=== PATIENT | male | born 1965 | race Caucasian/White ===

== ENCOUNTER 2018-09-16 18:14 | Emergency (ER) | payer MEDICAID, OTHER ==
--- NOTE | 2018-09-16 19:09 | EDM.PDOC ---
ED HPI GENERAL MEDICAL PROBLEM - General Chief Complaint: Lower Extremity Injury/Pain Stated Complaint: UNKNOWN Time Seen by Provider: 09/16/18 18:20 - History of Present Illness INITIAL COMMENTS - FREE TEXT/NARRATIVE: HISTORY AND PHYSICAL: History of present illness: Patient's a 53-year-old white male who presents with concern having "tweaked his knee" he had similar episode in the past and was treated with a short course of steroids and was told was bursitis he is requesting the same he does agree to an x-ray. He is currently on Naprosyn he denies any other trauma or concern Review of systems: As per history of present illness and below otherwise all systems reviewed and negative. Past medical history: As per history of present illness and as reviewed below otherwise noncontributory. Surgical history: As per history of present illness and as reviewed below otherwise noncontributory. Social history: No reported history of drug or alcohol abuse. Family history: As per history of present illness and as reviewed below otherwise noncontributory. Physical exam: HEENT: Atraumatic, normocephalic, pupils reactive, negative for conjunctival pallor or scleral icterus, mucous membranes moist, throat clear, neck supple, nontender, trachea midline. Lungs: Clear to auscultation, breath sounds equal bilaterally, chest nontender. Heart: S1S2, regular, negative for clicks, rubs, or JVD. Abdomen: Soft, nondistended, nontender. Negative for masses or hepatosplenomegaly. Negative for costovertebral tenderness. Pelvis: Stable nontender. Genitourinary: Deferred. Rectal: Deferred. Extremities: Patient is a mild tenderness and small swelling of his right knee joint is grossly stable C muscle neurovascular exam is unremarkable Neuro: Awake, alert, oriented. Cranial nerves II through XII unremarkable. Cerebellum unremarkable. Motor and sensory unremarkable throughout. Exam nonfocal. Diagnostics: X-ray right knee Therapeutics: John wrap Impression: #1 right knee pain/injury Definitive disposition and diagnosis as appropriate pending reevaluation and review of above. Right Knee Pain Score (Numeric/FACES): 10 - Related Data Allergies Allergy/AdvReac Type Severity Reaction Status Date / Time Penicillins Allergy Anaphylactic Verified 09/16/18 18:32 Shock Home Meds: Home Meds Dulaglutide [Trulicity] 1.5 mg SQ ASDIRECTED 02/16/18 [History] Naproxen 500 mg PO DAILY 02/16/18 [History] atorvaSTATin Calcium [Atorvastatin Calcium] 40 mg PO DAILY 02/16/18 [History] metFORMIN HCl [Metformin HCl] 1,000 mg PO BID 02/16/18 [History] Aspirin [Low Dose Aspirin EC] 81 mg PO DAILY 09/16/18 [History] Glimepiride [Amaryl] 2 mg PO DAILY 09/16/18 [History] Losartan Potassium 50 mg PO DAILY 09/16/18 [History] Terbinafine HCl [Lamisil] 250 mg PO DAILY 09/16/18 [History] Past Medical History HEENT History: Reports: Impaired Vision, Other (See Below) Other HEENT History: wears Cardiovascular History: Reports: None Respiratory History: Reports: None Gastrointestinal History: Reports: None Genitourinary History: Reports: None Musculoskeletal History: Reports: None Neurological History: Reports: None Psychiatric History: Reports: None Endocrine/Metabolic History: Reports: None Hematologic History: Reports: None Immunologic History: Reports: None Oncologic (Cancer) History: Reports: None Dermatologic History: Reports: None - Past Surgical History Head Surgeries/Procedures: Reports: None HEENT Surgical History: Reports: None Cardiovascular Surgical History: Reports: None Respiratory Surgical History: Reports: None GI Surgical History: Reports: None Male Surgical History: Reports: None Endocrine Surgical History: Reports: None Neurological Surgical History: Reports: None Musculoskeletal Surgical History: Reports: Other (See Below) Other Musculoskeletal Surgeries/Procedures:: Rotator cuff surgery, knee surgery Oncologic Surgical History: Reports: None Dermatological Surgical History: Reports: None Social & Family History - Family History Family Medical History: Noncontributory - Tobacco Use Smoking Status *Q: Never Smoker - Caffeine Use Caffeine Use: Reports: None - Recreational Drug Use Recreational Drug Use: No Review of Systems - Review of Systems Review Of Systems: ROS reveals no pertinent complaints other than HPI. ED EXAM, GENERAL - Physical Exam Exam: See Below (See dictation) Course - Vital Signs Last Recorded V/S: Last Vital Signs Temp Pulse 78 09/16/18 18:29 Resp 18 09/16/18 18:29 BP 145/77 H 09/16/18 18:29 Pulse Ox 90 L 09/16/18 18:29 - Orders/Labs/Meds Orders: Active Orders 24 hr Category Date Time Status Knee 3V Rt [CR] Stat Exams 09/16/18 19:06 Ordered Departure - Departure Time of Disposition: 19:08 Disposition: Home, Self-Care 01 Condition: Good Clinical Impression: Knee injury - Discharge Information Additional Instructions: The following information is given to patients seen in the emergency department who are being discharged to home. This information is to outline your options for follow-up care. We provide all patients seen in our emergency department with a follow-up referral. The need for follow-up, as well as the timing and circumstances, are variable depending upon the specifics of your emergency department visit. If you don't have a primary care physician on staff, we will provide you with a referral. We always advise you to contact your personal physician following an emergency department visit to inform them of the circumstance of the visit and for follow-up with them and/or the need for any referrals to a consulting specialist. The emergency department will also refer you to a specialist when appropriate. This referral assures that you have the opportunity for followup care with a specialist. All of these measure are taken in an effort to provide you with optimal care, which includes your followup. Under all circumstances we always encourage you to contact your private physician who remains a resource for coordinating your care. When calling for followup care, please make the office aware that this follow-up is from your recent emergency room visit. If for any reason you are refused follow-up, please contact the [facility] emergency department at and asked to speak to the emergency department charge nurse. [facility] - Orthopedic [facility] Professional [address], [address] [place] [address] Continue current medications Medrol as prescribed follow-up orthopedic clinic above call to schedule appointment return as needed as discussed - My Orders Last 24 Hours: My Active Orders 09/16/18 19:06 Knee 3V Rt [CR] Stat - Assessment/Plan Last 24 Hours: My Active Orders 09/16/18 19:06 Knee 3V Rt [CR] Stat
--- NOTE | 2018-09-16 20:03 | CR ---
INDICATION: right knee pain TECHNIQUE: X-ray right knee, two views COMPARISON: None available FINDINGS: The alignment is normal. There are early tricompartmental degenerative changes including minimal joint space narrowing and marginal osteophytes. There is a moderate knee joint effusion. Negative for acute fracture or dislocation. No radiopaque foreign body is seen. IMPRESSION: 1. Moderate knee joint effusion. Negative for acute fracture or dislocation. 2. Early degenerative changes of the knee. Dictated by Mary Damon MD @ 09/16/2018 8:01:05 PM Dictated by: Mary Damon MD @ 09/16/2018 20:01:23 (Electronically Signed)
== END 2018-09-16 19:59 | disposition home or self-care (01) ==
LOC: MW.ED 18:14
DX: S89.91XA Unspecified injury of right lower leg, initial encounter (principal); Z88.0 Allergy status to penicillin; Z79.899 Other long term (current) drug therapy; Z79.82 Long term (current) use of aspirin; X50.9XXA Other and unspecified overexertion or strenuous movements or postures, initial encounter
CPT/HCPCS: 73562-26-RT; 73562-RT; 99283; 99283-25

== ENCOUNTER 2018-11-17 03:01 | Emergency (ER) | payer MEDICAID ==
--- NOTE | 2018-11-17 03:38 | EDM.PDOC ---
ED HPI GENERAL MEDICAL PROBLEM - General Chief Complaint: Upper Extremity Injury/Pain Stated Complaint: POSSIBLE TEAR OF RIGHT SHOULDER/TRICEP AREA Time Seen by Provider: 11/17/18 03:13 - History of Present Illness INITIAL COMMENTS - FREE TEXT/NARRATIVE: HISTORY AND PHYSICAL: History of present illness: The patient is a 53-year-old male with a history of hypertension and diabetes who presents with complaints of right biceps pain that started on Tuesday, approximately 36 hours ago. The patient recalls a time several months ago when he was getting into a vehicle and his footing slipped and he lost his balance and he grabbed onto a real and holding arm and there was some discomfort but not that severe and it seemed to go away. On Tuesday he bent over to pick remover a box and felt sudden pain in his right bicep muscle area. He says that he has been using Naprosyn and icy hot and is still having discomfort and it is more when he tries to flex at his elbow. He has no bony pain or tenderness no neurosensory changes and no other injuries. Patient denies any pain proximally near his shoulder and says all of the pain is in the soft tissue and muscle just above his elbow. Review of systems: As per history of present illness and below otherwise all systems reviewed and negative. Past medical history: As per history of present illness and as reviewed below otherwise noncontributory. Surgical history: As per history of present illness and as reviewed below otherwise noncontributory. Social history: No reported history of drug or alcohol abuse. Family history: As per history of present illness and as reviewed below otherwise noncontributory. Physical exam: General: Well-developed well-nourished man who is nontoxic and vital signs were noted by me HEENT: Atraumatic, normocephalic, negative for conjunctival pallor or scleral icterus, mucous membranes moist, throat clear, neck supple, nontender, trachea midline. Lungs: Clear to auscultation, breath sounds equal bilaterally, chest nontender. Heart: S1S2, regular rate and rhythm no overt murmurs Abdomen: Soft, nondistended, nontender. Pelvis: Deferred Genitourinary: Deferred. Rectal: Deferred. Extremities: Atraumatic, full range of motion of all extremities. More specifically of the right upper extremity there is no bony defects or deformities of the clavicle humerus elbow forearm wrist or hand and there is no tenderness at the proximal shoulder area deltoid area for biceps insertion proximally. The patient has no triceps deficit or tenderness nor any defects deficits in the wrist and hand motion. When the patient flexes at the biceps could see a bawling out of the muscle distally just above the antecubital area and this is where the patient says she is most tender and it is tender with palpation. I'm able to appreciate one of the distal heads of the biceps but not the lateral. There is no ecchymosis or soft tissue swelling in the compartment is soft. Neurovascular unremarkable. Neuro: Awake, alert, oriented. Cranial nerves II through XII unremarkable. Cerebellum unremarkable. Motor and sensory unremarkable throughout. Exam nonfocal. Diagnostics: [] Therapeutics: Sling 0337: Case was discussed with our orthopedic surgeon sewing techniques demonstrator Dr. Almonte. He would like the patient to call the clinic in the morning and follow-up with the nurse practitioner for further evaluation and possible MRI. He advised symptomatic care with pain management ice and elevation. Impression: Right biceps injury Definitive disposition and diagnosis as appropriate pending reevaluation and review of above. right arm Pain Score (Numeric/FACES): 10 - Related Data Allergies Allergy/AdvReac Type Severity Reaction Status Date / Time Penicillins Allergy Anaphylactic Verified 11/17/18 03:06 Shock Home Meds: Home Meds Dulaglutide [Trulicity] 1.5 mg SQ ASDIRECTED 02/16/18 [History] Naproxen 500 mg PO DAILY 02/16/18 [History] atorvaSTATin Calcium [Atorvastatin Calcium] 40 mg PO DAILY 02/16/18 [History] metFORMIN HCl [Metformin HCl] 1,000 mg PO BID 02/16/18 [History] Aspirin [Low Dose Aspirin EC] 81 mg PO DAILY 09/16/18 [History] Glimepiride [Amaryl] 2 mg PO DAILY 09/16/18 [History] Losartan Potassium 50 mg PO DAILY 09/16/18 [History] Terbinafine HCl [Lamisil] 250 mg PO DAILY 09/16/18 [History] Past Medical History HEENT History: Reports: Impaired Vision, Other (See Below) Other HEENT History: wears glasses Cardiovascular History: Reports: Hypertension, [place] Respiratory History: Reports: None Gastrointestinal History: Reports: None Genitourinary History: Reports: None Musculoskeletal History: Reports: None Neurological History: Reports: None Psychiatric History: Reports: None Endocrine/Metabolic History: Reports: Diabetes, Type II, Obesity/BMI 30+ Hematologic History: Reports: None Immunologic History: Reports: None Oncologic (Cancer) History: Reports: None Dermatologic History: Reports: None - Past Surgical History Head Surgeries/Procedures: Reports: None HEENT Surgical History: Reports: None Cardiovascular Surgical History: Reports: None Respiratory Surgical History: Reports: None GI Surgical History: Reports: None Male Surgical History: Reports: None Endocrine Surgical History: Reports: None Neurological Surgical History: Reports: None Musculoskeletal Surgical History: Reports: Other (See Below) Other Musculoskeletal Surgeries/Procedures:: Rotator cuff surgery, knee surgery Oncologic Surgical History: Reports: None Dermatological Surgical History: Reports: None Social & Family History - Family History Family Medical History: Noncontributory - Tobacco Use Smoking Status *Q: Never Smoker - Caffeine Use Caffeine Use: Reports: None - Recreational Drug Use Recreational Drug Use: No Review of Systems - Review of Systems Review Of Systems: ROS reveals no pertinent complaints other than HPI. ED EXAM, GENERAL - Physical Exam Exam: See Below (See dictation) Course - Vital Signs Last Recorded V/S: Last Vital Signs Temp 35.8 C 11/17/18 03:03 Pulse 78 11/17/18 03:03 Resp 18 11/17/18 03:03 BP 162/89 H 11/17/18 03:03 Pulse Ox 90 L 11/17/18 03:03 - Orders/Labs/Meds Orders: Active Orders 24 hr Category Date Time Status DME for Discharge [COMM] Stat Oth 11/17/18 03:34 Ordered Departure - Departure Time of Disposition: 03:47 Disposition: Home, Self-Care 01 Condition: Good Clinical Impression: Biceps muscle tear Qualifiers: Encounter type: initial encounter Laterality: right Qualified Code(s): S46.211A - Strain of muscle, fascia and tendon of other parts of biceps, right arm, initial encounter - Discharge Information Referrals: PCP,None [Primary Care Provider] - Forms: ED Department Discharge Additional Instructions: The following information is given to patients seen in the emergency department who are being discharged to home. This information is to outline your options for follow-up care. We provide all patients seen in our emergency department with a follow-up referral. The need for follow-up, as well as the timing and circumstances, are variable depending upon the specifics of your emergency department visit. If you don't have a primary care physician on staff, we will provide you with a referral. We always advise you to contact your personal physician following an emergency department visit to inform them of the circumstance of the visit and for follow-up with them and/or the need for any referrals to a consulting specialist. The emergency department will also refer you to a specialist when appropriate. This referral assures that you have the opportunity for followup care with a specialist. All of these measure are taken in an effort to provide you with optimal care, which includes your followup. Under all circumstances we always encourage you to contact your private physician who remains a resource for coordinating your care. When calling for followup care, please make the office aware that this follow-up is from your recent emergency room visit. If for any reason you are refused follow-up, please contact the [facility] emergency department at and ask to speak to the emergency department charge nurse. [facility] Specialty Care - Orthopedic Clinic Professional [address], [address] [place] [address] Please call the clinic in the morning and connect with the nurse practitioner for the orthopedics clinic to follow-up and get reevaluation and possible MRI of this area for further care and intervention. Ice the area and use sling removing and gently ranging motion of the arm both passively and actively. Use [id number] pain meds as you choose and at the tramadol/Ultram you have been given from [facility] but only take this at home. Return to ER as needed and as discussed - My Orders Last 24 Hours: My Active Orders 11/17/18 03:34 DME for Discharge [COMM] Stat - Assessment/Plan Last 24 Hours: My Active Orders 11/17/18 03:34 DME for Discharge [COMM] Stat
== END 2018-11-17 04:15 | disposition home or self-care (01) ==
LOC: MW.ED 03:01
DX: S46.211A Strain of muscle, fascia and tendon of other parts of biceps, right arm, initial encounter (principal); E11.9 Type 2 diabetes mellitus without complications; I10 Essential (primary) hypertension; I25.2 Old myocardial infarction; E66.9 Obesity, unspecified; Z88.0 Allergy status to penicillin; Z68.43 Body mass index [BMI] 50.0-59.9, adult; Z79.82 Long term (current) use of aspirin; Z79.899 Other long term (current) drug therapy; Z79.84 Long term (current) use of oral hypoglycemic drugs; W18.40XA Slipping, tripping and stumbling without falling, unspecified, initial encounter; Y93.89 Activity, other specified
CPT/HCPCS: 99283

== ENCOUNTER 2019-02-02 08:17 | Emergency (ER) | payer MEDICAID, OTHER ==
--- NOTE | 2019-02-02 08:40 | EDM.PDOC ---
ED HPI GENERAL MEDICAL PROBLEM - General Chief Complaint: Lower Extremity Injury/Pain Stated Complaint: KNEE PAIN Time Seen by Provider: 02/02/19 08:30 Source of Information: Reports: Patient History Limitations: Reports: No Limitations - History of Present Illness INITIAL COMMENTS - FREE TEXT/NARRATIVE: This 53 year old male presents to the ED with a chief complaint of right knee pain for several years. He states that he has had 3 right knee surgeries. His last knee surgery was done in [place], [place] in May,. Onset: Gradual (3-4 weeks but is getting somewhat worse.) Onset Date: 01/03/19 Onset Time: 04:20 Duration: Chronic, Intermittent Location: Reports: Lower Extremity, Right Quality: Reports: Same as Previous Episode (but somewhat more sharp with pain along the medial aspects.) Severity: Moderate Improves with: Reports: Immobilization, Rest Worsens with: Reports: Movement Context: Reports: Activity (makes it worse) Associated Symptoms: Reports: No Other Symptoms Treatments SKIRT MAKER: Reports: NSAIDS (helps sometimes but not now.) Lower Knee Pain Score (Numeric/FACES): 7 Right Knee Pain Score (Numeric/FACES): 10 - Related Data Allergies Allergy/AdvReac Type Severity Reaction Status Date / Time Penicillins Allergy Anaphylactic Verified 02/02/19 08:36 Shock Home Meds: Home Meds Dulaglutide [Trulicity] 1.5 mg SQ ASDIRECTED 02/16/18 [History] Naproxen 500 mg PO DAILY 02/16/18 [History] atorvaSTATin Calcium [Atorvastatin Calcium] 40 mg PO DAILY 02/16/18 [History] metFORMIN HCl [Metformin HCl] 1,000 mg PO BID 02/16/18 [History] Aspirin [Low Dose Aspirin EC] 81 mg PO DAILY 09/16/18 [History] Glimepiride [Amaryl] 2 mg PO DAILY 09/16/18 [History] Losartan Potassium 50 mg PO DAILY 09/16/18 [History] Terbinafine HCl [Lamisil] 250 mg PO DAILY 09/16/18 [History] Hydrocodone/Acetaminophen [Richgrove 5-325 Tablet] 1 each PO Q6HR #15 tablet [Rx] Past Medical History HEENT History: Reports: Impaired Vision, Other (See Below) Other HEENT History: wears glasses Cardiovascular History: Reports: Hypertension, [place] Respiratory History: Reports: None Gastrointestinal History: Reports: None Genitourinary History: Reports: None Musculoskeletal History: Reports: None Neurological History: Reports: None Psychiatric History: Reports: None Endocrine/Metabolic History: Reports: Diabetes, Type II, Obesity/BMI 30+ Hematologic History: Reports: None Immunologic History: Reports: None Oncologic (Cancer) History: Reports: None Dermatologic History: Reports: None - Past Surgical History Head Surgeries/Procedures: Reports: None HEENT Surgical History: Reports: None Cardiovascular Surgical History: Reports: None Respiratory Surgical History: Reports: None GI Surgical History: Reports: None Male Surgical History: Reports: None Endocrine Surgical History: Reports: None Neurological Surgical History: Reports: None Musculoskeletal Surgical History: Reports: Other (See Below) Other Musculoskeletal Surgeries/Procedures:: Rotator cuff surgery, knee surgery Oncologic Surgical History: Reports: None Dermatological Surgical History: Reports: None Social & Family History - Family History Family Medical History: Noncontributory - Caffeine Use Caffeine Use: Reports: None Review of Systems - Review of Systems Review Of Systems: Comprehensive ROS is negative, except as noted in HPI. Constitutional: Reports: No Symptoms Eyes: Reports: No Symptoms Ears: Reports: No Symptoms Nose: Reports: No Symptoms Mouth/Throat: Reports: No Symptoms Respiratory: Reports: No Symptoms Cardiovascular: Reports: No Symptoms GI/Abdominal: Reports: No Symptoms (except for morbid obesity) Genitourinary: Reports: No Symptoms Musculoskeletal: Reports: Joint Pain (right knee pain with swelling. History of chronic right knee issues.) Skin: Reports: No Symptoms Neurological: Reports: No Symptoms Psychiatric: Reports: No Symptoms ED EXAM, GENERAL - Physical Exam Exam: See Below Exam Limited By: No Limitations General Appearance: Alert, WD/WN, No Apparent Distress Eye Exam: Bilateral Eye: Normal Fundi, Normal Inspection Ears: Normal External Exam, Normal Canal, Hearing Grossly Normal, Normal TMs Ear Exam: Bilateral Ear: Auricle Normal, Canal Normal, TM normal Nose: Normal Inspection, Normal Mucosa, No Blood Throat/Mouth: Normal Inspection, Normal Lips, Normal Teeth, Normal Gums, Normal Oropharynx, Normal Voice, No Airway Compromise Head: Atraumatic, Normocephalic Neck: Normal Inspection, Supple, Non-Tender, Full Range of Motion Respiratory/Chest: No Respiratory Distress, Lungs Clear, Normal Breath Sounds, No Accessory Muscle Use, Chest Non-Tender Cardiovascular: Normal Peripheral Pulses, Regular Rate, Rhythm, No Edema, No Gallop, Systolic Murmur (grade 2/6 best heard at the apex) Peripheral Pulses: 1+: Popliteal (L), Popliteal (R), Posterior Tibial (L), 2+: Brachial (L), Brachial (R), Radial (R), Posterior Tibial (R), 3+: Carotid (L), Carotid (R), Radial (L), Femoral (L), Femoral (R) GI/Abdominal: Normal Bowel Sounds, Soft, Non-Tender, No Organomegaly, No Distention, Other (morbid obesity) Back Exam: Normal Inspection, Full Range of Motion, NT Extremities: Joint Swelling (Right knee is swollen with tenderness along the medial aspects of the right knee.), Limited Range of Motion (Right knee in all planes.). No: Increased Warmth, Pallor, Redness Neurological: Alert, Oriented, CN II-XII Intact, Normal Cognition, Normal Gait, Normal Reflexes, No Motor/Sensory Deficits Psychiatric: Normal Affect, Normal Mood Skin Exam: Warm, Dry, Intact, Normal Color, No Rash Lymphatic: No Adenopathy Course - Vital Signs Last Recorded V/S: Last Vital Signs Temp 96.2 F 02/02/19 08:33 Pulse 88 02/02/19 08:33 Resp 18 02/02/19 08:33 BP 192/106 H 02/02/19 08:33 Pulse Ox 96 02/02/19 08:33 - Orders/Labs/Meds Meds: Medications Discontinued Medications Generic Name Dose Route Start Last Admin Trade Name Curtq PRN Reason Stop Dose Admin Hydrocodone Bitart/Acetaminophen 1 tab 02/02/19 09:13 02/02/19 09:26 Richgrove 325-5 Mg PO 02/02/19 09:14 1 tab ONETIME ONE Administration Departure - Departure Time of Disposition: 09:53 Disposition: Home, Self-Care 01 Condition: Good Clinical Impression: Chronic knee pain Qualifiers: Laterality: right Qualified Code(s): M25.561 - Pain in right knee - Discharge Information *PRESCRIPTION DRUG MONITORING PROGRAM REVIEWED*: Yes *COPY OF PRESCRIPTION DRUG MONITORING REPORT IN PATIENT CECILIA: Yes Prescriptions: Hydrocodone/Acetaminophen [Richgrove 5-325 Tablet] 1 each PO Q6HR #15 tablet Instructions: Knee Pain, Adult, Pain Medicine Instructions, [id number] Referrals: Gabriela Taylor NP [Primary Care Provider] - Forms: ED Department Discharge Additional Instructions: Take all medications as directed. Only take Richgrove for severe pain. Take your OTC medications for mild to moderate pain. Heat and elevation for the next two to three days. Follow up with your local Ortho in the next week. Return to the ED if your condition gets worse. Sepsis Event Note - Focused Exam Vital Signs: Vital Signs Temp Pulse Resp BP Pulse Ox 02/02/19 08:33 96.2 F 88 18 192/106 H 96 Date Exam was Performed: 02/02/19 Time Exam was Performed: 10:07
[2019-02-02] MEDS ORDERED: Acetaminophen/HYDROcodone 325-5 MG Tab PO ONE (09:13)
--- NOTE | 2019-02-02 09:34 | CR ---
Indication: Knee pain. Technique: Right knee 3 views Comparison: Right knee radiograph 09/16/2018. Findings: No acute fracture or dislocation. Mild medial compartment narrowing. Mild tricompartmental spurring. Small knee joint effusion. Soft tissues are unremarkable. Impression: 1. No acute findings. 2. Mild degenerative changes of the knee. 3. Small knee joint effusion. Dictated by Renetta Barksdale MD @ Feb 02 2019 9:28AM Signed by Dr. Renetta Barksdale @ Feb 02 2019 9:33AM
== END 2019-02-02 10:28 | disposition home or self-care (01) ==
LOC: MW.ED 08:17
DX: M25.561 Pain in right knee (principal); I10 Essential (primary) hypertension; E11.9 Type 2 diabetes mellitus without complications; I25.2 Old myocardial infarction; Z88.0 Allergy status to penicillin; Z79.899 Other long term (current) drug therapy; Z79.82 Long term (current) use of aspirin
CPT/HCPCS: 73562; 99283; A9270

== ENCOUNTER 2019-04-27 19:23 | Emergency (ER) | payer MEDICAID, OTHER ==
--- NOTE | 2019-04-27 22:28 | EDM.PDOC ---
ED HPI GENERAL MEDICAL PROBLEM - General Chief Complaint: Lower Extremity Injury/Pain Stated Complaint: LEFT LEG PAIN Time Seen by Provider: 04/27/19 19:45 Source of Information: Reports: Patient History Limitations: Reports: No Limitations - History of Present Illness INITIAL COMMENTS - FREE TEXT/NARRATIVE: Presents with 5 or 6 days of increasing left lower extremity swelling and some occasional aching pain, mild the pain does not seem to be behind the leg in the calf. His chief concern is just the swelling. He is due for a right knee replacement soon so has been favoring his left leg. He suspects this is part of the problem. Is also some redness. He denies any shortness of breath fever , chills, nausea, vomiting, chest pain, shortness of breath, history of DVT or PE. Patient does not take Lasix. No history of kidney disease. L leg Pain Score (Numeric/FACES): 4 - Related Data Allergies Allergy/AdvReac Type Severity Reaction Status Date / Time Penicillins Allergy Anaphylactic Verified 02/02/19 08:36 Shock Home Meds: Home Meds Dulaglutide [Trulicity] 1.5 mg SQ ASDIRECTED 02/16/18 [History] Naproxen 500 mg PO DAILY 02/16/18 [History] atorvaSTATin Calcium [Atorvastatin Calcium] 40 mg PO DAILY 02/16/18 [History] metFORMIN HCl [Metformin HCl] 1,000 mg PO BID 02/16/18 [History] Aspirin [Low Dose Aspirin EC] 81 mg PO DAILY 09/16/18 [History] Glimepiride [Amaryl] 2 mg PO DAILY 09/16/18 [History] Losartan Potassium 50 mg PO DAILY 09/16/18 [History] Doxycycline Monohydrate 100 mg PO BID 7 Days #14 capsule 04/28/19 [Rx] Past Medical History HEENT History: Reports: Impaired Vision, Other (See Below) Other HEENT History: wears glasses Cardiovascular History: Reports: Hypertension, [place] Respiratory History: Reports: None Gastrointestinal History: Reports: None Genitourinary History: Reports: None Musculoskeletal History: Reports: None Neurological History: Reports: None Psychiatric History: Reports: None Endocrine/Metabolic History: Reports: Diabetes, Type II, Obesity/BMI 30+ Hematologic History: Reports: None Immunologic History: Reports: None Oncologic (Cancer) History: Reports: None Dermatologic History: Reports: None - Infectious Disease History Infectious Disease History: Reports: Chicken Pox, Measles, Shingles - Past Surgical History Head Surgeries/Procedures: Reports: None HEENT Surgical History: Reports: None Cardiovascular Surgical History: Reports: None Respiratory Surgical History: Reports: None GI Surgical History: Reports: None Male Surgical History: Reports: None Endocrine Surgical History: Reports: None Neurological Surgical History: Reports: None Musculoskeletal Surgical History: Reports: Other (See Below) Other Musculoskeletal Surgeries/Procedures:: Rotator cuff surgery, knee surgery Oncologic Surgical History: Reports: None Dermatological Surgical History: Reports: None Social & Family History - Family History Family Medical History: Noncontributory - Tobacco Use Smoking Status *Q: Never Smoker - Caffeine Use Caffeine Use: Reports: None - Recreational Drug Use Recreational Drug Use: No Review of Systems - Review of Systems Review Of Systems: Comprehensive ROS is negative, except as noted in HPI. ED EXAM, GENERAL - Physical Exam Exam: See Below Free Text/Narrative:: General: No acute distress. Comfortable. Heent: Examination revealed no pallor, no icterus, no lymphadenopathy. The patient has normal posterior pharynx, moist mucous membranes. Neck: Supple. No JVD. No rigidity. Heart: Normal rate. Reg rhythm. No murmurs appreciated. Lungs: Bilaterally clear to auscultation. No focal findings. Abdomen: Nontender, non-distended, soft, no CVA tenderness. Neuro: Pt is moving all four extremities. EOMI. PERRL. Normal speech. Skin: Exposed areas appeared normally perfused, warm, normal color with no meaningful rashes or lesions. Extremities: Left lower extremity is fullness below the knee. There is some tense skin. Mild erythema. Small abrasion medial component. Excellent distal pulses. Excellent range of motion. No tense compartments. Overall somewhat tense. Exam Limited By: No Limitations Course - Vital Signs Text/Narrative:: No evidence of DVT. Possible very early cellulitis. Home with several days of Keflex. Follow-up primary care return with any worsening. Last Recorded V/S: Last Vital Signs Temp 96.9 F 04/28/19 00:25 Pulse 102 H 04/28/19 00:25 Resp 19 04/28/19 00:25 BP 144/81 H 04/28/19 00:25 Pulse Ox 94 L 04/28/19 00:25 - Orders/Labs/Meds Meds: Medications Discontinued Medications Generic Name Dose Route Start Last Admin Trade Name Mariana PRN Reason Stop Dose Admin Furosemide 20 mg 04/27/19 22:29 04/27/19 22:50 Lasix PO 04/27/19 22:30 20 mg ONETIME ONE Administration Departure - Departure Time of Disposition: 00:09 Disposition: Home, Self-Care 01 Condition: Good Clinical Impression: Leg swelling - Discharge Information Prescriptions: Doxycycline Monohydrate 100 mg PO BID 7 Days #14 capsule Instructions: Edema, [id number] Referrals: PCP,None [Primary Care Provider] - Forms: ED Department Discharge Additional Instructions: Take antibiotics as directed. Follow-up with your primary care provider to discuss your left lower extremity swelling or you could also talk to your orthopod about this as well. Return to emergency with any new or troubling symptoms. The following information is given to patients seen in the emergency department who are being discharged to home. This information is to outline your options for follow-up care. We provide all patients seen in our emergency department with a follow-up referral. The need for follow-up, as well as the timing and circumstances, are variable depending upon the specifics of your emergency department visit. If you don't have a primary care physician on staff, we will provide you with a referral. We always advise you to contact your personal physician following an emergency department visit to inform them of the circumstance of the visit and for follow-up with them and/or the need for any referrals to a consulting specialist. The emergency department will also refer you to a specialist when appropriate. This referral assures that you have the opportunity for follow-up care with a specialist. All of these measure are taken in an effort to provide you with optimal care, which includes your follow-up. Under all circumstances we always encourage you to contact your private physician who remains a resource for coordinating your care. When calling for follow-up care, please make the office aware that this follow-up is from your recent emergency room visit. If for any reason you are refused follow-up, please contact the [facility] Emergency Department at and asked to speak to the emergency department charge nurse. Sepsis Event Note - Evaluation Sepsis Screening Result: No Definite Risk - Focused Exam Vital Signs: Vital Signs Temp Pulse Resp BP Pulse Ox 04/28/19 00:25 96.9 F 102 H 19 144/81 H 94 L 04/27/19 22:48 79 19 168/83 H 92 L 04/27/19 20:00 98.2 F 85 20 152/95 H 92 L Date Exam was Performed: 04/28/19 Time Exam was Performed: 05:49
[2019-04-27] MEDS ORDERED: Furosemide 20 MG Tab PO ONE (22:29)
--- NOTE | 2019-04-28 00:01 | US ---
INDICATION: Leg swelling TECHNIQUE: Ultrasound venous duplex lower left extremity. Compression venous exam was performed using hannah-scale, color Doppler, and spectral Doppler analysis. COMPARISON: None FINDINGS: Sonographic imaging demonstrates the left common femoral, proximal mid superficial femoral popliteal, posterior tibial and greater saphenous and the contralateral right common femoral veins to be fully compressible with normal color Doppler blood flow. The distal superficial femoral vein is not visualized. The peroneal veins are not visualized. IMPRESSION: Normal left lower extremity venous ultrasound, no sign of deep venous thrombosis. The distal superficial femoral and peroneal veins are not visualized. Dictated by Saleem Palafox MD @ 04/27/2019 11:59:24 PM Dictated by: Saleem Palafox MD @ 04/27/2019 23:59:35 (Electronically Signed)
== END 2019-04-28 00:26 | disposition home or self-care (01) ==
LOC: MW.ED 19:23
DX: M79.89 Other specified soft tissue disorders (principal); I10 Essential (primary) hypertension; I25.2 Old myocardial infarction; E11.9 Type 2 diabetes mellitus without complications; E66.9 Obesity, unspecified; Z88.0 Allergy status to penicillin; Z79.82 Long term (current) use of aspirin; Z79.84 Long term (current) use of oral hypoglycemic drugs; Z79.899 Other long term (current) drug therapy; Z68.42 Body mass index [BMI] 45.0-49.9, adult
CPT/HCPCS: 93971; 99283; A9270

== ENCOUNTER 2019-05-17 10:43 | Emergency (ER) | payer MEDICAID, OTHER ==
--- NOTE | 2019-05-17 10:58 | EDM.PDOC ---
ED HPI GENERAL MEDICAL PROBLEM - General Chief Complaint: Respiratory Problem Stated Complaint: CHILLS/COUGHING Time Seen by Provider: 05/17/19 10:45 Source of Information: Reports: Patient History Limitations: Reports: No Limitations - History of Present Illness INITIAL COMMENTS - FREE TEXT/NARRATIVE: HISTORY AND PHYSICAL: History of present illness: Patient is a 60-year-old male who presents to the emergency room with complaints of chills, subjective fever, shortness of breath and cough x2 days. He states 3 days ago he was in [place] for an orthopedic appointment for his right shoulder. He is concerned as this is a "hot spot" for state for the COVID -19. He did have some interaction with people there as he had to stop for gas and check in and out of the doctors office. When he returned home he noticed feeling generally fatigued and having subjective fever and chills. Yesterday started having some shortness of breath and cough x2 days. He states he does have some shortness of breath as he is "overweight". This morning woke up with an episode of diarrhea which seems to have subsided since taking Imodium. He did call the hotline who recommended he come in and be evaluated for COVID-19. Patient denies any headache, change in vision, syncope or near syncope. Denies any chest pain, back pain, or neck pain/stiffness. Denies any abdominal pain, nausea, vomiting, constipation or dysuria. Patient has been eating and drinking appropriately. Review of systems: As per history of present illness and below otherwise all systems reviewed and negative. Past medical history: As per history of present illness and as reviewed below otherwise noncontributory. Surgical history: As per history of present illness and as reviewed below otherwise noncontributory. Social history: See social history for further information Family history: As per history of present illness and as reviewed below otherwise noncontributory. Physical exam: General: Well developed and well-nourished 53-year-old male. Alert and oriented. Nontoxic-appearing and in no acute distress. HEENT: Atraumatic, normocephalic, pupils equal and reactive bilaterally, negative for conjunctival pallor or scleral icterus, mucous membranes moist, TMs normal bilaterally, throat clear, neck supple, nontender, trachea midline. No drooling or trismus noted. No meningeal signs. No hot potato voice noted. Lungs: Slightly diminished throughout otherwise clear, breath sounds equal bilaterally, chest nontender. Heart: S1S2, regular rate and rhythm without overt murmur Abdomen: Soft, base, nontender. Negative for masses or costovertebral tenderness. Skin: Intact, warm, dry. No lesions or rashes noted. Extremities: Atraumatic, moves all extremities per self without difficulty or deficits, negative for cords or calf pain. Neurovascular unremarkable. Neuro: Awake, alert, oriented. Cranial nerves II through XII unremarkable. Cerebellum unremarkable. Motor and sensory unremarkable throughout. Exam nonfocal. Notes: Since oxygen saturation ranges between 88 and 90% on room air. He states this is somewhat normal for him as he is "overweight". Chest x-ray is unremarkable along with the influenza screening. He states that his oxygen saturation typically runs low and he is not concerned about it at this time. He declines wanting this further evaluated and does not want to be admitted. COIVD precautions were reviewed. Medication and supportive care measures were reviewed and discussed. Voices understanding and is agreeable to plan of care. Denies any further questions or concerns at this time. Diagnostics: Influenza, chest x-ray, COVID-19 Therapeutics: None Prescription: Medrol Dosepak Albuterol Inhaler Impression: Viral URI Plan: 1. Take the medications that were prescribed as directed. We did test you for COVID-19. Self quarantine and STAY HOME UNTIL RESULTS have returned. These can take 2-4 days to come back. We will call you with these results as they come back. Continue to monitor your symptoms. For further questions related to the COVID-19, the public can call the [facility] hotline at from 7am - 7pm Tuesday - Tuesday. 2. Good handwashing (at least 20 seconds) and frequently. Contact precautions such as coughing into your elbow, etc... 3. You can alternate Tylenol and ibuprofen as needed for pain and fever management. 3. Please follow-up with your primary care provider as we discussed. Return to the ED as needed and as discussed. Definitive disposition and diagnosis as appropriate pending reevaluation and review of above. - Related Data Allergies Allergy/AdvReac Type Severity Reaction Status Date / Time Penicillins Allergy Anaphylactic Verified 02/02/19 08:36 Shock Home Meds: Home Meds Dulaglutide [Trulicity] 1.5 mg SQ ASDIRECTED 02/16/18 [History] Naproxen 500 mg PO DAILY 02/16/18 [History] atorvaSTATin Calcium [Atorvastatin Calcium] 40 mg PO DAILY 02/16/18 [History] metFORMIN HCl [Metformin HCl] 1,000 mg PO BID 02/16/18 [History] Aspirin [Low Dose Aspirin EC] 81 mg PO DAILY 09/16/18 [History] Glimepiride [Amaryl] 2 mg PO DAILY 09/16/18 [History] Losartan Potassium 50 mg PO DAILY 09/16/18 [History] Past Medical History HEENT History: Reports: Impaired Vision, Other (See Below) Other HEENT History: wears glasses Cardiovascular History: Reports: Hypertension, [place] Respiratory History: Reports: None Gastrointestinal History: Reports: None Genitourinary History: Reports: None Musculoskeletal History: Reports: None Neurological History: Reports: None Psychiatric History: Reports: None Endocrine/Metabolic History: Reports: Diabetes, Type II, Obesity/BMI 30+ Hematologic History: Reports: None Immunologic History: Reports: None Oncologic (Cancer) History: Reports: None Dermatologic History: Reports: None - Infectious Disease History Infectious Disease History: Reports: Chicken Pox, Measles, Shingles - Past Surgical History Head Surgeries/Procedures: Reports: None HEENT Surgical History: Reports: None Cardiovascular Surgical History: Reports: None Respiratory Surgical History: Reports: None GI Surgical History: Reports: None Male Surgical History: Reports: None Endocrine Surgical History: Reports: None Neurological Surgical History: Reports: None Musculoskeletal Surgical History: Reports: Other (See Below) Other Musculoskeletal Surgeries/Procedures:: Rotator cuff surgery, knee surgery Oncologic Surgical History: Reports: None Dermatological Surgical History: Reports: None Social & Family History - Family History Family Medical History: Noncontributory - Caffeine Use Caffeine Use: Reports: None ED ROS GENERAL - Review of Systems Review Of Systems: Comprehensive ROS is negative, except as noted in HPI. ED EXAM, GENERAL - Physical Exam Exam: See Below (See dictation) Course - Vital Signs Last Recorded V/S: Last Vital Signs Temp 97.7 F 05/17/19 11:01 Pulse 79 05/17/19 11:01 Resp 19 05/17/19 11:01 BP 148/88 H 05/17/19 11:01 Pulse Ox 89 L 05/17/19 11:01 - Orders/Labs/Meds Orders: Active Orders 24 hr Category Date Time Status CORONAVIRUS COVID-19 PCR PHL [MREF] Stat Lab 05/17/19 11:37 Received Isolation [COMM] Routine Oth 05/17/19 11:07 Active Departure - Departure Time of Disposition: 12:29 Disposition: Home, Self-Care 01 Clinical Impression: Viral URI - Discharge Information Instructions: Viral Respiratory Infection, [id number] Referrals: PCP,None [Primary Care Provider] - Forms: ED Department Discharge Additional Instructions: The following information is given to patients seen in the emergency department who are being discharged to home. This information is to outline your options for follow-up care. We provide all patients seen in our emergency department with a follow-up referral. The need for follow-up, as well as the timing and circumstances, are variable depending upon the specifics of your emergency department visit. If you don't have a primary care physician on staff, we will provide you with a referral. We always advise you to contact your personal physician following an emergency department visit to inform them of the circumstance of the visit and for follow-up with them and/or the need for any referrals to a consulting specialist. The emergency department will also refer you to a specialist when appropriate. This referral assures that you have the opportunity for follow-up care with a specialist. All of these measure are taken in an effort to provide you with optimal care, which includes your follow-up. Under all circumstances we always encourage you to contact your private physician who remains a resource for coordinating your care. When calling for follow-up care, please make the office aware that this follow-up is from your recent emergency room visit. If for any reason you are refused follow-up, please contact the [facility] Emergency Department at and asked to speak to the emergency department charge nurse. [facility] [address] [place] [id number] [id number] 1. Take the medications that were prescribed as directed. We did test you for COVID-19. Self quarantine and STAY HOME UNTIL RESULTS have returned. These can take 2-4 days to come back. We will call you with these results as they come back. Continue to monitor your symptoms. For further questions related to the COVID-19, the public can call the [facility] hotline at from 7am - 7pm Tuesday - Tuesday. 2. Good handwashing (at least 20 seconds) and frequently. Contact precautions such as coughing into your elbow, etc... 3. You can alternate Tylenol and ibuprofen as needed for pain and fever management. Sepsis Event Note - Focused Exam Vital Signs: Vital Signs Temp Pulse Resp BP Pulse Ox 05/17/19 11:01 97.7 F 79 19 148/88 H 89 L Date Exam was Performed: 05/17/19 Time Exam was Performed: 12:28 - My Orders Last 24 Hours: My Active Orders 05/17/19 11:07 Isolation [COMM] Routine 05/17/19 11:37 CORONAVIRUS COVID-19 PCR PHL [MREF] Stat - Assessment/Plan Last 24 Hours: My Active Orders 05/17/19 11:07 Isolation [COMM] Routine 05/17/19 11:37 CORONAVIRUS COVID-19 PCR PHL [MREF] Stat
--- NOTE | 2019-05-17 11:55 | CR ---
Chest: 2 views of the chest were obtained. Comparison: Previous chest x-ray of 02/16/18. Heart size at the upper limits of normal. Tortuous thoracic aorta is seen. Lungs show no acute parenchymal change. Bony structure shows mild degenerative change within the spine. Impression: 1. Findings as noted above. 2. Nothing acute is appreciated. Diagnostic code #2 Study was dictated in MDT
== END 2019-05-17 13:01 | disposition home or self-care (01) ==
LOC: MW.ED 10:43
DX: J06.9 Acute upper respiratory infection, unspecified (principal); I10 Essential (primary) hypertension; I25.2 Old myocardial infarction; Z88.0 Allergy status to penicillin; Z79.82 Long term (current) use of aspirin; Z20.828 Contact with and (suspected) exposure to other viral communicable diseases
CPT/HCPCS: 71046; 71046-26; 87804; 99283; 99285-25; U0002

== ENCOUNTER 2019-11-28 00:19 | Emergency (ER) | payer MEDICAID, OTHER ==
[2019-11-28] MEDS ORDERED: Bacitracin Oint 1 GM U/D Packet TOP ONE (01:48)
--- NOTE | 2019-11-28 01:56 | EDM.PDOC ---
ED HPI GENERAL MEDICAL PROBLEM - General Chief Complaint: Lower Extremity Injury/Pain Stated Complaint: RIGHT FOOT BIG TOE (NAIL) IS RIPPING OFF Time Seen by Provider: 11/28/19 01:27 - History of Present Illness INITIAL COMMENTS - FREE TEXT/NARRATIVE: HISTORY AND PHYSICAL: History of present illness: This is a 54-year-old diabetic who presents to the ER today secondary to near complete avulsion of his right big toe nail that occurred while he was trying to don his socks today. Patient reports that he is generalized pain and discomfort and is requesting that we remove the toenail. Patient reports that he has had a fungal infection in that toe and is been treated with antifungal without any improvement. Patient reports that the toe is significantly keratotic and infected he gets caught on his socks frequently. Patient denies any other symptomatology. Review of systems: As per history of present illness and below otherwise all systems reviewed and negative. Past medical history: As per history of present illness and as reviewed below otherwise noncontributory. Surgical history: As per history of present illness and as reviewed below otherwise noncontributory. Social history: No reported history of drug or alcohol abuse. Family history: As per history of present illness and as reviewed below otherwise noncontributory. Physical exam: Constitutional: Patient is oriented to person, place, and time. Appears well- developed and well-nourished. No distress. HEENT: Moist mucous membranes Head: Normocephalic and atraumatic Eyes: Right eye exhibits no discharge. Left eye exhibits no discharge. No scleral icterus Neck: Normal range of motion. No tracheal deviation present. Cardiovascular: Normal rate and regular rhythm. Pulmonary: Effort normal, no respiratory distress. Abdominal: No distention Musculoskeletal: Normal range of motion Neurologic: Alert and oriented to person, place and time. Skin: [place], warm and dry. Psychiatric: Normal mood and affect. Behavior is normal. Judgment and thought content normal. Nursing note and vital signs have been reviewed Patient is ER physical exam is significant for an extremely keratotic right big toe that has been almost completely avulsed off . Patient reports he has a lot of pain discomfort secondary to his toenail catching on socks and his shoe. Assessment and plan: 54-year-old diabetic with complaint of near complete avulsion of his right big toenail. Patient is requesting that I assist him with complete removal of his toenail. I have discussed with the patient my concern regarding removal of his toenail and the risk for infection especially with his history of diabetes. Patient understands these risks and is still requesting that I remove the big toe. Patient reports that he follows closely with his primary care physician for foot care but has never seen a ticket dispatcher. Procedure: Utilizing blunt dissection with scissors and forceps, the remainder of the right big toenail was removed without any difficulty. No significant blood loss was achieved. Patient will be started on Keflex 500 p.o. 4 times daily x7 days to assist with prevention of infection. Patient has been instructed to follow-up with his doctor in 1 to 2 days for reevaluation. Patient will be given a referral to see Dr. Chacko our ticket dispatcher. Reassessment at the time of disposition demonstrates that the patient is in no acute distress. The patient has remained stable throughout the entire ED visit and is without objective evidence for acute process requiring urgent intervention or hospitalization. The patient is stable for discharge, counseling is provided as documented above, discussed symptomatic treatment and specific conditions for return. I have spoken with the patient/caregiver and discussed todays findings, in addition to providing specific details for the plan of care. Questions are answered and there is agreement with the plan. Definitive disposition and diagnosis as appropriate pending reevaluation and review of above. - Related Data Allergies Allergy/AdvReac Type Severity Reaction Status Date / Time Penicillins Allergy Anaphylactic Verified 02/02/19 08:36 Shock Home Meds: Home Meds atorvaSTATin Calcium [Atorvastatin Calcium] 40 mg PO DAILY 02/16/18 [History] metFORMIN HCl [Metformin HCl] 1,000 mg PO BID 02/16/18 [History] Aspirin [Low Dose Aspirin EC] 81 mg PO DAILY 09/16/18 [History] Losartan Potassium 50 mg PO DAILY 09/16/18 [History] cephALEXin [Keflex] 500 mg PO QID #40 capsule 11/28/19 [Rx] Past Medical History HEENT History: Reports: Impaired Vision, Other (See Below) Other HEENT History: wears glasses Cardiovascular History: Reports: Hypertension Respiratory History: Reports: None Gastrointestinal History: Reports: None Genitourinary History: Reports: None Musculoskeletal History: Reports: None Neurological History: Reports: None Psychiatric History: Reports: None Endocrine/Metabolic History: Reports: Diabetes, Type II, Obesity/BMI 30+ Hematologic History: Reports: None Immunologic History: Reports: None Oncologic (Cancer) History: Reports: None Dermatologic History: Reports: None - Infectious Disease History Infectious Disease History: Reports: Chicken Pox, Measles, Shingles - Past Surgical History Head Surgeries/Procedures: Reports: None HEENT Surgical History: Reports: None Cardiovascular Surgical History: Reports: None Respiratory Surgical History: Reports: None GI Surgical History: Reports: None Male Surgical History: Reports: None Endocrine Surgical History: Reports: None Neurological Surgical History: Reports: None Musculoskeletal Surgical History: Reports: Other (See Below) Other Musculoskeletal Surgeries/Procedures:: Rotator cuff surgery, knee surgery Oncologic Surgical History: Reports: None Dermatological Surgical History: Reports: None Social & Family History - Family History Family Medical History: Noncontributory - Tobacco Use Tobacco Use Status *Q: Never Tobacco User Second Hand Smoke Exposure: No - Caffeine Use Caffeine Use: Reports: None, Soda - Recreational Drug Use Recreational Drug Use: No Review of Systems - Review of Systems Review Of Systems: See Below ED EXAM, GENERAL - Physical Exam Exam: See Below Course - Vital Signs Last Recorded V/S: Last Vital Signs Temp 96.8 F L 11/28/19 01:29 Pulse 77 11/28/19 01:29 Resp BP 161/83 H 11/28/19 01:29 Pulse Ox - Orders/Labs/Meds Meds: Medications Discontinued Medications Generic Name Dose Route Start Last Admin Trade Name Curtq PRN Reason Stop Dose Admin Bacitracin 1 dose 11/28/19 01:48 Bacitracin Oint 1 Gm TOP 11/28/19 01:49 ONETIME ONE Departure - Departure Time of Disposition: 01:56 Disposition: Home, Self-Care 01 Condition: Good Clinical Impression: Avulsion of toenail of right foot - Discharge Information Instructions: Fingernail or Toenail Removal, Adult, Care After Referrals: PCP,None [Primary Care Provider] - Additional Instructions: Per your request, we have removed your right big toenail. As we discussed there is a significant risk for infection. We have started you on Keflex 500 mg 4 times a day for 10 days. Please make an appointment to see Dr. Chacko, our ticket dispatcher, within the week. Please return to the ER if there is any concerns regarding infection prior to your ability to see your family doctor. The following information is given to patients seen in the emergency department who are being discharged to home. This information is to outline your options for follow-up care. We provide all patients seen in our emergency department with a follow-up referral. The need for follow-up, as well as the timing and circumstances, are variable depending upon the specifics of your emergency department visit. If you don't have a primary care physician on staff, we will provide you with a referral. We always advise you to contact your personal physician following an emergency department visit to inform them of the circumstance of the visit and for follow-up with them and/or the need for any referrals to a consulting specialist. The emergency department will also refer you to a specialist when appropriate. This referral assures that you have the opportunity for follow-up care with a specialist. All of these measure are taken in an effort to provide you with optimal care, which includes your follow-up. Under all circumstances we always encourage you to contact your private physician who remains a resource for coordinating your care. When calling for follow-up care, please make the office aware that this follow-up is from your recent emergency room visit. If for any reason you are refused follow-up, please contact the [facility] Emergency Department at and asked to speak to the emergency department charge nurse. Sepsis Event Note (ED) - Evaluation Sepsis Screening Result: No Definite Risk - Focused Exam Vital Signs: Vital Signs Temp Pulse BP 11/28/19 01:29 96.8 F L 77 161/83 H
[2019-11-28] MEDS ORDERED: Cephalexin 500 MG Cap PO ONE (01:58)
== END 2019-11-28 02:17 | disposition home or self-care (01) ==
LOC: MW.ED 00:19
DX: S91.201A Unspecified open wound of right great toe with damage to nail, initial encounter (principal); I10 Essential (primary) hypertension; E11.9 Type 2 diabetes mellitus without complications; E66.9 Obesity, unspecified; Z68.42 Body mass index [BMI] 45.0-49.9, adult; Z88.0 Allergy status to penicillin; Z79.82 Long term (current) use of aspirin; Z79.899 Other long term (current) drug therapy; X58.XXXA Exposure to other specified factors, initial encounter
CPT/HCPCS: 11730; 99282; 99283

== ENCOUNTER 2019-12-27 12:25 | Emergency (ER) | payer MEDICAID, OTHER ==
--- NOTE | 2019-12-27 12:52 | EDM.PDOC ---
ED HPI GENERAL MEDICAL PROBLEM - General Chief Complaint: Skin Complaint Stated Complaint: UNDER SCROTUM CYST Time Seen by Provider: 12/27/19 12:49 Source of Information: Reports: Patient History Limitations: Reports: No Limitations - History of Present Illness INITIAL COMMENTS - FREE TEXT/NARRATIVE: 54-year-old male past medical history [id number] diabetes presents for cyst on scrotum. Patient is uncertain how long it has been there, states that he noticed it last night when he was taking a shower. He said it is minimally tender to palpation but not particularly painful. He denies any other symptoms including urinary symptoms, nausea vomiting, fevers, shortness of breath, chest pain. Of note patient has an O2 sat in the high 80s, but states that this is his baseline and declines any work-up or treatment as he declines shortness of breath or chest pain. right groin Pain Score (Numeric/FACES): 9 - Related Data Allergies Allergy/AdvReac Type Severity Reaction Status Date / Time Penicillins Allergy Anaphylactic Verified 12/27/19 12:56 Shock Home Meds: Home Meds atorvaSTATin Calcium [Atorvastatin Calcium] 40 mg PO DAILY 02/16/18 [History] metFORMIN HCl [Metformin HCl] 1,000 mg PO BID 02/16/18 [History] Aspirin [Low Dose Aspirin EC] 81 mg PO DAILY 09/16/18 [History] Losartan Potassium 50 mg PO DAILY 09/16/18 [History] Past Medical History HEENT History: Reports: Impaired Vision, Other (See Below) Other HEENT History: wears glasses Cardiovascular History: Reports: Hypertension Respiratory History: Reports: None Gastrointestinal History: Reports: None Genitourinary History: Reports: None Musculoskeletal History: Reports: None Neurological History: Reports: None Psychiatric History: Reports: None Endocrine/Metabolic History: Reports: Diabetes, Type II, Obesity/BMI 30+ Hematologic History: Reports: None Immunologic History: Reports: None Oncologic (Cancer) History: Reports: None Dermatologic History: Reports: None - Infectious Disease History Infectious Disease History: Reports: Chicken Pox, Measles, Shingles - Past Surgical History Head Surgeries/Procedures: Reports: None HEENT Surgical History: Reports: None Cardiovascular Surgical History: Reports: None Respiratory Surgical History: Reports: None GI Surgical History: Reports: None Male Surgical History: Reports: None Endocrine Surgical History: Reports: None Neurological Surgical History: Reports: None Musculoskeletal Surgical History: Reports: Other (See Below) Other Musculoskeletal Surgeries/Procedures:: Rotator cuff surgery, knee surgery Oncologic Surgical History: Reports: None Dermatological Surgical History: Reports: None Social & Family History - Family History Family Medical History: No Pertinent Family History - Caffeine Use Caffeine Use: Reports: None, Soda ED ROS GENERAL - Review of Systems Review Of Systems: Comprehensive ROS is negative, except as noted in HPI. ED EXAM, SKIN/RASH Exam: See Below Exam Limited By: No Limitations General Appearance: Alert, WD/WN, No Apparent Distress Throat/Mouth: Normal Oropharynx, Normal Voice Head: Atraumatic, Normocephalic Respiratory/Chest: No Respiratory Distress, Lungs Clear, Normal Breath Sounds, No Accessory Muscle Use Cardiovascular: Normal Peripheral Pulses, Regular Rate, Rhythm GI/Abdominal: Soft, Non-Tender (Male) Exam: Other (testicles are not grossly swollen; there is a firm, mildly TTP mass on the lateral aspect of the R scrotum without warmth or erythema, the penis is inverted and normal in appearance) Extremities: Normal Inspection Neurological: Alert Psychiatric: Normal Affect, Normal Mood Skin: Warm, Dry, Intact, Normal Color Course - Vital Signs Last Recorded V/S: Last Vital Signs Temp 96.2 F L 12/27/19 12:48 Pulse 77 12/27/19 12:48 Resp 22 H 12/27/19 12:48 BP 138/80 12/27/19 12:48 Pulse Ox 87 L 12/27/19 12:48 - Re-Assessments/Exams Free Text/Narrative Re-Assessment/Exam: 12/27/19 13:18 Will get scrotal US to eval for possible abscess vs cyst vs tumor vs other 12/27/19 14:55 US shows non-specific mass. No evidence of abscess. Will d/c with urology referral for further workup. Departure - Departure Time of Disposition: 14:57 Disposition: Home, Self-Care 01 Condition: Good Clinical Impression: Scrotal mass - Discharge Information Instructions: Scrotal Masses Referrals: Jimmy Alba MD [Primary Care Provider] - Forms: ED Department Discharge Additional Instructions: Your ultrasound shows a small scrotal mass. It is uncertain what is causing this. It does not look like an abscess or infection. You should follow-up with a urologist for definitive work-up. I cannot fully exclude cancer, so it is very important that you follow-up timely. Below is information for one of our local urologists. [facility] [address] [place] [address] The following information is given to patients seen in the emergency department who are being discharged to home. This information is to outline your options for follow-up care. We provide all patients seen in our emergency department with a follow-up referral. The need for follow-up, as well as the timing and circumstances, are variable depending upon the specifics of your emergency department visit. If you don't have a primary care physician on staff, we will provide you with a referral. We always advise you to contact your personal physician following an emergency department visit to inform them of the circumstance of the visit and for follow-up with them and/or the need for any referrals to a consulting specialist. The emergency department will also refer you to a specialist when appropriate. This referral assures that you have the opportunity for follow-up care with a specialist. All of these measure are taken in an effort to provide you with optimal care, which includes your follow-up. Under all circumstances we always encourage you to contact your private physician who remains a resource for coordinating your care. When calling for follow-up care, please make the office aware that this follow-up is from your recent emergency room visit. If for any reason you are refused follow-up, please contact the [facility] Emergency Department at and asked to speak to the emergency department charge nurse. Please follow up with your primary care physician. If you do not have a primary care physician, see below: [facility] [address] [place] [id number] [facility] [address] [place] [id number] Sepsis Event Note (ED) - Focused Exam Vital Signs: Vital Signs Temp Pulse Resp BP Pulse Ox 12/27/19 12:48 96.2 F L 77 22 H 138/80 87 L
--- NOTE | 2019-12-27 14:53 | US ---
INDICATION: Hard, tender right scrotal mass. TECHNIQUE: Conventional two-dimensional grayscale ultrasound of the right scrotal mass. COMPARISON: None. FINDINGS: A nonspecific, indistinctly marginated 1.1 x 1.1 x 0.9 cm mass in the skin of the right scrotum at the site of the lump is demonstrate. Color-flow Doppler demonstrates no blood flow within this lesion. The testes were not examined. IMPRESSION: Nonspecific, indistinctly marginated 1.1 x 1.1 x 0.9 cm mass in the right scrotal skin at the site of the lump. Dictated by Jonathan Ghosh MD @ Dec 27 2019 2:42PM Signed by Dr. Jonathan Ghosh @ Dec 27 2019 2:51PM
== END 2019-12-27 15:25 | disposition home or self-care (01) ==
LOC: MW.ED 12:25
DX: N50.89 Other specified disorders of the male genital organs (principal); I10 Essential (primary) hypertension; E11.9 Type 2 diabetes mellitus without complications; E66.9 Obesity, unspecified; Z88.0 Allergy status to penicillin; Z79.82 Long term (current) use of aspirin; Z79.899 Other long term (current) drug therapy; Z79.84 Long term (current) use of oral hypoglycemic drugs
CPT/HCPCS: 76857; 76857-26; 99282; 99284-25

== ENCOUNTER 2019-12-30 22:26 | Emergency (ER) | payer MEDICAID ==
[2019-12-30] MEDS ORDERED: Lidocaine 2% 5 ML SDV INJECT ONE (23:25)
--- NOTE | 2019-12-30 23:56 | EDM.PDOC ---
ED HPI GENERAL MEDICAL PROBLEM - General Chief Complaint: Genitourinary Problem Stated Complaint: SICK Time Seen by Provider: 12/30/19 22:34 - History of Present Illness INITIAL COMMENTS - FREE TEXT/NARRATIVE: History of present illness: [] 4 days ago the patient noticed a small lump in his right scrotum. It is gotten worse. 2 days ago he came here and was told by ultrasound he has a mass there needs to follow-up with urology. His urology appointment is January 17 and its become larger and painful and it bleeds. No systemic signs of infection. Review of systems: As per history of present illness and below otherwise all systems reviewed and negative. Past medical history: As per history of present illness and as reviewed below otherwise noncontributory. Surgical history: As per history of present illness and as reviewed below otherwise noncontributory. Social history: No reported history of drug or alcohol abuse. Family history: As per history of present illness and as reviewed below otherwise noncontr ibutory. Physical exam: Constitutional -obese-well developed, well-nourished and in no acute distress HEENT - normocephalic, no evidence of trauma - external nose and mouth normal - no mass in neck and no JVD - mucosae moist EYES - full EOM, PERRL, no icterus - no evidence of inflammation, injection, or drainage Respiratory - no respiratory distress, equal bilateral expansion New-the external genitalia is normal except there is a firm 3 cm x 2 cm mass in the lateral wall of the right scrotum. A small area of perforation is draining yellow pus. The area is quite tender. Review of the ultrasound from 2 days ago reveals that this is in the skin of the scrotum and does not involve any deeper structures. Musculoskeletal no gross deformity of long bones or joints - no tenderness, swelling or edema Neurologic - Alert and oriented times four - CN II-XII grossly intact - motor sensory and coordination symmetrically normal Psychiatric - appropriate mood and affect with normal thought content Hematologic - No petechiae or purpura - mucosa appropriate color and sclera not pale - normal nail bed color and refill Integument - no rash or evidence of trauma - normal turgor Diagnostics: [] Therapeutics: [] Impression: [] Plan: [] Definitive disposition and diagnosis as appropriate pending reevaluation and review of above. right testicle Pain Score (Numeric/FACES): 10 - Related Data Allergies Allergy/AdvReac Type Severity Reaction Status Date / Time Penicillins Allergy Anaphylactic Verified 12/30/19 22:33 Shock Home Meds: Home Meds atorvaSTATin Calcium [Atorvastatin Calcium] 40 mg PO DAILY 02/16/18 [History] metFORMIN HCl [Metformin HCl] 1,000 mg PO BID 02/16/18 [History] Aspirin [Low Dose Aspirin EC] 81 mg PO DAILY 09/16/18 [History] Losartan Potassium 50 mg PO DAILY 09/16/18 [History] Doxycycline Monohydrate 100 mg PO BID 7 Days #14 tablet 12/27/19 [Rx] Hydrocodone/Acetaminophen [[place] 10-325 Tablet] 1 each PO Q4HR PRN #14 tablet 12/31/19 [Rx] Past Medical History HEENT History: Reports: Impaired Vision, Other (See Below) Other HEENT History: wears glasses Cardiovascular History: Reports: Hypertension Respiratory History: Reports: None Gastrointestinal History: Reports: None Genitourinary History: Reports: None Musculoskeletal History: Reports: None Neurological History: Reports: None Psychiatric History: Reports: None Endocrine/Metabolic History: Reports: Diabetes, Type II, Obesity/BMI 30+ Hematologic History: Reports: None Immunologic History: Reports: None Oncologic (Cancer) History: Reports: None Dermatologic History: Reports: None - Infectious Disease History Infectious Disease History: Reports: Chicken Pox, Measles, Shingles - Past Surgical History Head Surgeries/Procedures: Reports: None HEENT Surgical History: Reports: None Cardiovascular Surgical History: Reports: None Respiratory Surgical History: Reports: None GI Surgical History: Reports: None Male Surgical History: Reports: None Endocrine Surgical History: Reports: None Neurological Surgical History: Reports: None Musculoskeletal Surgical History: Reports: Other (See Below) Other Musculoskeletal Surgeries/Procedures:: Rotator cuff surgery, knee surgery Oncologic Surgical History: Reports: None Dermatological Surgical History: Reports: None Social & Family History - Family History Family Medical History: No Pertinent Family History - Caffeine Use Caffeine Use: Reports: None, Soda - Recreational Drug Use Recreational Drug Use: No ED ROS GENERAL - Review of Systems Review Of Systems: Comprehensive ROS is negative, except as noted in HPI. ED EXAM, GENERAL - Physical Exam Exam: See Below Free Text/Narrative:: My physical exam is in the HPI ED I&D PROCEDURES - I&D Site: Scrotum Skin prep: Providone-Iodine (Betadine) Local anesthesia - Lidocaine (Xylocaine): 2% Plain Local Anesthetic Volume: 5cc Area Incised With: 11 Blade Drainage: Purulent Probed to Break Up Loculations: No Packed With: 1/2 in. Iodoform Complication Description: Anesthetized, incised, irrigated and packed Progress/Comments: This purulence and less reduction in size than expected and I suspect he will need follow-up with urology because he probably had an infection of what was already a tumor. Course - Vital Signs Last Recorded V/S: Last Vital Signs Temp 35.9 C L 12/30/19 22:34 Pulse 89 12/30/19 22:34 Resp 18 12/30/19 22:34 BP 155/80 H 12/30/19 22:34 Pulse Ox 90 L 12/30/19 22:34 - Orders/Labs/Meds Meds: Medications Discontinued Medications Generic Name Dose Route Start Last Admin Trade Name Freq PRN Reason Stop Dose Admin Lidocaine 10 ml 12/30/19 23:25 Xylocaine-Mpf 2% INJECT 12/30/19 23:26 ONETIME ONE Departure - Departure Time of Disposition: 00:30 Disposition: Home, Self-Care 01 Condition: Good Clinical Impression: Scrotal abscess - Discharge Information Prescriptions: Hydrocodone/Acetaminophen [[place] 10-325 Tablet] 1 each PO Q4HR PRN #14 tablet PRN Reason: Pain (Moderate 4-6) Instructions: Skin Abscess, [id number] Referrals: Jimmy Alba MD [Primary Care Provider] - Glenis Kwan MD [Physician] - Forms: ED Department Discharge Additional Instructions: Washout the area of the abscess daily after drain is removed in 2 days. reTurn if worse. if you Need follow-up for Dr. Son can see you you should contact Dr. Hawkins Address: [address] [place] [address] The following information is given to patients seen in the emergency department who are being discharged to home. This information is to outline your options for follow-up care. We provide all patients seen in our emergency department with a follow-up referral. The need for follow-up, as well as the timing and circumstances, are variable depending upon the specifics of your emergency department visit. If you don't have a primary care physician on staff, we will provide you with a referral. We always advise you to contact your personal physician following an emergency department visit to inform them of the circumstance of the visit and for follow-up with them and/or the need for any referrals to a consulting specialist. The emergency department will also refer you to a specialist when appropriate. This referral assures that you have the opportunity for follow-up care with a specialist. All of these measure are taken in an effort to provide you with optimal care, which includes your follow-up. Under all circumstances we always encourage you to contact your private physician who remains a resource for coordinating your care. When calling for follow-up care, please make the office aware that this follow-up is from your recent emergency room visit. If for any reason you are refused follow-up, please contact the [facility] Emergency Department at and asked to speak to the emergency department charge nurse. Sepsis Event Note (ED) - Evaluation Sepsis Screening Result: No Definite Risk - Focused Exam Vital Signs: Vital Signs Temp Pulse Resp BP Pulse Ox 12/30/19 22:34 35.9 C L 89 18 155/80 H 90 L
[2019-12-31] MEDS ORDERED: Acetaminophen/HYDROcodone 325-10 MG Tab PO ONE (00:13)
== END 2019-12-31 00:50 | disposition home or self-care (01) ==
LOC: MW.ED 22:26
DX: N49.2 Inflammatory disorders of scrotum (principal); I10 Essential (primary) hypertension; E11.9 Type 2 diabetes mellitus without complications; E66.9 Obesity, unspecified; Z68.42 Body mass index [BMI] 45.0-49.9, adult; Z88.0 Allergy status to penicillin; Z79.899 Other long term (current) drug therapy
CPT/HCPCS: 10060; 99282; A9270; J2001

== ENCOUNTER 2020-01-02 16:38 | Emergency (ER) | payer MEDICAID ==
--- NOTE | 2020-01-02 17:26 | EDM.PDOC ---
ED HPI GENERAL MEDICAL PROBLEM - General Chief Complaint: Wound Recheck Stated Complaint: PACKING NEEDS TO BE TAKEN OUT Time Seen by Provider: 01/02/20 17:23 Source of Information: Reports: Patient History Limitations: Reports: No Limitations - History of Present Illness INITIAL COMMENTS - FREE TEXT/NARRATIVE: HISTORY AND PHYSICAL: History of present illness: Patient is a 54-year-old male who presents to the emergency room requesting to have the packing pulled out of a I&D site. He was seen in the emergency room on 12/27/2019 and had an I&D of the right scrotum. He did have a tube and a wick placed in the scrotum and was encouraged to remove this by himself. Has difficulty reaching the site and wanted to come to the emergency room to have it removed by staff. Patient denies any fever, chills, headache, change in vision, syncope or near syncope. Denies any chest pain, back pain, shortness of breath or cough. Denies any abdominal pain, nausea, vomiting, diarrhea, constipation or dysuria. Has not noted any blood in urine or stool. Denies any exaggerated testicular pain or concerns. Patient has been eating and drinking appropriately. Review of systems: As per history of present illness and below otherwise all systems reviewed and negative. Past medical history: As per history of present illness and as reviewed below otherwise noncontributory. Surgical history: As per history of present illness and as reviewed below otherwise noncontributory. Social history: See social history for further information Family history: As per history of present illness and as reviewed below otherwise noncontributory. Physical exam: General: Well developed and well nourished. Alert and orientated x 3. Nontoxic in appearance and in no acute distress. Vital signs are stable and have been reviewed by me. Nursing notes were reviewed. HEENT: Atraumatic, normocephalic, pupils equal and reactive bilaterally, negative for conjunctival pallor or scleral icterus, mucous membranes moist, trachea midline. No drooling or trismus noted. No meningeal signs. No hot potato voice noted. Lungs: Clear to auscultation, breath sounds equal bilaterally. Normal work of breathing, no accessory muscles used. Heart: S1S2, regular rate and rhythm without overt murmur Abdomen: Soft, obese, nontender. Negative for masses or hepatosplenomegaly. Negative for costovertebral tenderness. Pelvis: Stable nontender. Genitourinary: See SKIN for details. Skin: Small 1 cm linear incision site to the right scrotum with exposed wick. There is no surrounding erythema. Remaining skin is intact, warm, dry. No lesions or rashes noted. Hematologic: No petechiae or purpra. Mucosa appropriate color and normal nail bed color and refill. Extremities: Atraumatic, moves all extremities per self without difficulty or deficits. Neurovascular unremarkable. Neuro: Awake, alert, oriented. Cranial nerves II through XII unremarkable. Cerebellum unremarkable. Motor and sensory unremarkable throughout. Exam nonfocal. Psychiatric: Mood and affect are appropriate. Normal thought process. Answering questions appropriately. Notes: Ultrasound report from 12/27/2019: Nonspecific, indistinctly marginated 1.1 x 1.1 x 0.9 cm mass in the right scrotal skin at the site of the lump. Please see ER note from that encounter for details. The incision site appears to be healing well, the wick was removed. The drain the patient states that may or may not be there must have fallen out which the patient thought before arrival. There is no evidence of further intervention being needed. He is currently taking doxycycline. He also has a follow-up appointment with the urologist in [place] to have the mass removed. I have talked with the patient about today's findings, in addition to providing specific details for plan of care. Reassessment at the time of disposition demonstrates that the patient is in no acute distress. The patient is stable for discharge, counseling was provided and we discussed in great detail signs and symptoms that would prompt them to return to the Emergency Department. Medication, follow up and supportive care measures were reviewed and discussed. Voices understanding and is agreeable to plan of care. Denies any further questions or concerns at this time. Diagnostics: None Therapeutics: None Prescription: None Impression: Wound re-evaluation Plan: 1. Today your incision site looked well. Continue to monitor for signs of improvement. Wash gently with mild soap and water as directed. 2. Alternate Tylenol and ibuprofen as needed for pain otherwise take your home medications as directed. 3. We encourage you to follow up with your Urologist in the next few days for re-evaluation and further care/management. If your symptoms should worsen, new symptoms develop or any of the signs and symptoms we discussed should arise please return to the emergency room or call 911 (if needed). Definitive disposition and diagnosis as appropriate pending reevaluation and review of above. right groin Pain Score (Numeric/FACES): 8 - Related Data Allergies Allergy/AdvReac Type Severity Reaction Status Date / Time Penicillins Allergy Anaphylactic Verified 12/30/19 22:33 Shock Home Meds: Home Meds atorvaSTATin Calcium [Atorvastatin Calcium] 40 mg PO DAILY 02/16/18 [History] metFORMIN HCl [Metformin HCl] 1,000 mg PO BID 02/16/18 [History] Aspirin [Low Dose Aspirin EC] 81 mg PO DAILY 09/16/18 [History] Losartan Potassium 50 mg PO DAILY 09/16/18 [History] Doxycycline Monohydrate 100 mg PO BID 7 Days #14 tablet 12/27/19 [Rx] Hydrocodone/Acetaminophen [[place] 10-325 Tablet] 1 each PO Q4HR PRN #14 tablet 12/31/19 [Rx] Past Medical History HEENT History: Reports: Impaired Vision, Other (See Below) Other HEENT History: wears glasses Cardiovascular History: Reports: Hypertension Respiratory History: Reports: None Gastrointestinal History: Reports: None Genitourinary History: Reports: None Musculoskeletal History: Reports: None Neurological History: Reports: None Psychiatric History: Reports: None Endocrine/Metabolic History: Reports: Diabetes, Type II, Obesity/BMI 30+ Hematologic History: Reports: None Immunologic History: Reports: None Oncologic (Cancer) History: Reports: None Dermatologic History: Reports: None - Infectious Disease History Infectious Disease History: Reports: Chicken Pox, Measles, Shingles - Past Surgical History Head Surgeries/Procedures: Reports: None HEENT Surgical History: Reports: None Cardiovascular Surgical History: Reports: None Respiratory Surgical History: Reports: None GI Surgical History: Reports: None Male Surgical History: Reports: None Endocrine Surgical History: Reports: None Neurological Surgical History: Reports: None Musculoskeletal Surgical History: Reports: Other (See Below) Other Musculoskeletal Surgeries/Procedures:: Rotator cuff surgery, knee surgery Oncologic Surgical History: Reports: None Dermatological Surgical History: Reports: None Social & Family History - Family History Family Medical History: No Pertinent Family History - Caffeine Use Caffeine Use: Reports: None, Soda ED ROS GENERAL - Review of Systems Review Of Systems: Comprehensive ROS is negative, except as noted in HPI. ED EXAM, SKIN/RASH Exam: See Below (See dictation) Course - Vital Signs Last Recorded V/S: Last Vital Signs Temp 96.9 F 01/02/20 17:43 Pulse 87 01/02/20 17:43 Resp 16 01/02/20 17:43 BP 137/78 01/02/20 17:43 Pulse Ox 87 L 01/02/20 17:43 Departure - Departure Time of Disposition: 17:57 Disposition: Home, Self-Care 01 Clinical Impression: Encounter for wound re-check - Discharge Information Instructions: Incision and Drainage, Care After Referrals: Aby Dowd [Primary Care Provider] - Forms: ED Department Discharge Additional Instructions: The following information is given to patients seen in the emergency department who are being discharged to home. This information is to outline your options for follow-up care. We provide all patients seen in our emergency department with a follow-up referral. The need for follow-up, as well as the timing and circumstances, are variable depending upon the specifics of your emergency department visit. If you don't have a primary care physician on staff, we will provide you with a referral. We always advise you to contact your personal physician following an emergency department visit to inform them of the circumstance of the visit and for follow-up with them and/or the need for any referrals to a consulting specialist. The emergency department will also refer you to a specialist when appropriate. This referral assures that you have the opportunity for follow-up care with a specialist. All of these measure are taken in an effort to provide you with optimal care, which includes your follow-up. Under all circumstances we always encourage you to contact your private physician who remains a resource for coordinating your care. When calling for follow-up care, please make the office aware that this follow-up is from your recent emergency room visit. If for any reason you are refused follow-up, please contact the [facility] Emergency Department at and asked to speak to the emergency department charge nurse. [facility] [address] [place] [id number] [address] [id number] Thank you for choosing the [facility] emergency department in [place] for your medical needs today. It was a pleasure caring for you. Today you were seen in the emergency department for dressing/wound re-check. 1. Today your incision site looked well. Continue to monitor for signs of improvement. Wash gently with mild soap and water as directed. 2. Alternate Tylenol and ibuprofen as needed for pain otherwise take your home medications as directed. 3. We encourage you to follow up with your Urologist in the next few days for re-evaluation and further care/management. If your symptoms should worsen, new symptoms develop or any of the signs and symptoms we discussed should arise plea se return to the emergency room or call 911 (if needed). Sepsis Event Note (ED) - Focused Exam Vital Signs: Vital Signs Temp Pulse Resp BP Pulse Ox 01/02/20 17:43 96.9 F 87 16 137/78 87 L
== END 2020-01-02 18:26 | disposition home or self-care (01) ==
LOC: MW.ED 16:38
DX: Z48.816 Encounter for surgical aftercare following surgery on the genitourinary system (principal); E11.9 Type 2 diabetes mellitus without complications; E66.9 Obesity, unspecified; Z68.41 Body mass index [BMI] 40.0-44.9, adult; I10 Essential (primary) hypertension; Z79.82 Long term (current) use of aspirin; Z88.0 Allergy status to penicillin; Z79.84 Long term (current) use of oral hypoglycemic drugs; Z79.899 Other long term (current) drug therapy
CPT/HCPCS: 99282

== ENCOUNTER 2020-02-27 12:19 | Emergency (ER) | payer MEDICAID ==
--- NOTE | 2020-02-27 12:34 | EDM.PDOC ---
ED HPI GENERAL MEDICAL PROBLEM - General Chief Complaint: General Stated Complaint: NOSE BLEEDS/DIZZINESS Time Seen by Provider: 02/27/20 12:23 Source of Information: Reports: Patient History Limitations: Reports: No Limitations - History of Present Illness INITIAL COMMENTS - FREE TEXT/NARRATIVE: Patient is a 54-year-old male who presents today for nosebleed and feeling dizzy. Patient dates the symptoms started last night. Patient states that he was not blowing hisnose when the nosebleed started nowhere. Patient that he had a sensation of the room spinning after nosebleeding incident. Patient currently has no dizziness and his nosebleed stopped last night. Patient denies any headache vision changes chest pain nausea vomiting or other complaints. - Related Data Allergies Allergy/AdvReac Type Severity Reaction Status Date / Time Penicillins Allergy Anaphylactic Verified 02/27/20 12:28 Shock Home Meds: Home Meds atorvaSTATin Calcium [Atorvastatin Calcium] 40 mg PO DAILY 02/16/18 [History] metFORMIN HCl [Metformin HCl] 1,000 mg PO BID 02/16/18 [History] Aspirin [Low Dose Aspirin EC] 81 mg PO DAILY 09/16/18 [History] Losartan Potassium 50 mg PO DAILY 09/16/18 [History] Fish Oil/[place]-3 Fatty Acids [Fish Oil 1,000 MG] 1 tab PO DAILY 02/27/20 [History] glipiZIDE [Glucotrol XL] 1 tab PO DAILY 02/27/20 [History] Past Medical History HEENT History: Reports: Impaired Vision, Other (See Below) Other HEENT History: wears glasses Cardiovascular History: Reports: Hypertension Respiratory History: Reports: None Gastrointestinal History: Reports: None Genitourinary History: Reports: None Musculoskeletal History: Reports: None Neurological History: Reports: None Psychiatric History: Reports: None Endocrine/Metabolic History: Reports: Diabetes, Type II, Obesity/BMI 30+ Hematologic History: Reports: None Immunologic History: Reports: None Oncologic (Cancer) History: Reports: None Dermatologic History: Reports: None - Infectious Disease History Infectious Disease History: Reports: Chicken Pox, Measles, Shingles - Past Surgical History Head Surgeries/Procedures: Reports: None HEENT Surgical History: Reports: None Cardiovascular Surgical History: Reports: None Respiratory Surgical History: Reports: None GI Surgical History: Reports: None Male Surgical History: Reports: None Endocrine Surgical History: Reports: None Neurological Surgical History: Reports: None Musculoskeletal Surgical History: Reports: Other (See Below) Other Musculoskeletal Surgeries/Procedures:: Rotator cuff surgery, knee surgery Oncologic Surgical History: Reports: None Dermatological Surgical History: Reports: None Social & Family History - Family History Family Medical History: No Pertinent Family History - Caffeine Use Caffeine Use: Reports: None, Soda ED ROS GENERAL - Review of Systems Review Of Systems: See Below Constitutional: Reports: No Symptoms HEENT: Reports: No Symptoms Respiratory: Reports: No Symptoms Cardiovascular: Reports: No Symptoms Endocrine: Reports: No Symptoms GI/Abdominal: Reports: No Symptoms : Reports: No Symptoms Musculoskeletal: Reports: No Symptoms Skin: Reports: No Symptoms Neurological: Reports: No Symptoms Psychiatric: Reports: No Symptoms Hematologic/Lymphatic: Reports: No Symptoms Immunologic: Reports: No Symptoms ED EXAM, GENERAL - Physical Exam Exam: See Below Exam Limited By: No Limitations General Appearance: Alert, WD/WN, No Apparent Distress Eye Exam: Bilateral Eye: EOMI, PERRL Respiratory/Chest: No Respiratory Distress, Lungs Clear, Normal Breath Sounds Cardiovascular: Normal Peripheral Pulses, Regular Rate, Rhythm GI/Abdominal: Normal Bowel Sounds, Soft, Non-Tender Extremities: Normal Inspection, Normal Range of Motion Neurological: Alert, Oriented, CN II-XII Intact, Normal Cognition Course - Vital Signs Last Recorded V/S: Last Vital Signs Temp 97.0 F 02/27/20 12:32 Pulse 84 02/27/20 12:32 Resp 18 02/27/20 12:32 BP 165/81 H 02/27/20 12:32 Pulse Ox 98 02/27/20 12:32 - Orders/Labs/Meds Labs: Laboratory Tests 02/27/20 02/27/20 02/27/20 Range/Units 12:40 12:40 12:40 WBC 7.03 (4.0-11.0) K/uL RBC 6.19 H (4.50-5.90) M/uL Hgb 18.6 H (13.0-17.0) g/dL Hct 53.7 H (38.0-50.0) % MCV 86.8 (80.0-98.0) fL MCH 30.0 (27.0-32.0) pg MCHC 34.6 (31.0-37.0) g/dL RDW Std Deviation 44.4 (28.0-62.0) fl RDW Coeff of Aleida 14 (11.0-15.0) % Plt Count 215 (150-400) K/uL MPV 10.40 (7.40-12.00) fL Neut % (Auto) 56.0 (48.0-80.0) % Lymph % (Auto) 35.6 (16.0-40.0) % Summers % (Auto) 7.0 (0.0-15.0) % Eos % (Auto) 1.0 (0.0-7.0) % Baso % (Auto) 0.4 (0.0-1.5) % Neut # (Auto) 3.9 (1.4-5.7) K/uL Lymph # (Auto) 2.5 H (0.6-2.4) K/uL Summers # (Auto) 0.5 (0.0-0.8) K/uL Eos # (Auto) 0.1 (0.0-0.7) K/uL Baso # (Auto) 0.0 (0.0-0.1) K/uL Nucleated RBC % 0.0 /100WBC Nucleated RBCs # 0 K/uL INR 0.99 APTT 26.3 (18.6-31.3) SEC Sodium 137 (136-148) mmol/L Potassium 4.1 (3.5-5.1) mmol/L Chloride 98 (98-107) mmol/L Carbon Dioxide 28.8 (21.0-32.0) mmol/L BUN 24 H (7.0-18.0) mg/dL Creatinine 1.0 (0.8-1.3) mg/dL Est Cr Clr Drug Dosing 82.65 mL/min Estimated GFR (MDRD) > 60.0 ml/min Glucose 413 H (74-106) mg/dL Calcium 9.0 (8.5-10.1) mg/dL Total Bilirubin 0.5 (0.2-1.0) mg/dL AST 25 (15-37) IU/L ALT 47 (14-63) IU/L Alkaline Phosphatase 269 H (46-116) U/L Total Protein 7.2 (6.4-8.2) g/dL Albumin 2.8 L (3.4-5.0) g/dL Globulin 4.4 H (2.6-4.0) g/dL Albumin/Globulin Ratio 0.6 L (0.9-1.6) - Re-Assessments/Exams Free Text/Narrative Re-Assessment/Exam: 02/27/20 13:24 And last review has no elevated anion gap. No nosebleed and no dizziness will be discharged home. Departure - Departure Time of Disposition: 13:24 Disposition: Home, Self-Care 01 Condition: Good Clinical Impression: Dizziness - Discharge Information *PRESCRIPTION DRUG MONITORING PROGRAM REVIEWED*: Not Applicable *COPY OF PRESCRIPTION DRUG MONITORING REPORT IN PATIENT CECILIA: Not Applicable Instructions: Dizziness Referrals: PCP,None [Primary Care Provider] - Forms: ED Department Discharge Additional Instructions: The following information is given to patients seen in the emergency department who are being discharged to home. This information is to outline your options for follow-up care. We provide all patients seen in our emergency department with a follow-up referral. The need for follow-up, as well as the timing and circumstances, are variable depending upon the specifics of your emergency department visit. If you don't have a primary care physician on staff, we will provide you with a referral. We always advise you to contact your personal physician following an emergency department visit to inform them of the circumstance of the visit and for follow-up with them and/or the need for any referrals to a consulting specialist. The emergency department will also refer you to a specialist when appropriate. This referral assures that you have the opportunity for follow-up care with a specialist. All of these measure are taken in an effort to provide you with optimal care, which includes your follow-up. Under all circumstances we always encourage you to contact your private physician who remains a resource for coordinating your care. When calling for follow-up care, please make the office aware that this follow-up is from your recent emergency room visit. If for any reason you are refused follow-up, please contact the [facility] Emergency Department at and asked to speak to the emergency department charge nurse. Please follow up with your primary care physician. If you do not have a primary care physician, see below: [facility] [address] [place] [address] [id number] [place] [address] Please follow-up with your primary care physician. Please watch your glucose is a little elevated today you are not in diabetic ketoacidosis but if you have any developing symptoms please return to the ED. Sepsis Event Note (ED) - Focused Exam Vital Signs: Vital Signs Temp Pulse Resp BP Pulse Ox 02/27/20 12:32 97.0 F 84 18 165/81 H 98 - Assessment/Plan Assessment:: Patient is a 54-year-old male who presents today for having sensation of a nosebleed and dizziness last night. Patient currently has no symptoms states that he talked to a family member would assist equal to that ER just to get checked out. Will obtain basic labs and reassess.
[2020-02-27 13:17] LABS: BLOOD UREA NITROGEN,BUN 24 mg/dL (7.0-18.0); CARBON DIOXIDE,CO2 28.8 mmol/L (21.0-32.0); CHLORIDE,CL 98 mmol/L (98-107); GLUCOSE RANDOM 413 mg/dL (74-106); POTASSIUM,K 4.1 mmol/L (3.5-5.1); SODIUM,NA 137 mmol/L (136-148)
== END 2020-02-27 13:44 | disposition home or self-care (01) ==
LOC: MW.ED 12:22
DX: R42 Dizziness and giddiness (principal); R04.0 Epistaxis; I10 Essential (primary) hypertension; E11.9 Type 2 diabetes mellitus without complications; E66.9 Obesity, unspecified; Z88.0 Allergy status to penicillin; Z79.82 Long term (current) use of aspirin; Z79.84 Long term (current) use of oral hypoglycemic drugs; Z79.899 Other long term (current) drug therapy
CPT/HCPCS: 36415; 80053; 85025; 85610; 85730; 99282; 99284

== ENCOUNTER 2020-04-06 20:11 | Emergency (ER) | payer MEDICAID, OTHER ==
--- NOTE | 2020-04-06 21:08 | EDM.PDOC ---
ED HPI GENERAL MEDICAL PROBLEM - General Chief Complaint: General Stated Complaint: COLD SYMPTOMS Time Seen by Provider: 04/06/20 21:05 Source of Information: Reports: Patient History Limitations: Reports: No Limitations - History of Present Illness INITIAL COMMENTS - FREE TEXT/NARRATIVE: HISTORY AND PHYSICAL: History of present illness: Patient is a 54-year-old male who presents to the emergency room with request for medical screening exam so he can return to work. He states last week he had a "head cold" and had called out of work for a few days. He was informed by his employer that he needed to be evaluated in order to return to work. Currently feels well and offers no complaints or concerns. Patient denies any fever, chills, headache, change in vision, syncope or near syncope. Denies any chest pain, back pain, shortness of breath or cough. Denies any abdominal pain, nausea, vomiting, diarrhea, constipation or dysuria. Has not noted any blood in urine or stool. Patient has been eating and drinking appropriately. Review of systems: As per history of present illness and below otherwise all systems reviewed and negative. Past medical history: As per history of present illness and as reviewed below otherwise noncontributory. Surgical history: As per history of present illness and as reviewed below otherwise noncontributory. Social history: See social history for further information Family history: As per history of present illness and as reviewed below otherwise noncontributory. Physical exam: General: Well developed and well nourished 54 year old male. Alert and orientated x 3. Nontoxic in appearance and in no acute distress. Vital signs are stable and have been reviewed by me. Nursing notes were reviewed. HEENT: Atraumatic, normocephalic, pupils equal and reactive bilaterally, negative for conjunctival pallor or scleral icterus, mucous membranes moist, TMs normal bilaterally, throat clear, neck supple, nontender, trachea midline. No drooling or trismus noted. No meningeal signs. No hot potato voice noted. Lungs: Clear to auscultation bilaterally. No wheezes, rales, or rhonchi. Chest nontender. Normal work of breathing, no accessory muscles used. Heart: S1S2, regular rate and rhythm without overt murmur, gallops, or rubs. No JVD. No peripheral edema Abdomen: Soft, obese habitus, nontender. Skin: Intact, warm, dry. No lesions or rashes noted. Hematologic: No petechiae or purpra. Mucosa appropriate color and normal nail bed color and refill. Extremities: Atraumatic, moves all extremities per self without difficulty or deficits. Neurovascular unremarkable. Neuro: Awake, alert, oriented. Cranial nerves II through XII unremarkable. Cerebellum unremarkable. Motor and sensory unremarkable throughout. Exam nonfocal. Psychiatric: Mood and affect are appropriate. Normal thought process. Answering questions appropriately. Notes: *This patient was seen and evaluated during the 2019 SARS-CoV-2 novel coronavirus pandemic period. Community viral transmission is ongoing at time of this encounter and the emergency department is operating under pandemic response procedures. VSS. Oxygen went up to 94% on RA. He has no current complaints or concerns and phsyical exam is WNL. I have talked with the patient about today's findings, in addition to providing specific details for plan of care. Reassessment at the time of disposition demonstrates that the patient is in no acute distress. The patient is stable for discharge, counseling was provided and we discussed in great detail signs and symptoms that would prompt them to return to the Emergency Department. Medication, follow up and supportive care measures were reviewed and discussed. Voices understanding and is agreeable to plan of care. Denies any further questions or concerns at this time. Diagnostics: None Therapeutics: None Prescription: None Impression: Encounter for medical screening Plan: 1. Physical examination and VSS are within normal limits. 2. You can alternate Tylenol and ibuprofen as needed for pain and fever management. Increase your fluids. 3. We encourage you to follow up with your primary care provider and/or recommended specialist in the next few days for re-evaluation and further care/management. Definitive disposition and diagnosis as appropriate pending reevaluation and review of above. generalized Pain Score (Numeric/FACES): 10 - Related Data Allergies Allergy/AdvReac Type Severity Reaction Status Date / Time Penicillins Allergy Anaphylactic Verified 04/06/20 21:00 Shock Home Meds: Home Meds atorvaSTATin Calcium [Atorvastatin Calcium] 40 mg PO DAILY 02/16/18 [History] metFORMIN HCl [Metformin HCl] 1,000 mg PO BID 02/16/18 [History] Aspirin [Low Dose Aspirin EC] 81 mg PO DAILY 09/16/18 [History] Losartan Potassium 50 mg PO DAILY 08/03/19 [History] Fish Oil/[place]-3 Fatty Acids [Fish Oil 1,000 MG] 1 tab PO DAILY 02/27/20 [History] glipiZIDE [Glucotrol XL] 1 tab PO DAILY 02/27/20 [History] Past Medical History HEENT History: Reports: Impaired Vision, Other (See Below) Other HEENT History: wears glasses Cardiovascular History: Reports: Hypertension Respiratory History: Reports: None Gastrointestinal History: Reports: None Genitourinary History: Reports: None Musculoskeletal History: Reports: None Neurological History: Reports: None Psychiatric History: Reports: None Endocrine/Metabolic History: Reports: Diabetes, Type II, Obesity/BMI 30+ Hematologic History: Reports: None Immunologic History: Reports: None Oncologic (Cancer) History: Reports: None Dermatologic History: Reports: None - Infectious Disease History Infectious Disease History: Reports: Chicken Pox, Measles, Shingles - Past Surgical History Head Surgeries/Procedures: Reports: None HEENT Surgical History: Reports: None Cardiovascular Surgical History: Reports: None Respiratory Surgical History: Reports: None GI Surgical History: Reports: None Male Surgical History: Reports: None Endocrine Surgical History: Reports: None Neurological Surgical History: Reports: None Musculoskeletal Surgical History: Reports: Other (See Below) Other Musculoskeletal Surgeries/Procedures:: Rotator cuff surgery, knee surgery Oncologic Surgical History: Reports: None Dermatological Surgical History: Reports: None Social & Family History - Family History Family Medical History: No Pertinent Family History - Caffeine Use Caffeine Use: Reports: None, Soda ED ROS GENERAL - Review of Systems Review Of Systems: Comprehensive ROS is negative, except as noted in HPI. ED EXAM, GENERAL - Physical Exam Exam: See Below (See dictation) Course - Vital Signs Last Recorded V/S: Last Vital Signs Temp 96.7 F L 04/06/20 21:01 Pulse 82 04/06/20 21:01 Resp 18 04/06/20 21:01 BP 168/88 H 04/06/20 21:01 Pulse Ox 90 L 04/06/20 21:01 Departure - Departure Time of Disposition: 21:14 Disposition: Home, Self-Care 01 Clinical Impression: Encounter for medical screening examination - Discharge Information Instructions: Medical Screening Exam Referrals: PCP,None [Primary Care Provider] - Forms: ED Department Discharge Additional Instructions: The following information is given to patients seen in the emergency department who are being discharged to home. This information is to outline your options for follow-up care. We provide all patients seen in our emergency department with a follow-up referral. The need for follow-up, as well as the timing and circumstances, are variable depending upon the specifics of your emergency department visit. If you don't have a primary care physician on staff, we will provide you with a referral. We always advise you to contact your personal physician following an emergency department visit to inform them of the circumstance of the visit and for follow-up with them and/or the need for any referrals to a consulting specialist. The emergency department will also refer you to a specialist when appropriate. This referral assures that you have the opportunity for follow-up care with a specialist. All of these measure are taken in an effort to provide you with optimal care, which includes your follow-up. Under all circumstances we always encourage you to contact your private physician who remains a resource for coordinating your care. When calling for follow-up care, please make the office aware that this follow-up is from your recent emergency room visit. If for any reason you are refused follow-up, please contact the [facility] Emergency Department at and asked to speak to the emergency department charge nurse. [facility] [address] [place] [address] [place] [address] Thank you for choosing the [facility] emergency department in [place] for your medical needs today. It was a pleasure caring for you. Today you were seen in the emergency department for medical screening exam. 1. Physical examination and VSS are within normal limits. 2. You can alternate Tylenol and ibuprofen as needed for pain and fever management. Increase your fluids. 3. We encourage you to follow up with your primary care provider and/or recommended specialist in the next few days for re-evaluation and further care/management. Sepsis Event Note (ED) - Focused Exam Vital Signs: Vital Signs Temp Pulse Resp BP Pulse Ox 04/06/20 21:01 96.7 F L 82 18 168/88 H 90 L
== END 2020-04-06 21:25 | disposition home or self-care (01) ==
LOC: MW.ED 20:11
DX: Z02.79 Encounter for issue of other medical certificate (principal); I10 Essential (primary) hypertension; E11.9 Type 2 diabetes mellitus without complications; E66.9 Obesity, unspecified; Z68.41 Body mass index [BMI] 40.0-44.9, adult; Z79.82 Long term (current) use of aspirin; Z79.84 Long term (current) use of oral hypoglycemic drugs; Z88.0 Allergy status to penicillin
CPT/HCPCS: 99282

== ENCOUNTER 2020-05-20 10:32 | Emergency (ER) | payer MEDICAID ==
--- NOTE | 2020-05-20 10:40 | EDM.PDOC ---
ED HPI GENERAL MEDICAL PROBLEM - General Chief Complaint: Gastrointestinal Problem Stated Complaint: REFFERED Time Seen by Provider: 05/20/20 10:33 Source of Information: Reports: Patient History Limitations: Reports: No Limitations - History of Present Illness INITIAL COMMENTS - FREE TEXT/NARRATIVE: 54-year-old male past medical history insulin-dependent diabetes, obesity, CAD status post NSTEMI presents for weight gain, abdominal distention, abdominal pain. Patient was seen by nurse practitioner in outpatient clinic and she noted him to have distended tender to palpation abdomen complaining of 10 out of 10 pain and with 39 pound weight gain in the last 1 month prompting her to send him to the emergency department for further evaluation. Patient states that he has noted over the last 5 days worsening abdominal distention and generalized abdominal pain. He notes last bowel movement yesterday was very small and he feels constipated. He is still passing a small amount of gas. He has no history of abdominal surgeries. Patient denies shortness of breath or chest pain. - Related Data Allergies Allergy/AdvReac Type Severity Reaction Status Date / Time Penicillins Allergy Anaphylactic Verified 05/20/20 10:53 Shock Home Meds: Home Meds atorvaSTATin Calcium [Atorvastatin Calcium] 40 mg PO DAILY 02/16/18 [History] metFORMIN HCl [Metformin HCl] 1,000 mg PO BID 02/16/18 [History] Aspirin [Low Dose Aspirin EC] 81 mg PO DAILY 09/16/18 [History] Losartan Potassium 50 mg PO DAILY 09/16/18 [History] Fish Oil/Red Wing-3 Fatty Acids [Fish Oil 1,000 MG] 1 tab PO DAILY 02/27/20 [History] glipiZIDE [Glucotrol XL] 1 tab PO DAILY 02/27/20 [History] Past Medical History HEENT History: Reports: Impaired Vision, Other (See Below) Other HEENT History: wears glasses Cardiovascular History: Reports: Hypertension Respiratory History: Reports: None Gastrointestinal History: Reports: None Genitourinary History: Reports: None Musculoskeletal History: Reports: None Neurological History: Reports: None Psychiatric History: Reports: None Endocrine/Metabolic History: Reports: Diabetes, Type II, Obesity/BMI 30+ Hematologic History: Reports: None Immunologic History: Reports: None Oncologic (Cancer) History: Reports: None Dermatologic History: Reports: None - Infectious Disease History Infectious Disease History: Reports: Chicken Pox, Measles, Shingles - Past Surgical History Head Surgeries/Procedures: Reports: None HEENT Surgical History: Reports: None Cardiovascular Surgical History: Reports: None Respiratory Surgical History: Reports: None GI Surgical History: Reports: None Male Surgical History: Reports: None Endocrine Surgical History: Reports: None Neurological Surgical History: Reports: None Musculoskeletal Surgical History: Reports: Other (See Below) Other Musculoskeletal Surgeries/Procedures:: Rotator cuff surgery, knee surgery Oncologic Surgical History: Reports: None Dermatological Surgical History: Reports: None Social & Family History - Family History Family Medical History: No Pertinent Family History - Caffeine Use Caffeine Use: Reports: None, Soda ED ROS GENERAL - Review of Systems Review Of Systems: Comprehensive ROS is negative, except as noted in HPI. ED EXAM, GENERAL - Physical Exam Exam: See Below Exam Limited By: No Limitations General Appearance: Alert, WD/WN, No Apparent Distress Throat/Mouth: Normal Voice, No Airway Compromise Head: Atraumatic, Normocephalic Respiratory/Chest: No Respiratory Distress, Lungs Clear, Normal Breath Sounds, No Accessory Muscle Use Cardiovascular: Normal Peripheral Pulses, Regular Rate, Rhythm, No Edema GI/Abdominal: Other (Distended, generalized tenderness to palpation without guarding worse in the left lower quadrant) Extremities: Normal Inspection Neurological: Alert Psychiatric: Normal Affect, Normal Mood Skin Exam: Warm, Dry, Intact, Normal Color #1 Interpretation EKG Date: 05/20/20 Time: 10:56 Rhythm: NSR Rate (Beats/Min): 86 [place]: Normal P-Wave: Present QRS: Normal ST-T: Normal QT: Normal NC/PQ Interval: 208 EKG Interpretation Comments: no acute ischemic changes Course - Vital Signs Last Recorded V/S: Last Vital Signs Temp 97.5 F 05/20/20 10:54 Pulse 69 05/20/20 13:38 Resp 20 05/20/20 13:38 BP 185/95 H 05/20/20 13:38 Pulse Ox 92 L 05/20/20 13:38 - Orders/Labs/Meds Orders: Active Orders 24 hr Category Date Time Status Cardiac Monitoring [RC] . DIRECTED Care 05/20/20 11:06 Active EKG Documentation Completion [RC] STAT Care 05/20/20 11:05 Active Oxygen Therapy [RC] ASDIRECTED Care 05/20/20 11:08 Active Pulse Oximetry [RC] ASDIRECTED Care 05/20/20 11:06 Active TROPONIN I [CHEM] Stat Lab 05/20/20 13:32 Ordered Sodium Chloride 0.9% [Saline Flush] Med 05/20/20 11:05 Active 10 ml FLUSH ASDIRECTED PRN Sodium Chloride 0.9% [Saline Flush] Med 05/20/20 11:05 Active 2.5 ml FLUSH ASDIRECTED PRN Saline Lock Insert [OM.PC] Stat Oth 05/20/20 11:06 Ordered Medication Orders Sodium Chloride (Sodium Chloride 0.9% 10 Ml Syringe) 10 ml FLUSH ASDIRECTED PRN PRN Reason: Keep Vein Open Last Admin: 05/20/20 11:16 Dose: 10 ml Documented by: MIGUE Sodium Chloride (Sodium Chloride 0.9% 2.5 Ml Syringe) 2.5 ml FLUSH ASDIRECTED PRN PRN Reason: Keep Vein Open Last Admin: 05/20/20 11:16 Dose: 2.5 ml Documented by: MIGUE Labs: Laboratory Tests 05/20/20 05/20/20 05/20/20 Range/Units 11:00 11:00 11:00 WBC 9.82 (4.0-11.0) K/uL RBC 6.01 H (4.50-5.90) M/uL Hgb 18.4 H (13.0-17.0) g/dL Hct 55.0 H (38.0-50.0) % MCV 91.5 (80.0-98.0) fL MCH 30.6 (27.0-32.0) pg MCHC 33.5 (31.0-37.0) g/dL RDW Std Deviation 51.5 (28.0-62.0) fl RDW Coeff of Aleida 16 H (11.0-15.0) % Plt Count 224 (150-400) K/uL MPV 11.00 (7.40-12.00) fL Neut % (Auto) 65.4 (48.0-80.0) % Lymph % (Auto) 25.7 (16.0-40.0) % [place] % (Auto) 7.8 (0.0-15.0) % Eos % (Auto) 0.9 (0.0-7.0) % Baso % (Auto) 0.2 (0.0-1.5) % Neut # (Auto) 6.4 H (1.4-5.7) K/uL Lymph # (Auto) 2.5 H (0.6-2.4) K/uL [place] # (Auto) 0.8 (0.0-0.8) K/uL Eos # (Auto) 0.1 (0.0-0.7) K/uL Baso # (Auto) 0.0 (0.0-0.1) K/uL Nucleated RBC % 0.0 /100WBC Nucleated RBCs # 0 K/uL ABG pH (7.35-7.45) ABG pCO2 (35-45) mmHG ABG pO2 (75-100) mmHG ABG HCO3 (22-26) mEq/L ABG Total CO2 ABG Base Excess (-2.0-2.0) Lactate 1.8 (0.20-2.00) mmol/L Sodium (136-148) mmol/L Potassium (3.5-5.1) mmol/L Chloride (98-107) mmol/L Carbon Dioxide (21.0-32.0) mmol/L BUN (7.0-18.0) mg/dL Creatinine (0.8-1.3) mg/dL Est Cr Clr Drug Dosing mL/min Estimated GFR (MDRD) ml/min Glucose (74-106) mg/dL Calcium (8.5-10.1) mg/dL Phosphorus (2.6-4.7) mg/dL Magnesium (1.8-2.4) mg/dL Total Bilirubin (0.2-1.0) mg/dL AST (15-37) IU/L ALT (14-63) IU/L Alkaline Phosphatase (46-116) U/L Troponin I (0.000-0.056) ng/mL B-Natriuretic Peptide (<100) PG/ML Total Protein (6.4-8.2) g/dL Albumin (3.4-5.0) g/dL Globulin (2.6-4.0) g/dL Albumin/Globulin Ratio (0.9-1.6) Lipase (73-393) U/L Urine Color YELLOW Urine Appearance CLEAR Urine pH 5.5 (5.0-8.0) Ur Specific [place] 1.025 (1.001-1.035) Urine Protein >=300 H (NEGATIVE) mg/dL Urine Glucose (UA) >=1000 (NEGATIVE) mg/dL Urine Ketones NEGATIVE (NEGATIVE) mg/dL Urine Occult Blood SMALL H (NEGATIVE) Urine Nitrite NEGATIVE (NEGATIVE) Urine Bilirubin NEGATIVE (NEGATIVE) Urine Urobilinogen 0.2 (<2.0) EU/dL Ur Leukocyte Esterase NEGATIVE (NEGATIVE) Urine RBC 0-2 (0-2/HPF) Urine WBC 0-1 (0-5/HPF) Ur Epithelial Cells FEW (NONE-FEW) Urine Bacteria OCCASIONAL (NEGATIVE) SARS-CoV-2 RNA (MAX) (NEGATIVE) 05/20/20 05/20/20 05/20/20 Range/Units 11:00 11:00 11:20 WBC (4.0-11.0) K/uL RBC (4.50-5.90) M/uL Hgb (13.0-17.0) g/dL Hct (38.0-50.0) % MCV (80.0-98.0) fL MCH (27.0-32.0) pg MCHC (31.0-37.0) g/dL RDW Std Deviation (28.0-62.0) fl RDW Coeff of Aleida (11.0-15.0) % Plt Count (150-400) K/uL MPV (7.40-12.00) fL Neut % (Auto) (48.0-80.0) % Lymph % (Auto) (16.0-40.0) % [place] % (Auto) (0.0-15.0) % Eos % (Auto) (0.0-7.0) % Baso % (Auto) (0.0-1.5) % Neut # (Auto) (1.4-5.7) K/uL Lymph # (Auto) (0.6-2.4) K/uL [place] # (Auto) (0.0-0.8) K/uL Eos # (Auto) (0.0-0.7) K/uL Baso # (Auto) (0.0-0.1) K/uL Nucleated RBC % /100WBC Nucleated RBCs # K/uL ABG pH (7.35-7.45) ABG pCO2 (35-45) mmHG ABG pO2 (75-100) mmHG ABG HCO3 (22-26) mEq/L ABG Total CO2 ABG Base Excess (-2.0-2.0) Lactate (0.20-2.00) mmol/L Sodium 134 L (136-148) mmol/L Potassium 4.0 (3.5-5.1) mmol/L Chloride 98 (98-107) mmol/L Carbon Dioxide 31.2 (21.0-32.0) mmol/L BUN 22 H (7.0-18.0) mg/dL Creatinine 1.4 H (0.8-1.3) mg/dL Est Cr Clr Drug Dosing 59.04 mL/min Estimated GFR (MDRD) 53.0 ml/min Glucose 483 H (74-106) mg/dL Calcium 8.8 (8.5-10.1) mg/dL Phosphorus 3.4 (2.6-4.7) mg/dL Magnesium 1.6 L (1.8-2.4) mg/dL Total Bilirubin 0.9 (0.2-1.0) mg/dL AST 18 (15-37) IU/L ALT 44 (14-63) IU/L Alkaline Phosphatase 328 H (46-116) U/L Troponin I 0.628 H* (0.000-0.056) ng/mL B-Natriuretic Peptide 227 H (<100) PG/ML Total Protein 6.9 (6.4-8.2) g/dL Albumin 2.9 L (3.4-5.0) g/dL Globulin 4.0 (2.6-4.0) g/dL Albumin/Globulin Ratio 0.7 L (0.9-1.6) Lipase 98 (73-393) U/L Urine Color Urine Appearance Urine pH (5.0-8.0) Ur Specific [place] (1.001-1.035) Urine Protein (NEGATIVE) mg/dL Urine Glucose (UA) (NEGATIVE) mg/dL Urine Ketones (NEGATIVE) mg/dL Urine Occult Blood (NEGATIVE) Urine Nitrite (NEGATIVE) Urine Bilirubin (NEGATIVE) Urine Urobilinogen (<2.0) EU/dL Ur Leukocyte Esterase (NEGATIVE) Urine RBC (0-2/HPF) Urine WBC (0-5/HPF) Ur Epithelial Cells (NONE-FEW) Urine Bacteria (NEGATIVE) SARS-CoV-2 RNA (MAX) NEGATIVE (NEGATIVE) 05/20/20 Range/Units 12:44 WBC (4.0-11.0) K/uL RBC (4.50-5.90) M/uL Hgb (13.0-17.0) g/dL Hct (38.0-50.0) % MCV (80.0-98.0) fL MCH (27.0-32.0) pg MCHC (31.0-37.0) g/dL RDW Std Deviation (28.0-62.0) fl RDW Coeff of Aleida (11.0-15.0) % Plt Count (150-400) K/uL MPV (7.40-12.00) fL Neut % (Auto) (48.0-80.0) % Lymph % (Auto) (16.0-40.0) % [place] % (Auto) (0.0-15.0) % Eos % (Auto) (0.0-7.0) % Baso % (Auto) (0.0-1.5) % Neut # (Auto) (1.4-5.7) K/uL Lymph # (Auto) (0.6-2.4) K/uL [place] # (Auto) (0.0-0.8) K/uL Eos # (Auto) (0.0-0.7) K/uL Baso # (Auto) (0.0-0.1) K/uL Nucleated RBC % /100WBC Nucleated RBCs # K/uL ABG pH 7.469 H (7.35-7.45) ABG pCO2 41 (35-45) mmHG ABG pO2 71 L (75-100) mmHG ABG HCO3 29 H (22-26) mEq/L ABG Total CO2 24.6 ABG Base Excess 5.1 H (-2.0-2.0) Lactate (0.20-2.00) mmol/L Sodium (136-148) mmol/L Potassium (3.5-5.1) mmol/L Chloride (98-107) mmol/L Carbon Dioxide (21.0-32.0) mmol/L BUN (7.0-18.0) mg/dL Creatinine (0.8-1.3) mg/dL Est Cr Clr Drug Dosing mL/min Estimated GFR (MDRD) ml/min Glucose (74-106) mg/dL Calcium (8.5-10.1) mg/dL Phosphorus (2.6-4.7) mg/dL Magnesium (1.8-2.4) mg/dL Total Bilirubin (0.2-1.0) mg/dL AST (15-37) IU/L ALT (14-63) IU/L Alkaline Phosphatase (46-116) U/L Troponin I (0.000-0.056) ng/mL B-Natriuretic Peptide (<100) PG/ML Total Protein (6.4-8.2) g/dL Albumin (3.4-5.0) g/dL Globulin (2.6-4.0) g/dL Albumin/Globulin Ratio (0.9-1.6) Lipase (73-393) U/L Urine Color Urine Appearance Urine pH (5.0-8.0) Ur Specific [place] (1.001-1.035) Urine Protein (NEGATIVE) mg/dL Urine Glucose (UA) (NEGATIVE) mg/dL Urine Ketones (NEGATIVE) mg/dL Urine Occult Blood (NEGATIVE) Urine Nitrite (NEGATIVE) Urine Bilirubin (NEGATIVE) Urine Urobilinogen (<2.0) EU/dL Ur Leukocyte Esterase (NEGATIVE) Urine RBC (0-2/HPF) Urine WBC (0-5/HPF) Ur Epithelial Cells (NONE-FEW) Urine Bacteria (NEGATIVE) SARS-CoV-2 RNA (MAX) (NEGATIVE) Meds: Medications Generic Name Dose Route Start Last Admin Trade Name Freq PRN Reason Stop Dose Admin Sodium Chloride 10 ml 05/20/20 11:05 05/20/20 11:16 Sodium Chloride 0.9% 10 Ml Syringe FLUSH 10 ml ASDIRECTED PRN Administration Keep Vein Open Sodium Chloride 2.5 ml 05/20/20 11:05 05/20/20 11:16 Sodium Chloride 0.9% 2.5 Ml Syringe FLUSH 2.5 ml ASDIRECTED PRN Administration Keep Vein Open Discontinued Medications Generic Name Dose Route Start Last Admin Trade Name Freq PRN Reason Stop Dose Admin Aspirin 324 mg 05/20/20 11:49 05/20/20 12:37 Aspirin 81 Mg Tab.Chew PO 05/20/20 11:50 324 mg ONETIME ONE Administration Iopamidol 100 ml 05/20/20 12:05 05/20/20 12:38 Iopamidol 755 Mg/Ml 500 Ml Multipack Bottle IVPUSH 05/20/20 12:06 100 ml ONETIME STA Administration - Re-Assessments/Exams Free Text/Narrative Re-Assessment/Exam: 05/20/20 11:17 We will get labs and CT imaging of the abdomen and pelvis. Will follow up and disposition 05/20/20 11:52 Will give aspirin for elevated troponin 0.6; will get ABG as patient is with significant hyperglycemia (r/o DKA). Will add CTA chest. Will f/u CT A/P. 05/20/20 13:39 We will transfer patient to [facility] for further workup of likely heart failure. Departure - Departure Time of Disposition: 13:40 Disposition: DC/Tfer to Acute Hospital 02 Condition: Fair Clinical Impression: CHF (congestive heart failure) Qualifiers: Heart failure type: unspecified Heart failure chronicity: acute Qualified Code(s): I50.9 - Heart failure, unspecified - Discharge Information Referrals: Mary Carmen Richmond PA [Primary Care Provider] - Forms: ED Department Discharge Sepsis Event Note (ED) - Focused Exam Vital Signs: Vital Signs Temp Pulse Resp BP Pulse Ox 05/20/20 13:38 69 20 185/95 H 92 L 05/20/20 12:54 80 179/93 H 93 L 05/20/20 10:54 97.5 F 86 20 145/90 H - My Orders Last 24 Hours: My Active Orders 05/20/20 11:05 EKG Documentation Completion [RC] STAT Sodium Chloride 0.9% [Saline Flush] 10 ml FLUSH ASDIRECTED PRN Sodium Chloride 0.9% [Saline Flush] 2.5 ml FLUSH ASDIRECTED PRN 05/20/20 11:06 Cardiac Monitoring [RC] . DIRECTED Pulse Oximetry [RC] ASDIRECTED Saline Lock Insert [OM.PC] Stat 05/20/20 11:08 Oxygen Therapy [RC] ASDIRECTED 05/20/20 13:32 TROPONIN I [CHEM] Stat - Assessment/Plan Last 24 Hours: My Active Orders 05/20/20 11:05 EKG Documentation Completion [RC] STAT Sodium Chloride 0.9% [Saline Flush] 10 ml FLUSH ASDIRECTED PRN Sodium Chloride 0.9% [Saline Flush] 2.5 ml FLUSH ASDIRECTED PRN 05/20/20 11:06 Cardiac Monitoring [RC] . DIRECTED Pulse Oximetry [RC] ASDIRECTED Saline Lock Insert [OM.PC] Stat 05/20/20 11:08 Oxygen Therapy [RC] ASDIRECTED 05/20/20 13:32 TROPONIN I [CHEM] Stat
[2020-05-20] MEDS ORDERED: Sodium Chloride 0.9% 2.5 ML Syringe FLUSH PRN (11:05)
[2020-05-20] MEDS ORDERED: Sodium Chloride 0.9% 10 ML Syringe FLUSH PRN (11:05)
[2020-05-20 11:40] LABS: CARBON DIOXIDE,CO2 31.2 mmol/L (21.0-32.0)
[2020-05-20] MEDS ORDERED: Aspirin 81 MG Tab.Chew PO ONE (11:49)
[2020-05-20] MEDS ORDERED: Iopamidol 755 MG/ML 500 ML Multipack Bottle IVPUSH STA (12:05)
--- NOTE | 2020-05-20 12:32 | CR ---
INDICATION: Abdominal pain. Hypoxia. COMPARISON: 05/17/2019. FINDINGS: A portable AP semi upright view of the chest was obtained. This is a shallow inspiratory film. The cardiac silhouette is stable. The pulmonary vasculature is within normal limits. The lungs are clear of acute infiltrates. IMPRESSION: Stable chest x-ray. No evidence of acute pulmonary disease. Dictated by Jonathan Hurd MD @ May 20 2020 12:28PM Signed by Dr. Jonathan Hurd @ May 20 2020 12:30PM
--- NOTE | 2020-05-20 13:28 | CT ---
INDICATION: Hypoxic. Positive troponin. Abdominal pain and distention. TECHNIQUE: Volumetric helical scanning of the chest was performed during infusion of 100 cc of Isovue 370 contrast material IV, timing optimized for pulmonary arterial opacification. Subsequently, scanning of the abdomen and pelvis was performed. Coronal and sagittal reconstructions were obtained. COMPARISON: None. FINDINGS: CHEST: The images are of acceptable quality and demonstrate uniform vascular enhancement within the pulmonary arteries. No pulmonary arterial filling defect is identified. The heart size is normal. Calcified coronary arterial plaque is demonstrated. The lungs are low in volume and there prominent insertional lines suggesting interstitial edema. The pulmonary veins appear to be congested. A small right pleural effusion is noted. No left-sided effusion is evident. No axillary, mediastinal or hilar adenopathy is apparent. ABDOMEN/PELVIS: There is a small amount of ascites. The bowel is unremarkable. Mild anasarca is noted. The abdominal wall musculature is thinned and there appears be supraumbilical rectus diastasis with the distance between the rectus muscles measuring up to roughly 7 cm. The liver is mildly enlarged but otherwise unremarkable. The bile ducts are unremarkable. The spleen is mild to moderately enlarged. The adrenal glands, kidneys and pancreas are unremarkable. No lymphadenopathy is evident. The prostate is normal. IMPRESSION: 1. Negative for pulmonary embolism. 2. Presumed CHF with interstitial edema and small right-sided pleural effusion. 3. Small volume ascites. 4. Supraumbilical rectus diastasis. 5. Mild hepatomegaly and mild to moderate splenomegaly. 6. Mild anasarca. Please note that all CT scans at this facility use dose modulation, iterative reconstruction, and/or weight-based dosing when appropriate to reduce radiation dose to as low as reasonably achievable. Dictated by Jonathan Ghosh MD @ May 20 2020 1:00PM Signed by Dr. Jonathan Ghosh @ May 20 2020 1:28PM
--- NOTE | 2020-05-20 13:30 | CT ---
The abdomen/pelvis CT report is included with today`s chest CT report. Please note that all CT scans at this facility use dose modulation, iterative reconstruction, and/or weight-based dosing when appropriate to reduce radiation dose to as low as reasonably achievable. Dictated by Jonathan Ghosh MD @ May 20 2020 1:00PM Signed by Dr. Jonathan Ghsoh @ May 20 2020 1:29PM
== END 2020-05-20 14:45 ==
LOC: MW.ED 10:32
DX: I11.0 Hypertensive heart disease with heart failure (principal); I50.9 Heart failure, unspecified; E11.9 Type 2 diabetes mellitus without complications; E66.9 Obesity, unspecified; I25.10 Atherosclerotic heart disease of native coronary artery without angina pectoris; I25.2 Old myocardial infarction; Z79.82 Long term (current) use of aspirin; Z79.84 Long term (current) use of oral hypoglycemic drugs; Z79.899 Other long term (current) drug therapy; Z68.42 Body mass index [BMI] 45.0-49.9, adult; Z88.0 Allergy status to penicillin; Z20.822 Contact with and (suspected) exposure to COVID-19
CPT/HCPCS: 36415; 36600; 71045; 71275; 74177; 80053; 81001; 82803; 83605; 83690; 83735; 83880; 84100; 84484; 85025; 87635; 93005; 99285; A9270; Q9967; 93010; 99284; U0002

== ENCOUNTER 2020-07-11 14:53 | Emergency (ER) | payer SELFPAY ==
[2020-07-11] MEDS ORDERED: Sodium Chloride 0.9% 2.5 ML Syringe FLUSH PRN (15:38)
[2020-07-11] MEDS ORDERED: Sodium Chloride 0.9% 10 ML Syringe FLUSH PRN (15:38)
[2020-07-11] MEDS ORDERED: Furosemide 40 MG/4 ML VIAL IVPUSH ONE (15:41)
[2020-07-11 16:14] LABS: CARBON DIOXIDE,CO2 28.6 mmol/L (21.0-32.0); POTASSIUM,K 4.4 mmol/L (3.5-5.1)
--- NOTE | 2020-07-11 16:19 | EDM.PDOC ---
ED HPI GENERAL MEDICAL PROBLEM - General Chief Complaint: Abdominal Pain Stated Complaint: HEART ISSUES Time Seen by Provider: 07/11/20 15:02 Source of Information: Reports: Patient - History of Present Illness INITIAL COMMENTS - FREE TEXT/NARRATIVE: 54-year-old male presenting with progressive dyspnea over the last 2 weeks with a history of an admission for acute CHF. Apparently he was admitted to [facility] in May for CHF with lower extremity swelling dyspnea and severe abdominal distention. He was diuresed appropriately, went home and was doing well up until he ran out of his Lasix 2 weeks ago. He was supposed to follow-up with his textile finisher today for a follow-up appointment in [place] but apparently the textile finisher's office called and canceled the appointment. Therefore he came here. He did notice some bruising over his abdomen today without any trauma and he was worried that he may have a problem with his liver or spleen because he was told he had some kind of abnormal finding on his prior abdominal imaging in the liver and spleen. Duration: Week(s): (2) Severity: Moderate Improves with: Reports: None Worsens with: Reports: None Abdomen Pain Score (Numeric/FACES): 5 - Related Data Allergies Allergy/AdvReac Type Severity Reaction Status Date / Time Penicillins Allergy Anaphylactic Verified 07/11/20 15:04 Shock Home Meds: Home Meds atorvaSTATin Calcium [Atorvastatin Calcium] 40 mg PO DAILY 02/16/18 [History] metFORMIN HCl [Metformin HCl] 1,000 mg PO BID 02/16/18 [History] Aspirin [Low Dose Aspirin EC] 81 mg PO DAILY 09/16/18 [History] Losartan Potassium 50 mg PO DAILY 09/16/18 [History] Fish Oil/[place]-3 Fatty Acids [Fish Oil 1,000 MG] 1 tab PO DAILY 02/27/20 [History] glipiZIDE [Glucotrol XL] 1 tab PO DAILY 02/27/20 [History] Past Medical History HEENT History: Reports: Impaired Vision, Other (See Below) Other HEENT History: wears glasses Cardiovascular History: Reports: Heart Failure, Hypertension Respiratory History: Reports: None Gastrointestinal History: Reports: None Genitourinary History: Reports: None Musculoskeletal History: Reports: None Neurological History: Reports: None Psychiatric History: Reports: None Endocrine/Metabolic History: Reports: Diabetes, Type II, Obesity/BMI 30+ Hematologic History: Reports: None Immunologic History: Reports: None Oncologic (Cancer) History: Reports: None Dermatologic History: Reports: None - Infectious Disease History Infectious Disease History: Reports: Chicken Pox, Measles, Shingles - Past Surgical History Head Surgeries/Procedures: Reports: None HEENT Surgical History: Reports: None Cardiovascular Surgical History: Reports: None Respiratory Surgical History: Reports: None GI Surgical History: Reports: None Male Surgical History: Reports: None Endocrine Surgical History: Reports: None Neurological Surgical History: Reports: None Musculoskeletal Surgical History: Reports: Other (See Below) Other Musculoskeletal Surgeries/Procedures:: Rotator cuff surgery, knee surgery Oncologic Surgical History: Reports: None Dermatological Surgical History: Reports: None Social & Family History - Family History Family Medical History: No Pertinent Family History - Tobacco Use Tobacco Use Status *Q: Never Tobacco User - Caffeine Use Caffeine Use: Reports: Soda - Recreational Drug Use Recreational Drug Use: No ED ROS GENERAL - Review of Systems Review Of Systems: See Below Constitutional: Reports: No Symptoms Respiratory: Reports: Shortness of Breath Cardiovascular: Reports: Edema, Orthopnea. Denies: Chest Pain GI/Abdominal: Reports: Abdominal Pain (Distention) ED EXAM, GENERAL - Physical Exam Exam: See Below General Appearance: Alert, WD/WN, No Apparent Distress Head: Atraumatic, Normocephalic Neck: Supple Respiratory/Chest: No Respiratory Distress Cardiovascular: Irregularly Irregular GI/Abdominal: Soft, Non-Tender, Distended, Other (Obese, mild bruising over the left abdomen) (Male) Exam: Deferred Rectal (Males) Exam: Deferred Back Exam: Full Range of Motion Extremities: Pedal Edema, Other (Lower extremity venous stasis appearance, no calf tenderness) Neurological: Alert, Oriented Psychiatric: Normal Affect, Normal Mood #1 Interpretation EKG Date: 07/11/20 Time: 15:12 Rhythm: A-Fib Rate (Beats/Min): 65 QRS: RBBB ST-T: Normal QT: Normal Course - Vital Signs Text/Narrative:: Patient with CHF, troponin elevation. Atrial fibrillation on EKG. Will diurese. Patient will require transfer for cardiology evaluation. His textile finisher is based in [place]. Mildly elevated BNP. Chest x-ray without significant edema. CT abdomen/pelvis does show anasarca, mild spleno and hepatomegaly and small bilateral pleural effusions.. Discussion with the patient reveals that he does not aware of any prior history of atrial fibrillation. He is not on anticoagulation except for 81 mg aspirin daily. Therefore possible new onset atrial fibrillation with positive troponin. Will admit the patient after discussion at [facility]. Patient's glucose was elevated and insulin was ordered for the patient. However the patient refused insulin reporting that the insulin here makes him feel sick and he wants to wait until he gets transferred to [place] where they had a specialized ?insulin pen that did not bother him. His oxygen saturation was 84% on arrival here, however he was given 2 L of O2 and his oxygen improved to the low 90s. Patient does report chronically low oxygen levels and the nurses who have cared for this patient in the ER in the past report that they have attempted to arrange outpatient oxygen supplementation for him multiple times in the past and he has refused each time. Last Recorded V/S: Last Vital Signs Temp 97.1 F 07/11/20 18:45 Pulse 66 07/11/20 18:45 Resp 20 07/11/20 18:45 BP 152/62 H 07/11/20 18:45 Pulse Ox 94 L 07/11/20 18:45 - Orders/Labs/Meds Orders: Active Orders 24 hr Category Date Time Status EKG Documentation Completion [RC] STAT Care 07/11/20 15:39 Active CORONAVIRUS COVID-19 MAX [MOLEC] Stat Lab 07/11/20 18:40 Ordered Dextrose 50% in Water Med 07/11/20 16:20 Active 50 ml IV ASDIRECTED PRN Glucagon,Human Recombinant [GlucaGen] Med 07/11/20 16:20 Active 1 mg IM ASDIRECTED PRN Sodium Chloride 0.9% [Saline Flush] Med 07/11/20 15:38 Active 10 ml FLUSH ASDIRECTED PRN Sodium Chloride 0.9% [Saline Flush] Med 07/11/20 15:38 Active 2.5 ml FLUSH ASDIRECTED PRN Saline Lock Insert [OM.PC] Stat Oth 07/11/20 15:38 Ordered Medication Orders Dextrose/Water (50% Dextrose In Water 50 Ml Syringe) 50 ml IV ASDIRECTED PRN PRN Reason: Hypoglycemia Glucagon (Glucagon,Human Recombinant 1 Mg Vial) 1 mg IM ASDIRECTED PRN PRN Reason: Hypoglycemia Sodium Chloride (Sodium Chloride 0.9% 10 Ml Syringe) 10 ml FLUSH ASDIRECTED PRN PRN Reason: Keep Vein Open Last Admin: 07/11/20 15:52 Dose: 10 ml Documented by: TATA Sodium Chloride (Sodium Chloride 0.9% 2.5 Ml Syringe) 2.5 ml FLUSH ASDIRECTED PRN PRN Reason: Keep Vein Open Last Admin: 07/11/20 15:53 Dose: 2.5 ml Documented by: TATA Labs: Laboratory Tests 07/11/20 07/11/20 07/11/20 Range/Units 15:20 15:20 15:20 WBC 9.14 (4.0-11.0) K/uL RBC 5.37 (4.50-5.90) M/uL Hgb 16.3 (13.0-17.0) g/dL Hct 49.1 (38.0-50.0) % MCV 91.4 (80.0-98.0) fL MCH 30.4 (27.0-32.0) pg MCHC 33.2 (31.0-37.0) g/dL RDW Std Deviation 50.3 (28.0-62.0) fl RDW Coeff of Aleida 15 (11.0-15.0) % Plt Count 211 (150-400) K/uL MPV 11.40 (7.40-12.00) fL Neut % (Auto) 67.2 (48.0-80.0) % Lymph % (Auto) 25.2 (16.0-40.0) % Benzie % (Auto) 6.5 (0.0-15.0) % Eos % (Auto) 0.9 (0.0-7.0) % Baso % (Auto) 0.2 (0.0-1.5) % Neut # (Auto) 6.2 H (1.4-5.7) K/uL Lymph # (Auto) 2.3 (0.6-2.4) K/uL Benzie # (Auto) 0.6 (0.0-0.8) K/uL Eos # (Auto) 0.1 (0.0-0.7) K/uL Baso # (Auto) 0.0 (0.0-0.1) K/uL Nucleated RBC % 0.0 /100WBC Nucleated RBCs # 0 K/uL INR 1.09 Sodium 134 L (136-148) mmol/L Potassium 4.4 (3.5-5.1) mmol/L Chloride 98 (98-107) mmol/L Carbon Dioxide 28.6 (21.0-32.0) mmol/L BUN 25 H (7.0-18.0) mg/dL Creatinine 1.3 (0.8-1.3) mg/dL Est Cr Clr Drug Dosing 63.58 mL/min Estimated GFR (MDRD) 57.7 ml/min Glucose 473 H (74-106) mg/dL Calcium 8.4 L (8.5-10.1) mg/dL Total Bilirubin 0.7 (0.2-1.0) mg/dL AST 20 (15-37) IU/L ALT 47 (14-63) IU/L Alkaline Phosphatase 341 H (46-116) U/L Troponin I 0.540 H* (0.000-0.056) ng/mL B-Natriuretic Peptide (<100) PG/ML Total Protein 7.1 (6.4-8.2) g/dL Albumin 3.0 L (3.4-5.0) g/dL Globulin 4.1 H (2.6-4.0) g/dL Albumin/Globulin Ratio 0.7 L (0.9-1.6) 07/11/20 Range/Units 15:20 WBC (4.0-11.0) K/uL RBC (4.50-5.90) M/uL Hgb (13.0-17.0) g/dL Hct (38.0-50.0) % MCV (80.0-98.0) fL MCH (27.0-32.0) pg MCHC (31.0-37.0) g/dL RDW Std Deviation (28.0-62.0) fl RDW Coeff of Aleida (11.0-15.0) % Plt Count (150-400) K/uL MPV (7.40-12.00) fL Neut % (Auto) (48.0-80.0) % Lymph % (Auto) (16.0-40.0) % Benzie % (Auto) (0.0-15.0) % Eos % (Auto) (0.0-7.0) % Baso % (Auto) (0.0-1.5) % Neut # (Auto) (1.4-5.7) K/uL Lymph # (Auto) (0.6-2.4) K/uL Benzie # (Auto) (0.0-0.8) K/uL Eos # (Auto) (0.0-0.7) K/uL Baso # (Auto) (0.0-0.1) K/uL Nucleated RBC % /100WBC Nucleated RBCs # K/uL INR Sodium (136-148) mmol/L Potassium (3.5-5.1) mmol/L Chloride (98-107) mmol/L Carbon Dioxide (21.0-32.0) mmol/L BUN (7.0-18.0) mg/dL Creatinine (0.8-1.3) mg/dL Est Cr Clr Drug Dosing mL/min Estimated GFR (MDRD) ml/min Glucose (74-106) mg/dL Calcium (8.5-10.1) mg/dL Total Bilirubin (0.2-1.0) mg/dL AST (15-37) IU/L ALT (14-63) IU/L Alkaline Phosphatase (46-116) U/L Troponin I (0.000-0.056) ng/mL B-Natriuretic Peptide 113 H (<100) PG/ML Total Protein (6.4-8.2) g/dL Albumin (3.4-5.0) g/dL Globulin (2.6-4.0) g/dL Albumin/Globulin Ratio (0.9-1.6) Meds: Medications Generic Name Dose Route Start Last Admin Trade Name Freq PRN Reason Stop Dose Admin Dextrose/Water 50 ml 07/11/20 16:20 50% Dextrose In Water 50 Ml Syringe IV ASDIRECTED PRN Hypoglycemia Glucagon 1 mg 07/11/20 16:20 Glucagon,Human Recombinant 1 Mg Vial IM ASDIRECTED PRN Hypoglycemia Sodium Chloride 10 ml 07/11/20 15:38 07/11/20 15:52 Sodium Chloride 0.9% 10 Ml Syringe FLUSH 10 ml ASDIRECTED PRN Administration Keep Vein Open Sodium Chloride 2.5 ml 07/11/20 15:38 07/11/20 15:53 Sodium Chloride 0.9% 2.5 Ml Syringe FLUSH 2.5 ml ASDIRECTED PRN Administration Keep Vein Open Discontinued Medications Generic Name Dose Route Start Last Admin Trade Name Mariana PRN Reason Stop Dose Admin Enoxaparin Sodium 130 mg 07/11/20 17:46 07/11/20 18:11 Enoxaparin 150 Mg/1 Ml Syringe 1 mg/kg (130 mg) 07/11/20 17:47 130 mg SUBCUT Administration ONETIME ONE Furosemide 40 mg 07/11/20 15:41 07/11/20 15:52 Furosemide 40 Mg/4 Ml Vial IVPUSH 07/11/20 15:42 40 mg NOW ONE Administration Insulin Human Regular 10 unit 07/11/20 16:20 07/11/20 16:35 Insulin Regular, Human 100 Units/Ml 10 Ml Vial SUBCUT 07/11/20 16:21 Not Given ONETIME ONE Protocol Iopamidol 100 ml 07/11/20 16:59 07/11/20 16:59 Iopamidol 755 Mg/Ml 500 Ml Multipack Bottle IVPUSH 07/11/20 17:00 100 ml ONETIME ONE Administration - Re-Assessments/Exams Free Text/Narrative Re-Assessment/Exam: 07/11/20 17:55 I reassessed the patient. I discussed my recommendation for admission based on the elevated troponin new onset atrial fibrillation and need for cardiology, as we do not have neurology at this facility I did discuss with the patient that he would need to be transferred to [facility] for admission and cardiac evaluationthe patient did agree to transfer. 07/11/20 18:[address] Snowden, the ER physician at [facility], who accepts the patient there and agrees with plan for ground ACLS transfer. Departure - Departure Time of Disposition: 18:24 Disposition: DC/Tfer to [facility] 02 Reason for Transfer *Q: Other (cardiology, positive troponin) Clinical Impression: Atrial fibrillation with normal ventricular rate, Pleural effusion, Elevated troponin CHF (congestive heart failure) Qualifiers: Heart failure type: unspecified Heart failure chronicity: acute Qualified Code(s): I50.9 - Heart failure, unspecified Referrals: Mary Carmen Richmond PA [Primary Care Provider] - Forms: ED Department Discharge Sepsis Event Note (ED) - Evaluation Sepsis Screening Result: No Definite Risk - Focused Exam Vital Signs: Vital Signs Temp Pulse Resp BP Pulse Ox 07/11/20 18:45 97.1 F 66 20 152/62 H 94 L 07/11/20 17:00 86 21 H 137/60 96 07/11/20 16:30 68 21 H 141/67 H 92 L 07/11/20 15:50 68 22 H 169/83 H 93 L 07/11/20 15:23 90 L 07/11/20 15:05 97.8 F 63 20 171/78 H 84 L - My Orders Last 24 Hours: My Active Orders 07/11/20 15:38 Sodium Chloride 0.9% [Saline Flush] 10 ml FLUSH ASDIRECTED PRN Sodium Chloride 0.9% [Saline Flush] 2.5 ml FLUSH ASDIRECTED PRN Saline Lock Insert [OM.PC] Stat 07/11/20 15:39 EKG Documentation Completion [RC] STAT 07/11/20 16:20 Dextrose 50% in Water 50 ml IV ASDIRECTED PRN Glucagon,Human Recombinant [GlucaGen] 1 mg IM ASDIRECTED PRN 07/11/20 18:40 CORONAVIRUS COVID-19 MAX [MOLEC] Stat - Assessment/Plan Last 24 Hours: My Active Orders 07/11/20 15:38 Sodium Chloride 0.9% [Saline Flush] 10 ml FLUSH ASDIRECTED PRN Sodium Chloride 0.9% [Saline Flush] 2.5 ml FLUSH ASDIRECTED PRN Saline Lock Insert [OM.PC] Stat 07/11/20 15:39 EKG Documentation Completion [RC] STAT 07/11/20 16:20 Dextrose 50% in Water 50 ml IV ASDIRECTED PRN Glucagon,Human Recombinant [GlucaGen] 1 mg IM ASDIRECTED PRN 07/11/20 18:40 CORONAVIRUS COVID-19 MAX [MOLEC] Stat
[2020-07-11] MEDS ORDERED: Glucagon,Human Recombinant 1 MG Vial IM PRN (16:20)
[2020-07-11] MEDS ORDERED: 50% Dextrose in Water 50 ML Syringe IV PRN (16:20)
[2020-07-11] MEDS ORDERED: Insulin Regular, Human 100 Units/ML 10 ML Vial SUBCUT ONE (16:20)
[2020-07-11] MEDS ORDERED: Iopamidol 755 MG/ML 500 ML Multipack Bottle IVPUSH ONE (16:59)
--- NOTE | 2020-07-11 17:36 | CT ---
Indication: Abdominal swelling. Technique: A CT volumetric acquisition was performed of the abdomen and pelvis during intravenous infusion 100 cc Isovue 370. Comparison: CT abdomen pelvis dated 05/20/2020 Findings: The CT images demonstrate minimal bilateral pleural effusions. There is mild hepatic steatosis. The liver and spleen are mildly enlarged. There is no evidence of a focal mass lesion. Pancreas appears normal. The gallbladder and bile ducts are normal in size. The adrenal glands have normal morphology. There is symmetric uniform enhancement of the kidneys. There is no evidence of retroperitoneal lymphadenopathy. There is a minimal amount of ascites and mild soft tissue anasarca within the subcutaneous tissues. There is no evidence of obstruction within the small intestine or colon. The prostate gland and urinary bladder appear normal. Impression: No evidence of bowel obstruction. Persistent minimal amount of ascites and soft tissue anasarca. Please note that all CT scans at this facility use dose modulation, iterative reconstruction, and/or weight-based dosing when appropriate to reduce radiation dose to as low as reasonably achievable. Dictated by Madhu Arnold MD @ 07/11/2020 5:35:[address] Madhu Arnold @ Jul 11 2020 5:35PM
--- NOTE | 2020-07-11 17:41 | CR ---
Indication: Dyspnea Technique: Chest 2 views Comparison: Chest x-ray 05/20/2020 Findings/Impression: Cardiovascular and mediastinum: Borderline heart size with minimal aortic tortuosity. Lungs and pleural spaces: Mild hyperinflation with some bronchial wall thickening which can be seen in bronchitis or reactive airways disease. Scattered areas of discoid atelectasis. Bones and soft tissues: No significant findings. Dictated by Tip Muñoz MD @ 07/11/2020 5:38:[address] Tip Muñoz @ Jul 11 2020 5:38PM
[2020-07-11] MEDS ORDERED: Enoxaparin 150 MG/1 ML Syringe SUBCUT ONE (17:46)
== END 2020-07-12 01:14 ==
LOC: MW.ED 14:53
DX: I11.0 Hypertensive heart disease with heart failure (principal); I50.9 Heart failure, unspecified; I48.91 Unspecified atrial fibrillation; J90 Pleural effusion, not elsewhere classified; R79.89 Other specified abnormal findings of blood chemistry; E11.9 Type 2 diabetes mellitus without complications; E66.9 Obesity, unspecified; Z68.41 Body mass index [BMI] 40.0-44.9, adult; Z79.82 Long term (current) use of aspirin; Z79.84 Long term (current) use of oral hypoglycemic drugs; Z88.0 Allergy status to penicillin; Z79.899 Other long term (current) drug therapy; Z20.822 Contact with and (suspected) exposure to COVID-19
CPT/HCPCS: 71046; 74177; 80053; 83880; 84484; 85025; 85610; 87635; 93005; 96372; 96374; 99285; J1650; J1940; Q9967; 93010; J1815-GY; U0002

== ENCOUNTER 2020-11-11 12:39 | Emergency (ER) | payer SELFPAY ==
[2020-11-11] MEDS ORDERED: Sodium Chloride 0.9% 2.5 ML Syringe FLUSH PRN (12:44)
[2020-11-11] MEDS ORDERED: Sodium Chloride 0.9% 10 ML Syringe FLUSH PRN (12:44)
[2020-11-11] MEDS ORDERED: Lactated Ringers 1,000 ML IV SCH (12:45)
[2020-11-11] MEDS ORDERED: Acetaminophen 500 MG Tab PO ONE (12:55)
[2020-11-11 13:22] LABS: CARBON DIOXIDE,CO2 27.1 mmol/L (21.0-32.0); POTASSIUM,K 5.7 mmol/L (3.5-5.1)
--- NOTE | 2020-11-11 13:25 | CR ---
INDICATION: Decreased loss of consciousness TECHNIQUE: Chest radiograph 2 views COMPARISON: 07/11/2020 FINDINGS: The sensitivity and specificity of the exam are severely limited by the patient`s body habitus. Mediastinum: The mediastinum is normal in appearance. Moderate to severe cardiomegaly is present without change. Lung: Moderate perihilar infiltrates are present and more prominent in the left lung. No sign of pleural effusion seen. No pneumothorax is identified. Bone and Soft tissue: Unremarkable for age. IMPRESSIONS: 1. Moderate perihilar infiltrates are present and more prominent in the left lung. Findings may be due to pulmonary edema. 2. Moderate to severe cardiomegaly is present without change. Dictated by Benjie Reeves MD @ 11/11/2020 1:24:39 PM Dictated by: Benjie Reeves MD @ 11/11/2020 13:24:43 (Electronically Signed)
[2020-11-11] MEDS ORDERED: Aspirin 81 MG Tab.Chew PO ONE (13:47)
[2020-11-11] MEDS ORDERED: Heparin Sodium 5,000 Units/ML Vial IVPUSH ONE (13:53)
[2020-11-11] MEDS ORDERED: Heparin Sodium/0.45% NaCl 500 ML IV SCH (14:00)
[2020-11-11] MEDS ORDERED: 50% Dextrose in Water 50 ML Syringe IVPUSH PRN (14:06)
[2020-11-11] MEDS ORDERED: 50% Dextrose in Water 50 ML Syringe IV PRN (14:06)
[2020-11-11] MEDS ORDERED: Insulin Regular, Human 100 Units/ML 10 ML Vial IVPUSH ONE (14:06)
[2020-11-11] MEDS ORDERED: Calcium Gluconate 10% 1 GM/10 ML SDV IVPUSH ONE (14:06)
[2020-11-11] MEDS ORDERED: Glucagon,Human Recombinant 1 MG Vial IM PRN (14:06)
[2020-11-11] MEDS ORDERED: Albuterol 0.5% 5 MG/ML Neb Soln 20 ML Bottle NEB ONE (14:06)
--- NOTE | 2020-11-11 16:28 | EDM.PDOC ---
ED HPI GENERAL MEDICAL PROBLEM - General Chief Complaint: Respiratory Problem Stated Complaint: EMS Time Seen by Provider: 11/11/20 12:42 - History of Present Illness INITIAL COMMENTS - FREE TEXT/NARRATIVE: CHIEF COMPLAINT(S): Altered mental status HISTORY OF PRESENT ILLNESS: This is a 55-year-old man with a past medical history of hyperlipidemia, diabetes mellitus, hypertension who presents to the emergency department as a medical resuscitation via EMS with a chief complaint of altered mental status. Per EMS: They received a welfare check called to the patient's address. They stated that when they arrived the patient was altered, on the floor in his own stool. They stated that when they got his initial vital signs his oxygen saturation was in the 40s therefore they placed him on 15 L nonrebreather. They state that since he has been on 15 L nonrebreather his oxygen saturation improved to the 85% range. They state that he has improved. 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 Per the patient he states that he has just not been feeling well. He denies any chest pain, shortness of breath, abdominal pain, nausea or vomiting. He states that he does not know why he was sitting in his own stool. He denies any head injury or loss of consciousness. He denies any prior history of CAD, CVA and denies any history of deficits. He states that he has not had his Covid shot. He denies any other symptoms. REVIEW OF SYSTEMS: Constitutional: Denies fever, chills. Eyes: Denies eye pain Ears, Nose, Mouth, & Throat: Denies earache Cardiovascular: Denies chest pain Respiratory: Denies shortness of breath Gastrointestinal: Denies Nausea, vomiting, diarrhea, hematochezia. Genitourinary: Denies hematuria Skin:Denies a rash Neurological: Denies blurred vision, numbness, tingling, weakness Psychiatric: Denies depression PAST MEDICAL HISTORY: As per history of present illness and as reviewed below otherwise noncontributory. SURGICAL HISTORY: As per history of present illness and as reviewed below otherwise noncontributory. SOCIAL HISTORY: As per history of present illness and as reviewed below otherwise noncontributory. FAMILY HISTORY: As per history of present illness and as reviewed below otherwise noncontributory. EXAMINATION OF ORGAN SYSTEMS/BODY AREAS: VITALS: Blood pressure was 140/73, heart rate 94, respiratory rate 20 with an oxygen saturation of 94% on high flow nasal cannula with a 50 L flow rate and FiO2 of 90%. Temperature 38.7. GENERAL: This is a morbidly obese gentleman who is appears to be in no acute distress. HEAD: Normocephalic, atraumatic. EYES: EOMs intact. PERRL. No vertical or horizontal nystagmus. ENT. External ears WNL. Nares patent. Oropharynx is clear with no erythema or exudate. No uvular or tongue swelling. No stridor no trismus no drooling. NECK: Supple, no masses. Trachea is midline. LUNGS: No tachypnea or intercostal retractions. Clear to auscultation bilaterally, no wheezing, no rales, no stridor, no rhonchi. CARDIOVASCULAR: Regular rate and rhythm with S1-S2. No murmur, rubs or gallops. No edema. No JVD. ABDOMEN: Soft, obese abdomen without any obvious fluid wave, non-tender. Bowel sounds present in all 4 quadrants. No rebound tenderness, guarding, or peritoneal signs. MUSCULOSKELETAL: No deformity. Patient is moving all 4 limbs spontaneously. NEUROLOGICAL: Alert and oriented x 3. No focal neurological deficits noted. SKIN: No rashes, or pallor. No signs of injury. MEDICAL DECISION MAKING AND COURSE IN THE ED WITH INTERPRETATION/REVIEW OF DIAGNOSTIC STUDIES: This is a 55-year-old man with a past medical history of diabetes mellitus, hypertension, hyperlipidemia who presents to the emergency department as a medical resuscitation via EMS with a chief complaint of encephalopathy who was found to be profoundly hypoxic. Immediately upon entering the resuscitation room the patient was disrobed, placed on continuous cardiac monitoring, and IV access was established by nursing. Patient is able to speak thus displaying a patent airway, breath sounds are equal bilaterally, and patient has palpable pulses in all 4 extremities. Given the patient was saturating 85% on 15 L nonrebreather we did place the patient on high flow nasal cannula and his pulse oximetry did improve to 9394%. Given the fever we will provide the patient with Tylenol by mouth. The patient has no focal neurological deficits and is alert and oriented x4. I do believe that his encephalopathy was secondary to the profound hypoxia. Therefore at this time I did vocational rehabilitation counselor the stroke code. We did obtain an EKG which was unremarkable. Will obtain CBC, CMP, lactic acid, troponin, BNP, CPK, Covid swab. Will obtain a chest x-ray. We did obtain blood cultures for possible sepsis however at this time given the profound hypoxia I do believe COVID-19 viral pneumonia is higher on the differential. We will hold off on antibiotic administration at this time. Laboratory: CBC is unremarkable. Carboxyhemoglobin is 3.0. VBG is normal. CMP reveals acute renal failure with a BUN of 99 and a creatinine of 2.4, hyponatremia at 134, hyperkalemia at 5.7, hypochloremia at 96, hyperglycemia at 358, hypocalcemia at 8.1, transaminitis with an AST of 1427, ALT of 744 and hyperbilirubinemia with a total bilirubin of 2.4 this is likely secondary to rhabdomyolysis. Alkaline phosphatase is elevated at 219 and CPK is 868. The patient is hypoalbuminemic at 2.6. BNP is elevated at 248. COVID-19 is positive. Lactic acid is 3.1 likely secondary to the profound hypoxia. Trop onin is 1.088. The radiological images were viewed by myself along with reading the report from the radiologist. Chest x-ray reveals moderate perihilar infiltrates more prominent in the left lung findings may due to pulmonary edema with moderate to severe cardiomegaly. No change in the cardiomegaly. My interpretation: Bilateral infiltrates likely secondary to COVID-19 given his laboratory results. After labs I did review the patient's EKG. At this time he did not have any widened QRS or peaked T waves. However given the hyperkalemia and new onset renal failure we will provide the patient with calcium gluconate, albuterol 10 mg, insulin 10 units and an amp of D50. At this time given the patient's renal failure differential for the hypoxia also includes pulmonary embolism however he is unable to get a CT angiogram. Therefore given the elevated troponin and the possibility of pulmonary embolism we will start the patient on a heparin drip. At this time given that our facility does not have nephrology or cardiology the patient will need to be transferred for ICU care at a higher level institution. I did discuss the results with the patient. He was amenable to this plan. 30 cc/kg bolus was not administered given the lactic acidosis of 3.1 given the patient has COVID-19 and that his lactic acidosis is likely secondary to the profound hypoxia at home. No antibiotics will be administered at this time. We did perform a bladder scan and his bladder did show approximately 500 cc of urine. At this time we will place a Javier catheter. I contacted [facility] in [place] and spoke with Dr. Aleman who accepted the patient for transfer however recommended we contact other hospitals to see if other facilities had available beds at this time. We contacted the [facility] contact number and there are no available beds in the [facility] currently. At the time of transport the patient refused to have a Javier catheter placed. We did transition the patient to high flow nasal cannula and his oxygen saturation was 88 to 91% in preparation for fixed wing flight to [facility] in [place]. DISPOSITION: Transfer to [facility] in [place] CONDITION: Serious PROCEDURES: Cardiac monitoring interpretation, pulse oximetry interpretation FINAL IMPRESSION(S)/DIAGNOSES: 1. Acute hypoxic respiratory failure requiring high flow nasal cannula seconda ry to COVID-19 pneumonia versus pulmonary embolism 2. Acute elevated troponin possibly secondary to NSTEMI versus troponin leak secondary to acute renal failure vs Type II GA 3. Acute renal failure likely secondary to rhabdomyolysis 4. Acute rhabdomyolysis 5. Acute lactic acidosis likely secondary #1 6. Acute hyperkalemia likely secondary to #3 7. Acute transaminitis likely secondary to rhabdomyolysis Critical Care Procedure Note Authorized and performed by: Chandrakant Dodson M.D. Critical Care Time: 88 minutes Due to a high probability of clinically significant, life threatening det erioration, the patient required my highest level of preparedness to intervene emergently and I personally spent this critical care time directly and personally managing the patient. This critical care time included obtaining a history, examining the patient, pulse oximetry; ordering and review of studies; arranging urgent treatment with development of a management plan; evaluation of a patients reponse to treatment; frequent assessment; and discussions with other providers. This critical care time was performed to assess and manage the high probability of imminent, life threatening deterioration that could result in multiorgan failure. It was exclusive of separate billable procedures and treating other patients. Please see MDM section and rest of the note for further information on patient assessment and treatment. Please see MDM section and rest of the note for further information on patient assessment and treatment. Treatments WINDOWS SYSTEMS ADMIN: Reports: IV/IO Other Treatments WINDOWS SYSTEMS ADMIN: LR - Related Data Allergies Allergy/AdvReac Type Severity Reaction Status Date / Time Penicillins Allergy Anaphylactic Verified 11/11/20 12:57 Shock Home Meds: Home Meds atorvaSTATin Calcium [Atorvastatin Calcium] 40 mg PO DAILY 02/16/18 [History] metFORMIN HCl [Metformin HCl] 1,000 mg PO BID 02/16/18 [History] Aspirin [Low Dose Aspirin EC] 81 mg PO DAILY 09/16/18 [History] Losartan Potassium 50 mg PO DAILY 09/16/18 [History] Fish Oil/[place]-3 Fatty Acids [Fish Oil 1,000 MG] 1 tab PO DAILY 02/27/20 [History] glipiZIDE [Glucotrol XL] 1 tab PO DAILY 02/27/20 [History] Past Medical History HEENT History: Reports: Impaired Vision, Other (See Below) Other HEENT History: wears glasses Cardiovascular History: Reports: Heart Failure, Hypertension Respiratory History: Reports: None Gastrointestinal History: Reports: None Genitourinary History: Reports: None Musculoskeletal History: Reports: None Neurological History: Reports: None Psychiatric History: Reports: None Endocrine/Metabolic History: Reports: Diabetes, Type II, Obesity/BMI 30+ Hematologic History: Reports: None Immunologic History: Reports: None Oncologic (Cancer) History: Reports: None Dermatologic History: Reports: None - Infectious Disease History Infectious Disease History: Reports: Chicken Pox, Measles, Shingles - Past Surgical History Head Surgeries/Procedures: Reports: None HEENT Surgical History: Reports: None Cardiovascular Surgical History: Reports: None Respiratory Surgical History: Reports: None GI Surgical History: Reports: None Male Surgical History: Reports: None Endocrine Surgical History: Reports: None Neurological Surgical History: Reports: None Musculoskeletal Surgical History: Reports: Other (See Below) Other Musculoskeletal Surgeries/Procedures:: Rotator cuff surgery, knee surgery Oncologic Surgical History: Reports: None Dermatological Surgical History: Reports: None Social & Family History - Family History Family Medical History: No Pertinent Family History - Tobacco Use Tobacco Use Status *Q: Never Tobacco User Second Hand Smoke Exposure: No - Caffeine Use Caffeine Use: Reports: None ED ROS GENERAL - Review of Systems Review Of Systems: See Below ED EXAM, GENERAL - Physical Exam Exam: See Below Course - Vital Signs Last Recorded V/S: Last Vital Signs Temp 38.5 C H 11/11/20 13:30 Pulse 87 11/11/20 14:59 Resp 24 H 11/11/20 12:53 BP 132/67 11/11/20 14:59 Pulse Ox 96 11/11/20 14:59 - Orders/Labs/Meds Orders: Active Orders 24 hr Category Date Time Status CULTURE BLOOD [BC] Stat Lab 11/11/20 13:23 Received CULTURE BLOOD [BC] Stat Lab 11/11/20 13:58 Received REFLEX LACTIC ACID YES OR NO [CHEM] Routine Lab 11/11/20 14:21 Received Blood Culture x2 Reflex Set [OM.PC] Stat Oth 11/11/20 12:44 Ordered Saline Lock Insert [OM.PC] Stat Oth 11/11/20 12:44 Ordered Labs: Laboratory Tests 11/11/20 11/11/20 11/11/20 Range/Units 12:40 12:40 12:40 WBC 9.05 (4.0-11.0) K/uL RBC 5.19 (4.50-5.90) M/uL Hgb 15.5 (13.0-17.0) g/dL Hct 45.5 (38.0-50.0) % MCV 87.7 (80.0-98.0) fL MCH 29.9 (27.0-32.0) pg MCHC 34.1 (31.0-37.0) g/dL RDW Std Deviation 49.4 (28.0-62.0) fl RDW Coeff of Aleida 15 (11.0-15.0) % Plt Count 178 (150-400) K/uL MPV 11.10 (7.40-12.00) fL Add Manual Diff YES Neutrophils % (Manual) 79 (48.0-80.0) % Band Neutrophils % 4 % Lymphocytes % (Manual) 12 L (16.0-40.0) % Monocytes % (Manual) 4 (0.0-15.0) % Myelocytes % 1 % Nucleated RBC % 3.1 /100WBC Absolute Seg Neuts 7.1 H (1.4-5.7) Band Neutrophils # 0.4 Lymphocytes # (Manual) 1.1 (0.6-2.4) Monocytes # (Manual) 0.4 (0.0-0.8) Absolute Myelocytes 0.1 Nucleated RBCs # 0 K/uL ABG Carboxyhemoglobin (0-15) % VBG pH 7.36 (7.31-7.41) VBG pCO2 49 (41-51) mmHG VBG pO2 34 mmHG VBG HCO3 27 (23-28) mEq/L VBG Total CO2 24 (24-29) mmol/L VBG Base Excess 1.0 (-2.0-3.0) Sodium 134 L (136-148) mmol/L Potassium 5.7 H (3.5-5.1) mmol/L Chloride 96 L (98-107) mmol/L Carbon Dioxide 27.1 (21.0-32.0) mmol/L BUN 99 H (7.0-18.0) mg/dL Creatinine 2.4 H (0.8-1.3) mg/dL Est Cr Clr Drug Dosing 37.48 mL/min Estimated GFR (MDRD) 28.4 ml/min Glucose 358 H (74-106) mg/dL Lactic Acid (0.4-2.0) mmol/L Calcium 8.1 L (8.5-10.1) mg/dL Magnesium 2.3 (1.8-2.4) mg/dL Total Bilirubin 2.4 H (0.2-1.0) mg/dL AST 1427 H (15-37) IU/L ALT 744 H (14-63) IU/L Alkaline Phosphatase 219 H (46-116) U/L Creatine Kinase (26-308) U/L Troponin I 1.088 H* (0.000-0.056) ng/mL B-Natriuretic Peptide (<100) PG/ML Total Protein 6.2 L (6.4-8.2) g/dL Albumin 2.6 L (3.4-5.0) g/dL Globulin 3.6 (2.6-4.0) g/dL Albumin/Globulin Ratio 0.7 L (0.9-1.6) Lipase 120 (73-393) U/L SARS-CoV-2 RNA (MAX) (NEGATIVE) Blood Type Antibody Screen 11/11/20 11/11/20 11/11/20 Range/Units 12:40 12:40 12:40 WBC (4.0-11.0) K/uL RBC (4.50-5.90) M/uL Hgb (13.0-17.0) g/dL Hct (38.0-50.0) % MCV (80.0-98.0) fL MCH (27.0-32.0) pg MCHC (31.0-37.0) g/dL RDW Std Deviation (28.0-62.0) fl RDW Coeff of Aleida (11.0-15.0) % Plt Count (150-400) K/uL MPV (7.40-12.00) fL Add Manual Diff Neutrophils % (Manual) (48.0-80.0) % Band Neutrophils % % Lymphocytes % (Manual) (16.0-40.0) % Monocytes % (Manual) (0.0-15.0) % Myelocytes % % Nucleated RBC % /100WBC Absolute Seg Neuts (1.4-5.7) Band Neutrophils # Lymphocytes # (Manual) (0.6-2.4) Monocytes # (Manual) (0.0-0.8) Absolute Myelocytes Nucleated RBCs # K/uL ABG Carboxyhemoglobin 3.0 (0-15) % VBG pH (7.31-7.41) VBG pCO2 (41-51) mmHG VBG pO2 mmHG VBG HCO3 (23-28) mEq/L VBG Total CO2 (24-29) mmol/L VBG Base Excess (-2.0-3.0) Sodium (136-148) mmol/L Potassium (3.5-5.1) mmol/L Chloride (98-107) mmol/L Carbon Dioxide (21.0-32.0) mmol/L BUN (7.0-18.0) mg/dL Creatinine (0.8-1.3) mg/dL Est Cr Clr Drug Dosing mL/min Estimated GFR (MDRD) ml/min Glucose (74-106) mg/dL Lactic Acid (0.4-2.0) mmol/L Calcium (8.5-10.1) mg/dL Magnesium (1.8-2.4) mg/dL Total Bilirubin (0.2-1.0) mg/dL AST (15-37) IU/L ALT (14-63) IU/L Alkaline Phosphatase (46-116) U/L Creatine Kinase 868 H (26-308) U/L Troponin I (0.000-0.056) ng/mL B-Natriuretic Peptide 248 H (<100) PG/ML Total Protein (6.4-8.2) g/dL Albumin (3.4-5.0) g/dL Globulin (2.6-4.0) g/dL Albumin/Globulin Ratio (0.9-1.6) Lipase (73-393) U/L SARS-CoV-2 RNA (MAX) (NEGATIVE) Blood Type Antibody Screen 11/11/20 11/11/20 11/11/20 Range/Units 12:45 13:23 13:23 WBC (4.0-11.0) K/uL RBC (4.50-5.90) M/uL Hgb (13.0-17.0) g/dL Hct (38.0-50.0) % MCV (80.0-98.0) fL MCH (27.0-32.0) pg MCHC (31.0-37.0) g/dL RDW Std Deviation (28.0-62.0) fl RDW Coeff of Aleida (11.0-15.0) % Plt Count (150-400) K/uL MPV (7.40-12.00) fL Add Manual Diff Neutrophils % (Manual) (48.0-80.0) % Band Neutrophils % % Lymphocytes % (Manual) (16.0-40.0) % Monocytes % (Manual) (0.0-15.0) % Myelocytes % % Nucleated RBC % /100WBC Absolute Seg Neuts (1.4-5.7) Band Neutrophils # Lymphocytes # (Manual) (0.6-2.4) Monocytes # (Manual) (0.0-0.8) Absolute Myelocytes Nucleated RBCs # K/uL ABG Carboxyhemoglobin (0-15) % VBG pH (7.31-7.41) VBG pCO2 (41-51) mmHG VBG pO2 mmHG VBG HCO3 (23-28) mEq/L VBG Total CO2 (24-29) mmol/L VBG Base Excess (-2.0-3.0) Sodium (136-148) mmol/L Potassium (3.5-5.1) mmol/L Chloride (98-107) mmol/L Carbon Dioxide (21.0-32.0) mmol/L BUN (7.0-18.0) mg/dL Creatinine (0.8-1.3) mg/dL Est Cr Clr Drug Dosing mL/min Estimated GFR (MDRD) ml/min Glucose (74-106) mg/dL Lactic Acid 3.1 H* (0.4-2.0) mmol/L Calcium (8.5-10.1) mg/dL Magnesium (1.8-2.4) mg/dL Total Bilirubin (0.2-1.0) mg/dL AST (15-37) IU/L ALT (14-63) IU/L Alkaline Phosphatase (46-116) U/L Creatine Kinase (26-308) U/L Troponin I (0.000-0.056) ng/mL B-Natriuretic Peptide (<100) PG/ML Total Protein (6.4-8.2) g/dL Albumin (3.4-5.0) g/dL Globulin (2.6-4.0) g/dL Albumin/Globulin Ratio (0.9-1.6) Lipase (73-393) U/L SARS-CoV-2 RNA (MAX) POSITIVE H (NEGATIVE) Blood Type A NEGATIVE Antibody Screen NEGATIVE Meds: Medications Discontinued Medications Generic Name Dose Route Start Last Admin Trade Name Freq PRN Reason Stop Dose Admin Acetaminophen 1,000 mg 11/11/20 12:55 11/11/20 13:00 Acetaminophen 500 Mg Tab PO 11/11/20 12:56 1,000 mg ONETIME ONE Administration Albuterol 10 mg 11/11/20 14:06 11/11/20 14:35 Albuterol 0.5% 5 Mg/Ml Neb Soln 20 Ml Bottle NEB 11/11/20 14:07 10 mg ONETIME ONE Administration Aspirin 324 mg 11/11/20 13:47 11/11/20 13:58 Aspirin 81 Mg Tab.Chew PO 11/11/20 13:48 324 mg ONETIME ONE Administration Calcium Gluconate 1 gm 11/11/20 14:06 11/11/20 14:33 Calcium Gluconate 10% 1 Gm/10 Ml Sdv IVPUSH 11/11/20 14:07 1 gm ONETIME ONE Administration Dextrose/Water 50 ml 11/11/20 14:06 50% Dextrose In Water 50 Ml Syringe IV ASDIRECTED PRN Hypoglycemia Dextrose/Water 50 ml 11/11/20 14:06 50% Dextrose In Water 50 Ml Syringe IVPUSH ASDIRECTED PRN Hypoglycemia Glucagon 1 mg 11/11/20 14:06 Glucagon,Human Recombinant 1 Mg Vial IM ASDIRECTED PRN Hypoglycemia Heparin Sodium (Porcine) 5,000 units 11/11/20 13:53 11/11/20 14:01 Heparin Sodium 5,000 Units/Ml Vial IVPUSH 11/11/20 13:54 5,000 units .BOLUS ONE Administration Protocol Lactated Ringer's 1,000 mls @ 999 mls/hr 11/11/20 12:45 11/11/20 12:49 Ringers, Lactated IV 999 mls/hr ASDIRECTED SVITLANA Administration Heparin Sodium/Sodium Chloride 500 mls @ 48.348 mls/hr 11/11/20 14:00 11/11/20 14:32 Heparin 25,000 Units In 1/2 Ns 500 Ml IV 9.6 units/kg/hr TITRATE SVITLANA 25.786 mls/hr Administration Protocol 18 UNITS/KG/HR Insulin Human Regular 10 unit 11/11/20 14:06 11/11/20 14:33 Insulin Regular, Human 100 Units/Ml 10 Ml Vial IVPUSH 11/11/20 14:07 10 unit ONETIME ONE Administration Protocol Sodium Chloride 10 ml 11/11/20 12:44 11/11/20 12:49 Sodium Chloride 0.9% 10 Ml Syringe FLUSH 10 ml ASDIRECTED PRN Administration Keep Vein Open Sodium Chloride 2.5 ml 11/11/20 12:44 11/11/20 12:49 Sodium Chloride 0.9% 2.5 Ml Syringe FLUSH 2.5 ml ASDIRECTED PRN Administration Keep Vein Open Departure - Departure Time of Disposition: 14:10 Disposition: DC/Tfer to Acute Hospital 02 Condition: Serious Clinical Impression: Hypoxia, COVID-19 - Discharge Information Referrals: PCP,None [Primary Care Provider] - Forms: ED Department Discharge Sepsis Event Note (ED) - Evaluation Sepsis Screening Result: No Definite Risk - Focused Exam Vital Signs: Vital Signs Temp Temp Temp Pulse Pulse Resp BP 11/11/20 14:59 87 132/67 11/11/20 14:25 89 115/91 H 11/11/20 13:40 97 11/11/20 13:30 38.5 C H 11/11/20 13:10 91 11/11/20 13:00 101.8 C H 11/11/20 12:53 38.8 C H 94 24 H 136/76 11/11/20 12:51 38.7 C H 94 20 BP Pulse Ox 11/11/20 14:59 96 11/11/20 14:25 95 11/11/20 13:40 11/11/20 13:30 11/11/20 13:10 94 L 11/11/20 13:00 11/11/20 12:53 93 L 11/11/20 12:51 140/73 94 L
--- NOTE | 2020-11-11 16:32 | PCM.EKG ---
#1 Interpretation EKG Date: 11/11/20 Time: 12:43 Rhythm: A-Flutter Rate (Beats/Min): 97 Wallace: Normal P-Wave: Absent QRS: Normal ST-T: Normal QT: Normal Comparison: No Change (07/11/20) EKG Interpretation Comments: Atrial FLutter with occasional PVC
== END 2020-11-11 15:20 ==
LOC: MW.ED 12:39
DX: U07.1 COVID-19 (principal); J96.01 Acute respiratory failure with hypoxia; N17.9 Acute kidney failure, unspecified; M62.82 Rhabdomyolysis; R79.89 Other specified abnormal findings of blood chemistry; E87.2 Acidosis; E87.5 Hyperkalemia; R74.01 Elevation of levels of liver transaminase levels; I11.0 Hypertensive heart disease with heart failure; I50.9 Heart failure, unspecified; E11.9 Type 2 diabetes mellitus without complications; E66.9 Obesity, unspecified; Z88.0 Allergy status to penicillin; Z79.82 Long term (current) use of aspirin; Z79.84 Long term (current) use of oral hypoglycemic drugs; Z79.899 Other long term (current) drug therapy
CPT/HCPCS: 36415; 51798; 71045; 80053; 82375; 82550; 82803; 83605; 83690; 83735; 83880; 84484; 85025; 86850; 86900; 86901; 87040; 87635; 96365; 99285; A9270; J0610; J1644; J1815; J7120; 87150; U0002

== ENCOUNTER 2020-12-04 17:47 | Inpatient (IN) | payer OTHER ==
[2020-12-04] MEDS ORDERED: Sodium Chloride 0.9% 10 ML Syringe FLUSH PRN (18:28)
[2020-12-04] MEDS ORDERED: Sodium Chloride 0.9% 2.5 ML Syringe FLUSH PRN (18:28)
--- NOTE | 2020-12-04 18:35 | EDM.PDOC ---
<Giancarlo Ortega - Last Filed: 12/04/20 18:30> ED HPI GENERAL MEDICAL PROBLEM - General Chief Complaint: Lower Extremity Injury/Pain Stated Complaint: RT KNEE PAIN Time Seen by Provider: 12/04/20 18:17 - History of Present Illness INITIAL COMMENTS - FREE TEXT/NARRATIVE: History of present illness: [] Patient has pain in the right lower extremity with swelling right lower extremity essentially for about 5 days. He was in the hospital 24 November and says he had COVID-19. At that time he improved enough to go home. Instead of going home he went to a hotel and took a week's worth of medicine. Asked that a weeks worth of medicine was used up he could not walk on his right lower extremity because of swelling increased and when he stopped his Lasix because he did not have access to his medicine it was in his home his swelling continued to increase in the right lower extremity. He has leg pain thigh pain and swelling in the right lower extremity that keep him from walking. He does manage to hobble with great deal of pain and difficulty and get to the bathroom and back. Otherwise he is essentially bedridden. Review of systems: As per history of present illness and below otherwise all systems reviewed and negative. Past medical history: As per history of present illness and as reviewed below otherwise noncontributory. Surgical history: As per history of present illness and as reviewed below otherwise noncontributory. Social history: No reported history of drug or alcohol abuse. Family history: As per history of present illness and as reviewed below otherwise noncontributory. Physical exam: Constitutional -morbidly obese-well developed, well-nourished and in no acute distress HEENT - normocephalic, no evidence of trauma - external nose and mouth normal - no mass in neck and no JVD - mucosae moist EYES - full EOM, PERRL, no icterus - no evidence of inflammation, injection, or drainage Respiratory - no respiratory distress, equal bilateral expansion, lungs clear to auscultation and no abnormal lung sounds Cardiovascular - Regular Rhythm with S1 and S2 appreciated and no murmur, gallop or rub. GI - abdomen soft without distension or organomegaly - normal bowel sounds - no guard or rebound Musculoskeletal no gross deformity of long bones or joints -tender edema lower extremity between groin to the feet and the right lower extremity. Pitting edema below the knee in the left lower extremity. Neurologic - Alert and oriented times four - CN II-XII grossly intact - motor sensory and coordination symmetrically normal Psychiatric - appropriate mood and affect with normal thought content Hematologic - No petechiae or purpura - mucosa appropriate color and sclera not pale - normal nail bed color and refill Integument - Venous stasis type skin changes in both lower extremities. Otherwise no rash or evidence of trauma - normal turgor Diagnostics: [] Therapeutics: [] Impression: [] Plan: [] Definitive disposition and diagnosis as appropriate pending reevaluation and review of above. Right Knee Pain Score (Numeric/FACES): 10 - Related Data Allergies Allergy/AdvReac Type Severity Reaction Status Date / Time Penicillins Allergy Anaphylactic Verified 12/04/20 18:08 Shock Home Meds: Home Meds atorvaSTATin Calcium [Atorvastatin Calcium] 40 mg PO DAILY 02/16/18 [History] metFORMIN HCl [Metformin HCl] 1,000 mg PO BID 02/16/18 [History] Aspirin [Low Dose Aspirin EC] 81 mg PO DAILY 09/16/18 [History] Losartan Potassium 50 mg PO DAILY 09/16/18 [History] Fish Oil/[place]-3 Fatty Acids [Fish Oil 1,000 MG] 1 tab PO DAILY 02/27/20 [History] glipiZIDE [Glucotrol XL] 1 tab PO DAILY 02/27/20 [History] Past Medical History HEENT History: Reports: Impaired Vision, Other (See Below) Other HEENT History: wears glasses Cardiovascular History: Reports: Heart Failure, Hypertension Respiratory History: Reports: None Gastrointestinal History: Reports: None Genitourinary History: Reports: None Musculoskeletal History: Reports: None Neurological History: Reports: None Psychiatric History: Reports: None Endocrine/Metabolic History: Reports: Diabetes, Type II, Obesity/BMI 30+ Hematologic History: Reports: None Immunologic History: Reports: None Oncologic (Cancer) History: Reports: None Dermatologic History: Reports: None - Infectious Disease History Infectious Disease History: Reports: Chicken Pox, Measles, Shingles - Past Surgical History Head Surgeries/Procedures: Reports: None HEENT Surgical History: Reports: None Cardiovascular Surgical History: Reports: None Respiratory Surgical History: Reports: None GI Surgical History: Reports: None Male Surgical History: Reports: None Endocrine Surgical History: Reports: None Neurological Surgical History: Reports: None Musculoskeletal Surgical History: Reports: Other (See Below) Other Musculoskeletal Surgeries/Procedures:: Rotator cuff surgery, knee surgery Oncologic Surgical History: Reports: None Dermatological Surgical History: Reports: None Social & Family History - Family History Family Medical History: No Pertinent Family History - Tobacco Use Tobacco Use Status *Q: Never Tobacco User - Caffeine Use Caffeine Use: Reports: None - Recreational Drug Use Recreational Drug Use: No Review of Systems - Review of Systems Review Of Systems: Comprehensive ROS is negative, except as noted in HPI. ED EXAM, GENERAL - Physical Exam Exam: See Below Free Text/Narrative:: My physical exam is in the HPI Departure - Departure Disposition: Admitted As Inpatient 67 Clinical Impression: Fluid overload, Hypoxia Chronic knee pain Qualifiers: Laterality: right Qualified Code(s): M25.561 - Pain in right knee - Discharge Information Referrals: Lester Faye MD [Primary Care Provider] - Forms: ED Department Discharge Sepsis Event Note (ED) - Evaluation Sepsis Screening Result: No Definite Risk <Lukas Helm - Last Filed: 12/04/20 23:44> #1 Interpretation EKG Date: 12/04/20 Time: 19:45 EKG Interpretation Comments: a-fib with ventricular rate of 80 solitary PVC right bundle branch block Course - Vital Signs Last Recorded V/S: Last Vital Signs Temp 97.8 F 12/04/20 18:09 Pulse 91 12/04/20 22:44 Resp 20 12/04/20 22:44 BP 151/62 H 12/04/20 22:44 Pulse Ox 94 L 12/04/20 22:44 - Orders/Labs/Meds Orders: Active Orders 24 hr Category Date Time Status Sodium Chloride 0.9% [Saline Flush] Med 12/04/20 18:28 Active 10 ml FLUSH ASDIRECTED PRN Sodium Chloride 0.9% [Saline Flush] Med 12/04/20 18:28 Active 2.5 ml FLUSH ASDIRECTED PRN Saline Lock Insert [OM.PC] Stat Oth 12/04/20 18:28 Ordered Medication Orders Sodium Chloride (Sodium Chloride 0.9% 10 Ml Syringe) 10 ml FLUSH ASDIRECTED PRN PRN Reason: Keep Vein Open Sodium Chloride (Sodium Chloride 0.9% 2.5 Ml Syringe) 2.5 ml FLUSH ASDIRECTED PRN PRN Reason: Keep Vein Open Labs: Laboratory Tests 10/21/21 10/21/21 10/21/21 Range/Units 18:49 18:49 18:49 WBC 7.34 (4.0-11.0) K/uL RBC 3.16 L (4.50-5.90) M/uL Hgb 9.3 L (13.0-17.0) g/dL Hct 28.5 L (38.0-50.0) % MCV 90.2 (80.0-98.0) fL MCH 29.4 (27.0-32.0) pg MCHC 32.6 (31.0-37.0) g/dL RDW Std Deviation 51.0 (28.0-62.0) fl RDW Coeff of Aleida 16 H (11.0-15.0) % Plt Count 210 (150-400) K/uL MPV 9.80 (7.40-12.00) fL Neut % (Auto) 65.4 (48.0-80.0) % Lymph % (Auto) 23.0 (16.0-40.0) % [place] % (Auto) 10.5 (0.0-15.0) % Eos % (Auto) 1.1 (0.0-7.0) % Baso % (Auto) 0.0 (0.0-1.5) % Neut # (Auto) 4.8 (1.4-5.7) K/uL Lymph # (Auto) 1.7 (0.6-2.4) K/uL [place] # (Auto) 0.8 (0.0-0.8) K/uL Eos # (Auto) 0.1 (0.0-0.7) K/uL Baso # (Auto) 0.0 (0.0-0.1) K/uL Nucleated RBC % 0.5 /100WBC Nucleated RBCs # 0 K/uL INR APTT (18.6-31.3) SEC VBG pH (7.31-7.41) VBG pCO2 (41-51) mmHG VBG pO2 mmHG VBG HCO3 (23-28) mEq/L VBG Total CO2 (24-29) mmol/L VBG Base Excess (-2.0-3.0) Sodium 142 (136-148) mmol/L Potassium 3.9 (3.5-5.1) mmol/L Chloride 101 (98-107) mmol/L Carbon Dioxide 28.6 (21.0-32.0) mmol/L BUN 16 (7.0-18.0) mg/dL Creatinine 1.3 (0.8-1.3) mg/dL Est Cr Clr Drug Dosing TNP Estimated GFR (MDRD) 57.5 ml/min Glucose 267 H (74-106) mg/dL Calcium 7.4 L (8.5-10.1) mg/dL Total Bilirubin 1.2 H (0.2-1.0) mg/dL AST 12 L (15-37) IU/L ALT 27 (14-63) IU/L Alkaline Phosphatase 315 H (46-116) U/L Ammonia (19-54) ug/dL Troponin I 0.275 H* (0.000-0.056) ng/mL B-Natriuretic Peptide (<100) PG/ML Total Protein 6.0 L (6.4-8.2) g/dL Albumin 2.2 L (3.4-5.0) g/dL Globulin 3.8 (2.6-4.0) g/dL Albumin/Globulin Ratio 0.6 L (0.9-1.6) SARS-CoV-2 RNA (MAX) (NEGATIVE) 12/04/20 12/04/20 12/04/20 Range/Units 18:49 18:49 19:25 WBC (4.0-11.0) K/uL RBC (4.50-5.90) M/uL Hgb (13.0-17.0) g/dL Hct (38.0-50.0) % MCV (80.0-98.0) fL MCH (27.0-32.0) pg MCHC (31.0-37.0) g/dL RDW Std Deviation (28.0-62.0) fl RDW Coeff of Aleida (11.0-15.0) % Plt Count (150-400) K/uL MPV (7.40-12.00) fL Neut % (Auto) (48.0-80.0) % Lymph % (Auto) (16.0-40.0) % [place] % (Auto) (0.0-15.0) % Eos % (Auto) (0.0-7.0) % Baso % (Auto) (0.0-1.5) % Neut # (Auto) (1.4-5.7) K/uL Lymph # (Auto) (0.6-2.4) K/uL [place] # (Auto) (0.0-0.8) K/uL Eos # (Auto) (0.0-0.7) K/uL Baso # (Auto) (0.0-0.1) K/uL Nucleated RBC % /100WBC Nucleated RBCs # K/uL INR 1.25 APTT 28.1 (18.6-31.3) SEC VBG pH (7.31-7.41) VBG pCO2 (41-51) mmHG VBG pO2 mmHG VBG HCO3 (23-28) mEq/L VBG Total CO2 (24-29) mmol/L VBG Base Excess (-2.0-3.0) Sodium (136-148) mmol/L Potassium (3.5-5.1) mmol/L Chloride (98-107) mmol/L Carbon Dioxide (21.0-32.0) mmol/L BUN (7.0-18.0) mg/dL Creatinine (0.8-1.3) mg/dL Est Cr Clr Drug Dosing Estimated GFR (MDRD) ml/min Glucose (74-106) mg/dL Calcium (8.5-10.1) mg/dL Total Bilirubin (0.2-1.0) mg/dL AST (15-37) IU/L ALT (14-63) IU/L Alkaline Phosphatase (46-116) U/L Ammonia 29 (19-54) ug/dL Troponin I (0.000-0.056) ng/mL B-Natriuretic Peptide 219 H (<100) PG/ML Total Protein (6.4-8.2) g/dL Albumin (3.4-5.0) g/dL Globulin (2.6-4.0) g/dL Albumin/Globulin Ratio (0.9-1.6) SARS-CoV-2 RNA (MAX) (NEGATIVE) 12/04/20 12/04/20 12/04/20 Range/Units 19:25 21:57 22:15 WBC (4.0-11.0) K/uL RBC (4.50-5.90) M/uL Hgb (13.0-17.0) g/dL Hct (38.0-50.0) % MCV (80.0-98.0) fL MCH (27.0-32.0) pg MCHC (31.0-37.0) g/dL RDW Std Deviation (28.0-62.0) fl RDW Coeff of Aleida (11.0-15.0) % Plt Count (150-400) K/uL MPV (7.40-12.00) fL Neut % (Auto) (48.0-80.0) % Lymph % (Auto) (16.0-40.0) % [place] % (Auto) (0.0-15.0) % Eos % (Auto) (0.0-7.0) % Baso % (Auto) (0.0-1.5) % Neut # (Auto) (1.4-5.7) K/uL Lymph # (Auto) (0.6-2.4) K/uL [place] # (Auto) (0.0-0.8) K/uL Eos # (Auto) (0.0-0.7) K/uL Baso # (Auto) (0.0-0.1) K/uL Nucleated RBC % /100WBC Nucleated RBCs # K/uL INR APTT (18.6-31.3) SEC VBG pH 7.47 H (7.31-7.41) VBG pCO2 45 (41-51) mmHG VBG pO2 < 30 mmHG VBG HCO3 32 H (23-28) mEq/L VBG Total CO2 30 H (24-29) mmol/L VBG Base Excess 7.5 H (-2.0-3.0) Sodium (136-148) mmol/L Potassium (3.5-5.1) mmol/L Chloride (98-107) mmol/L Carbon Dioxide (21.0-32.0) mmol/L BUN (7.0-18.0) mg/dL Creatinine (0.8-1.3) mg/dL Est Cr Clr Drug Dosing Estimated GFR (MDRD) ml/min Glucose (74-106) mg/dL Calcium (8.5-10.1) mg/dL Total Bilirubin (0.2-1.0) mg/dL AST (15-37) IU/L ALT (14-63) IU/L Alkaline Phosphatase (46-116) U/L Ammonia (19-54) ug/dL Troponin I 0.269 H* (0.000-0.056) ng/mL B-Natriuretic Peptide (<100) PG/ML Total Protein (6.4-8.2) g/dL Albumin (3.4-5.0) g/dL Globulin (2.6-4.0) g/dL Albumin/Globulin Ratio (0.9-1.6) SARS-CoV-2 RNA (MAX) NEGATIVE (NEGATIVE) Meds: Medications Generic Name Dose Route Start Last Admin Trade Name Freq PRN Reason Stop Dose Admin Sodium Chloride 10 ml 12/04/20 18:28 Sodium Chloride 0.9% 10 Ml Syringe FLUSH ASDIRECTED PRN Keep Vein Open Sodium Chloride 2.5 ml 12/04/20 18:28 Sodium Chloride 0.9% 2.5 Ml Syringe FLUSH ASDIRECTED PRN Keep Vein Open Discontinued Medications Generic Name Dose Route Start Last Admin Trade Name Freq PRN Reason Stop Dose Admin Furosemide 40 mg 12/04/20 23:35 Furosemide 40 Mg/4 Ml Vial IVPUSH 12/04/20 23:36 NOW ONE Iopamidol 100 ml 12/04/20 20:37 12/04/20 20:38 Iopamidol 755 Mg/Ml 500 Ml Multipack Bottle IVPUSH 12/04/20 20:38 100 ml ONETIME STA Administration Departure - Departure Time of Disposition: 23:44 Condition: Good - Discharge Information *PRESCRIPTION DRUG MONITORING PROGRAM REVIEWED*: Not Applicable *COPY OF PRESCRIPTION DRUG MONITORING REPORT IN PATIENT CECILIA: Not Applicable Sepsis Event Note (ED) - Focused Exam Vital Signs: Vital Signs Temp Pulse Resp BP Pulse Ox 12/04/20 22:44 91 20 151/62 H 94 L 12/04/20 22:05 73 142/66 H 96 12/04/20 21:00 102 H 20 133/75 95 12/04/20 19:45 82 20 121/73 92 L 12/04/20 18:09 97.8 F 82 18 126/47 L 79 L - Assessment/Plan Assessment:: 1900: Patient received in signout from Dr. Ortega at 7 PM. Labs show a signifi cant hemoglobin drop could indicate a GI bleed rectal exam is pending. Patient with some transaminitis as well his troponin is positive but lower than on previous evaluation. Chest x-ray shows clear lung calix and no significant pulmonary edema. Ultrasound negative for DVT. CXR with clear lung calix and given this and his significant hypoxia will perform CTPA. Patient declines rectal exam. He states that he did have melena while he was hospitalized in [place]. The doctor there said it was because of the steroid he was on for the COVID which would certainly follow. He states that after dc his stool returned to brown. CTPA result pending. Given positive trop readmission to [place] would be most appropriate. However, they may not have capacity. Regarding the pain in his right knee and the right knee effusion he states that this is been a problem for him for some time and will intermittently flareup. He states that he is working with [place] orthopedist to try and get a knee replacement scheduled. repeat trop slightly down trending. Pt con't to deny chest pain or sob and con't to endorse generalized weakness, particularly in his legs. Patient very concerned about his right knee effusion. There is no warmth there is no erythema I think it is likely a reactive inflammatory effusion I do not have a concern for septic arthritis. Given this I do not think needle aspiratio n is the best course. We will apply compression dressing patient needs to be diuresed with Lasix and hopefully these 2 interventions will gradually decrease his right knee effusion. There is no bed capacity at [facility] in [place]. I called and spoke to the [facility] transfer center. There is a bed available in [place] there were no other beds available in the [facility] at this time. Patient is not willing to transfer that far. He does require admission because he is hypoxic. His troponin is downtrending as mentioned above. I think his fluid overload is related to the fact that he has not taken his Lasix for the last 7 days. We will provide him with a dose of 40 of IV Lasix here we will also apply an John wrap to the right knee to help with the reactive effusion. Patient was discussed again with Dr. Cazares. We will admit here for further care. We will also leave the patient on the potential transfer list with the [facility] transfer center its possible that inappropriate but in [place] or [place] may open at a later time.
[2020-12-04] MEDS ORDERED: Iopamidol 755 MG/ML 500 ML Multipack Bottle IVPUSH STA ×2 (19:01→20:37)
--- NOTE | 2020-12-04 19:05 | CR ---
INDICATION: Hypoxia. TECHNIQUE: Two-view chest. COMPARISON: November 11, 2020. FINDINGS: The previously suggested pulmonary edema is not evident today. Slight cardiac enlargement. Clear lungs. The included skeleton demonstrates some degenerative change of the left shoulder. IMPRESSION: No acute cardiopulmonary process confidently identified. Resolution of the presumed pulmonary edema described previously. Dictated by Kwasi Smith MD @ 12/04/2020 7:03:38 PM (Electronically Signed)
[2020-12-04 19:20] LABS: BLOOD UREA NITROGEN,BUN 16 mg/dL (7.0-18.0); CARBON DIOXIDE,CO2 28.6 mmol/L (21.0-32.0); CHLORIDE,CL 101 mmol/L (98-107); GLUCOSE RANDOM 267 mg/dL (74-106); POTASSIUM,K 3.9 mmol/L (3.5-5.1); SODIUM,NA 142 mmol/L (136-148)
--- NOTE | 2020-12-04 19:44 | CR ---
INDICATION: Right knee pain. Decreased range of motion. The patient is unable to flex his knee. TECHNIQUE: Two views of the right knee. FINDINGS: Slight spurring of the lateral compartment. Minor spurring of the patella. No acute fracture or dislocation. No erosion. Large right knee joint effusion within the superior patellar recess. If there has been trauma, hematoma could not be excluded. Soft tissue edema is present as well. IMPRESSION: Large right knee joint effusion. No fracture or dislocation. Dictated by Kwasi Smith MD @ 12/04/2020 7:42:57 PM (Electronically Signed)
--- NOTE | 2020-12-04 19:54 | US ---
INDICATION: Right lower extremity pain and swelling TECHNIQUE: Ultrasound venous duplex lower right extremity. Compression venous exam was performed using hannah-scale, color Doppler, and spectral Doppler imaging. COMPARISON: None FINDINGS: The right common femoral vein is fully compressible. The right saphenous vein is fully compressible. The femoral vein and popliteal vein are fully compressible. Normal augmentation is seen within the common femoral vein, greater saphenous vein, femoral, popliteal veins. There is mild subcutaneous edema within the calf. Normal color Doppler flow within the calf vessels. IMPRESSION: 1. No sonographic evidence of a right lower extremity deep venous thrombosis within the limits of the exam. 2. Diffuse subcutaneous edema and swelling of the calf. Dictated by Mary Damon MD @ 12/04/2020 7:53:15 PM (Electronically Signed)
--- NOTE | 2020-12-04 21:29 | CT ---
INDICATION: Hypoxia. COMPARISON: CXR earlier the same day. TECHNIQUE: Routine axial CT images of the chest following the uneventful administration of IV contrast. Study was performed according to pulmonary embolism protocol. Sagittal and coronal reformatted series were also generated and reviewed. - Total exam DLP 1,021 mGy-cm. FINDINGS: There is borderline adequate contrast opacification of the pulmonary arterial tree; however, CT technique and marked respiratory motion significantly degrade image quality. This severely limits evaluation of the more distal pulmonary arteries. There is no large or central filling defect identified. There are patchy reticular and ground-glass opacities in both lungs. There is no pneumothorax. The central airways are patent. Borderline cardiomegaly. Normal caliber aorta. No pleural or pericardial effusion. No suspicious mediastinal, hilar or axillary lymphadenopathy. Moderate bilateral gynecomastia. No acute findings in the upper abdomen. There are no acute or aggressive osseous findings. IMPRESSION: 1. Suboptimal evaluation of the pulmonary arterial tree due to marked respiratory motion and CT technique. There is no large or central filling defect identified. 2. Patchy reticular and ground-glass opacities in both lungs. Differential considerations include infection and atelectasis. 3. Other findings, as above. Dictated by Ben Posada MD @ 12/04/2020 9:26:23 PM Please note that all CT scans at this facility use dose modulation, iterative reconstruction, and/or weight-based dosing when appropriate to reduce radiation dose to as low as reasonably achievable. Dictated by: Ben Posada MD @ 12/04/2020 21:26:31 (Electronically Signed)
[2020-12-04] MEDS ORDERED: Furosemide 40 MG/4 ML VIAL IVPUSH ONE (23:35)
[2020-12-05] MEDS ORDERED: Aspirin 325 MG Tab.EC PO ONE (00:55)
[2020-12-05] MEDS ORDERED: Loperamide 2 MG Cap PO ONE (00:55)
[2020-12-05] MEDS ORDERED: Calcium Carbonate 500 MG Tab.Chew PO PRN (00:56)
--- NOTE | 2020-12-05 01:12 | PCM.HP.2 ---
H&P History of Present Illness - General Date of Service: 12/05/20 Admit Problem/Dx: Admission Diagnosis/Problem Admission Diagnosis/Problem Hypoxia - History of Present Illness Initial Comments - Free Text/Narative: 55 yo male with pmh of CHF, DM, osteoarthritis, and recent hospitalization for COVID. PAtient was discharged from [facility] on 11/24/20. During his hosptial stay he had an elevated troponin. He reports having melana during his hospital stay which resolved when he stopped taking dexamethasone. He also reports he was on a lasix drip due to fluid overload. He reports loosing 20 LBs during that admission. He was not discharged on any supplemental oxygen. He lives in company housing, but after discharge he stayed in a hotel so he could get more rest. He did not take his pills with him to the hotel so he has not had any medications including his lasix for about a week. He reports over the past few days his legs have swollen to the point were he has pain in his joints. Especially the left ankle and right knee. He reports severe arthritis in the right knee and has plans on replacing it. Due to the pain he has difficulty walking. He denies any shortness of breath, chest pain, cough or fevers. In the ED he was noted to be hypoxic requiring 4 L NC to keep sats above 90%. His troponin was 0.26. Venous dopplar of leg was negative for DVT. Knee X-ray reports knee effusion. CT of chest reports bilateral ground glass opacities, no PE. Right Knee Pain Score (Numeric/FACES): 10 - Related Data Allergies/Adverse Reactions: Allergies Allergy/AdvReac Type Severity Reaction Status Date / Time Penicillins Allergy Anaphylactic Verified 12/05/20 01:41 Shock Home Medications: Home Meds atorvaSTATin Calcium [Atorvastatin Calcium] 40 mg PO DAILY 02/16/18 [History] metFORMIN HCl [Metformin HCl] 1,000 mg PO BID 02/16/18 [History] Aspirin [Low Dose Aspirin EC] 81 mg PO DAILY 09/16/18 [History] Losartan Potassium 50 mg PO BID 09/16/18 [History] Fish Oil/[place]-3 Fatty Acids [Fish Oil 1,000 MG] 1 tab PO DAILY 02/27/20 [History] glipiZIDE [Glucotrol XL] 1 tab PO DAILY 02/27/20 [History] Dulaglutide [Trulicity] 3 mg SQ WEEKLY 12/05/20 [History] Gabapentin [Neurontin] 300 mg PO BID 12/05/20 [History] Past Medical History HEENT History: Reports: Impaired Vision, Other (See Below) Other HEENT History: wears glasses Cardiovascular History: Reports: Heart Failure, Hypertension Respiratory History: Reports: None Gastrointestinal History: Reports: None Genitourinary History: Reports: None Musculoskeletal History: Reports: None Neurological History: Reports: None Psychiatric History: Reports: None Endocrine/Metabolic History: Reports: Diabetes, Type II, Obesity/BMI 30+ Hematologic History: Reports: None Immunologic History: Reports: None Oncologic (Cancer) History: Reports: None Dermatologic History: Reports: None - Infectious Disease History Infectious Disease History: Reports: Chicken Pox, Measles, Shingles - Past Surgical History Head Surgeries/Procedures: Reports: None HEENT Surgical History: Reports: None Cardiovascular Surgical History: Reports: None Respiratory Surgical History: Reports: None GI Surgical History: Reports: None Male Surgical History: Reports: None Endocrine Surgical History: Reports: None Neurological Surgical History: Reports: None Musculoskeletal Surgical History: Reports: Other (See Below) Other Musculoskeletal Surgeries/Procedures:: Rotator cuff surgery, knee surgery Oncologic Surgical History: Reports: None Dermatological Surgical History: Reports: None Social & Family History - Family History Family Medical History: No Pertinent Family History - Tobacco Use Tobacco Use Status *Q: Never Tobacco User - Caffeine Use Caffeine Use: Reports: None - Recreational Drug Use Recreational Drug Use: No H&P Review of Systems - Review of Systems: Review Of Systems: Comprehensive ROS is negative, except as noted in HPI. Exam - Exam Exam: See Below - Vital Signs Vital Signs: Last Vital Signs Temp 36.6 C 12/04/20 18:09 Pulse 92 12/05/20 00:12 Resp 22 H 12/05/20 00:12 BP 128/52 L 12/04/20 23:39 Pulse Ox 93 L 12/05/20 00:12 Weight: 127.4 kg - Exam General: Alert, Oriented HEENT: Mucosa Moist & Powderly Neck: Supple Lungs: Clear to Auscultation, Normal Respiratory Effort Cardiovascular: Regular Rate, Regular Rhythm GI/Abdominal Exam: Normal Bowel Sounds, Soft, Non-Tender, No Distention Extremities: Normal Range of Motion, Pedal Edema (+2 up to knee bilaterally, moderate right knee effusion, no erythema, ) Skin: Warm, Dry, Intact Neurological: No: Focal Deficit - Patient Data Lab Results Last 24 hrs: Laboratory Results - last 24 hr 12/04/20 12/04/20 12/04/20 Range/Units 18:49 18:49 18:49 WBC 7.34 (4.0-11.0) K/uL RBC 3.16 L (4.50-5.90) M/uL Hgb 9.3 L (13.0-17.0) g/dL Hct 28.5 L (38.0-50.0) % MCV 90.2 (80.0-98.0) fL MCH 29.4 (27.0-32.0) pg MCHC 32.6 (31.0-37.0) g/dL RDW Std Deviation 51.0 (28.0-62.0) fl RDW Coeff of Aleida 16 H (11.0-15.0) % Plt Count 210 (150-400) K/uL MPV 9.80 (7.40-12.00) fL Neut % (Auto) 65.4 (48.0-80.0) % Lymph % (Auto) 23.0 (16.0-40.0) % [place] % (Auto) 10.5 (0.0-15.0) % Eos % (Auto) 1.1 (0.0-7.0) % Baso % (Auto) 0.0 (0.0-1.5) % Neut # (Auto) 4.8 (1.4-5.7) K/uL Lymph # (Auto) 1.7 (0.6-2.4) K/uL [place] # (Auto) 0.8 (0.0-0.8) K/uL Eos # (Auto) 0.1 (0.0-0.7) K/uL Baso # (Auto) 0.0 (0.0-0.1) K/uL Nucleated RBC % 0.5 /100WBC Nucleated RBCs # 0 K/uL INR APTT (18.6-31.3) SEC VBG pH (7.31-7.41) VBG pCO2 (41-51) mmHG VBG pO2 mmHG VBG HCO3 (23-28) mEq/L VBG Total CO2 (24-29) mmol/L VBG Base Excess (-2.0-3.0) Sodium 142 (136-148) mmol/L Potassium 3.9 (3.5-5.1) mmol/L Chloride 101 (98-107) mmol/L Carbon Dioxide 28.6 (21.0-32.0) mmol/L BUN 16 (7.0-18.0) mg/dL Creatinine 1.3 (0.8-1.3) mg/dL Est Cr Clr Drug Dosing TNP Estimated GFR (MDRD) 57.5 ml/min Glucose 267 H (74-106) mg/dL Calcium 7.4 L (8.5-10.1) mg/dL Total Bilirubin 1.2 H (0.2-1.0) mg/dL AST 12 L (15-37) IU/L ALT 27 (14-63) IU/L Alkaline Phosphatase 315 H (46-116) U/L Ammonia (19-54) ug/dL Troponin I 0.275 H* (0.000-0.056) ng/mL B-Natriuretic Peptide (<100) PG/ML Total Protein 6.0 L (6.4-8.2) g/dL Albumin 2.2 L (3.4-5.0) g/dL Globulin 3.8 (2.6-4.0) g/dL Albumin/Globulin Ratio 0.6 L (0.9-1.6) SARS-CoV-2 RNA (MAX) (NEGATIVE) 12/04/20 12/04/20 12/04/20 Range/Units 18:49 18:49 19:25 WBC (4.0-11.0) K/uL RBC (4.50-5.90) M/uL Hgb (13.0-17.0) g/dL Hct (38.0-50.0) % MCV (80.0-98.0) fL MCH (27.0-32.0) pg MCHC (31.0-37.0) g/dL RDW Std Deviation (28.0-62.0) fl RDW Coeff of Aleida (11.0-15.0) % Plt Count (150-400) K/uL MPV (7.40-12.00) fL Neut % (Auto) (48.0-80.0) % Lymph % (Auto) (16.0-40.0) % [place] % (Auto) (0.0-15.0) % Eos % (Auto) (0.0-7.0) % Baso % (Auto) (0.0-1.5) % Neut # (Auto) (1.4-5.7) K/uL Lymph # (Auto) (0.6-2.4) K/uL [place] # (Auto) (0.0-0.8) K/uL Eos # (Auto) (0.0-0.7) K/uL Baso # (Auto) (0.0-0.1) K/uL Nucleated RBC % /100WBC Nucleated RBCs # K/uL INR 1.25 APTT 28.1 (18.6-31.3) SEC VBG pH (7.31-7.41) VBG pCO2 (41-51) mmHG VBG pO2 mmHG VBG HCO3 (23-28) mEq/L VBG Total CO2 (24-29) mmol/L VBG Base Excess (-2.0-3.0) Sodium (136-148) mmol/L Potassium (3.5-5.1) mmol/L Chloride (98-107) mmol/L Carbon Dioxide (21.0-32.0) mmol/L BUN (7.0-18.0) mg/dL Creatinine (0.8-1.3) mg/dL Est Cr Clr Drug Dosing Estimated GFR (MDRD) ml/min Glucose (74-106) mg/dL Calcium (8.5-10.1) mg/dL Total Bilirubin (0.2-1.0) mg/dL AST (15-37) IU/L ALT (14-63) IU/L Alkaline Phosphatase (46-116) U/L Ammonia 29 (19-54) ug/dL Troponin I (0.000-0.056) ng/mL B-Natriuretic Peptide 219 H (<100) PG/ML Total Protein (6.4-8.2) g/dL Albumin (3.4-5.0) g/dL Globulin (2.6-4.0) g/dL Albumin/Globulin Ratio (0.9-1.6) SARS-CoV-2 RNA (MAX) (NEGATIVE) 12/04/20 12/04/2021 Range/Units 19:25 21:57 22:15 WBC (4.0-11.0) K/uL RBC (4.50-5.90) M/uL Hgb (13.0-17.0) g/dL Hct (38.0-50.0) % MCV (80.0-98.0) fL MCH (27.0-32.0) pg MCHC (31.0-37.0) g/dL RDW Std Deviation (28.0-62.0) fl RDW Coeff of Aleida (11.0-15.0) % Plt Count (150-400) K/uL MPV (7.40-12.00) fL Neut % (Auto) (48.0-80.0) % Lymph % (Auto) (16.0-40.0) % [place] % (Auto) (0.0-15.0) % Eos % (Auto) (0.0-7.0) % Baso % (Auto) (0.0-1.5) % Neut # (Auto) (1.4-5.7) K/uL Lymph # (Auto) (0.6-2.4) K/uL [place] # (Auto) (0.0-0.8) K/uL Eos # (Auto) (0.0-0.7) K/uL Baso # (Auto) (0.0-0.1) K/uL Nucleated RBC % /100WBC Nucleated RBCs # K/uL INR APTT (18.6-31.3) SEC VBG pH 7.47 H (7.31-7.41) VBG pCO2 45 (41-51) mmHG VBG pO2 < 30 mmHG VBG HCO3 32 H (23-28) mEq/L VBG Total CO2 30 H (24-29) mmol/L VBG Base Excess 7.5 H (-2.0-3.0) Sodium (136-148) mmol/L Potassium (3.5-5.1) mmol/L Chloride (98-107) mmol/L Carbon Dioxide (21.0-32.0) mmol/L BUN (7.0-18.0) mg/dL Creatinine (0.8-1.3) mg/dL Est Cr Clr Drug Dosing Estimated GFR (MDRD) ml/min Glucose (74-106) mg/dL Calcium (8.5-10.1) mg/dL Total Bilirubin (0.2-1.0) mg/dL AST (15-37) IU/L ALT (14-63) IU/L Alkaline Phosphatase (46-116) U/L Ammonia (19-54) ug/dL Troponin I 0.269 H* (0.000-0.056) ng/mL B-Natriuretic Peptide (<100) PG/ML Total Protein (6.4-8.2) g/dL Albumin (3.4-5.0) g/dL Globulin (2.6-4.0) g/dL Albumin/Globulin Ratio (0.9-1.6) SARS-CoV-2 RNA (MAX) NEGATIVE (NEGATIVE) Result Diagrams: 12/05/20 04:05 12/05/20 04:05 Sepsis Event Note - Evaluation Sepsis Screening Result: No Definite Risk - Focused Exam Vital Signs: Vital Signs Temp Pulse Resp BP Pulse Ox 12/05/20 00:12 92 22 H 93 L 12/04/20 23:39 88 20 128/52 L 94 L 12/04/20 22:44 91 20 151/62 H 94 L 12/04/20 22:05 73 142/66 H 96 12/04/20 21:00 102 H 20 133/75 95 12/04/20 19:45 82 20 121/73 92 L 12/04/20 18:09 36.6 C 82 18 126/47 L 79 L - Problem List (1) Fluid overload SNOMED Code(s): 75593468 ICD Code: E87.70 - FLUID OVERLOAD, UNSPECIFIED Status: Acute Current Visit: Yes (2) Hypoxia SNOMED Code(s): 510735405 ICD Code: R09.02 - HYPOXEMIA Status: Acute Current Visit: Yes (3) CHF (congestive heart failure) SNOMED Code(s): 17736329 ICD Code: I50.9 - HEART FAILURE, UNSPECIFIED Status: Acute Current Visit: Yes Qualifiers: Heart failure type: unspecified Heart failure chronicity: acute Qualified Code(s): I50.9 - Heart failure, unspecified Problem List Initiated/Reviewed/Updated: Yes Orders Last 24hrs: Active Orders 24 hr Category Date Time Status Patient Status [ADT] Routine ADT 12/04/20 23:44 Active John Bandage [RC] .PRN Care 12/05/20 01:00 Ordered Antiembolic Devices [RC] PER UNIT ROUTINE Care 12/05/20 01:06 Ordered Cooling Warming Measures [RC] ASDIRECTED Care 12/05/20 01:00 Ordered Intake and Output Strict [RC] ASDIRECTED Care 12/05/20 01:03 Ordered Oxygen Therapy [RC] PRN Care 12/05/20 01:05 Ordered Up ad Farheen [RC] ASDIRECTED Care 12/05/20 01:05 Ordered VTE/DVT Education [RC] PER UNIT ROUTINE Care 12/05/20 01:05 Ordered Vital Signs [RC] Q4H Care 12/05/20 01:05 Ordered PT Evaluation and Treatment [CONS] Routine Cons 12/05/20 01:03 Ordered [employer] [employer] Diet [DIET] Diet 12/05/20 Lunch Ordered Echo Comp wo Cont [US] Routine Exams 12/05/20 01:02 Ordered BASIC METABOLIC PANEL,BMP [CHEM] AM Lab 12/05/20 05:11 Ordered BASIC METABOLIC PANEL,BMP [CHEM] AM Lab 12/06/20 05:11 Ordered BASIC METABOLIC PANEL,BMP [CHEM] AM Lab 12/07/20 05:11 Ordered BASIC METABOLIC PANEL,BMP [CHEM] AM Lab 12/08/20 05:11 Ordered CBC WITH AUTO DIFF [HEME] AM Lab 12/05/20 05:11 Ordered CBC WITH AUTO DIFF [HEME] AM Lab 12/06/20 05:11 Ordered CBC WITH AUTO DIFF [HEME] AM Lab 12/07/20 05:11 Ordered CBC WITH AUTO DIFF [HEME] AM Lab 12/08/20 05:11 Ordered STOOL CULTURE/SHIGA TOXIN [MREF] Routine Lab 12/05/20 01:04 Ordered TROPONIN I [CHEM] Q6H Lab 12/05/20 04:00 Ordered TROPONIN I [CHEM] Q6H Lab 12/05/20 10:00 Ordered Acetaminophen [Tylenol Extra Strength] Med 12/05/20 01:02 Ordered 500 mg PO Q6H PRN Aspirin [Halfprin] Med 12/06/20 09:00 Ordered 81 mg PO DAILY Calcium Carbonate [Tums] Med 12/05/20 00:56 Ordered 500 mg PO Q6H PRN Fish Oil/[place]-3 Fatty Acids [Fish Oil] Med 12/05/20 09:00 Ordered 1 gm PO DAILY Furosemide [Lasix] Med 12/05/20 09:00 Ordered 40 mg IVPUSH BID Losartan [Cozaar] Med 12/05/20 09:00 Ordered 50 mg PO DAILY Melatonin Med 12/05/20 00:58 Ordered 6 mg PO BEDTIME PRN Pantoprazole [ProTONIX] Med 12/05/20 01:00 Ordered 40 mg PO DAILY Sodium Chloride 0.9% [Saline Flush] Med 12/04/20 18:28 Active 10 ml FLUSH ASDIRECTED PRN Sodium Chloride 0.9% [Saline Flush] Med 12/04/20 18:28 Active 2.5 ml FLUSH ASDIRECTED PRN atorvaSTATin [Lipitor] Med 12/05/20 09:00 Ordered 40 mg PO DAILY Ice Bag [Ice Therapy] [OM.PC] Routine Oth 12/05/20 01:00 Ordered Obtain Past Medical Record [OM.PC] Routine Oth 12/05/20 01:06 Ordered Saline Lock Insert [OM.PC] Stat Oth 12/04/20 18:28 Ordered Sequential Compression Device [OM.PC] Per Unit Routine Oth 12/05/20 01:05 Ordered Resuscitation Status Routine Resus Stat 12/05/20 01:05 Ordered Medication Orders Acetaminophen (Acetaminophen 500 Mg Tab) 500 mg PO Q6H PRN PRN Reason: Pain Aspirin (Aspirin 81 Mg Tab.Ec) 81 mg PO DAILY SVITLANA Atorvastatin Calcium (Atorvastatin 40 Mg Tab) 40 mg PO DAILY VSITLANA Calcium Carbonate/Glycine (Calcium Carbonate 500 Mg Tab.Chew) 500 mg PO Q6H PRN PRN Reason: Indigestion Fish Oil (Fish Oil/[place]-3 Fatty Acids 1 Gm Cap) 1 gm PO DAILY SVITLANA Furosemide (Furosemide 40 Mg/4 Ml Vial) 40 mg IVPUSH BID SIVTLANA Losartan Potassium (Losartan 50 Mg Tab) 50 mg PO DAILY SVITLANA Melatonin (Melatonin 3 Mg Tab) 6 mg PO BEDTIME PRN PRN Reason: Insomnia Pantoprazole Sodium (Pantoprazole 40 Mg Tab.Cr) 40 mg PO DAILY SVITLANA Sodium Chloride (Sodium Chloride 0.9% 10 Ml Syringe) 10 ml FLUSH ASDIRECTED PRN PRN Reason: Keep Vein Open Sodium Chloride (Sodium Chloride 0.9% 2.5 Ml Syringe) 2.5 ml FLUSH ASDIRECTED PRN PRN Reason: Keep Vein Open Assessment/Plan Comment:: 55 yo male admitted with CHF exacerbation CHF exacerbation: IV lasix, echocardiogram when available, will get medical records from [place] hospitalization Arthritis: leg wraps and ice, PT consulted
[2020-12-05] MEDS: Pantoprazole 40 MG Tab.CR PO SCH (01:23)
[2020-12-05] MEDS: Melatonin 3 MG Tab PO PRN ×2 (02:21→22:45)
[2020-12-05 04:58] LABS: CARBON DIOXIDE,CO2 30.1 mmol/L (21.0-32.0)
[2020-12-05] MEDS ORDERED: 50% Dextrose in Water 50 ML Syringe IVPUSH PRN (05:20)
[2020-12-05] MEDS ORDERED: Glucagon,Human Recombinant 1 MG Vial IM PRN (05:20)
[2020-12-05] MEDS ORDERED: Magnesium Sulfate/Water 4 GM in Premix Bag 1 BAG IV ONE (08:00)
[2020-12-05] MEDS: Insulin Aspart 100 Units/ML 3 ML Pen SUBCUT SCH ×3 (08:07→17:22)
[2020-12-05] MEDS: Furosemide 40 MG/4 ML VIAL IVPUSH SCH ×2 (08:10→22:31)
[2020-12-05] MEDS: Fish Oil/Omega-3 Fatty Acids 1 Gm Cap PO SCH (08:11)
[2020-12-05] MEDS: atorvaSTATin 40 MG Tab PO SCH (08:11)
[2020-12-05] MEDS: Losartan 50 MG Tab PO SCH ×2 (08:32→21:45)
[2020-12-05] MEDS ORDERED: oxyCODONE 5 MG Tab PO PRN (11:08)
[2020-12-05 11:22] LABS: HEMOGLOBIN A1C 9.6 %
--- NOTE | 2020-12-05 13:22 | PCM.PN ---
- General Info Date of Service: 12/05/20 - Patient Data Vitals - Most Recent: Last Vital Signs Temp 35.6 C L 12/05/20 12:00 Pulse 65 12/05/20 12:00 Resp 20 12/05/20 12:00 BP 116/65 12/05/20 12:00 Pulse Ox 91 L 12/05/20 12:00 Weight - Most Recent: 126.008 kg I&O - Last 24 Hours: Intake & Output 12/04/20 12/05/20 12/05/20 22:59 06:59 14:59 Intake Total 490 Output Total 750 Balance -260 Lab Results Last 24 Hours: Laboratory Results - last 24 hr 12/04/20 12/04/20 12/04/20 Range/Units 18:49 18:49 18:49 WBC 7.34 (4.0-11.0) K/uL RBC 3.16 L (4.50-5.90) M/uL Hgb 9.3 L (13.0-17.0) g/dL Hct 28.5 L (38.0-50.0) % MCV 90.2 (80.0-98.0) fL MCH 29.4 (27.0-32.0) pg MCHC 32.6 (31.0-37.0) g/dL RDW Std Deviation 51.0 (28.0-62.0) fl RDW Coeff of Aleida 16 H (11.0-15.0) % Plt Count 210 (150-400) K/uL MPV 9.80 (7.40-12.00) fL Neut % (Auto) 65.4 (48.0-80.0) % Lymph % (Auto) 23.0 (16.0-40.0) % [place] % (Auto) 10.5 (0.0-15.0) % Eos % (Auto) 1.1 (0.0-7.0) % Baso % (Auto) 0.0 (0.0-1.5) % Neut # (Auto) 4.8 (1.4-5.7) K/uL Lymph # (Auto) 1.7 (0.6-2.4) K/uL [place] # (Auto) 0.8 (0.0-0.8) K/uL Eos # (Auto) 0.1 (0.0-0.7) K/uL Baso # (Auto) 0.0 (0.0-0.1) K/uL Nucleated RBC % 0.5 /100WBC Nucleated RBCs # 0 K/uL INR APTT (18.6-31.3) SEC VBG pH (7.31-7.41) VBG pCO2 (41-51) mmHG VBG pO2 mmHG VBG HCO3 (23-28) mEq/L VBG Total CO2 (24-29) mmol/L VBG Base Excess (-2.0-3.0) Sodium 142 (136-148) mmol/L Potassium 3.9 (3.5-5.1) mmol/L Chloride 101 (98-107) mmol/L Carbon Dioxide 28.6 (21.0-32.0) mmol/L BUN 16 (7.0-18.0) mg/dL Creatinine 1.3 (0.8-1.3) mg/dL Est Cr Clr Drug Dosing TNP Estimated GFR (MDRD) 57.5 ml/min Glucose 267 H (74-106) mg/dL POC Glucose (70-99) mg/dL Hemoglobin A1c (4.5 - 6.2) % Calcium 7.4 L (8.5-10.1) mg/dL Phosphorus (2.6-4.7) mg/dL Magnesium (1.8-2.4) mg/dL Total Bilirubin 1.2 H (0.2-1.0) mg/dL AST 12 L (15-37) IU/L ALT 27 (14-63) IU/L Alkaline Phosphatase 315 H (46-116) U/L Ammonia (19-54) ug/dL Troponin I 0.275 H* (0.000-0.056) ng/mL B-Natriuretic Peptide (<100) PG/ML Total Protein 6.0 L (6.4-8.2) g/dL Albumin 2.2 L (3.4-5.0) g/dL Globulin 3.8 (2.6-4.0) g/dL Albumin/Globulin Ratio 0.6 L (0.9-1.6) SARS-CoV-2 RNA (MAX) (NEGATIVE) 12/04/20 12/04/20 12/04/20 Range/Units 18:49 18:49 19:25 WBC (4.0-11.0) K/uL RBC (4.50-5.90) M/uL Hgb (13.0-17.0) g/dL Hct (38.0-50.0) % MCV (80.0-98.0) fL MCH (27.0-32.0) pg MCHC (31.0-37.0) g/dL RDW Std Deviation (28.0-62.0) fl RDW Coeff of Aleida (11.0-15.0) % Plt Count (150-400) K/uL MPV (7.40-12.00) fL Neut % (Auto) (48.0-80.0) % Lymph % (Auto) (16.0-40.0) % [place] % (Auto) (0.0-15.0) % Eos % (Auto) (0.0-7.0) % Baso % (Auto) (0.0-1.5) % Neut # (Auto) (1.4-5.7) K/uL Lymph # (Auto) (0.6-2.4) K/uL [place] # (Auto) (0.0-0.8) K/uL Eos # (Auto) (0.0-0.7) K/uL Baso # (Auto) (0.0-0.1) K/uL Nucleated RBC % /100WBC Nucleated RBCs # K/uL INR 1.25 APTT 28.1 (18.6-31.3) SEC VBG pH (7.31-7.41) VBG pCO2 (41-51) mmHG VBG pO2 mmHG VBG HCO3 (23-28) mEq/L VBG Total CO2 (24-29) mmol/L VBG Base Excess (-2.0-3.0) Sodium (136-148) mmol/L Potassium (3.5-5.1) mmol/L Chloride (98-107) mmol/L Carbon Dioxide (21.0-32.0) mmol/L BUN (7.0-18.0) mg/dL Creatinine (0.8-1.3) mg/dL Est Cr Clr Drug Dosing Estimated GFR (MDRD) ml/min Glucose (74-106) mg/dL POC Glucose (70-99) mg/dL Hemoglobin A1c (4.5 - 6.2) % Calcium (8.5-10.1) mg/dL Phosphorus (2.6-4.7) mg/dL Magnesium (1.8-2.4) mg/dL Total Bilirubin (0.2-1.0) mg/dL AST (15-37) IU/L ALT (14-63) IU/L Alkaline Phosphatase (46-116) U/L Ammonia 29 (19-54) ug/dL Troponin I (0.000-0.056) ng/mL B-Natriuretic Peptide 219 H (<100) PG/ML Total Protein (6.4-8.2) g/dL Albumin (3.4-5.0) g/dL Globulin (2.6-4.0) g/dL Albumin/Globulin Ratio (0.9-1.6) SARS-CoV-2 RNA (MAX) (NEGATIVE) 12/04/20 12/04/20 12/04/20 Range/Units 19:25 21:57 22:15 WBC (4.0-11.0) K/uL RBC (4.50-5.90) M/uL Hgb (13.0-17.0) g/dL Hct (38.0-50.0) % MCV (80.0-98.0) fL MCH (27.0-32.0) pg MCHC (31.0-37.0) g/dL RDW Std Deviation (28.0-62.0) fl RDW Coeff of Aleida (11.0-15.0) % Plt Count (150-400) K/uL MPV (7.40-12.00) fL Neut % (Auto) (48.0-80.0) % Lymph % (Auto) (16.0-40.0) % [place] % (Auto) (0.0-15.0) % Eos % (Auto) (0.0-7.0) % Baso % (Auto) (0.0-1.5) % Neut # (Auto) (1.4-5.7) K/uL Lymph # (Auto) (0.6-2.4) K/uL [place] # (Auto) (0.0-0.8) K/uL Eos # (Auto) (0.0-0.7) K/uL Baso # (Auto) (0.0-0.1) K/uL Nucleated RBC % /100WBC Nucleated RBCs # K/uL INR APTT (18.6-31.3) SEC VBG pH 7.47 H (7.31-7.41) VBG pCO2 45 (41-51) mmHG VBG pO2 < 30 mmHG VBG HCO3 32 H (23-28) mEq/L VBG Total CO2 30 H (24-29) mmol/L VBG Base Excess 7.5 H (-2.0-3.0) Sodium (136-148) mmol/L Potassium (3.5-5.1) mmol/L Chloride (98-107) mmol/L Carbon Dioxide (21.0-32.0) mmol/L BUN (7.0-18.0) mg/dL Creatinine (0.8-1.3) mg/dL Est Cr Clr Drug Dosing Estimated GFR (MDRD) ml/min Glucose (74-106) mg/dL POC Glucose (70-99) mg/dL Hemoglobin A1c (4.5 - 6.2) % Calcium (8.5-10.1) mg/dL Phosphorus (2.6-4.7) mg/dL Magnesium (1.8-2.4) mg/dL Total Bilirubin (0.2-1.0) mg/dL AST (15-37) IU/L ALT (14-63) IU/L Alkaline Phosphatase (46-116) U/L Ammonia (19-54) ug/dL Troponin I 0.269 H* (0.000-0.056) ng/mL B-Natriuretic Peptide (<100) PG/ML Total Protein (6.4-8.2) g/dL Albumin (3.4-5.0) g/dL Globulin (2.6-4.0) g/dL Albumin/Globulin Ratio (0.9-1.6) SARS-CoV-2 RNA (MAX) NEGATIVE (NEGATIVE) 12/05/20 12/05/20 12/05/20 Range/Units 01:22 04:05 04:05 WBC 7.40 (4.0-11.0) K/uL RBC 3.03 L (4.50-5.90) M/uL Hgb 8.9 L (13.0-17.0) g/dL Hct 27.5 L (38.0-50.0) % MCV 90.8 (80.0-98.0) fL MCH 29.4 (27.0-32.0) pg MCHC 32.4 (31.0-37.0) g/dL RDW Std Deviation 52.1 (28.0-62.0) fl RDW Coeff of Aleida 16 H (11.0-15.0) % Plt Count 214 (150-400) K/uL MPV 10.50 (7.40-12.00) fL Neut % (Auto) 67.1 (48.0-80.0) % Lymph % (Auto) 21.6 (16.0-40.0) % [place] % (Auto) 10.1 (0.0-15.0) % Eos % (Auto) 1.1 (0.0-7.0) % Baso % (Auto) 0.1 (0.0-1.5) % Neut # (Auto) 5.0 (1.4-5.7) K/uL Lymph # (Auto) 1.6 (0.6-2.4) K/uL [place] # (Auto) 0.8 (0.0-0.8) K/uL Eos # (Auto) 0.1 (0.0-0.7) K/uL Baso # (Auto) 0.0 (0.0-0.1) K/uL Nucleated RBC % 0.5 /100WBC Nucleated RBCs # 0 K/uL INR APTT (18.6-31.3) SEC VBG pH (7.31-7.41) VBG pCO2 (41-51) mmHG VBG pO2 mmHG VBG HCO3 (23-28) mEq/L VBG Total CO2 (24-29) mmol/L VBG Base Excess (-2.0-3.0) Sodium (136-148) mmol/L Potassium (3.5-5.1) mmol/L Chloride (98-107) mmol/L Carbon Dioxide (21.0-32.0) mmol/L BUN (7.0-18.0) mg/dL Creatinine (0.8-1.3) mg/dL Est Cr Clr Drug Dosing Estimated GFR (MDRD) ml/min Glucose (74-106) mg/dL POC Glucose 244 H (70-99) mg/dL Hemoglobin A1c (4.5 - 6.2) % Calcium (8.5-10.1) mg/dL Phosphorus (2.6-4.7) mg/dL Magnesium (1.8-2.4) mg/dL Total Bilirubin (0.2-1.0) mg/dL AST (15-37) IU/L ALT (14-63) IU/L Alkaline Phosphatase (46-116) U/L Ammonia (19-54) ug/dL Troponin I 0.242 H* (0.000-0.056) ng/mL B-Natriuretic Peptide (<100) PG/ML Total Protein (6.4-8.2) g/dL Albumin (3.4-5.0) g/dL Globulin (2.6-4.0) g/dL Albumin/Globulin Ratio (0.9-1.6) SARS-CoV-2 RNA (MAX) (NEGATIVE) 12/05/20 12/05/20 12/05/20 Range/Units 04:05 04:05 04:05 WBC (4.0-11.0) K/uL RBC (4.50-5.90) M/uL Hgb (13.0-17.0) g/dL Hct (38.0-50.0) % MCV (80.0-98.0) fL MCH (27.0-32.0) pg MCHC (31.0-37.0) g/dL RDW Std Deviation (28.0-62.0) fl RDW Coeff of Aleida (11.0-15.0) % Plt Count (150-400) K/uL MPV (7.40-12.00) fL Neut % (Auto) (48.0-80.0) % Lymph % (Auto) (16.0-40.0) % [place] % (Auto) (0.0-15.0) % Eos % (Auto) (0.0-7.0) % Baso % (Auto) (0.0-1.5) % Neut # (Auto) (1.4-5.7) K/uL Lymph # (Auto) (0.6-2.4) K/uL [place] # (Auto) (0.0-0.8) K/uL Eos # (Auto) (0.0-0.7) K/uL Baso # (Auto) (0.0-0.1) K/uL Nucleated RBC % /100WBC Nucleated RBCs # K/uL INR APTT (18.6-31.3) SEC VBG pH (7.31-7.41) VBG pCO2 (41-51) mmHG VBG pO2 mmHG VBG HCO3 (23-28) mEq/L VBG Total CO2 (24-29) mmol/L VBG Base Excess (-2.0-3.0) Sodium 139 (136-148) mmol/L Potassium 4.0 (3.5-5.1) mmol/L Chloride 101 (98-107) mmol/L Carbon Dioxide 30.1 (21.0-32.0) mmol/L BUN 17 (7.0-18.0) mg/dL Creatinine 1.3 (0.8-1.3) mg/dL Est Cr Clr Drug Dosing 62.85 Estimated GFR (MDRD) 57.5 ml/min Glucose 303 H (74-106) mg/dL POC Glucose (70-99) mg/dL Hemoglobin A1c 9.6 H (4.5 - 6.2) % Calcium 7.2 L (8.5-10.1) mg/dL Phosphorus 2.6 (2.6-4.7) mg/dL Magnesium 1.0 L (1.8-2.4) mg/dL Total Bilirubin (0.2-1.0) mg/dL AST (15-37) IU/L ALT (14-63) IU/L Alkaline Phosphatase (46-116) U/L Ammonia (19-54) ug/dL Troponin I (0.000-0.056) ng/mL B-Natriuretic Peptide (<100) PG/ML Total Protein (6.4-8.2) g/dL Albumin (3.4-5.0) g/dL Globulin (2.6-4.0) g/dL Albumin/Globulin Ratio (0.9-1.6) SARS-CoV-2 RNA (MAX) (NEGATIVE) 12/05/20 12/05/20 12/05/20 Range/Units 06:23 10:17 11:59 WBC (4.0-11.0) K/uL RBC (4.50-5.90) M/uL Hgb (13.0-17.0) g/dL Hct (38.0-50.0) % MCV (80.0-98.0) fL MCH (27.0-32.0) pg MCHC (31.0-37.0) g/dL RDW Std Deviation (28.0-62.0) fl RDW Coeff of Aleida (11.0-15.0) % Plt Count (150-400) K/uL MPV (7.40-12.00) fL Neut % (Auto) (48.0-80.0) % Lymph % (Auto) (16.0-40.0) % [place] % (Auto) (0.0-15.0) % Eos % (Auto) (0.0-7.0) % Baso % (Auto) (0.0-1.5) % Neut # (Auto) (1.4-5.7) K/uL Lymph # (Auto) (0.6-2.4) K/uL [place] # (Auto) (0.0-0.8) K/uL Eos # (Auto) (0.0-0.7) K/uL Baso # (Auto) (0.0-0.1) K/uL Nucleated RBC % /100WBC Nucleated RBCs # K/uL INR APTT (18.6-31.3) SEC VBG pH (7.31-7.41) VBG pCO2 (41-51) mmHG VBG pO2 mmHG VBG HCO3 (23-28) mEq/L VBG Total CO2 (24-29) mmol/L VBG Base Excess (-2.0-3.0) Sodium (136-148) mmol/L Potassium (3.5-5.1) mmol/L Chloride (98-107) mmol/L Carbon Dioxide (21.0-32.0) mmol/L BUN (7.0-18.0) mg/dL Creatinine (0.8-1.3) mg/dL Est Cr Clr Drug Dosing Estimated GFR (MDRD) ml/min Glucose (74-106) mg/dL POC Glucose 286 H 288 H (70-99) mg/dL Hemoglobin A1c (4.5 - 6.2) % Calcium (8.5-10.1) mg/dL Phosphorus (2.6-4.7) mg/dL Magnesium (1.8-2.4) mg/dL Total Bilirubin (0.2-1.0) mg/dL AST (15-37) IU/L ALT (14-63) IU/L Alkaline Phosphatase (46-116) U/L Ammonia (19-54) ug/dL Troponin I 0.247 H* (0.000-0.056) ng/mL B-Natriuretic Peptide (<100) PG/ML Total Protein (6.4-8.2) g/dL Albumin (3.4-5.0) g/dL Globulin (2.6-4.0) g/dL Albumin/Globulin Ratio (0.9-1.6) SARS-CoV-2 RNA (MAX) (NEGATIVE) Med Orders - Current: Current Medications Acetaminophen (Acetaminophen 500 Mg Tab) 500 mg PO Q6H PRN PRN Reason: Pain Aspirin (Aspirin 81 Mg Tab.Ec) 81 mg PO DAILY [facility] Atorvastatin Calcium (Atorvastatin 40 Mg Tab) 40 mg PO DAILY [facility] Last Admin: 12/05/20 08:11 Dose: 40 mg Documented by: Calcium Carbonate/Glycine (Calcium Carbonate 500 Mg Tab.Chew) 500 mg PO Q6H PRN PRN Reason: Indigestion Dextrose/Water (50% Dextrose In Water 50 Ml Syringe) 50 ml IVPUSH ASDIRECTED PRN PRN Reason: Hypoglycemia Fish Oil (Fish Oil/[place]-3 Fatty Acids 1 Gm Cap) 1 gm PO DAILY [facility] Last Admin: 12/05/20 08:11 Dose: 1 gm Documented by: Furosemide (Furosemide 40 Mg/4 Ml Vial) 40 mg IVPUSH BID [facility] Last Admin: 12/05/20 08:10 Dose: 40 mg Documented by: Gabapentin (Gabapentin 300 Mg Cap) 300 mg PO BID [facility] Glucagon (Glucagon,Human Recombinant 1 Mg Vial) 1 mg IM ASDIRECTED PRN PRN Reason: Hypoglycemia Heparin Sodium (Porcine) (Heparin Sodium 5,000 Units/Ml Vial) 5,000 units SUBCUT Q12H [facility] Insulin Aspart (Insulin Aspart 100 Units/Ml 3 Ml Pen) 0 unit SUBCUT TIDAC [facility]; Protocol Last Admin: 12/05/20 08:07 Dose: 3 units Documented by: Insulin Glargine (Insulin Glargine,Human Rec. Analog 100 Units/Ml 3 Ml Pen) 5 units SUBCUT BEDTIME [facility] Losartan Potassium (Losartan 50 Mg Tab) 50 mg PO BID [facility] Last Admin: 12/05/20 08:32 Dose: 50 mg Documented by: Melatonin (Melatonin 3 Mg Tab) 6 mg PO BEDTIME PRN PRN Reason: Insomnia Last Admin: 12/05/20 02:21 Dose: 6 mg Documented by: Oxycodone HCl (Oxycodone 5 Mg Tab) 5 mg PO Q8H PRN PRN Reason: Pain Pantoprazole Sodium (Pantoprazole 40 Mg Tab.Cr) 40 mg PO DAILY [facility] Last Admin: 12/05/20 01:23 Dose: 40 mg Documented by: Sodium Chloride (Sodium Chloride 0.9% 10 Ml Syringe) 10 ml FLUSH ASDIRECTED PRN PRN Reason: Keep Vein Open Sodium Chloride (Sodium Chloride 0.9% 2.5 Ml Syringe) 2.5 ml FLUSH ASDIRECTED PRN PRN Reason: Keep Vein Open Discontinued Medications Aspirin (Aspirin 325 Mg Tab.Ec) 325 mg PO ONETIME ONE Stop: 12/05/20 00:56 Last Admin: 12/05/20 01:22 Dose: 325 mg Documented by: Furosemide (Furosemide 40 Mg/4 Ml Vial) 40 mg IVPUSH NOW ONE Stop: 12/04/20 23:36 Last Admin: 12/05/20 00:08 Dose: 40 mg Documented by: Magnesium Sulfate 4 gm/ Premix 100 mls @ 50 mls/hr IV ONETIME ONE Stop: 12/05/20 09:59 Last Admin: 12/05/20 08:14 Dose: 50 mls/hr Documented by: Iopamidol (Iopamidol 755 Mg/Ml 500 Ml Multipack Bottle) 100 ml IVPUSH ONETIME STA Stop: 12/04/20 20:38 Last Admin: 12/04/20 20:38 Dose: 100 ml Documented by: Loperamide HCl (Loperamide 2 Mg Cap) 2 mg PO ONETIME ONE Stop: 12/05/20 00:56 Last Admin: 12/05/20 01:23 Dose: 2 mg Documented by: - Exam General: Alert, Oriented HEENT: Pupils Equal Neck: Supple Lungs: Clear to Auscultation, Normal Respiratory Effort Cardiovascular: Regular Rate, Regular Rhythm GI/Abdominal Exam: Soft, Non-Tender, No Distention Extremities: Pedal Edema (+2) Skin: Warm, Dry, Intact Neurological: No New Focal Deficit - Patient Data Lab Results Last 24 hrs: Laboratory Results - last 24 hr 12/04/20 12/04/20 12/04/20 Range/Units 18:49 18:49 18:49 WBC 7.34 (4.0-11.0) K/uL RBC 3.16 L (4.50-5.90) M/uL Hgb 9.3 L (13.0-17.0) g/dL Hct 28.5 L (38.0-50.0) % MCV 90.2 (80.0-98.0) fL MCH 29.4 (27.0-32.0) pg MCHC 32.6 (31.0-37.0) g/dL RDW Std Deviation 51.0 (28.0-62.0) fl RDW Coeff of Aleida 16 H (11.0-15.0) % Plt Count 210 (150-400) K/uL MPV 9.80 (7.40-12.00) fL Neut % (Auto) 65.4 (48.0-80.0) % Lymph % (Auto) 23.0 (16.0-40.0) % [place] % (Auto) 10.5 (0.0-15.0) % Eos % (Auto) 1.1 (0.0-7.0) % Baso % (Auto) 0.0 (0.0-1.5) % Neut # (Auto) 4.8 (1.4-5.7) K/uL Lymph # (Auto) 1.7 (0.6-2.4) K/uL [place] # (Auto) 0.8 (0.0-0.8) K/uL Eos # (Auto) 0.1 (0.0-0.7) K/uL Baso # (Auto) 0.0 (0.0-0.1) K/uL Nucleated RBC % 0.5 /100WBC Nucleated RBCs # 0 K/uL INR APTT (18.6-31.3) SEC VBG pH (7.31-7.41) VBG pCO2 (41-51) mmHG VBG pO2 mmHG VBG HCO3 (23-28) mEq/L VBG Total CO2 (24-29) mmol/L VBG Base Excess (-2.0-3.0) Sodium 142 (136-148) mmol/L Potassium 3.9 (3.5-5.1) mmol/L Chloride 101 (98-107) mmol/L Carbon Dioxide 28.6 (21.0-32.0) mmol/L BUN 16 (7.0-18.0) mg/dL Creatinine 1.3 (0.8-1.3) mg/dL Est Cr Clr Drug Dosing TNP Estimated GFR (MDRD) 57.5 ml/min Glucose 267 H (74-106) mg/dL POC Glucose (70-99) mg/dL Hemoglobin A1c (4.5 - 6.2) % Calcium 7.4 L (8.5-10.1) mg/dL Phosphorus (2.6-4.7) mg/dL Magnesium (1.8-2.4) mg/dL Total Bilirubin 1.2 H (0.2-1.0) mg/dL AST 12 L (15-37) IU/L ALT 27 (14-63) IU/L Alkaline Phosphatase 315 H (46-116) U/L Ammonia (19-54) ug/dL Troponin I 0.275 H* (0.000-0.056) ng/mL B-Natriuretic Peptide (<100) PG/ML Total Protein 6.0 L (6.4-8.2) g/dL Albumin 2.2 L (3.4-5.0) g/dL Globulin 3.8 (2.6-4.0) g/dL Albumin/Globulin Ratio 0.6 L (0.9-1.6) SARS-CoV-2 RNA (MAX) (NEGATIVE) 12/04/20 12/04/20 12/04/20 Range/Units 18:49 18:49 19:25 WBC (4.0-11.0) K/uL RBC (4.50-5.90) M/uL Hgb (13.0-17.0) g/dL Hct (38.0-50.0) % MCV (80.0-98.0) fL MCH (27.0-32.0) pg MCHC (31.0-37.0) g/dL RDW Std Deviation (28.0-62.0) fl RDW Coeff of Aleida (11.0-15.0) % Plt Count (150-400) K/uL MPV (7.40-12.00) fL Neut % (Auto) (48.0-80.0) % Lymph % (Auto) (16.0-40.0) % [place] % (Auto) (0.0-15.0) % Eos % (Auto) (0.0-7.0) % Baso % (Auto) (0.0-1.5) % Neut # (Auto) (1.4-5.7) K/uL Lymph # (Auto) (0.6-2.4) K/uL [place] # (Auto) (0.0-0.8) K/uL Eos # (Auto) (0.0-0.7) K/uL Baso # (Auto) (0.0-0.1) K/uL Nucleated RBC % /100WBC Nucleated RBCs # K/uL INR 1.25 APTT 28.1 (18.6-31.3) SEC VBG pH (7.31-7.41) VBG pCO2 (41-51) mmHG VBG pO2 mmHG VBG HCO3 (23-28) mEq/L VBG Total CO2 (24-29) mmol/L VBG Base Excess (-2.0-3.0) Sodium (136-148) mmol/L Potassium (3.5-5.1) mmol/L Chloride (98-107) mmol/L Carbon Dioxide (21.0-32.0) mmol/L BUN (7.0-18.0) mg/dL Creatinine (0.8-1.3) mg/dL Est Cr Clr Drug Dosing Estimated GFR (MDRD) ml/min Glucose (74-106) mg/dL POC Glucose (70-99) mg/dL Hemoglobin A1c (4.5 - 6.2) % Calcium (8.5-10.1) mg/dL Phosphorus (2.6-4.7) mg/dL Magnesium (1.8-2.4) mg/dL Total Bilirubin (0.2-1.0) mg/dL AST (15-37) IU/L ALT (14-63) IU/L Alkaline Phosphatase (46-116) U/L Ammonia 29 (19-54) ug/dL Troponin I (0.000-0.056) ng/mL B-Natriuretic Peptide 219 H (<100) PG/ML Total Protein (6.4-8.2) g/dL Albumin (3.4-5.0) g/dL Globulin (2.6-4.0) g/dL Albumin/Globulin Ratio (0.9-1.6) SARS-CoV-2 RNA (MAX) (NEGATIVE) 12/04/20 12/04/20 12/04/20 Range/Units 19:25 21:57 22:15 WBC (4.0-11.0) K/uL RBC (4.50-5.90) M/uL Hgb (13.0-17.0) g/dL Hct (38.0-50.0) % MCV (80.0-98.0) fL MCH (27.0-32.0) pg MCHC (31.0-37.0) g/dL RDW Std Deviation (28.0-62.0) fl RDW Coeff of Aleida (11.0-15.0) % Plt Count (150-400) K/uL MPV (7.40-12.00) fL Neut % (Auto) (48.0-80.0) % Lymph % (Auto) (16.0-40.0) % [place] % (Auto) (0.0-15.0) % Eos % (Auto) (0.0-7.0) % Baso % (Auto) (0.0-1.5) % Neut # (Auto) (1.4-5.7) K/uL Lymph # (Auto) (0.6-2.4) K/uL [place] # (Auto) (0.0-0.8) K/uL Eos # (Auto) (0.0-0.7) K/uL Baso # (Auto) (0.0-0.1) K/uL Nucleated RBC % /100WBC Nucleated RBCs # K/uL INR APTT (18.6-31.3) SEC VBG pH 7.47 H (7.31-7.41) VBG pCO2 45 (41-51) mmHG VBG pO2 < 30 mmHG VBG HCO3 32 H (23-28) mEq/L VBG Total CO2 30 H (24-29) mmol/L VBG Base Excess 7.5 H (-2.0-3.0) Sodium (136-148) mmol/L Potassium (3.5-5.1) mmol/L Chloride (98-107) mmol/L Carbon Dioxide (21.0-32.0) mmol/L BUN (7.0-18.0) mg/dL Creatinine (0.8-1.3) mg/dL Est Cr Clr Drug Dosing Estimated GFR (MDRD) ml/min Glucose (74-106) mg/dL POC Glucose (70-99) mg/dL Hemoglobin A1c (4.5 - 6.2) % Calcium (8.5-10.1) mg/dL Phosphorus (2.6-4.7) mg/dL Magnesium (1.8-2.4) mg/dL Total Bilirubin (0.2-1.0) mg/dL AST (15-37) IU/L ALT (14-63) IU/L Alkaline Phosphatase (46-116) U/L Ammonia (19-54) ug/dL Troponin I 0.269 H* (0.000-0.056) ng/mL B-Natriuretic Peptide (<100) PG/ML Total Protein (6.4-8.2) g/dL Albumin (3.4-5.0) g/dL Globulin (2.6-4.0) g/dL Albumin/Globulin Ratio (0.9-1.6) SARS-CoV-2 RNA (MAX) NEGATIVE (NEGATIVE) 12/05/20 12/05/20 12/05/20 Range/Units 01:22 04:05 04:05 WBC 7.40 (4.0-11.0) K/uL RBC 3.03 L (4.50-5.90) M/uL Hgb 8.9 L (13.0-17.0) g/dL Hct 27.5 L (38.0-50.0) % MCV 90.8 (80.0-98.0) fL MCH 29.4 (27.0-32.0) pg MCHC 32.4 (31.0-37.0) g/dL RDW Std Deviation 52.1 (28.0-62.0) fl RDW Coeff of Aleida 16 H (11.0-15.0) % Plt Count 214 (150-400) K/uL MPV 10.50 (7.40-12.00) fL Neut % (Auto) 67.1 (48.0-80.0) % Lymph % (Auto) 21.6 (16.0-40.0) % [place] % (Auto) 10.1 (0.0-15.0) % Eos % (Auto) 1.1 (0.0-7.0) % Baso % (Auto) 0.1 (0.0-1.5) % Neut # (Auto) 5.0 (1.4-5.7) K/uL Lymph # (Auto) 1.6 (0.6-2.4) K/uL [place] # (Auto) 0.8 (0.0-0.8) K/uL Eos # (Auto) 0.1 (0.0-0.7) K/uL Baso # (Auto) 0.0 (0.0-0.1) K/uL Nucleated RBC % 0.5 /100WBC Nucleated RBCs # 0 K/uL INR APTT (18.6-31.3) SEC VBG pH (7.31-7.41) VBG pCO2 (41-51) mmHG VBG pO2 mmHG VBG HCO3 (23-28) mEq/L VBG Total CO2 (24-29) mmol/L VBG Base Excess (-2.0-3.0) Sodium (136-148) mmol/L Potassium (3.5-5.1) mmol/L Chloride (98-107) mmol/L Carbon Dioxide (21.0-32.0) mmol/L BUN (7.0-18.0) mg/dL Creatinine (0.8-1.3) mg/dL Est Cr Clr Drug Dosing Estimated GFR (MDRD) ml/min Glucose (74-106) mg/dL POC Glucose 244 H (70-99) mg/dL Hemoglobin A1c (4.5 - 6.2) % Calcium (8.5-10.1) mg/dL Phosphorus (2.6-4.7) mg/dL Magnesium (1.8-2.4) mg/dL Total Bilirubin (0.2-1.0) mg/dL AST (15-37) IU/L ALT (14-63) IU/L Alkaline Phosphatase (46-116) U/L Ammonia (19-54) ug/dL Troponin I 0.242 H* (0.000-0.056) ng/mL B-Natriuretic Peptide (<100) PG/ML Total Protein (6.4-8.2) g/dL Albumin (3.4-5.0) g/dL Globulin (2.6-4.0) g/dL Albumin/Globulin Ratio (0.9-1.6) SARS-CoV-2 RNA (MAX) (NEGATIVE) 12/05/20 12/05/20 12/05/20 Range/Units 04:05 04:05 04:05 WBC (4.0-11.0) K/uL RBC (4.50-5.90) M/uL Hgb (13.0-17.0) g/dL Hct (38.0-50.0) % MCV (80.0-98.0) fL MCH (27.0-32.0) pg MCHC (31.0-37.0) g/dL RDW Std Deviation (28.0-62.0) fl RDW Coeff of Aleida (11.0-15.0) % Plt Count (150-400) K/uL MPV (7.40-12.00) fL Neut % (Auto) (48.0-80.0) % Lymph % (Auto) (16.0-40.0) % [place] % (Auto) (0.0-15.0) % Eos % (Auto) (0.0-7.0) % Baso % (Auto) (0.0-1.5) % Neut # (Auto) (1.4-5.7) K/uL Lymph # (Auto) (0.6-2.4) K/uL [place] # (Auto) (0.0-0.8) K/uL Eos # (Auto) (0.0-0.7) K/uL Baso # (Auto) (0.0-0.1) K/uL Nucleated RBC % /100WBC Nucleated RBCs # K/uL INR APTT (18.6-31.3) SEC VBG pH (7.31-7.41) VBG pCO2 (41-51) mmHG VBG pO2 mmHG VBG HCO3 (23-28) mEq/L VBG Total CO2 (24-29) mmol/L VBG Base Excess (-2.0-3.0) Sodium 139 (136-148) mmol/L Potassium 4.0 (3.5-5.1) mmol/L Chloride 101 (98-107) mmol/L Carbon Dioxide 30.1 (21.0-32.0) mmol/L BUN 17 (7.0-18.0) mg/dL Creatinine 1.3 (0.8-1.3) mg/dL Est Cr Clr Drug Dosing 62.85 Estimated GFR (MDRD) 57.5 ml/min Glucose 303 H (74-106) mg/dL POC Glucose (70-99) mg/dL Hemoglobin A1c 9.6 H (4.5 - 6.2) % Calcium 7.2 L (8.5-10.1) mg/dL Phosphorus 2.6 (2.6-4.7) mg/dL Magnesium 1.0 L (1.8-2.4) mg/dL Total Bilirubin (0.2-1.0) mg/dL AST (15-37) IU/L ALT (14-63) IU/L Alkaline Phosphatase (46-116) U/L Ammonia (19-54) ug/dL Troponin I (0.000-0.056) ng/mL B-Natriuretic Peptide (<100) PG/ML Total Protein (6.4-8.2) g/dL Albumin (3.4-5.0) g/dL Globulin (2.6-4.0) g/dL Albumin/Globulin Ratio (0.9-1.6) SARS-CoV-2 RNA (MAX) (NEGATIVE) 12/05/20 12/05/20 12/05/20 Range/Units 06:23 10:17 11:59 WBC (4.0-11.0) K/uL RBC (4.50-5.90) M/uL Hgb (13.0-17.0) g/dL Hct (38.0-50.0) % MCV (80.0-98.0) fL MCH (27.0-32.0) pg MCHC (31.0-37.0) g/dL RDW Std Deviation (28.0-62.0) fl RDW Coeff of Aleida (11.0-15.0) % Plt Count (150-400) K/uL MPV (7.40-12.00) fL Neut % (Auto) (48.0-80.0) % Lymph % (Auto) (16.0-40.0) % [place] % (Auto) (0.0-15.0) % Eos % (Auto) (0.0-7.0) % Baso % (Auto) (0.0-1.5) % Neut # (Auto) (1.4-5.7) K/uL Lymph # (Auto) (0.6-2.4) K/uL [place] # (Auto) (0.0-0.8) K/uL Eos # (Auto) (0.0-0.7) K/uL Baso # (Auto) (0.0-0.1) K/uL Nucleated RBC % /100WBC Nucleated RBCs # K/uL INR APTT (18.6-31.3) SEC VBG pH (7.31-7.41) VBG pCO2 (41-51) mmHG VBG pO2 mmHG VBG HCO3 (23-28) mEq/L VBG Total CO2 (24-29) mmol/L VBG Base Excess (-2.0-3.0) Sodium (136-148) mmol/L Potassium (3.5-5.1) mmol/L Chloride (98-107) mmol/L Carbon Dioxide (21.0-32.0) mmol/L BUN (7.0-18.0) mg/dL Creatinine (0.8-1.3) mg/dL Est Cr Clr Drug Dosing Estimated GFR (MDRD) ml/min Glucose (74-106) mg/dL POC Glucose 286 H 288 H (70-99) mg/dL Hemoglobin A1c (4.5 - 6.2) % Calcium (8.5-10.1) mg/dL Phosphorus (2.6-4.7) mg/dL Magnesium (1.8-2.4) mg/dL Total Bilirubin (0.2-1.0) mg/dL AST (15-37) IU/L ALT (14-63) IU/L Alkaline Phosphatase (46-116) U/L Ammonia (19-54) ug/dL Troponin I 0.247 H* (0.000-0.056) ng/mL B-Natriuretic Peptide (<100) PG/ML Total Protein (6.4-8.2) g/dL Albumin (3.4-5.0) g/dL Globulin (2.6-4.0) g/dL Albumin/Globulin Ratio (0.9-1.6) SARS-CoV-2 RNA (MAX) (NEGATIVE) Result Diagrams: 12/05/20 04:05 12/05/20 04:05 Sepsis Event Note - Evaluation Sepsis Screening Result: No Definite Risk - Focused Exam Vital Signs: Vital Signs Temp Pulse Resp BP BP Pulse Ox 12/05/20 12:00 35.6 C L 65 20 116/65 91 L 12/05/20 08:32 113/56 L 12/05/20 08:00 36.1 C 80 18 113/56 L 95 12/05/20 04:00 35.8 C L 68 18 110/62 93 L - Problem List & Annotations (1) Fluid overload SNOMED Code(s): 91867357 Code(s): E87.70 - FLUID OVERLOAD, UNSPECIFIED Status: Acute Current Visit: Yes (2) Hypoxia SNOMED Code(s): 258126620 Code(s): R09.02 - HYPOXEMIA Status: Acute Current Visit: Yes (3) CHF (congestive heart failure) SNOMED Code(s): 26064176 Code(s): I50.9 - HEART FAILURE, UNSPECIFIED Status: Acute Current Visit: Yes Qualifiers: Heart failure type: unspecified Heart failure chronicity: acute Qualified Code(s): I50.9 - Heart failure, unspecified - Problem List Review Problem List Initiated/Reviewed/Updated: Yes - My Orders Last 24 Hours: My Active Orders 12/05/20 00:35 Telemetry Monitoring [Cardiac Monitoring] [RC] Q8H 12/05/20 00:56 Calcium Carbonate [Tums] 500 mg PO Q6H PRN 12/05/20 00:58 Melatonin 6 mg PO BEDTIME PRN 12/05/20 01:00 John Bandage [RC] .PRN Cooling Warming Measures [RC] ASDIRECTED Pantoprazole [ProTONIX] 40 mg PO DAILY Ice Bag [Ice Therapy] [OM.PC] Routine 12/05/20 01:02 Echo Comp wo Cont [US] Routine Acetaminophen [Tylenol Extra Strength] 500 mg PO Q6H PRN 12/05/20 01:03 Intake and Output Strict [RC] ASDIRECTED PT Evaluation and Treatment [CONS] Routine 12/05/20 01:04 STOOL CULTURE/SHIGA TOXIN [MREF] Routine 12/05/20 01:05 Oxygen Therapy [RC] PRN Up ad Farheen [RC] ASDIRECTED VTE/DVT Education [RC] PER UNIT ROUTINE Vital Signs [RC] Q4H Sequential Compression Device [OM.PC] Per Unit Routine Resuscitation Status Routine 12/05/20 01:06 Antiembolic Devices [RC] PER UNIT ROUTINE Obtain Past Medical Record [OM.PC] Routine 12/05/20 05:20 Dextrose 50% in Water 50 ml IVPUSH ASDIRECTED PRN Glucagon,Human Recombinant [GlucaGen] 1 mg IM ASDIRECTED PRN 12/05/20 07:30 Accu Check [Blood Glucose Check, Bedside] [RC] TIDAC Insulin Aspart [NovoLOG] See Protocol SUBCUT TIDAC 12/05/20 09:00 Fish Oil/[place]-3 Fatty Acids [Fish Oil] 1 gm PO DAILY Furosemide [Lasix] 40 mg IVPUSH BID Losartan [Cozaar] 50 mg PO BID atorvaSTATin [Lipitor] 40 mg PO DAILY 12/05/20 Lunch [employer] Diet [DIET] Gabapentin [Neurontin] 300 mg PO BID 12/05/20 11:08 oxyCODONE 5 mg PO Q8H PRN 12/05/20 13:19 Consult to Diabetic Nurse Specialist [CONS] Routine 12/05/20 13:30 Heparin Sodium 5,000 units SUBCUT Q12H 12/05/20 21:00 Insulin Glarg,Human.Rec.Analog [LantUS Solostar] 5 units SUBCUT BEDTIME 12/06/20 05:11 BASIC METABOLIC PANEL,BMP [CHEM] AM CBC WITH AUTO DIFF [HEME] AM 12/06/20 09:00 Aspirin [Halfprin] 81 mg PO DAILY 12/07/20 05:11 BASIC METABOLIC PANEL,BMP [CHEM] AM CBC WITH AUTO DIFF [HEME] AM 12/08/20 05:11 BASIC METABOLIC PANEL,BMP [CHEM] AM CBC WITH AUTO DIFF [HEME] AM - Plan Plan:: 55 yo male admitted with CHF exacerbation CHF exacerbation: IV lasix, echocardiogram when available, currently on 4 L NC will wean as tolerated Arthritis: leg wraps and ice, PT consulted
[2020-12-05] MEDS ORDERED: Heparin Sodium 5,000 Units/ML Vial SUBCUT SCH (13:30)
[2020-12-05] MEDS: Acetaminophen 500 MG Tab PO PRN ×2 (14:13→21:50)
[2020-12-05] MEDS: Gabapentin 300 MG Cap PO SCH ×2 (14:15→21:51)
[2020-12-05] MEDS ORDERED: Insulin Glargine,Human Rec. Analog 100 Units/ML 3 ML Pen SUBCUT SCH (21:00)
[2020-12-06] MEDS: Heparin Sodium 5,000 Units/ML Vial SUBCUT SCH ×2 (04:07→14:46)
[2020-12-06 07:02] LABS: CARBON DIOXIDE,CO2 29.4 mmol/L (21.0-32.0)
[2020-12-06] MEDS: Fish Oil/Omega-3 Fatty Acids 1 Gm Cap PO SCH (08:09)
[2020-12-06] MEDS: Aspirin 81 MG Tab.EC PO SCH (08:09)
[2020-12-06] MEDS: Gabapentin 300 MG Cap PO SCH ×2 (08:09→21:31)
[2020-12-06] MEDS: atorvaSTATin 40 MG Tab PO SCH (08:09)
[2020-12-06] MEDS: Losartan 50 MG Tab PO SCH ×2 (08:10→21:35)
[2020-12-06] MEDS: Pantoprazole 40 MG Tab.CR PO SCH (08:10)
[2020-12-06] MEDS: Insulin Aspart 100 Units/ML 3 ML Pen SUBCUT SCH ×3 (08:11→19:16)
[2020-12-06] MEDS: Furosemide 40 MG/4 ML VIAL IVPUSH SCH ×3 (08:11→13:48)
[2020-12-06] MEDS: Acetaminophen 500 MG Tab PO PRN ×2 (08:23→20:29)
--- NOTE | 2020-12-06 16:47 | PCM.PN ---
- General Info Date of Service: 12/06/20 - Review of Systems Systems Review Comment:: knee pain is improving, no shortness of breath, has not notice any changes in leg edema, is not satisfied with diabetic diet restrictions on menu. - Patient Data Vitals - Most Recent: Last Vital Signs Temp 36.2 C 12/06/20 04:12 Pulse 74 12/06/20 08:00 Resp 17 12/06/20 08:00 BP 138/73 12/06/20 08:10 Pulse Ox 96 12/06/20 08:00 Weight - Most Recent: 128.956 kg I&O - Last 24 Hours: Intake & Output 12/06/20 12/06/20 12/06/20 06:59 14:59 22:59 Intake Total 560 Output Total 670 Balance -110 Lab Results Last 24 Hours: Laboratory Results - last 24 hr 12/05/20 12/05/20 12/06/20 Range/Units 16:40 21:53 05:25 WBC 5.32 (4.0-11.0) K/uL RBC 3.05 L (4.50-5.90) M/uL Hgb 8.9 L (13.0-17.0) g/dL Hct 27.3 L (38.0-50.0) % MCV 89.5 (80.0-98.0) fL MCH 29.2 (27.0-32.0) pg MCHC 32.6 (31.0-37.0) g/dL RDW Std Deviation 51.6 (28.0-62.0) fl RDW Coeff of Aleida 17 H (11.0-15.0) % Plt Count 197 (150-400) K/uL MPV 10.60 (7.40-12.00) fL Neut % (Auto) 57.0 (48.0-80.0) % Lymph % (Auto) 30.1 (16.0-40.0) % [place] % (Auto) 10.3 (0.0-15.0) % Eos % (Auto) 2.4 (0.0-7.0) % Baso % (Auto) 0.2 (0.0-1.5) % Neut # (Auto) 3.0 (1.4-5.7) K/uL Lymph # (Auto) 1.6 (0.6-2.4) K/uL [place] # (Auto) 0.6 (0.0-0.8) K/uL Eos # (Auto) 0.1 (0.0-0.7) K/uL Baso # (Auto) 0.0 (0.0-0.1) K/uL Nucleated RBC % 0.0 /100WBC Nucleated RBCs # 0 K/uL Sodium (136-148) mmol/L Potassium (3.5-5.1) mmol/L Chloride (98-107) mmol/L Carbon Dioxide (21.0-32.0) mmol/L BUN (7.0-18.0) mg/dL Creatinine (0.8-1.3) mg/dL Est Cr Clr Drug Dosing mL/min Estimated GFR (MDRD) ml/min Glucose (74-106) mg/dL POC Glucose 333 H 286 H (70-99) mg/dL Calcium (8.5-10.1) mg/dL 12/06/20 12/06/20 12/06/20 Range/Units 05:25 06:21 12:42 WBC (4.0-11.0) K/uL RBC (4.50-5.90) M/uL Hgb (13.0-17.0) g/dL Hct (38.0-50.0) % MCV (80.0-98.0) fL MCH (27.0-32.0) pg MCHC (31.0-37.0) g/dL RDW Std Deviation (28.0-62.0) fl RDW Coeff of Aleida (11.0-15.0) % Plt Count (150-400) K/uL MPV (7.40-12.00) fL Neut % (Auto) (48.0-80.0) % Lymph % (Auto) (16.0-40.0) % [place] % (Auto) (0.0-15.0) % Eos % (Auto) (0.0-7.0) % Baso % (Auto) (0.0-1.5) % Neut # (Auto) (1.4-5.7) K/uL Lymph # (Auto) (0.6-2.4) K/uL [place] # (Auto) (0.0-0.8) K/uL Eos # (Auto) (0.0-0.7) K/uL Baso # (Auto) (0.0-0.1) K/uL Nucleated RBC % /100WBC Nucleated RBCs # K/uL Sodium 135 L (136-148) mmol/L Potassium 4.0 (3.5-5.1) mmol/L Chloride 97 L (98-107) mmol/L Carbon Dioxide 29.4 (21.0-32.0) mmol/L BUN 24 H (7.0-18.0) mg/dL Creatinine 1.5 H (0.8-1.3) mg/dL Est Cr Clr Drug Dosing 54.67 mL/min Estimated GFR (MDRD) 48.8 ml/min Glucose 286 H (74-106) mg/dL POC Glucose 260 H 292 H (70-99) mg/dL Calcium 7.9 L (8.5-10.1) mg/dL Med Orders - Current: Current Medications Acetaminophen (Acetaminophen 500 Mg Tab) 500 mg PO Q6H PRN PRN Reason: Pain Last Admin: 12/06/20 08:23 Dose: 500 mg Documented by: Aspirin (Aspirin 81 Mg Tab.Ec) 81 mg PO DAILY [facility] Last Admin: 12/06/20 08:09 Dose: 81 mg Documented by: Atorvastatin Calcium (Atorvastatin 40 Mg Tab) 40 mg PO DAILY [facility] Last Admin: 12/06/20 08:09 Dose: 40 mg Documented by: Calcium Carbonate/Glycine (Calcium Carbonate 500 Mg Tab.Chew) 500 mg PO Q6H PRN PRN Reason: Indigestion Dextrose/Water (50% Dextrose In Water 50 Ml Syringe) 50 ml IVPUSH ASDIRECTED PRN PRN Reason: Hypoglycemia Docusate Sodium (Docusate Sodium 100 Mg Cap) 100 mg PO DAILY [facility] Fish Oil (Fish Oil/[place]-3 Fatty Acids 1 Gm Cap) 1 gm PO DAILY [facility] Last Admin: 12/06/20 08:09 Dose: 1 gm Documented by: Furosemide (Furosemide 40 Mg/4 Ml Vial) 40 mg IVPUSH BIDDIURETIC [facility] Last Admin: 12/06/20 13:48 Dose: 40 mg Documented by: Gabapentin (Gabapentin 300 Mg Cap) 300 mg PO BID [facility] Last Admin: 12/06/20 08:09 Dose: 300 mg Documented by: Glucagon (Glucagon,Human Recombinant 1 Mg Vial) 1 mg IM ASDIRECTED PRN PRN Reason: Hypoglycemia Heparin Sodium (Porcine) (Heparin Sodium 5,000 Units/Ml Vial) 5,000 units SUBCUT Q12H [facility] Last Admin: 12/06/20 14:46 Dose: 5,000 units Documented by: Insulin Aspart (Insulin Aspart 100 Units/Ml 3 Ml Pen) 0 unit SUBCUT TIDAC [facility]; Protocol Last Admin: 12/06/20 13:48 Dose: 3 units Documented by: Insulin Glargine (Insulin Glargine,Human Rec. Analog 100 Units/Ml 3 Ml Pen) 10 units SUBCUT BEDTIME [facility] Losartan Potassium (Losartan 50 Mg Tab) 50 mg PO BID [facility] Last Admin: 12/06/20 08:10 Dose: 50 mg Documented by: Melatonin (Melatonin 3 Mg Tab) 6 mg PO BEDTIME PRN PRN Reason: Insomnia Last Admin: 12/05/20 22:45 Dose: 6 mg Documented by: Oxycodone HCl (Oxycodone 5 Mg Tab) 5 mg PO Q8H PRN PRN Reason: Pain Pantoprazole Sodium (Pantoprazole 40 Mg Tab.Cr) 40 mg PO DAILY [facility] Last Admin: 12/06/20 08:10 Dose: 40 mg Documented by: Sodium Chloride (Sodium Chloride 0.9% 10 Ml Syringe) 10 ml FLUSH ASDIRECTED PRN PRN Reason: Keep Vein Open Sodium Chloride (Sodium Chloride 0.9% 2.5 Ml Syringe) 2.5 ml FLUSH ASDIRECTED PRN PRN Reason: Keep Vein Open Discontinued Medications Aspirin (Aspirin 325 Mg Tab.Ec) 325 mg PO ONETIME ONE Stop: 12/05/20 00:56 Last Admin: 12/05/20 01:22 Dose: 325 mg Documented by: Furosemide (Furosemide 40 Mg/4 Ml Vial) 40 mg IVPUSH NOW ONE Stop: 12/04/20 23:36 Last Admin: 12/05/20 00:08 Dose: 40 mg Documented by: Furosemide (Furosemide 40 Mg/4 Ml Vial) 40 mg IVPUSH BID [facility] Last Admin: 12/06/20 08:11 Dose: 40 mg Documented by: Heparin Sodium (Porcine) (Heparin Sodium 5,000 Units/Ml Vial) 5,000 units SUBCUT Q12H [facility] Last Admin: 12/05/20 14:23 Dose: 5,000 units Documented by: Magnesium Sulfate 4 gm/ Premix 100 mls @ 50 mls/hr IV ONETIME ONE Stop: 12/05/20 09:59 Last Admin: 12/05/20 08:14 Dose: 50 mls/hr Documented by: Insulin Glargine (Insulin Glargine,Human Rec. Analog 100 Units/Ml 3 Ml Pen) 5 units SUBCUT BEDTIME SVITLANA Last Admin: 12/05/20 21:55 Dose: 5 units Documented by: Iopamidol (Iopamidol 755 Mg/Ml 500 Ml Multipack Bottle) 100 ml IVPUSH ONETIME STA Stop: 12/04/20 20:38 Last Admin: 12/04/20 20:38 Dose: 100 ml Documented by: Loperamide HCl (Loperamide 2 Mg Cap) 2 mg PO ONETIME ONE Stop: 12/05/20 00:56 Last Admin: 12/05/20 01:23 Dose: 2 mg Documented by: - Exam General: Alert, Oriented Neck: Supple Lungs: Clear to Auscultation, Normal Respiratory Effort Cardiovascular: Regular Rate, Regular Rhythm GI/Abdominal Exam: Normal Bowel Sounds, Soft, Non-Tender Extremities: Pedal Edema (+2) Skin: Warm, Dry, Intact Neurological: No New Focal Deficit - Patient Data Lab Results Last 24 hrs: Laboratory Results - last 24 hr 12/05/20 12/05/20 12/06/20 Range/Units 16:40 21:53 05:25 WBC 5.32 (4.0-11.0) K/uL RBC 3.05 L (4.50-5.90) M/uL Hgb 8.9 L (13.0-17.0) g/dL Hct 27.3 L (38.0-50.0) % MCV 89.5 (80.0-98.0) fL MCH 29.2 (27.0-32.0) pg MCHC 32.6 (31.0-37.0) g/dL RDW Std Deviation 51.6 (28.0-62.0) fl RDW Coeff of Aleida 17 H (11.0-15.0) % Plt Count 197 (150-400) K/uL MPV 10.60 (7.40-12.00) fL Neut % (Auto) 57.0 (48.0-80.0) % Lymph % (Auto) 30.1 (16.0-40.0) % [place] % (Auto) 10.3 (0.0-15.0) % Eos % (Auto) 2.4 (0.0-7.0) % Baso % (Auto) 0.2 (0.0-1.5) % Neut # (Auto) 3.0 (1.4-5.7) K/uL Lymph # (Auto) 1.6 (0.6-2.4) K/uL [place] # (Auto) 0.6 (0.0-0.8) K/uL Eos # (Auto) 0.1 (0.0-0.7) K/uL Baso # (Auto) 0.0 (0.0-0.1) K/uL Nucleated RBC % 0.0 /100WBC Nucleated RBCs # 0 K/uL Sodium (136-148) mmol/L Potassium (3.5-5.1) mmol/L Chloride (98-107) mmol/L Carbon Dioxide (21.0-32.0) mmol/L BUN (7.0-18.0) mg/dL Creatinine (0.8-1.3) mg/dL Est Cr Clr Drug Dosing mL/min Estimated GFR (MDRD) ml/min Glucose (74-106) mg/dL POC Glucose 333 H 286 H (70-99) mg/dL Calcium (8.5-10.1) mg/dL 12/06/20 12/06/20 12/06/20 Range/Units 05:25 06:21 12:42 WBC (4.0-11.0) K/uL RBC (4.50-5.90) M/uL Hgb (13.0-17.0) g/dL Hct (38.0-50.0) % MCV (80.0-98.0) fL MCH (27.0-32.0) pg MCHC (31.0-37.0) g/dL RDW Std Deviation (28.0-62.0) fl RDW Coeff of Aleida (11.0-15.0) % Plt Count (150-400) K/uL MPV (7.40-12.00) fL Neut % (Auto) (48.0-80.0) % Lymph % (Auto) (16.0-40.0) % [place] % (Auto) (0.0-15.0) % Eos % (Auto) (0.0-7.0) % Baso % (Auto) (0.0-1.5) % Neut # (Auto) (1.4-5.7) K/uL Lymph # (Auto) (0.6-2.4) K/uL [place] # (Auto) (0.0-0.8) K/uL Eos # (Auto) (0.0-0.7) K/uL Baso # (Auto) (0.0-0.1) K/uL Nucleated RBC % /100WBC Nucleated RBCs # K/uL Sodium 135 L (136-148) mmol/L Potassium 4.0 (3.5-5.1) mmol/L Chloride 97 L (98-107) mmol/L Carbon Dioxide 29.4 (21.0-32.0) mmol/L BUN 24 H (7.0-18.0) mg/dL Creatinine 1.5 H (0.8-1.3) mg/dL Est Cr Clr Drug Dosing 54.67 mL/min Estimated GFR (MDRD) 48.8 ml/min Glucose 286 H (74-106) mg/dL POC Glucose 260 H 292 H (70-99) mg/dL Calcium 7.9 L (8.5-10.1) mg/dL Result Diagrams: 12/06/20 05:25 12/06/20 05:25 Sepsis Event Note - Evaluation Sepsis Screening Result: No Definite Risk - Focused Exam Vital Signs: Vital Signs Pulse Resp BP BP Pulse Ox 12/06/20 08:10 138/73 12/06/20 08:00 74 17 138/73 96 - Problem List & Annotations (1) Fluid overload SNOMED Code(s): 01433141 Code(s): E87.70 - FLUID OVERLOAD, UNSPECIFIED Status: Acute Current Visit: Yes (2) Hypoxia SNOMED Code(s): 187388489 Code(s): R09.02 - HYPOXEMIA Status: Acute Current Visit: Yes (3) CHF (congestive heart failure) SNOMED Code(s): 07982365 Code(s): I50.9 - HEART FAILURE, UNSPECIFIED Status: Acute Current Visit: Yes Qualifiers: Heart failure type: unspecified Heart failure chronicity: acute Qualified Code(s): I50.9 - Heart failure, unspecified - Problem List Review Problem List Initiated/Reviewed/Updated: Yes - My Orders Last 24 Hours: My Active Orders 12/05/20 22:24 Communication Order [RC] DAILY 12/05/20 22:26 Communication Order [RC] DAILY 12/06/20 03:00 Heparin Sodium 5,000 units SUBCUT Q12H 12/06/20 Breakfast Regular Diet [DIET] 12/06/20 08:30 Furosemide [Lasix] 40 mg IVPUSH BIDDIURETIC 12/06/20 09:00 Aspirin [Halfprin] 81 mg PO DAILY 12/06/20 16:41 MAGNESIUM [CHEM] Routine 12/06/20 16:45 Docusate Sodium [Colace] 100 mg PO DAILY 12/06/20 21:00 Insulin Glarg,Human.Rec.Analog [LantUS Solostar] 10 units SUBCUT BEDTIME 12/07/20 05:11 BASIC METABOLIC PANEL,BMP [CHEM] AM CBC WITH AUTO DIFF [HEME] AM 12/08/20 05:11 BASIC METABOLIC PANEL,BMP [CHEM] AM CBC WITH AUTO DIFF [HEME] AM - Plan Plan:: 55 yo male admitted with CHF exacerbation CHF exacerbation: IV lasix, echocardiogram when available, currently on 2 L NC will wean as tolerated Arthritis: leg wraps and ice, PT consulted DM: have placed on ssi and lantus, is reluctant to continue insulin at home.
[2020-12-06] MEDS: Docusate Sodium 100 MG Cap PO SCH (17:46)
[2020-12-06] MEDS: Insulin Glargine,Human Rec. Analog 100 Units/ML 3 ML Pen SUBCUT SCH (21:23)
[2020-12-07] MEDS: Heparin Sodium 5,000 Units/ML Vial SUBCUT SCH ×2 (03:39→14:39)
[2020-12-07 07:12] LABS: CARBON DIOXIDE,CO2 28.9 mmol/L (21.0-32.0); POTASSIUM,K 4.1 mmol/L (3.5-5.1)
[2020-12-07] MEDS ORDERED: Glucagon,Human Recombinant 1 MG Vial IM PRN (08:01)
[2020-12-07] MEDS ORDERED: 50% Dextrose in Water 50 ML Syringe IVPUSH PRN (08:01)
[2020-12-07] MEDS: Insulin Aspart 100 Units/ML 3 ML Pen SUBCUT SCH ×5 (08:21→17:48)
[2020-12-07] MEDS: Docusate Sodium 100 MG Cap PO SCH (08:22)
[2020-12-07] MEDS: Fish Oil/Omega-3 Fatty Acids 1 Gm Cap PO SCH (08:22)
[2020-12-07] MEDS: Furosemide 40 MG/4 ML VIAL IVPUSH SCH ×4 (08:22→21:49)
[2020-12-07] MEDS: atorvaSTATin 40 MG Tab PO SCH (08:22)
[2020-12-07] MEDS: Gabapentin 300 MG Cap PO SCH ×2 (08:23→21:48)
[2020-12-07] MEDS: Aspirin 81 MG Tab.EC PO SCH (08:23)
[2020-12-07] MEDS: Losartan 50 MG Tab PO SCH ×2 (08:23→21:48)
[2020-12-07] MEDS: Pantoprazole 40 MG Tab.CR PO SCH (08:23)
--- NOTE | 2020-12-07 08:49 | PCM.PN ---
- General Info Date of Service: 12/07/20 - Review of Systems Systems Review Comment:: patient reports knee pain improving, gets to bathroom with walker - Patient Data Vitals - Most Recent: Last Vital Signs Temp 36.3 C 12/07/20 03:43 Pulse 70 12/07/20 08:35 Resp 17 12/07/20 08:35 BP 123/74 12/07/20 08:35 Pulse Ox 88 L 12/07/20 08:35 Weight - Most Recent: 130.816 kg I&O - Last 24 Hours: Intake & Output 12/06/20 12/07/20 12/07/20 22:59 06:59 14:59 Intake Total 480 730 Output Total 475 1195 Balance 5 -465 Lab Results Last 24 Hours: Laboratory Results - last 24 hr 12/06/20 12/06/20 12/06/20 Range/Units 05:25 12:42 17:46 WBC (4.0-11.0) K/uL RBC (4.50-5.90) M/uL Hgb (13.0-17.0) g/dL Hct (38.0-50.0) % MCV (80.0-98.0) fL MCH (27.0-32.0) pg MCHC (31.0-37.0) g/dL RDW Std Deviation (28.0-62.0) fl RDW Coeff of Aleida (11.0-15.0) % Plt Count (150-400) K/uL MPV (7.40-12.00) fL Neut % (Auto) (48.0-80.0) % Lymph % (Auto) (16.0-40.0) % Payne % (Auto) (0.0-15.0) % Eos % (Auto) (0.0-7.0) % Baso % (Auto) (0.0-1.5) % Neut # (Auto) (1.4-5.7) K/uL Lymph # (Auto) (0.6-2.4) K/uL Payne # (Auto) (0.0-0.8) K/uL Eos # (Auto) (0.0-0.7) K/uL Baso # (Auto) (0.0-0.1) K/uL Nucleated RBC % /100WBC Nucleated RBCs # K/uL Sodium (136-148) mmol/L Potassium (3.5-5.1) mmol/L Chloride (98-107) mmol/L Carbon Dioxide (21.0-32.0) mmol/L BUN (7.0-18.0) mg/dL Creatinine (0.8-1.3) mg/dL Est Cr Clr Drug Dosing mL/min Estimated GFR (MDRD) ml/min Glucose (74-106) mg/dL POC Glucose 292 H 292 H (70-99) mg/dL Calcium (8.5-10.1) mg/dL Magnesium 1.9 (1.8-2.4) mg/dL 12/06/20 12/07/20 12/07/20 Range/Units 21:22 06:05 06:05 WBC 5.08 (4.0-11.0) K/uL RBC 3.05 L (4.50-5.90) M/uL Hgb 8.7 L (13.0-17.0) g/dL Hct 27.1 L (38.0-50.0) % MCV 88.9 (80.0-98.0) fL MCH 28.5 (27.0-32.0) pg MCHC 32.1 (31.0-37.0) g/dL RDW Std Deviation 52.1 (28.0-62.0) fl RDW Coeff of Aleida 17 H (11.0-15.0) % Plt Count 215 (150-400) K/uL MPV 10.80 (7.40-12.00) fL Neut % (Auto) 51.7 (48.0-80.0) % Lymph % (Auto) 36.6 (16.0-40.0) % Payne % (Auto) 9.1 (0.0-15.0) % Eos % (Auto) 2.4 (0.0-7.0) % Baso % (Auto) 0.2 (0.0-1.5) % Neut # (Auto) 2.6 (1.4-5.7) K/uL Lymph # (Auto) 1.9 (0.6-2.4) K/uL Payne # (Auto) 0.5 (0.0-0.8) K/uL Eos # (Auto) 0.1 (0.0-0.7) K/uL Baso # (Auto) 0.0 (0.0-0.1) K/uL Nucleated RBC % 0.0 /100WBC Nucleated RBCs # 0 K/uL Sodium 133 L (136-148) mmol/L Potassium 4.1 (3.5-5.1) mmol/L Chloride 96 L (98-107) mmol/L Carbon Dioxide 28.9 (21.0-32.0) mmol/L BUN 30 H (7.0-18.0) mg/dL Creatinine 1.4 H (0.8-1.3) mg/dL Est Cr Clr Drug Dosing 58.57 mL/min Estimated GFR (MDRD) 52.8 ml/min Glucose 276 H (74-106) mg/dL POC Glucose 269 H (70-99) mg/dL Calcium 8.0 L (8.5-10.1) mg/dL Magnesium 1.7 L (1.8-2.4) mg/dL 12/07/20 Range/Units 06:29 WBC (4.0-11.0) K/uL RBC (4.50-5.90) M/uL Hgb (13.0-17.0) g/dL Hct (38.0-50.0) % MCV (80.0-98.0) fL MCH (27.0-32.0) pg MCHC (31.0-37.0) g/dL RDW Std Deviation (28.0-62.0) fl RDW Coeff of Aleida (11.0-15.0) % Plt Count (150-400) K/uL MPV (7.40-12.00) fL Neut % (Auto) (48.0-80.0) % Lymph % (Auto) (16.0-40.0) % Payne % (Auto) (0.0-15.0) % Eos % (Auto) (0.0-7.0) % Baso % (Auto) (0.0-1.5) % Neut # (Auto) (1.4-5.7) K/uL Lymph # (Auto) (0.6-2.4) K/uL Payne # (Auto) (0.0-0.8) K/uL Eos # (Auto) (0.0-0.7) K/uL Baso # (Auto) (0.0-0.1) K/uL Nucleated RBC % /100WBC Nucleated RBCs # K/uL Sodium (136-148) mmol/L Potassium (3.5-5.1) mmol/L Chloride (98-107) mmol/L Carbon Dioxide (21.0-32.0) mmol/L BUN (7.0-18.0) mg/dL Creatinine (0.8-1.3) mg/dL Est Cr Clr Drug Dosing mL/min Estimated GFR (MDRD) ml/min Glucose (74-106) mg/dL POC Glucose 263 H (70-99) mg/dL Calcium (8.5-10.1) mg/dL Magnesium (1.8-2.4) mg/dL Med Orders - Current: Current Medications Acetaminophen (Acetaminophen 500 Mg Tab) 500 mg PO Q6H PRN PRN Reason: Pain Last Admin: 12/06/20 20:29 Dose: 500 mg Documented by: Aspirin (Aspirin 81 Mg Tab.Ec) 81 mg PO DAILY [facility] Last Admin: 12/07/20 08:23 Dose: 81 mg Documented by: Atorvastatin Calcium (Atorvastatin 40 Mg Tab) 40 mg PO DAILY [facility] Last Admin: 12/07/20 08:22 Dose: 40 mg Documented by: Calcium Carbonate/Glycine (Calcium Carbonate 500 Mg Tab.Chew) 500 mg PO Q6H PRN PRN Reason: Indigestion Dextrose/Water (50% Dextrose In Water 50 Ml Syringe) 50 ml IVPUSH ASDIRECTED PRN PRN Reason: Hypoglycemia Docusate Sodium (Docusate Sodium 100 Mg Cap) 100 mg PO DAILY [facility] Last Admin: 12/07/20 08:22 Dose: 100 mg Documented by: Fish Oil (Fish Oil/[place]-3 Fatty Acids 1 Gm Cap) 1 gm PO DAILY [facility] Last Admin: 12/07/20 08:22 Dose: 1 gm Documented by: Furosemide (Furosemide 40 Mg/4 Ml Vial) 40 mg IVPUSH TID [facility] Last Admin: 12/07/20 08:22 Dose: 40 mg Documented by: Gabapentin (Gabapentin 300 Mg Cap) 300 mg PO BID [facility] Last Admin: 12/07/20 08:23 Dose: 300 mg Documented by: Glucagon (Glucagon,Human Recombinant 1 Mg Vial) 1 mg IM ASDIRECTED PRN PRN Reason: Hypoglycemia Heparin Sodium (Porcine) (Heparin Sodium 5,000 Units/Ml Vial) 5,000 units SUBCUT Q12H [facility] Last Admin: 12/07/20 03:39 Dose: 5,000 units Documented by: Insulin Aspart (Insulin Aspart 100 Units/Ml 3 Ml Pen) 0 unit SUBCUT TIDAC [facility]; Protocol Last Admin: 12/07/20 08:21 Dose: 3 units Documented by: Insulin Aspart (Insulin Aspart 100 Units/Ml 3 Ml Pen) 3 unit SUBCUT TIDAC [facility] Insulin Glargine (Insulin Glargine,Human Rec. Analog 100 Units/Ml 3 Ml Pen) 10 units SUBCUT BEDTIME [facility] Last Admin: 12/06/20 21:23 Dose: 10 unit Documented by: Losartan Potassium (Losartan 50 Mg Tab) 50 mg PO BID [facility] Last Admin: 12/07/20 08:23 Dose: 50 mg Documented by: Melatonin (Melatonin 3 Mg Tab) 6 mg PO BEDTIME PRN PRN Reason: Insomnia Last Admin: 12/05/20 22:45 Dose: 6 mg Documented by: Oxycodone HCl (Oxycodone 5 Mg Tab) 5 mg PO Q8H PRN PRN Reason: Pain Pantoprazole Sodium (Pantoprazole 40 Mg Tab.Cr) 40 mg PO DAILY [facility] Last Admin: 12/07/20 08:23 Dose: 40 mg Documented by: Sodium Chloride (Sodium Chloride 0.9% 10 Ml Syringe) 10 ml FLUSH ASDIRECTED PRN PRN Reason: Keep Vein Open Sodium Chloride (Sodium Chloride 0.9% 2.5 Ml Syringe) 2.5 ml FLUSH ASDIRECTED PRN PRN Reason: Keep Vein Open Discontinued Medications Aspirin (Aspirin 325 Mg Tab.Ec) 325 mg PO ONETIME ONE Stop: 12/05/20 00:56 Last Admin: 12/05/20 01:22 Dose: 325 mg Documented by: Furosemide (Furosemide 40 Mg/4 Ml Vial) 40 mg IVPUSH NOW ONE Stop: 12/04/20 23:36 Last Admin: 12/05/20 00:08 Dose: 40 mg Documented by: Furosemide (Furosemide 40 Mg/4 Ml Vial) 40 mg IVPUSH BID [facility] Last Admin: 12/06/20 08:11 Dose: 40 mg Documented by: Furosemide (Furosemide 40 Mg/4 Ml Vial) 40 mg IVPUSH BIDDIURETIC SVITLANA Last Admin: 12/06/20 13:48 Dose: 40 mg Documented by: Heparin Sodium (Porcine) (Heparin Sodium 5,000 Units/Ml Vial) 5,000 units SUBCUT Q12H [facility] Last Admin: 12/05/20 14:23 Dose: 5,000 units Documented by: Magnesium Sulfate 4 gm/ Premix 100 mls @ 50 mls/hr IV ONETIME ONE Stop: 12/05/20 09:59 Last Admin: 12/05/20 08:14 Dose: 50 mls/hr Documented by: Insulin Glargine (Insulin Glargine,Human Rec. Analog 100 Units/Ml 3 Ml Pen) 5 units SUBCUT BEDTIME [facility] Last Admin: 12/05/20 21:55 Dose: 5 units Documented by: Iopamidol (Iopamidol 755 Mg/Ml 500 Ml Multipack Bottle) 100 ml IVPUSH ONETIME STA Stop: 12/04/20 20:38 Last Admin: 12/04/20 20:38 Dose: 100 ml Documented by: Loperamide HCl (Loperamide 2 Mg Cap) 2 mg PO ONETIME ONE Stop: 12/05/20 00:56 Last Admin: 12/05/20 01:23 Dose: 2 mg Documented by: - Exam General: Alert, Oriented Neck: Supple Lungs: Clear to Auscultation, Normal Respiratory Effort Cardiovascular: Regular Rate, Regular Rhythm GI/Abdominal Exam: Normal Bowel Sounds, Soft, Non-Tender Extremities: Non-Tender, No Pedal Edema Skin: Warm, Dry, Intact Neurological: No New Focal Deficit - Patient Data Lab Results Last 24 hrs: Laboratory Results - last 24 hr 12/06/20 12/06/20 12/06/20 Range/Units 05:25 12:42 17:46 WBC (4.0-11.0) K/uL RBC (4.50-5.90) M/uL Hgb (13.0-17.0) g/dL Hct (38.0-50.0) % MCV (80.0-98.0) fL MCH (27.0-32.0) pg MCHC (31.0-37.0) g/dL RDW Std Deviation (28.0-62.0) fl RDW Coeff of Aleida (11.0-15.0) % Plt Count (150-400) K/uL MPV (7.40-12.00) fL Neut % (Auto) (48.0-80.0) % Lymph % (Auto) (16.0-40.0) % Payne % (Auto) (0.0-15.0) % Eos % (Auto) (0.0-7.0) % Baso % (Auto) (0.0-1.5) % Neut # (Auto) (1.4-5.7) K/uL Lymph # (Auto) (0.6-2.4) K/uL Payne # (Auto) (0.0-0.8) K/uL Eos # (Auto) (0.0-0.7) K/uL Baso # (Auto) (0.0-0.1) K/uL Nucleated RBC % /100WBC Nucleated RBCs # K/uL Sodium (136-148) mmol/L Potassium (3.5-5.1) mmol/L Chloride (98-107) mmol/L Carbon Dioxide (21.0-32.0) mmol/L BUN (7.0-18.0) mg/dL Creatinine (0.8-1.3) mg/dL Est Cr Clr Drug Dosing mL/min Estimated GFR (MDRD) ml/min Glucose (74-106) mg/dL POC Glucose 292 H 292 H (70-99) mg/dL Calcium (8.5-10.1) mg/dL Magnesium 1.9 (1.8-2.4) mg/dL 12/06/20 12/07/20 12/07/20 Range/Units 21:22 06:05 06:05 WBC 5.08 (4.0-11.0) K/uL RBC 3.05 L (4.50-5.90) M/uL Hgb 8.7 L (13.0-17.0) g/dL Hct 27.1 L (38.0-50.0) % MCV 88.9 (80.0-98.0) fL MCH 28.5 (27.0-32.0) pg MCHC 32.1 (31.0-37.0) g/dL RDW Std Deviation 52.1 (28.0-62.0) fl RDW Coeff of Aleida 17 H (11.0-15.0) % Plt Count 215 (150-400) K/uL MPV 10.80 (7.40-12.00) fL Neut % (Auto) 51.7 (48.0-80.0) % Lymph % (Auto) 36.6 (16.0-40.0) % Payne % (Auto) 9.1 (0.0-15.0) % Eos % (Auto) 2.4 (0.0-7.0) % Baso % (Auto) 0.2 (0.0-1.5) % Neut # (Auto) 2.6 (1.4-5.7) K/uL Lymph # (Auto) 1.9 (0.6-2.4) K/uL Payne # (Auto) 0.5 (0.0-0.8) K/uL Eos # (Auto) 0.1 (0.0-0.7) K/uL Baso # (Auto) 0.0 (0.0-0.1) K/uL Nucleated RBC % 0.0 /100WBC Nucleated RBCs # 0 K/uL Sodium 133 L (136-148) mmol/L Potassium 4.1 (3.5-5.1) mmol/L Chloride 96 L (98-107) mmol/L Carbon Dioxide 28.9 (21.0-32.0) mmol/L BUN 30 H (7.0-18.0) mg/dL Creatinine 1.4 H (0.8-1.3) mg/dL Est Cr Clr Drug Dosing 58.57 mL/min Estimated GFR (MDRD) 52.8 ml/min Glucose 276 H (74-106) mg/dL POC Glucose 269 H (70-99) mg/dL Calcium 8.0 L (8.5-10.1) mg/dL Magnesium 1.7 L (1.8-2.4) mg/dL 12/07/20 Range/Units 06:29 WBC (4.0-11.0) K/uL RBC (4.50-5.90) M/uL Hgb (13.0-17.0) g/dL Hct (38.0-50.0) % MCV (80.0-98.0) fL MCH (27.0-32.0) pg MCHC (31.0-37.0) g/dL RDW Std Deviation (28.0-62.0) fl RDW Coeff of Aleida (11.0-15.0) % Plt Count (150-400) K/uL MPV (7.40-12.00) fL Neut % (Auto) (48.0-80.0) % Lymph % (Auto) (16.0-40.0) % Payne % (Auto) (0.0-15.0) % Eos % (Auto) (0.0-7.0) % Baso % (Auto) (0.0-1.5) % Neut # (Auto) (1.4-5.7) K/uL Lymph # (Auto) (0.6-2.4) K/uL Payne # (Auto) (0.0-0.8) K/uL Eos # (Auto) (0.0-0.7) K/uL Baso # (Auto) (0.0-0.1) K/uL Nucleated RBC % /100WBC Nucleated RBCs # K/uL Sodium (136-148) mmol/L Potassium (3.5-5.1) mmol/L Chloride (98-107) mmol/L Carbon Dioxide (21.0-32.0) mmol/L BUN (7.0-18.0) mg/dL Creatinine (0.8-1.3) mg/dL Est Cr Clr Drug Dosing mL/min Estimated GFR (MDRD) ml/min Glucose (74-106) mg/dL POC Glucose 263 H (70-99) mg/dL Calcium (8.5-10.1) mg/dL Magnesium (1.8-2.4) mg/dL Result Diagrams: 12/07/20 06:05 12/07/20 06:05 Sepsis Event Note - Evaluation Sepsis Screening Result: No Definite Risk - Focused Exam Vital Signs: Vital Signs Temp Pulse Resp BP BP BP Pulse Ox 12/07/20 08:35 70 17 123/74 123/74 88 L 12/07/20 08:23 123/74 12/07/20 03:43 36.3 C 65 20 103/55 L 94 L 12/07/20 01:09 36.1 C 66 18 110/54 L 91 L 12/06/20 21:36 90/58 L 91 L 12/06/20 21:35 95/45 L 95/45 L 86 L 12/06/20 21:09 36.1 C 68 19 103/53 L 91 L - Problem List & Annotations (1) Fluid overload SNOMED Code(s): 49707428 Code(s): E87.70 - FLUID OVERLOAD, UNSPECIFIED Status: Acute Current Visit: Yes (2) Hypoxia SNOMED Code(s): 635206426 Code(s): R09.02 - HYPOXEMIA Status: Acute Current Visit: Yes (3) CHF (congestive heart failure) SNOMED Code(s): 52192124 Code(s): I50.9 - HEART FAILURE, UNSPECIFIED Status: Acute Current Visit: Yes Qualifiers: Heart failure type: unspecified Heart failure chronicity: acute Qualified Code(s): I50.9 - Heart failure, unspecified - Problem List Review Problem List Initiated/Reviewed/Updated: Yes - My Orders Last 24 Hours: My Active Orders 12/06/20 09:00 Aspirin [Halfprin] 81 mg PO DAILY 12/06/20 16:45 Docusate Sodium [Colace] 100 mg PO DAILY 12/06/20 16:47 Communication Order [RC] ROUTINE 12/06/20 21:00 Insulin Glarg,Human.Rec.Analog [LantUS Solostar] 10 units SUBCUT BEDTIME 12/07/20 08:00 Furosemide [Lasix] 40 mg IVPUSH TID 12/07/20 11:30 Insulin Aspart [NovoLOG] 3 unit SUBCUT TIDAC 12/08/20 05:11 BASIC METABOLIC PANEL,BMP [CHEM] AM CBC WITH AUTO DIFF [HEME] AM - Plan Plan:: 55 yo male admitted with CHF exacerbation CHF exacerbation: will increase to TID lasix, to ensure net negative Is&Os. Echocardiogram when available, currently on 1.5 L NC will wean as tolerated Arthritis: leg wraps and ice, PT consulted DM: have placed on ssi and lantus, patient refuses to adhere to diabetic diet m enu while in hospital
[2020-12-07] MEDS ORDERED: Magnesium Sulfate/Water 2 GM in Premix Bag 1 BAG IV ONE (09:00)
[2020-12-07] MEDS: Acetaminophen 500 MG Tab PO PRN (18:54)
[2020-12-07] MEDS: Insulin Glargine,Human Rec. Analog 100 Units/ML 3 ML Pen SUBCUT SCH (21:55)
[2020-12-08] MEDS: Acetaminophen 500 MG Tab PO PRN ×3 (00:18→21:08)
[2020-12-08] MEDS: Heparin Sodium 5,000 Units/ML Vial SUBCUT SCH ×2 (02:52→14:18)
[2020-12-08] MEDS: Furosemide 40 MG/4 ML VIAL IVPUSH SCH ×3 (05:51→21:13)
[2020-12-08 06:30] LABS: CARBON DIOXIDE,CO2 30.8 mmol/L (21.0-32.0); POTASSIUM,K 4.9 mmol/L (3.5-5.1)
[2020-12-08] MEDS: Insulin Aspart 100 Units/ML 3 ML Pen SUBCUT SCH ×7 (09:06→18:08)
[2020-12-08] MEDS: Docusate Sodium 100 MG Cap PO SCH (09:44)
[2020-12-08] MEDS: Gabapentin 300 MG Cap PO SCH ×2 (09:44→21:07)
[2020-12-08] MEDS: Fish Oil/Omega-3 Fatty Acids 1 Gm Cap PO SCH (09:44)
[2020-12-08] MEDS: atorvaSTATin 40 MG Tab PO SCH (09:44)
[2020-12-08] MEDS: Pantoprazole 40 MG Tab.CR PO SCH (09:45)
[2020-12-08] MEDS: Losartan 50 MG Tab PO SCH ×2 (09:47→21:07)
[2020-12-08] MEDS: Aspirin 81 MG Tab.EC PO SCH (09:53)
--- NOTE | 2020-12-08 16:08 | CR ---
Indication: Knee pain Technique: Two views right knee Comparison: December 04, 2020 Findings: Bones: Alignment is normal. No fractures. Semi circular lucency on the articular surface of the medial femoral condyle Joint spaces: Minimal degenerative changes. Soft tissues: Moderate suprapatellar effusion, slightly decreased compared to the prior exam. Soft tissue edema anterior to the knee joint. Impression: Slight interval decrease in size of suprapatellar effusion. Lucency on the articular surface of the medial femoral condyle could represent an osteochondral defect. Consider MR for further evaluation if clinically indicated. Mild degenerative changes. Dictated by Melania Francois MD @ 12/08/2020 4:06:37 PM (Electronically Signed)
--- NOTE | 2020-12-08 17:28 | PCM.PN ---
- General Info Date of Service: 12/08/20 Admission Dx/Problem (Free Text): Admission Diagnosis/Problem Admission Diagnosis/Problem Hypoxia Subjective Update: Patient seen at bedside, states he has lot of pain in his knee, sugars are little better, Functional Status: Reports: Tolerating Diet, Ambulating, Urinating - Review of Systems General: Denies: Fever, Weakness, Fatigue Pulmonary: Reports: Shortness of Breath. Denies: Pleuritic Chest Pain, Cough Cardiovascular: Denies: Chest Pain, Palpitations, Dyspnea on Exertion Gastrointestinal: Denies: Abdominal Pain, Constipation, Decreased Appetite Genitourinary: Denies: Dysuria, Frequency, Burning Musculoskeletal: Denies: Neck Pain, Shoulder Pain, Arm Pain Skin: Denies: Cyanosis, Jaundice Neurological: Denies: Confusion, Dizziness, Headache - Patient Data Vitals - Most Recent: Last Vital Signs Temp 36.6 C 12/08/20 16:00 Pulse 65 12/08/20 16:00 Resp 20 12/08/20 16:00 BP 113/56 L 12/08/20 16:00 Pulse Ox 91 L 12/08/20 16:00 Weight - Most Recent: 132.721 kg I&O - Last 24 Hours: Intake & Output 12/08/20 12/08/20 12/08/20 06:59 14:59 22:59 Intake Total 720 Output Total 1280 Balance -560 Lab Results Last 24 Hours: Laboratory Results - last 24 hr 12/07/20 12/07/20 12/08/20 Range/Units 17:38 20:46 05:50 WBC 5.43 (4.0-11.0) K/uL RBC 2.98 L (4.50-5.90) M/uL Hgb 8.6 L (13.0-17.0) g/dL Hct 26.6 L (38.0-50.0) % MCV 89.3 (80.0-98.0) fL MCH 28.9 (27.0-32.0) pg MCHC 32.3 (31.0-37.0) g/dL RDW Std Deviation 52.9 (28.0-62.0) fl RDW Coeff of Aleida 17 H (11.0-15.0) % Plt Count 202 (150-400) K/uL MPV 10.40 (7.40-12.00) fL Neut % (Auto) 57.7 (48.0-80.0) % Lymph % (Auto) 32.4 (16.0-40.0) % [place] % (Auto) 7.9 (0.0-15.0) % Eos % (Auto) 1.8 (0.0-7.0) % Baso % (Auto) 0.2 (0.0-1.5) % Neut # (Auto) 3.1 (1.4-5.7) K/uL Lymph # (Auto) 1.8 (0.6-2.4) K/uL [place] # (Auto) 0.4 (0.0-0.8) K/uL Eos # (Auto) 0.1 (0.0-0.7) K/uL Baso # (Auto) 0.0 (0.0-0.1) K/uL Nucleated RBC % 0.0 /100WBC Nucleated RBCs # 0 K/uL Sodium (136-148) mmol/L Potassium (3.5-5.1) mmol/L Chloride (98-107) mmol/L Carbon Dioxide (21.0-32.0) mmol/L BUN (7.0-18.0) mg/dL Creatinine (0.8-1.3) mg/dL Est Cr Clr Drug Dosing mL/min Estimated GFR (MDRD) ml/min Glucose (74-106) mg/dL POC Glucose 374 H 397 H (70-99) mg/dL Calcium (8.5-10.1) mg/dL 12/08/20 12/08/20 12/08/20 Range/Units 05:50 05:51 12:32 WBC (4.0-11.0) K/uL RBC (4.50-5.90) M/uL Hgb (13.0-17.0) g/dL Hct (38.0-50.0) % MCV (80.0-98.0) fL MCH (27.0-32.0) pg MCHC (31.0-37.0) g/dL RDW Std Deviation (28.0-62.0) fl RDW Coeff of Aleida (11.0-15.0) % Plt Count (150-400) K/uL MPV (7.40-12.00) fL Neut % (Auto) (48.0-80.0) % Lymph % (Auto) (16.0-40.0) % [place] % (Auto) (0.0-15.0) % Eos % (Auto) (0.0-7.0) % Baso % (Auto) (0.0-1.5) % Neut # (Auto) (1.4-5.7) K/uL Lymph # (Auto) (0.6-2.4) K/uL [place] # (Auto) (0.0-0.8) K/uL Eos # (Auto) (0.0-0.7) K/uL Baso # (Auto) (0.0-0.1) K/uL Nucleated RBC % /100WBC Nucleated RBCs # K/uL Sodium 134 L (136-148) mmol/L Potassium 4.9 (3.5-5.1) mmol/L Chloride 97 L (98-107) mmol/L Carbon Dioxide 30.8 (21.0-32.0) mmol/L BUN 32 H (7.0-18.0) mg/dL Creatinine 1.6 H (0.8-1.3) mg/dL Est Cr Clr Drug Dosing 51.25 mL/min Estimated GFR (MDRD) 45.3 ml/min Glucose 331 H (74-106) mg/dL POC Glucose 309 H 432 H* (70-99) mg/dL Calcium 8.1 L (8.5-10.1) mg/dL 12/08/20 Range/Units 15:56 WBC (4.0-11.0) K/uL RBC (4.50-5.90) M/uL Hgb (13.0-17.0) g/dL Hct (38.0-50.0) % MCV (80.0-98.0) fL MCH (27.0-32.0) pg MCHC (31.0-37.0) g/dL RDW Std Deviation (28.0-62.0) fl RDW Coeff of Aleida (11.0-15.0) % Plt Count (150-400) K/uL MPV (7.40-12.00) fL Neut % (Auto) (48.0-80.0) % Lymph % (Auto) (16.0-40.0) % [place] % (Auto) (0.0-15.0) % Eos % (Auto) (0.0-7.0) % Baso % (Auto) (0.0-1.5) % Neut # (Auto) (1.4-5.7) K/uL Lymph # (Auto) (0.6-2.4) K/uL [place] # (Auto) (0.0-0.8) K/uL Eos # (Auto) (0.0-0.7) K/uL Baso # (Auto) (0.0-0.1) K/uL Nucleated RBC % /100WBC Nucleated RBCs # K/uL Sodium (136-148) mmol/L Potassium (3.5-5.1) mmol/L Chloride (98-107) mmol/L Carbon Dioxide (21.0-32.0) mmol/L BUN (7.0-18.0) mg/dL Creatinine (0.8-1.3) mg/dL Est Cr Clr Drug Dosing mL/min Estimated GFR (MDRD) ml/min Glucose (74-106) mg/dL POC Glucose 340 H (70-99) mg/dL Calcium (8.5-10.1) mg/dL Med Orders - Current: Current Medications Acetaminophen (Acetaminophen 500 Mg Tab) 500 mg PO Q6H PRN PRN Reason: Pain Last Admin: 12/08/20 10:08 Dose: 500 mg Documented by: Aspirin (Aspirin 81 Mg Tab.Ec) 81 mg PO DAILY [facility] Last Admin: 12/08/20 09:53 Dose: 81 mg Documented by: Atorvastatin Calcium (Atorvastatin 40 Mg Tab) 40 mg PO DAILY [facility] Last Admin: 12/08/20 09:44 Dose: 40 mg Documented by: Calcium Carbonate/Glycine (Calcium Carbonate 500 Mg Tab.Chew) 500 mg PO Q6H PRN PRN Reason: Indigestion Dextrose/Water (50% Dextrose In Water 50 Ml Syringe) 50 ml IVPUSH ASDIRECTED PRN PRN Reason: Hypoglycemia Docusate Sodium (Docusate Sodium 100 Mg Cap) 100 mg PO DAILY [facility] Last Admin: 12/08/20 09:44 Dose: 100 mg Documented by: Fish Oil (Fish Oil/[place]-3 Fatty Acids 1 Gm Cap) 1 gm PO DAILY [facility] Last Admin: 12/08/20 09:44 Dose: 1 gm Documented by: Furosemide (Furosemide 40 Mg/4 Ml Vial) 40 mg IVPUSH TID [facility] Last Admin: 12/08/20 14:20 Dose: 40 mg Documented by: Gabapentin (Gabapentin 300 Mg Cap) 300 mg PO BID [facility] Last Admin: 12/08/20 09:44 Dose: 300 mg Documented by: Glucagon (Glucagon,Human Recombinant 1 Mg Vial) 1 mg IM ASDIRECTED PRN PRN Reason: Hypoglycemia Heparin Sodium (Porcine) (Heparin Sodium 5,000 Units/Ml Vial) 5,000 units SUBCUT Q12H [facility] Last Admin: 12/08/20 14:18 Dose: 5,000 units Documented by: Insulin Aspart (Insulin Aspart 100 Units/Ml 3 Ml Pen) 0 unit SUBCUT TIDAC [facility]; Protocol Last Admin: 12/08/20 16:12 Dose: 12 units Documented by: Insulin Aspart (Insulin Aspart 100 Units/Ml 3 Ml Pen) 5 unit SUBCUT TIDAC [facility] Insulin Glargine (Insulin Glargine,Human Rec. Analog 100 Units/Ml 3 Ml Pen) 13 units SUBCUT BEDTIME [facility] Losartan Potassium (Losartan 50 Mg Tab) 50 mg PO BID [facility] Last Admin: 12/08/20 09:47 Dose: 50 mg Documented by: Melatonin (Melatonin 3 Mg Tab) 6 mg PO BEDTIME PRN PRN Reason: Insomnia Last Admin: 12/05/20 22:45 Dose: 6 mg Documented by: Oxycodone HCl (Oxycodone 5 Mg Tab) 5 mg PO Q8H PRN PRN Reason: Pain Pantoprazole Sodium (Pantoprazole 40 Mg Tab.Cr) 40 mg PO DAILY [facility] Last Admin: 12/08/20 09:45 Dose: 40 mg Documented by: Sodium Chloride (Sodium Chloride 0.9% 10 Ml Syringe) 10 ml FLUSH ASDIRECTED PRN PRN Reason: Keep Vein Open Sodium Chloride (Sodium Chloride 0.9% 2.5 Ml Syringe) 2.5 ml FLUSH ASDIRECTED PRN PRN Reason: Keep Vein Open Discontinued Medications Aspirin (Aspirin 325 Mg Tab.Ec) 325 mg PO ONETIME ONE Stop: 12/05/20 00:56 Last Admin: 12/05/20 01:22 Dose: 325 mg Documented by: Furosemide (Furosemide 40 Mg/4 Ml Vial) 40 mg IVPUSH NOW ONE Stop: 12/04/20 23:36 Last Admin: 12/05/20 00:08 Dose: 40 mg Documented by: Furosemide (Furosemide 40 Mg/4 Ml Vial) 40 mg IVPUSH BID [facility] Last Admin: 12/06/20 08:11 Dose: 40 mg Documented by: Furosemide (Furosemide 40 Mg/4 Ml Vial) 40 mg IVPUSH BIDDIURETIC [facility] Last Admin: 12/07/20 10:53 Dose: Not Given Documented by: Heparin Sodium (Porcine) (Heparin Sodium 5,000 Units/Ml Vial) 5,000 units SUBCUT Q12H [facility] Last Admin: 12/05/20 14:23 Dose: 5,000 units Documented by: Magnesium Sulfate 4 gm/ Premix 100 mls @ 50 mls/hr IV ONETIME ONE Stop: 12/05/20 09:59 Last Admin: 12/05/20 08:14 Dose: 50 mls/hr Documented by: Magnesium Sulfate 2 gm/ Premix 50 mls @ 25 mls/hr IV ONETIME ONE Stop: 12/07/20 10:59 Last Admin: 12/07/20 11:48 Dose: 25 mls/hr Documented by: Insulin Aspart (Insulin Aspart 100 Units/Ml 3 Ml Pen) 3 unit SUBCUT TIDAC [facility] Last Admin: 12/08/20 13:12 Dose: Not Given Documented by: Insulin Glargine (Insulin Glargine,Human Rec. Analog 100 Units/Ml 3 Ml Pen) 5 units SUBCUT BEDTIME [facility] Last Admin: 12/05/20 21:55 Dose: 5 units Documented by: Insulin Glargine (Insulin Glargine,Human Rec. Analog 100 Units/Ml 3 Ml Pen) 10 units SUBCUT BEDTIME [facility] Last Admin: 12/07/20 21:55 Dose: 10 unit Documented by: Iopamidol (Iopamidol 755 Mg/Ml 500 Ml Multipack Bottle) 100 ml IVPUSH ONETIME STA Stop: 12/04/20 20:38 Last Admin: 12/04/20 20:38 Dose: 100 ml Documented by: Loperamide HCl (Loperamide 2 Mg Cap) 2 mg PO ONETIME ONE Stop: 12/05/20 00:56 Last Admin: 12/05/20 01:23 Dose: 2 mg Documented by: - Exam Quality Assessment: Supplemental Oxygen General: Alert, Oriented Lungs: Clear to Auscultation, Normal Respiratory Effort. No: Decreased Breath Sounds, Crackles Cardiovascular: Regular Rate, Regular Rhythm GI/Abdominal Exam: Normal Bowel Sounds, Soft, Non-Tender Extremities: Pedal Edema, Leg Pain, Limited Range of Motion. No: No Pedal Edema, Increased Warmth Skin: Dry, Intact - Patient Data Lab Results Last 24 hrs: Laboratory Results - last 24 hr 12/07/20 12/07/20 12/08/20 Range/Units 17:38 20:46 05:50 WBC 5.43 (4.0-11.0) K/uL RBC 2.98 L (4.50-5.90) M/uL Hgb 8.6 L (13.0-17.0) g/dL Hct 26.6 L (38.0-50.0) % MCV 89.3 (80.0-98.0) fL MCH 28.9 (27.0-32.0) pg MCHC 32.3 (31.0-37.0) g/dL RDW Std Deviation 52.9 (28.0-62.0) fl RDW Coeff of Aleida 17 H (11.0-15.0) % Plt Count 202 (150-400) K/uL MPV 10.40 (7.40-12.00) fL Neut % (Auto) 57.7 (48.0-80.0) % Lymph % (Auto) 32.4 (16.0-40.0) % [place] % (Auto) 7.9 (0.0-15.0) % Eos % (Auto) 1.8 (0.0-7.0) % Baso % (Auto) 0.2 (0.0-1.5) % Neut # (Auto) 3.1 (1.4-5.7) K/uL Lymph # (Auto) 1.8 (0.6-2.4) K/uL [place] # (Auto) 0.4 (0.0-0.8) K/uL Eos # (Auto) 0.1 (0.0-0.7) K/uL Baso # (Auto) 0.0 (0.0-0.1) K/uL Nucleated RBC % 0.0 /100WBC Nucleated RBCs # 0 K/uL Sodium (136-148) mmol/L Potassium (3.5-5.1) mmol/L Chloride (98-107) mmol/L Carbon Dioxide (21.0-32.0) mmol/L BUN (7.0-18.0) mg/dL Creatinine (0.8-1.3) mg/dL Est Cr Clr Drug Dosing mL/min Estimated GFR (MDRD) ml/min Glucose (74-106) mg/dL POC Glucose 374 H 397 H (70-99) mg/dL Calcium (8.5-10.1) mg/dL 12/08/20 12/08/20 12/08/20 Range/Units 05:50 05:51 12:32 WBC (4.0-11.0) K/uL RBC (4.50-5.90) M/uL Hgb (13.0-17.0) g/dL Hct (38.0-50.0) % MCV (80.0-98.0) fL MCH (27.0-32.0) pg MCHC (31.0-37.0) g/dL RDW Std Deviation (28.0-62.0) fl RDW Coeff of Aleida (11.0-15.0) % Plt Count (150-400) K/uL MPV (7.40-12.00) fL Neut % (Auto) (48.0-80.0) % Lymph % (Auto) (16.0-40.0) % [place] % (Auto) (0.0-15.0) % Eos % (Auto) (0.0-7.0) % Baso % (Auto) (0.0-1.5) % Neut # (Auto) (1.4-5.7) K/uL Lymph # (Auto) (0.6-2.4) K/uL [place] # (Auto) (0.0-0.8) K/uL Eos # (Auto) (0.0-0.7) K/uL Baso # (Auto) (0.0-0.1) K/uL Nucleated RBC % /100WBC Nucleated RBCs # K/uL Sodium 134 L (136-148) mmol/L Potassium 4.9 (3.5-5.1) mmol/L Chloride 97 L (98-107) mmol/L Carbon Dioxide 30.8 (21.0-32.0) mmol/L BUN 32 H (7.0-18.0) mg/dL Creatinine 1.6 H (0.8-1.3) mg/dL Est Cr Clr Drug Dosing 51.25 mL/min Estimated GFR (MDRD) 45.3 ml/min Glucose 331 H (74-106) mg/dL POC Glucose 309 H 432 H* (70-99) mg/dL Calcium 8.1 L (8.5-10.1) mg/dL 12/08/20 Range/Units 15:56 WBC (4.0-11.0) K/uL RBC (4.50-5.90) M/uL Hgb (13.0-17.0) g/dL Hct (38.0-50.0) % MCV (80.0-98.0) fL MCH (27.0-32.0) pg MCHC (31.0-37.0) g/dL RDW Std Deviation (28.0-62.0) fl RDW Coeff of Aleida (11.0-15.0) % Plt Count (150-400) K/uL MPV (7.40-12.00) fL Neut % (Auto) (48.0-80.0) % Lymph % (Auto) (16.0-40.0) % [place] % (Auto) (0.0-15.0) % Eos % (Auto) (0.0-7.0) % Baso % (Auto) (0.0-1.5) % Neut # (Auto) (1.4-5.7) K/uL Lymph # (Auto) (0.6-2.4) K/uL [place] # (Auto) (0.0-0.8) K/uL Eos # (Auto) (0.0-0.7) K/uL Baso # (Auto) (0.0-0.1) K/uL Nucleated RBC % /100WBC Nucleated RBCs # K/uL Sodium (136-148) mmol/L Potassium (3.5-5.1) mmol/L Chloride (98-107) mmol/L Carbon Dioxide (21.0-32.0) mmol/L BUN (7.0-18.0) mg/dL Creatinine (0.8-1.3) mg/dL Est Cr Clr Drug Dosing mL/min Estimated GFR (MDRD) ml/min Glucose (74-106) mg/dL POC Glucose 340 H (70-99) mg/dL Calcium (8.5-10.1) mg/dL Result Diagrams: 12/09/20 05:49 12/09/20 05:49 Sepsis Event Note - Evaluation Sepsis Screening Result: No Definite Risk - Focused Exam Vital Signs: Vital Signs Temp Pulse Resp BP BP BP Pulse Ox 12/08/20 16:00 36.6 C 65 20 113/56 L 91 L 12/08/20 13:15 36.1 C 64 18 129/70 94 L 12/08/20 10:00 12/08/20 09:47 148/66 H 12/08/20 09:00 35.7 C L 71 20 148/66 H 93 L 12/08/20 05:50 36.1 C 65 18 117/69 93 L Pulse Ox 12/08/20 16:00 12/08/20 13:15 12/08/20 10:00 93 L 12/08/20 09:47 12/08/20 09:00 12/08/20 05:50 - Problem List & Annotations (1) CHF (congestive heart failure) SNOMED Code(s): 99381203 Code(s): I50.9 - HEART FAILURE, UNSPECIFIED Status: Acute Current Visit: Yes Qualifiers: Heart failure type: unspecified Heart failure chronicity: acute Qualified Code(s): I50.9 - Heart failure, unspecified (2) Chronic knee pain SNOMED Code(s): 5393103516 Code(s): M25.569 - PAIN IN UNSPECIFIED KNEE; G89.29 - OTHER CHRONIC PAIN Status: Acute Current Visit: Yes Qualifiers: Laterality: right Qualified Code(s): M25.561 - Pain in right knee; G89.29 - Other chronic pain (3) Fluid overload SNOMED Code(s): 06890396 Code(s): E87.70 - FLUID OVERLOAD, UNSPECIFIED Status: Acute Current Visit: Yes (4) Hypoxia SNOMED Code(s): 984149538 Code(s): R09.02 - HYPOXEMIA Status: Acute Current Visit: Yes (5) Atrial fibrillation with normal ventricular rate SNOMED Code(s): 36143545 Code(s): I48.91 - UNSPECIFIED ATRIAL FIBRILLATION Status: Acute Current Visit: No (6) Non-compliance SNOMED Code(s): 7307999 Code(s): Z91.19 - PATIENT'S NONCOMPLIANCE W OTH MEDICAL TREATMENT AND REGIMEN Status: Acute Current Visit: Yes (7) Suprapatellar effusion of knee SNOMED Code(s): 612749757 Code(s): M25.469 - EFFUSION, UNSPECIFIED KNEE Status: Acute Current Visit: Yes - Problem List Review Problem List Initiated/Reviewed/Updated: Yes - My Orders Last 24 Hours: My Active Orders 12/08/20 17:00 Insulin Aspart [NovoLOG] 5 unit SUBCUT TIDAC 12/08/20 21:00 Insulin Glarg,Human.Rec.Analog [LantUS Solostar] 13 units SUBCUT BEDTIME - Plan Plan:: 55 yo male admitted with CHF exacerbation CHF exacerbation: cont TID lasix increase the dose to 60 3 times daily, to ensure net negative Is&Os. fu Echocardiogram, currently on 1.5 L NC will wean as tolerated Arthritis: leg wraps and ice, PT consulted, repeat x-ray of the right knee shows improvement in suprapatellar effusion although patient continues to have pain DM: have placed on ssi and lantus, increased the dose due to patient's hyperglycemia, patient was thoroughly counseled about importance of tight blood sugar control, he refuses to be on diabetic or cardiac diet. Patient will likely need a tap of his right knee due to continued pain, we have no IR service, will reach to anesthesia or ER physician to see if he can attend the tap. Patient will need to be on a blood thinner due to high Dave vas score and history of A. fib, will hold off till we were able to get a knee tap and will possibly start patient on Eliquis thereafter
[2020-12-08] MEDS: Insulin Glargine,Human Rec. Analog 100 Units/ML 3 ML Pen SUBCUT SCH (21:04)
[2020-12-09] MEDS: Acetaminophen 500 MG Tab PO PRN ×2 (01:49→08:57)
[2020-12-09] MEDS: Heparin Sodium 5,000 Units/ML Vial SUBCUT SCH ×2 (02:43→14:09)
[2020-12-09] MEDS: Acetaminophen/HYDROcodone 325-5 MG Tab PO PRN (02:59)
[2020-12-09] MEDS: Furosemide 40 MG/4 ML VIAL IVPUSH SCH ×3 (06:05→22:59)
[2020-12-09 06:43] LABS: CARBON DIOXIDE,CO2 29.5 mmol/L (21.0-32.0); POTASSIUM,K 4.7 mmol/L (3.5-5.1)
[2020-12-09] MEDS: Insulin Aspart 100 Units/ML 3 ML Pen SUBCUT SCH ×6 (09:02→17:46)
[2020-12-09] MEDS ORDERED: Magnesium Sulfate/Water 4 GM in Premix Bag 1 BAG IV ONE (09:15)
[2020-12-09] MEDS: Docusate Sodium 100 MG Cap PO SCH (10:08)
[2020-12-09] MEDS: atorvaSTATin 40 MG Tab PO SCH (10:09)
[2020-12-09] MEDS: Fish Oil/Omega-3 Fatty Acids 1 Gm Cap PO SCH ×2 (10:09→10:22)
[2020-12-09] MEDS: Gabapentin 300 MG Cap PO SCH ×2 (10:09→20:28)
[2020-12-09] MEDS: Losartan 50 MG Tab PO SCH ×2 (10:10→20:27)
[2020-12-09] MEDS: Aspirin 81 MG Tab.EC PO SCH (10:14)
[2020-12-09] MEDS: Pantoprazole 40 MG Tab.CR PO SCH (10:23)
[2020-12-09] MEDS ORDERED: Metolazone 5 MG Tab PO ONE (13:30)
[2020-12-09] MEDS ORDERED: Ketorolac 15 MG/ML SDV IVPUSH ONE (13:48)
[2020-12-09] MEDS ORDERED: Ondansetron 4 MG/2 ML SDV IVPUSH PRN (13:49)
--- NOTE | 2020-12-09 17:12 | ECHO ---
EXAM DATE: 12/04/20 PATIENT'S AGE: 55 The ECHO report has been scanned into [employer] and can be seen in this patient's EMR (Electronic Medical Record) under the REPORTS section. The report has also been scanned into PACS. [facility]
[2020-12-09] MEDS: Insulin Glargine,Human Rec. Analog 100 Units/ML 3 ML Pen SUBCUT SCH (20:26)
--- NOTE | 2020-12-09 23:35 | PCM.PN ---
- General Info Date of Service: 12/09/20 Admission Dx/Problem (Free Text): Admission Diagnosis/Problem Admission Diagnosis/Problem Hypoxia Subjective Update: Patient seen at bedside, states he has lot of pain in his knee, sugars are little better, - Review of Systems General: Denies: Weakness, Fatigue Pulmonary: Denies: Shortness of Breath Cardiovascular: Denies: Palpitations Gastrointestinal: Denies: Constipation, Decreased Appetite Genitourinary: Denies: Frequency, Burning, Pain Musculoskeletal: Reports: Leg Pain, Joint Pain, Joint Swelling. Denies: Shoulder Pain, Arm Pain, Hand Pain - Patient Data Vitals - Most Recent: Last Vital Signs Temp 36.0 C L 12/09/20 22:57 Pulse 64 12/09/20 22:57 Resp 18 12/09/20 22:57 BP 118/65 12/09/20 22:57 Pulse Ox 92 L 12/09/20 22:57 Weight - Most Recent: 131.542 kg I&O - Last 24 Hours: Intake & Output 12/09/20 12/09/20 12/10/20 14:59 22:59 06:59 Intake Total 1000 Balance 1000 Lab Results Last 24 Hours: Laboratory Results - last 24 hr 12/09/20 12/09/20 12/09/20 Range/Units 05:49 05:49 05:50 WBC 6.42 (4.0-11.0) K/uL RBC 3.06 L (4.50-5.90) M/uL Hgb 8.8 L (13.0-17.0) g/dL Hct 27.4 L (38.0-50.0) % MCV 89.5 (80.0-98.0) fL MCH 28.8 (27.0-32.0) pg MCHC 32.1 (31.0-37.0) g/dL RDW Std Deviation 54.1 (28.0-62.0) fl RDW Coeff of Aleida 17 H (11.0-15.0) % Plt Count 236 (150-400) K/uL MPV 10.70 (7.40-12.00) fL Neut % (Auto) 57.5 (48.0-80.0) % Lymph % (Auto) 31.2 (16.0-40.0) % [place] % (Auto) 9.5 (0.0-15.0) % Eos % (Auto) 1.6 (0.0-7.0) % Baso % (Auto) 0.2 (0.0-1.5) % Neut # (Auto) 3.7 (1.4-5.7) K/uL Lymph # (Auto) 2.0 (0.6-2.4) K/uL [place] # (Auto) 0.6 (0.0-0.8) K/uL Eos # (Auto) 0.1 (0.0-0.7) K/uL Baso # (Auto) 0.0 (0.0-0.1) K/uL Nucleated RBC % 0.0 /100WBC Nucleated RBCs # 0 K/uL Sodium 134 L (136-148) mmol/L Potassium 4.7 (3.5-5.1) mmol/L Chloride 98 (98-107) mmol/L Carbon Dioxide 29.5 (21.0-32.0) mmol/L BUN 35 H (7.0-18.0) mg/dL Creatinine 1.3 (0.8-1.3) mg/dL Est Cr Clr Drug Dosing 63.08 mL/min Estimated GFR (MDRD) 57.5 ml/min Glucose 245 H (74-106) mg/dL POC Glucose 229 H (70-99) mg/dL Calcium 8.1 L (8.5-10.1) mg/dL Phosphorus 2.6 (2.6-4.7) mg/dL Magnesium 1.4 L (1.8-2.4) mg/dL 12/09/20 12/09/20 12/09/20 Range/Units 14:00 17:26 20:21 WBC (4.0-11.0) K/uL RBC (4.50-5.90) M/uL Hgb (13.0-17.0) g/dL Hct (38.0-50.0) % MCV (80.0-98.0) fL MCH (27.0-32.0) pg MCHC (31.0-37.0) g/dL RDW Std Deviation (28.0-62.0) fl RDW Coeff of Aleida (11.0-15.0) % Plt Count (150-400) K/uL MPV (7.40-12.00) fL Neut % (Auto) (48.0-80.0) % Lymph % (Auto) (16.0-40.0) % [place] % (Auto) (0.0-15.0) % Eos % (Auto) (0.0-7.0) % Baso % (Auto) (0.0-1.5) % Neut # (Auto) (1.4-5.7) K/uL Lymph # (Auto) (0.6-2.4) K/uL [place] # (Auto) (0.0-0.8) K/uL Eos # (Auto) (0.0-0.7) K/uL Baso # (Auto) (0.0-0.1) K/uL Nucleated RBC % /100WBC Nucleated RBCs # K/uL Sodium (136-148) mmol/L Potassium (3.5-5.1) mmol/L Chloride (98-107) mmol/L Carbon Dioxide (21.0-32.0) mmol/L BUN (7.0-18.0) mg/dL Creatinine (0.8-1.3) mg/dL Est Cr Clr Drug Dosing mL/min Estimated GFR (MDRD) ml/min Glucose (74-106) mg/dL POC Glucose 331 H 371 H 317 H (70-99) mg/dL Calcium (8.5-10.1) mg/dL Phosphorus (2.6-4.7) mg/dL Magnesium (1.8-2.4) mg/dL Med Orders - Current: Current Medications Acetaminophen (Acetaminophen 500 Mg Tab) 500 mg PO Q6H PRN PRN Reason: Pain Last Admin: 12/09/20 08:57 Dose: 500 mg Documented by: Hydrocodone Bitart/Acetaminophen (Acetaminophen/Hydrocodone 325-5 Mg Tab) 1 tab PO Q6H PRN PRN Reason: Pain Last Admin: 12/09/20 02:59 Dose: 1 tab Documented by: Aspirin (Aspirin 81 Mg Tab.Ec) 81 mg PO DAILY [facility] Last Admin: 12/09/20 10:14 Dose: 81 mg Documented by: Atorvastatin Calcium (Atorvastatin 40 Mg Tab) 40 mg PO DAILY [facility] Last Admin: 12/09/20 10:09 Dose: 40 mg Documented by: Calcium Carbonate/Glycine (Calcium Carbonate 500 Mg Tab.Chew) 500 mg PO Q6H PRN PRN Reason: Indigestion Dextrose/Water (50% Dextrose In Water 50 Ml Syringe) 50 ml IVPUSH ASDIRECTED PRN PRN Reason: Hypoglycemia Docusate Sodium (Docusate Sodium 100 Mg Cap) 100 mg PO DAILY [facility] Last Admin: 12/09/20 10:08 Dose: 100 mg Documented by: Fish Oil (Fish Oil/Winifrede-3 Fatty Acids 1 Gm Cap) 1 gm PO DAILY [facility] Last Admin: 12/09/20 10:22 Dose: Not Given Documented by: Furosemide (Furosemide 40 Mg/4 Ml Vial) 60 mg IVPUSH TID [facility] Last Admin: 12/09/20 22:59 Dose: 60 mg Documented by: Gabapentin (Gabapentin 300 Mg Cap) 300 mg PO BID [facility] Last Admin: 12/09/20 20:28 Dose: 300 mg Documented by: Glucagon (Glucagon,Human Recombinant 1 Mg Vial) 1 mg IM ASDIRECTED PRN PRN Reason: Hypoglycemia Heparin Sodium (Porcine) (Heparin Sodium 5,000 Units/Ml Vial) 5,000 units SUBCUT Q12H [facility] Last Admin: 12/09/20 14:09 Dose: 5,000 units Documented by: Insulin Aspart (Insulin Aspart 100 Units/Ml 3 Ml Pen) 0 unit SUBCUT TIDAC [facility]; Protocol Last Admin: 12/09/20 17:45 Dose: 15 units Documented by: Insulin Aspart (Insulin Aspart 100 Units/Ml 3 Ml Pen) 5 unit SUBCUT TIDAC [facility] Last Admin: 12/09/20 17:46 Dose: 5 units Documented by: Insulin Glargine (Insulin Glargine,Human Rec. Analog 100 Units/Ml 3 Ml Pen) 13 units SUBCUT BEDTIME [facility] Last Admin: 12/09/20 20:26 Dose: 13 units Documented by: Losartan Potassium (Losartan 50 Mg Tab) 50 mg PO BID [facility] Last Admin: 12/09/20 20:27 Dose: 50 mg Documented by: Melatonin (Melatonin 3 Mg Tab) 6 mg PO BEDTIME PRN PRN Reason: Insomnia Last Admin: 12/05/20 22:45 Dose: 6 mg Documented by: Ondansetron HCl (Ondansetron 4 Mg/2 Ml Sdv) 4 mg IVPUSH Q4H PRN PRN Reason: Nausea/Vomiting Oxycodone HCl (Oxycodone 5 Mg Tab) 5 mg PO Q8H PRN PRN Reason: Pain Pantoprazole Sodium (Pantoprazole 40 Mg Tab.Cr) 40 mg PO DAILY [facility] Last Admin: 12/09/20 10:23 Dose: Not Given Documented by: Sodium Chloride (Sodium Chloride 0.9% 10 Ml Syringe) 10 ml FLUSH ASDIRECTED PRN PRN Reason: Keep Vein Open Sodium Chloride (Sodium Chloride 0.9% 2.5 Ml Syringe) 2.5 ml FLUSH ASDIRECTED PRN PRN Reason: Keep Vein Open Discontinued Medications Aspirin (Aspirin 325 Mg Tab.Ec) 325 mg PO ONETIME ONE Stop: 12/05/20 00:56 Last Admin: 12/05/20 01:22 Dose: 325 mg Documented by: Furosemide (Furosemide 40 Mg/4 Ml Vial) 40 mg IVPUSH NOW ONE Stop: 12/04/20 23:36 Last Admin: 12/05/20 00:08 Dose: 40 mg Documented by: Furosemide (Furosemide 40 Mg/4 Ml Vial) 40 mg IVPUSH BID [facility] Last Admin: 12/06/20 08:11 Dose: 40 mg Documented by: Furosemide (Furosemide 40 Mg/4 Ml Vial) 40 mg IVPUSH BIDDIURETIC [facility] Last Admin: 12/07/20 10:53 Dose: Not Given Documented by: Furosemide (Furosemide 40 Mg/4 Ml Vial) 40 mg IVPUSH TID [facility] Last Admin: 12/09/20 06:05 Dose: 40 mg Documented by: Heparin Sodium (Porcine) (Heparin Sodium 5,000 Units/Ml Vial) 5,000 units SUBCUT Q12H [facility] Last Admin: 12/05/20 14:23 Dose: 5,000 units Documented by: Magnesium Sulfate 4 gm/ Premix 100 mls @ 50 mls/hr IV ONETIME ONE Stop: 12/05/20 09:59 Last Admin: 12/05/20 08:14 Dose: 50 mls/hr Documented by: Magnesium Sulfate 2 gm/ Premix 50 mls @ 25 mls/hr IV ONETIME ONE Stop: 12/07/20 10:59 Last Admin: 12/07/20 11:48 Dose: 25 mls/hr Documented by: Magnesium Sulfate 4 gm/ Premix 100 mls @ 50 mls/hr IV ONETIME ONE Stop: 12/09/20 11:14 Last Admin: 12/09/20 10:19 Dose: 50 mls/hr Documented by: Insulin Aspart (Insulin Aspart 100 Units/Ml 3 Ml Pen) 3 unit SUBCUT TIDAC [facility] Last Admin: 12/08/20 13:12 Dose: Not Given Documented by: Insulin Glargine (Insulin Glargine,Human Rec. Analog 100 Units/Ml 3 Ml Pen) 5 units SUBCUT BEDTIME [facility] Last Admin: 12/05/20 21:55 Dose: 5 units Documented by: Insulin Glargine (Insulin Glargine,Human Rec. Analog 100 Units/Ml 3 Ml Pen) 10 units SUBCUT BEDTIME [facility] Last Admin: 12/07/20 21:55 Dose: 10 unit Documented by: Iopamidol (Iopamidol 755 Mg/Ml 500 Ml Multipack Bottle) 100 ml IVPUSH ONETIME STA Stop: 12/04/20 20:38 Last Admin: 12/04/20 20:38 Dose: 100 ml Documented by: Ketorolac Tromethamine (Ketorolac 15 Mg/Ml Sdv) 15 mg IVPUSH ONETIME ONE Stop: 12/09/20 13:49 Last Admin: 12/09/20 14:11 Dose: 15 mg Documented by: Loperamide HCl (Loperamide 2 Mg Cap) 2 mg PO ONETIME ONE Stop: 12/05/20 00:56 Last Admin: 12/05/20 01:23 Dose: 2 mg Documented by: Metolazone (Metolazone 5 Mg Tab) 5 mg PO ONETIME ONE Stop: 12/09/20 13:31 Last Admin: 12/09/20 13:12 Dose: 5 mg Documented by: - Exam Quality Assessment: Supplemental Oxygen General: Alert, Oriented Lungs: Normal Respiratory Effort, Decreased Breath Sounds, Crackles Cardiovascular: Regular Rate, Irregular Rhythm GI/Abdominal Exam: Normal Bowel Sounds, Soft Extremities: Normal Inspection, Joint Swelling, Leg Pain, Limited Range of M otion. No: No Pedal Edema - Patient Data Lab Results Last 24 hrs: Laboratory Results - last 24 hr 12/09/20 12/09/20 12/09/20 Range/Units 05:49 05:49 05:50 WBC 6.42 (4.0-11.0) K/uL RBC 3.06 L (4.50-5.90) M/uL Hgb 8.8 L (13.0-17.0) g/dL Hct 27.4 L (38.0-50.0) % MCV 89.5 (80.0-98.0) fL MCH 28.8 (27.0-32.0) pg MCHC 32.1 (31.0-37.0) g/dL RDW Std Deviation 54.1 (28.0-62.0) fl RDW Coeff of Aleida 17 H (11.0-15.0) % Plt Count 236 (150-400) K/uL MPV 10.70 (7.40-12.00) fL Neut % (Auto) 57.5 (48.0-80.0) % Lymph % (Auto) 31.2 (16.0-40.0) % [place] % (Auto) 9.5 (0.0-15.0) % Eos % (Auto) 1.6 (0.0-7.0) % Baso % (Auto) 0.2 (0.0-1.5) % Neut # (Auto) 3.7 (1.4-5.7) K/uL Lymph # (Auto) 2.0 (0.6-2.4) K/uL [place] # (Auto) 0.6 (0.0-0.8) K/uL Eos # (Auto) 0.1 (0.0-0.7) K/uL Baso # (Auto) 0.0 (0.0-0.1) K/uL Nucleated RBC % 0.0 /100WBC Nucleated RBCs # 0 K/uL Sodium 134 L (136-148) mmol/L Potassium 4.7 (3.5-5.1) mmol/L Chloride 98 (98-107) mmol/L Carbon Dioxide 29.5 (21.0-32.0) mmol/L BUN 35 H (7.0-18.0) mg/dL Creatinine 1.3 (0.8-1.3) mg/dL Est Cr Clr Drug Dosing 63.08 mL/min Estimated GFR (MDRD) 57.5 ml/min Glucose 245 H (74-106) mg/dL POC Glucose 229 H (70-99) mg/dL Calcium 8.1 L (8.5-10.1) mg/dL Phosphorus 2.6 (2.6-4.7) mg/dL Magnesium 1.4 L (1.8-2.4) mg/dL 12/09/20 12/09/20 12/09/20 Range/Units 14:00 17:26 20:21 WBC (4.0-11.0) K/uL RBC (4.50-5.90) M/uL Hgb (13.0-17.0) g/dL Hct (38.0-50.0) % MCV (80.0-98.0) fL MCH (27.0-32.0) pg MCHC (31.0-37.0) g/dL RDW Std Deviation (28.0-62.0) fl RDW Coeff of Aleida (11.0-15.0) % Plt Count (150-400) K/uL MPV (7.40-12.00) fL Neut % (Auto) (48.0-80.0) % Lymph % (Auto) (16.0-40.0) % [place] % (Auto) (0.0-15.0) % Eos % (Auto) (0.0-7.0) % Baso % (Auto) (0.0-1.5) % Neut # (Auto) (1.4-5.7) K/uL Lymph # (Auto) (0.6-2.4) K/uL [place] # (Auto) (0.0-0.8) K/uL Eos # (Auto) (0.0-0.7) K/uL Baso # (Auto) (0.0-0.1) K/uL Nucleated RBC % /100WBC Nucleated RBCs # K/uL Sodium (136-148) mmol/L Potassium (3.5-5.1) mmol/L Chloride (98-107) mmol/L Carbon Dioxide (21.0-32.0) mmol/L BUN (7.0-18.0) mg/dL Creatinine (0.8-1.3) mg/dL Est Cr Clr Drug Dosing mL/min Estimated GFR (MDRD) ml/min Glucose (74-106) mg/dL POC Glucose 331 H 371 H 317 H (70-99) mg/dL Calcium (8.5-10.1) mg/dL Phosphorus (2.6-4.7) mg/dL Magnesium (1.8-2.4) mg/dL Result Diagrams: 12/09/20 05:49 12/09/20 05:49 Sepsis Event Note - Evaluation Sepsis Screening Result: No Definite Risk - Focused Exam Vital Signs: Vital Signs Temp Pulse Resp BP BP BP BP 12/09/20 22:57 36.0 C L 64 18 118/65 12/09/20 20:27 118/67 12/09/20 20:00 36.1 C 62 18 118/67 12/09/20 16:00 35.6 C L 68 22 H 126/60 12/09/20 11:37 35.4 C L 63 19 105/64 Pulse Ox 12/09/20 22:57 92 L 12/09/20 20:27 12/09/20 20:00 97 12/09/20 16:00 95 12/09/20 11:37 93 L - Problem List & Annotations (1) CHF (congestive heart failure) SNOMED Code(s): 02163929 Code(s): I50.9 - HEART FAILURE, UNSPECIFIED Status: Acute Current Visit: Yes Qualifiers: Heart failure type: unspecified Heart failure chronicity: acute Qualified Code(s): I50.9 - Heart failure, unspecified (2) Chronic knee pain SNOMED Code(s): 6745026410 Code(s): M25.569 - PAIN IN UNSPECIFIED KNEE; G89.29 - OTHER CHRONIC PAIN Status: Acute Current Visit: Yes Qualifiers: Laterality: right Qualified Code(s): M25.561 - Pain in right knee; G89.29 - Other chronic pain (3) Fluid overload SNOMED Code(s): 29264255 Code(s): E87.70 - FLUID OVERLOAD, UNSPECIFIED Status: Acute Current Visit: Yes (4) Hypoxia SNOMED Code(s): 533292361 Code(s): R09.02 - HYPOXEMIA Status: Acute Current Visit: Yes (5) Atrial fibrillation with normal ventricular rate SNOMED Code(s): 47115485 Code(s): I48.91 - UNSPECIFIED ATRIAL FIBRILLATION Status: Acute Current Visit: No (6) Non-compliance SNOMED Code(s): 2711407 Code(s): Z91.19 - PATIENT'S NONCOMPLIANCE W OTH MEDICAL TREATMENT AND REGIMEN Status: Acute Current Visit: Yes (7) Suprapatellar effusion of knee SNOMED Code(s): 994645482 Code(s): M25.469 - EFFUSION, UNSPECIFIED KNEE Status: Acute Current Visit: Yes - Problem List Review Problem List Initiated/Reviewed/Updated: Yes - My Orders Last 24 Hours: My Active Orders 12/09/20 02:13 Acetaminophen/HYDROcodone [[place]aly 325-5 MG] 1 tab PO Q6H PRN 12/09/20 13:49 Ondansetron [Zofran] 4 mg IVPUSH Q4H PRN 12/09/20 14:00 Furosemide [Lasix] 60 mg IVPUSH TID 12/09/20 14:13 Consult to Physical Therapy [PT Evaluation and Treatment] [CONS] Routine 12/09/20 17:33 Daily Weight [Height and Weight] [RC] DAILY 12/10/20 05:11 BMP [BASIC METABOLIC PANEL,BMP] [CHEM] AM CBC WITH AUTO DIFF [HEME] AM MAGNESIUM [CHEM] AM PHOSPHORUS [CHEM] AM - Plan Plan:: 55 yo male admitted with CHF exacerbation CHF exacerbation: cont TID lasix increase the dose to 60 3 times daily, to ensure net negative Is&Os. fu Echocardiogram, currently on 1.5 L NC will wean as tolerated Arthritis: leg wraps and ice, PT consulted, repeat x-ray of the right knee shows improvement in suprapatellar effusion although patient continues to have pain DM: have placed on ssi and lantus, increased the dose due to patient's hyperglycemia, patient was thoroughly counseled about importance of tight blood sugar control, he refuses to be on diabetic or cardiac diet. Patient will likely need a tap of his right knee due to continued pain, we have no IR service, will reach to anesthesia or ER physician to see if he can attend the tap. Patient will need to be on a blood thinner due to high Dave vas score and history of A. fib, will hold off till we were able to get a knee tap and will possibly start patient on Eliquis thereafter
[2020-12-10] MEDS: Heparin Sodium 5,000 Units/ML Vial SUBCUT SCH ×2 (03:59→15:04)
[2020-12-10] MEDS ORDERED: Lidocaine 2% 5 ML SDV ONE (04:32)
[2020-12-10] MEDS: Furosemide 40 MG/4 ML VIAL IVPUSH SCH ×4 (06:10→22:54)
[2020-12-10 07:56] LABS: BLOOD UREA NITROGEN,BUN 35 mg/dL (7.0-18.0); CARBON DIOXIDE,CO2 31.3 mmol/L (21.0-32.0); CHLORIDE,CL 95 mmol/L (98-107); GLUCOSE RANDOM 358 mg/dL (74-106); POTASSIUM,K 4.6 mmol/L (3.5-5.1); SODIUM,NA 131 mmol/L (136-148)
[2020-12-10] MEDS: Insulin Aspart 100 Units/ML 3 ML Pen SUBCUT SCH ×8 (08:35→20:12)
[2020-12-10] MEDS: Docusate Sodium 100 MG Cap PO SCH (08:35)
[2020-12-10] MEDS: Aspirin 81 MG Tab.EC PO SCH (08:37)
[2020-12-10] MEDS: atorvaSTATin 40 MG Tab PO SCH (08:37)
[2020-12-10] MEDS: Pantoprazole 40 MG Tab.CR PO SCH (08:38)
[2020-12-10] MEDS: Gabapentin 300 MG Cap PO SCH ×2 (08:38→21:59)
[2020-12-10] MEDS: Fish Oil/Omega-3 Fatty Acids 1 Gm Cap PO SCH (08:39)
[2020-12-10] MEDS: Losartan 50 MG Tab PO SCH ×2 (08:42→21:59)
[2020-12-10] MEDS ORDERED: Magnesium Sulfate/Water 4 GM in Premix Bag 1 BAG IV ONE (12:00)
[2020-12-10] MEDS: Acetaminophen 500 MG Tab PO PRN ×2 (13:32→22:54)
--- NOTE | 2020-12-10 17:05 | PCM.PN ---
- General Info Date of Service: 12/10/20 Admission Dx/Problem (Free Text): Admission Diagnosis/Problem Admission Diagnosis/Problem Hypoxia Subjective Update: Patient seen at bedside, resting comfortably in his recliner, leg swelling is slightly better. ER physician Dr. Dodson had attempted tapping patient's suprapatellar effusion but ultrasound done at bedside did not show any significant fluid, effusion has most likely resolved at this point. Patient was informed that he needs to participate in physical therapy as we are anticipating a discharge in next 24 to 48 hours. Patient continues to state that he did work with physical therapy although notes from the physical therapy showed that he declined it yesterday as well. I again retaliated to patient that he needs to cooperate with the treatment otherwise there will be no favorable outcome and will extend his hospital stay unnecessarily. Patient states that he will work with physical therapy during the next session. Patient continues to be hesitant towards implementing diabetic and heart healthy diet restriction. I did speak with her lab manager about patient's heart failure regimen, he agreed with increasing his Lasix for now along with metolazone to increase his urinary output. - Patient Data Vitals - Most Recent: Last Vital Signs Temp 36.4 C 12/10/20 08:44 Pulse 58 L 12/10/20 08:44 Resp 16 12/10/20 08:44 BP 118/67 12/10/20 08:44 Pulse Ox 92 L 12/10/20 08:44 Weight - Most Recent: 131.859 kg I&O - Last 24 Hours: Intake & Output 12/10/20 12/10/20 12/10/20 06:59 14:59 22:59 Intake Total 300 Output Total 1350 Balance -1050 Lab Results Last 24 Hours: Laboratory Results - last 24 hr 12/09/20 12/09/20 12/10/20 Range/Units 17:26 20:21 06:10 WBC (4.0-11.0) K/uL RBC (4.50-5.90) M/uL Hgb (13.0-17.0) g/dL Hct (38.0-50.0) % MCV (80.0-98.0) fL MCH (27.0-32.0) pg MCHC (31.0-37.0) g/dL RDW Std Deviation (28.0-62.0) fl RDW Coeff of Aleida (11.0-15.0) % Plt Count (150-400) K/uL MPV (7.40-12.00) fL Neut % (Auto) (48.0-80.0) % Lymph % (Auto) (16.0-40.0) % Garza % (Auto) (0.0-15.0) % Eos % (Auto) (0.0-7.0) % Baso % (Auto) (0.0-1.5) % Neut # (Auto) (1.4-5.7) K/uL Lymph # (Auto) (0.6-2.4) K/uL Garza # (Auto) (0.0-0.8) K/uL Eos # (Auto) (0.0-0.7) K/uL Baso # (Auto) (0.0-0.1) K/uL Nucleated RBC % /100WBC Nucleated RBCs # K/uL Sodium (136-148) mmol/L Potassium (3.5-5.1) mmol/L Chloride (98-107) mmol/L Carbon Dioxide (21.0-32.0) mmol/L BUN (7.0-18.0) mg/dL Creatinine (0.8-1.3) mg/dL Est Cr Clr Drug Dosing mL/min Estimated GFR (MDRD) ml/min Glucose (74-106) mg/dL POC Glucose 371 H 317 H 328 H (70-99) mg/dL Calcium (8.5-10.1) mg/dL Phosphorus (2.6-4.7) mg/dL Magnesium (1.8-2.4) mg/dL 12/10/20 12/10/20 12/10/20 Range/Units 06:22 06:22 08:26 WBC 5.38 (4.0-11.0) K/uL RBC 3.06 L (4.50-5.90) M/uL Hgb 8.9 L (13.0-17.0) g/dL Hct 27.3 L (38.0-50.0) % MCV 89.2 (80.0-98.0) fL MCH 29.1 (27.0-32.0) pg MCHC 32.6 (31.0-37.0) g/dL RDW Std Deviation 54.6 (28.0-62.0) fl RDW Coeff of Aleida 17 H (11.0-15.0) % Plt Count 260 (150-400) K/uL MPV 10.60 (7.40-12.00) fL Neut % (Auto) 54.5 (48.0-80.0) % Lymph % (Auto) 31.4 (16.0-40.0) % Garza % (Auto) 11.9 (0.0-15.0) % Eos % (Auto) 2.0 (0.0-7.0) % Baso % (Auto) 0.2 (0.0-1.5) % Neut # (Auto) 2.9 (1.4-5.7) K/uL Lymph # (Auto) 1.7 (0.6-2.4) K/uL Garza # (Auto) 0.6 (0.0-0.8) K/uL Eos # (Auto) 0.1 (0.0-0.7) K/uL Baso # (Auto) 0.0 (0.0-0.1) K/uL Nucleated RBC % 0.0 /100WBC Nucleated RBCs # 0 K/uL Sodium 131 L (136-148) mmol/L Potassium 4.6 (3.5-5.1) mmol/L Chloride 95 L (98-107) mmol/L Carbon Dioxide 31.3 (21.0-32.0) mmol/L BUN 35 H (7.0-18.0) mg/dL Creatinine 1.2 (0.8-1.3) mg/dL Est Cr Clr Drug Dosing 68.34 mL/min Estimated GFR (MDRD) > 60.0 ml/min Glucose 358 H (74-106) mg/dL POC Glucose 324 H (70-99) mg/dL Calcium 8.6 (8.5-10.1) mg/dL Phosphorus 3.7 (2.6-4.7) mg/dL Magnesium 1.7 L (1.8-2.4) mg/dL 12/10/20 Range/Units 11:38 WBC (4.0-11.0) K/uL RBC (4.50-5.90) M/uL Hgb (13.0-17.0) g/dL Hct (38.0-50.0) % MCV (80.0-98.0) fL MCH (27.0-32.0) pg MCHC (31.0-37.0) g/dL RDW Std Deviation (28.0-62.0) fl RDW Coeff of Aleida (11.0-15.0) % Plt Count (150-400) K/uL MPV (7.40-12.00) fL Neut % (Auto) (48.0-80.0) % Lymph % (Auto) (16.0-40.0) % Garza % (Auto) (0.0-15.0) % Eos % (Auto) (0.0-7.0) % Baso % (Auto) (0.0-1.5) % Neut # (Auto) (1.4-5.7) K/uL Lymph # (Auto) (0.6-2.4) K/uL Garza # (Auto) (0.0-0.8) K/uL Eos # (Auto) (0.0-0.7) K/uL Baso # (Auto) (0.0-0.1) K/uL Nucleated RBC % /100WBC Nucleated RBCs # K/uL Sodium (136-148) mmol/L Potassium (3.5-5.1) mmol/L Chloride (98-107) mmol/L Carbon Dioxide (21.0-32.0) mmol/L BUN (7.0-18.0) mg/dL Creatinine (0.8-1.3) mg/dL Est Cr Clr Drug Dosing mL/min Estimated GFR (MDRD) ml/min Glucose (74-106) mg/dL POC Glucose 355 H (70-99) mg/dL Calcium (8.5-10.1) mg/dL Phosphorus (2.6-4.7) mg/dL Magnesium (1.8-2.4) mg/dL Med Orders - Current: Current Medications Acetaminophen (Acetaminophen 500 Mg Tab) 500 mg PO Q6H PRN PRN Reason: Pain Last Admin: 12/10/20 13:32 Dose: 500 mg Documented by: Hydrocodone Bitart/Acetaminophen (Acetaminophen/Hydrocodone 325-5 Mg Tab) 1 tab PO Q6H PRN PRN Reason: Pain Last Admin: 12/09/20 02:59 Dose: 1 tab Documented by: Aspirin (Aspirin 81 Mg Tab.Ec) 81 mg PO DAILY [facility] Last Admin: 12/10/20 08:37 Dose: 81 mg Documented by: Atorvastatin Calcium (Atorvastatin 40 Mg Tab) 40 mg PO DAILY [facility] Last Admin: 12/10/20 08:37 Dose: 40 mg Documented by: Calcium Carbonate/Glycine (Calcium Carbonate 500 Mg Tab.Chew) 500 mg PO Q6H PRN PRN Reason: Indigestion Dextrose/Water (50% Dextrose In Water 50 Ml Syringe) 50 ml IVPUSH ASDIRECTED PRN PRN Reason: Hypoglycemia Docusate Sodium (Docusate Sodium 100 Mg Cap) 100 mg PO DAILY [facility] Last Admin: 12/10/20 08:35 Dose: 100 mg Documented by: Fish Oil (Fish Oil/[place]-3 Fatty Acids 1 Gm Cap) 1 gm PO DAILY [facility] Last Admin: 12/10/20 08:39 Dose: Not Given Documented by: Furosemide (Furosemide 40 Mg/4 Ml Vial) 60 mg IVPUSH TID [facility] Last Admin: 12/10/20 14:57 Dose: 60 mg Documented by: Gabapentin (Gabapentin 300 Mg Cap) 300 mg PO BID [facility] Last Admin: 12/10/20 08:38 Dose: 300 mg Documented by: Glucagon (Glucagon,Human Recombinant 1 Mg Vial) 1 mg IM ASDIRECTED PRN PRN Reason: Hypoglycemia Heparin Sodium (Porcine) (Heparin Sodium 5,000 Units/Ml Vial) 5,000 units SUBCUT Q12H [facility] Last Admin: 12/10/20 15:04 Dose: 5,000 units Documented by: Insulin Aspart (Insulin Aspart 100 Units/Ml 3 Ml Pen) 0 unit SUBCUT TIDAC [facility]; Protocol Last Admin: 12/10/20 13:33 Dose: 15 units Documented by: Insulin Aspart (Insulin Aspart 100 Units/Ml 3 Ml Pen) 5 unit SUBCUT TIDAC [facility] Last Admin: 12/10/20 13:35 Dose: 5 units Documented by: Insulin Glargine (Insulin Glargine,Human Rec. Analog 100 Units/Ml 3 Ml Pen) 13 units SUBCUT BEDTIME [facility] Last Admin: 12/09/20 20:26 Dose: 13 units Documented by: Losartan Potassium (Losartan 50 Mg Tab) 50 mg PO BID [facility] Last Admin: 12/10/20 08:42 Dose: 50 mg Documented by: Melatonin (Melatonin 3 Mg Tab) 6 mg PO BEDTIME PRN PRN Reason: Insomnia Last Admin: 12/05/20 22:45 Dose: 6 mg Documented by: Ondansetron HCl (Ondansetron 4 Mg/2 Ml Sdv) 4 mg IVPUSH Q4H PRN PRN Reason: Nausea/Vomiting Oxycodone HCl (Oxycodone 5 Mg Tab) 5 mg PO Q8H PRN PRN Reason: Pain Pantoprazole Sodium (Pantoprazole 40 Mg Tab.Cr) 40 mg PO DAILY [facility] Last Admin: 12/10/20 08:38 Dose: 40 mg Documented by: Sodium Chloride (Sodium Chloride 0.9% 10 Ml Syringe) 10 ml FLUSH ASDIRECTED PRN PRN Reason: Keep Vein Open Sodium Chloride (Sodium Chloride 0.9% 2.5 Ml Syringe) 2.5 ml FLUSH ASDIRECTED PRN PRN Reason: Keep Vein Open Discontinued Medications Aspirin (Aspirin 325 Mg Tab.Ec) 325 mg PO ONETIME ONE Stop: 12/05/20 00:56 Last Admin: 12/05/20 01:22 Dose: 325 mg Documented by: Furosemide (Furosemide 40 Mg/4 Ml Vial) 40 mg IVPUSH NOW ONE Stop: 12/04/20 23:36 Last Admin: 12/05/20 00:08 Dose: 40 mg Documented by: Furosemide (Furosemide 40 Mg/4 Ml Vial) 40 mg IVPUSH BID [facility] Last Admin: 12/06/20 08:11 Dose: 40 mg Documented by: Furosemide (Furosemide 40 Mg/4 Ml Vial) 40 mg IVPUSH BIDDIURETIC [facility] Last Admin: 12/07/20 10:53 Dose: Not Given Documented by: Furosemide (Furosemide 40 Mg/4 Ml Vial) 40 mg IVPUSH TID [facility] Last Admin: 12/09/20 06:05 Dose: 40 mg Documented by: Heparin Sodium (Porcine) (Heparin Sodium 5,000 Units/Ml Vial) 5,000 units SUBCUT Q12H [facility] Last Admin: 12/05/20 14:23 Dose: 5,000 units Documented by: Magnesium Sulfate 4 gm/ Premix 100 mls @ 50 mls/hr IV ONETIME ONE Stop: 12/05/20 09:59 Last Admin: 12/05/20 08:14 Dose: 50 mls/hr Documented by: Magnesium Sulfate 2 gm/ Premix 50 mls @ 25 mls/hr IV ONETIME ONE Stop: 12/07/20 10:59 Last Admin: 12/07/20 11:48 Dose: 25 mls/hr Documented by: Magnesium Sulfate 4 gm/ Premix 100 mls @ 50 mls/hr IV ONETIME ONE Stop: 12/09/20 11:14 Last Admin: 12/09/20 10:19 Dose: 50 mls/hr Documented by: Magnesium Sulfate 4 gm/ Premix 100 mls @ 50 mls/hr IV ONETIME ONE Stop: 12/10/20 13:59 Last Admin: 12/10/20 13:34 Dose: 50 mls/hr Documented by: Insulin Aspart (Insulin Aspart 100 Units/Ml 3 Ml Pen) 3 unit SUBCUT TIDAC [facility] Last Admin: 12/08/20 13:12 Dose: Not Given Documented by: Insulin Glargine (Insulin Glargine,Human Rec. Analog 100 Units/Ml 3 Ml Pen) 5 units SUBCUT BEDTIME [facility] Last Admin: 12/05/20 21:55 Dose: 5 units Documented by: Insulin Glargine (Insulin Glargine,Human Rec. Analog 100 Units/Ml 3 Ml Pen) 10 units SUBCUT BEDTIME [facility] Last Admin: 12/07/20 21:55 Dose: 10 unit Documented by: Iopamidol (Iopamidol 755 Mg/Ml 500 Ml Multipack Bottle) 100 ml IVPUSH ONETIME STA Stop: 12/04/20 20:38 Last Admin: 12/04/20 20:38 Dose: 100 ml Documented by: Ketorolac Tromethamine (Ketorolac 15 Mg/Ml Sdv) 15 mg IVPUSH ONETIME ONE Stop: 12/09/20 13:49 Last Admin: 12/09/20 14:11 Dose: 15 mg Documented by: Lidocaine (Lidocaine 2% 5 Ml Sdv) Confirm Administered Dose 5 ml .ROUTE .STK-MED ONE Stop: 12/10/20 04:33 Last Admin: 12/10/20 05:59 Dose: Not Given Documented by: Loperamide HCl (Loperamide 2 Mg Cap) 2 mg PO ONETIME ONE Stop: 12/05/20 00:56 Last Admin: 12/05/20 01:23 Dose: 2 mg Documented by: Metolazone (Metolazone 5 Mg Tab) 5 mg PO ONETIME ONE Stop: 12/09/20 13:31 Last Admin: 12/09/20 13:12 Dose: 5 mg Documented by: - Patient Data Lab Results Last 24 hrs: Laboratory Results - last 24 hr 12/09/20 12/09/20 12/10/20 Range/Units 17:26 20:21 06:10 WBC (4.0-11.0) K/uL RBC (4.50-5.90) M/uL Hgb (13.0-17.0) g/dL Hct (38.0-50.0) % MCV (80.0-98.0) fL MCH (27.0-32.0) pg MCHC (31.0-37.0) g/dL RDW Std Deviation (28.0-62.0) fl RDW Coeff of Aleida (11.0-15.0) % Plt Count (150-400) K/uL MPV (7.40-12.00) fL Neut % (Auto) (48.0-80.0) % Lymph % (Auto) (16.0-40.0) % Garza % (Auto) (0.0-15.0) % Eos % (Auto) (0.0-7.0) % Baso % (Auto) (0.0-1.5) % Neut # (Auto) (1.4-5.7) K/uL Lymph # (Auto) (0.6-2.4) K/uL Garza # (Auto) (0.0-0.8) K/uL Eos # (Auto) (0.0-0.7) K/uL Baso # (Auto) (0.0-0.1) K/uL Nucleated RBC % /100WBC Nucleated RBCs # K/uL Sodium (136-148) mmol/L Potassium (3.5-5.1) mmol/L Chloride (98-107) mmol/L Carbon Dioxide (21.0-32.0) mmol/L BUN (7.0-18.0) mg/dL Creatinine (0.8-1.3) mg/dL Est Cr Clr Drug Dosing mL/min Estimated GFR (MDRD) ml/min Glucose (74-106) mg/dL POC Glucose 371 H 317 H 328 H (70-99) mg/dL Calcium (8.5-10.1) mg/dL Phosphorus (2.6-4.7) mg/dL Magnesium (1.8-2.4) mg/dL 12/10/20 12/10/20 12/10/20 Range/Units 06:22 06:22 08:26 WBC 5.38 (4.0-11.0) K/uL RBC 3.06 L (4.50-5.90) M/uL Hgb 8.9 L (13.0-17.0) g/dL Hct 27.3 L (38.0-50.0) % MCV 89.2 (80.0-98.0) fL MCH 29.1 (27.0-32.0) pg MCHC 32.6 (31.0-37.0) g/dL RDW Std Deviation 54.6 (28.0-62.0) fl RDW Coeff of Aleida 17 H (11.0-15.0) % Plt Count 260 (150-400) K/uL MPV 10.60 (7.40-12.00) fL Neut % (Auto) 54.5 (48.0-80.0) % Lymph % (Auto) 31.4 (16.0-40.0) % Garza % (Auto) 11.9 (0.0-15.0) % Eos % (Auto) 2.0 (0.0-7.0) % Baso % (Auto) 0.2 (0.0-1.5) % Neut # (Auto) 2.9 (1.4-5.7) K/uL Lymph # (Auto) 1.7 (0.6-2.4) K/uL Garza # (Auto) 0.6 (0.0-0.8) K/uL Eos # (Auto) 0.1 (0.0-0.7) K/uL Baso # (Auto) 0.0 (0.0-0.1) K/uL Nucleated RBC % 0.0 /100WBC Nucleated RBCs # 0 K/uL Sodium 131 L (136-148) mmol/L Potassium 4.6 (3.5-5.1) mmol/L Chloride 95 L (98-107) mmol/L Carbon Dioxide 31.3 (21.0-32.0) mmol/L BUN 35 H (7.0-18.0) mg/dL Creatinine 1.2 (0.8-1.3) mg/dL Est Cr Clr Drug Dosing 68.34 mL/min Estimated GFR (MDRD) > 60.0 ml/min Glucose 358 H (74-106) mg/dL POC Glucose 324 H (70-99) mg/dL Calcium 8.6 (8.5-10.1) mg/dL Phosphorus 3.7 (2.6-4.7) mg/dL Magnesium 1.7 L (1.8-2.4) mg/dL 12/10/20 Range/Units 11:38 WBC (4.0-11.0) K/uL RBC (4.50-5.90) M/uL Hgb (13.0-17.0) g/dL Hct (38.0-50.0) % MCV (80.0-98.0) fL MCH (27.0-32.0) pg MCHC (31.0-37.0) g/dL RDW Std Deviation (28.0-62.0) fl RDW Coeff of Aleida (11.0-15.0) % Plt Count (150-400) K/uL MPV (7.40-12.00) fL Neut % (Auto) (48.0-80.0) % Lymph % (Auto) (16.0-40.0) % Garza % (Auto) (0.0-15.0) % Eos % (Auto) (0.0-7.0) % Baso % (Auto) (0.0-1.5) % Neut # (Auto) (1.4-5.7) K/uL Lymph # (Auto) (0.6-2.4) K/uL Garza # (Auto) (0.0-0.8) K/uL Eos # (Auto) (0.0-0.7) K/uL Baso # (Auto) (0.0-0.1) K/uL Nucleated RBC % /100WBC Nucleated RBCs # K/uL Sodium (136-148) mmol/L Potassium (3.5-5.1) mmol/L Chloride (98-107) mmol/L Carbon Dioxide (21.0-32.0) mmol/L BUN (7.0-18.0) mg/dL Creatinine (0.8-1.3) mg/dL Est Cr Clr Drug Dosing mL/min Estimated GFR (MDRD) ml/min Glucose (74-106) mg/dL POC Glucose 355 H (70-99) mg/dL Calcium (8.5-10.1) mg/dL Phosphorus (2.6-4.7) mg/dL Magnesium (1.8-2.4) mg/dL Result Diagrams: 12/10/20 06:22 12/10/20 06:22 Sepsis Event Note - Evaluation Sepsis Screening Result: No Definite Risk - Focused Exam Vital Signs: Vital Signs Temp Pulse Resp BP BP Pulse Ox 12/10/20 08:44 36.4 C 58 L 16 118/67 92 L 12/10/20 08:42 117/44 L - Problem List & Annotations (1) CHF (congestive heart failure) SNOMED Code(s): 82315865 Code(s): I50.9 - HEART FAILURE, UNSPECIFIED Status: Acute Current Visit: Yes Qualifiers: Heart failure type: unspecified Heart failure chronicity: acute Qualified Code(s): I50.9 - Heart failure, unspecified (2) Chronic knee pain SNOMED Code(s): 5465612720 Code(s): M25.569 - PAIN IN UNSPECIFIED KNEE; G89.29 - OTHER CHRONIC PAIN Status: Acute Current Visit: Yes Qualifiers: Laterality: right Qualified Code(s): M25.561 - Pain in right knee; G89.29 - Other chronic pain (3) Fluid overload SNOMED Code(s): 72423389 Code(s): E87.70 - FLUID OVERLOAD, UNSPECIFIED Status: Acute Current Visit: Yes (4) Hypoxia SNOMED Code(s): 008201111 Code(s): R09.02 - HYPOXEMIA Status: Acute Current Visit: Yes (5) Atrial fibrillation with normal ventricular rate SNOMED Code(s): 39358606 Code(s): I48.91 - UNSPECIFIED ATRIAL FIBRILLATION Status: Acute Current Visit: No (6) Non-compliance SNOMED Code(s): 3876970 Code(s): Z91.19 - PATIENT'S NONCOMPLIANCE W OTH MEDICAL TREATMENT AND REGIMEN Status: Acute Current Visit: Yes (7) Suprapatellar effusion of knee SNOMED Code(s): 820651420 Code(s): M25.469 - EFFUSION, UNSPECIFIED KNEE Status: Acute Current Visit: Yes - Problem List Review Problem List Initiated/Reviewed/Updated: Yes - My Orders Last 24 Hours: My Active Orders 12/09/20 17:33 Daily Weight [Height and Weight] [RC] DAILY - Plan Plan:: 55 yo male admitted with CHF exacerbation CHF exacerbation: cont TID lasix increase the dose to 60 3 times daily, to ensure net negative Is&Os. fu Echocardiogram, currently on 1.5 L NC will wean as tolerated Arthritis: leg wraps and ice, PT consulted, repeat x-ray of the right knee shows improvement in suprapatellar effusion although patient continues to have pain DM: have placed on ssi and lantus, increased the dose due to patient's hyperglycemia, patient was thoroughly counseled about importance of tight blood sugar control, he refuses to be on diabetic or cardiac diet. Patient will likely need a tap of his right knee due to continued pain, we have no IR service, will reach to anesthesia or ER physician to see if he can attend the tap. Patient will need to be on a blood thinner due to high Dave vas score and history of A. fib, will possibly start patient on Eliquis 2D echo noted normal EF
--- NOTE | 2020-12-10 18:06 | CR ---
Indication: Pain. Technique: Right ankle 2 views. Comparison: None. Findings: No acute fracture or dislocation. Mild vascular calcifications. Soft tissue swelling about the calf and ankle. Impression: Soft tissue swelling about the calf and ankle. No other acute findings. Dictated by Renetta Barksdale MD @ 12/10/2020 6:06:18 PM (Electronically Signed)
[2020-12-10] MEDS: Insulin Glargine,Human Rec. Analog 100 Units/ML 3 ML Pen SUBCUT SCH (21:59)
[2020-12-10] MEDS ORDERED: Metolazone 5 MG Tab PO ONE (22:30)
[2020-12-11] MEDS: Heparin Sodium 5,000 Units/ML Vial SUBCUT SCH ×3 (02:21→21:45)
[2020-12-11] MEDS: Furosemide 40 MG/4 ML VIAL IVPUSH SCH ×3 (05:15→21:45)
[2020-12-11 07:37] LABS: POTASSIUM,K 4.3 mmol/L (3.5-5.1)
[2020-12-11] MEDS: Insulin Aspart 100 Units/ML 3 ML Pen SUBCUT SCH ×6 (07:48→18:41)
[2020-12-11] MEDS: atorvaSTATin 40 MG Tab PO SCH (08:11)
[2020-12-11] MEDS: Aspirin 81 MG Tab.EC PO SCH (08:11)
[2020-12-11] MEDS: Losartan 50 MG Tab PO SCH ×2 (08:11→21:22)
[2020-12-11] MEDS: Gabapentin 300 MG Cap PO SCH ×2 (08:11→21:21)
[2020-12-11] MEDS: Docusate Sodium 100 MG Cap PO SCH (08:11)
[2020-12-11] MEDS: Pantoprazole 40 MG Tab.CR PO SCH (08:11)
[2020-12-11] MEDS ORDERED: Metolazone 5 MG Tab PO ONE (12:30)
[2020-12-11] MEDS: Insulin Glargine,Human Rec. Analog 100 Units/ML 3 ML Pen SUBCUT SCH (21:15)
--- NOTE | 2020-12-11 21:35 | PCM.PN ---
- General Info Date of Service: 12/11/20 Admission Dx/Problem (Free Text): Admission Diagnosis/Problem Admission Diagnosis/Problem Hypoxia Subjective Update: Patient seen at bedside, patient assessed along with physical therapy at bedside to ensure that patient participates in physical therapy. Patient has been refusing PT for the past few days due to insurance past patient I went along with physical therapist in the room. I did explain to patient that his dietary as well as fluid restriction noncompliance is resulting him in causing more fluid retention which is causing an improvement in his clinical progress. I will reviewed the importance of fluid restrictions. I spoke to patient about his daily routine since admission and then the fact that he should be losing weight with Lasix not gaining it. Patient was not very happy with my ingrid discussion about his clinical status and noncompliance. But he did listen and said he understands but does not "necessarily agree with me". I told patient that if he continues to be noncompliant then there was no much for me to offer to him in terms of medical management. I explained to patient that he needs to participate in physical therapy so we can get him ready for discharge. Patient states that he will be ready for good another few days at least "eventually patient agreed to birds. Physical therapy and was agreeable to fluid restriction as well. Functional Status: Reports: Tolerating Diet, Ambulating, Urinating - Review of Systems General: Denies: Weakness, Fatigue, Malaise Pulmonary: Reports: Shortness of Breath, Cough, Sputum. Denies: Pleuritic Chest Pain Cardiovascular: Reports: Dyspnea on Exertion. Denies: Chest Pain, Palpitations Gastrointestinal: Denies: Abdominal Pain, Constipation, Decreased Appetite Genitourinary: Denies: Dysuria, Frequency, Burning, Pain Musculoskeletal: Denies: Neck Pain, Shoulder Pain, Arm Pain Skin: Denies: Cyanosis, Jaundice, Mottled - Patient Data Vitals - Most Recent: Last Vital Signs Temp 36.6 C 12/11/20 21:08 Pulse 63 12/11/20 21:08 Resp 18 12/11/20 21:08 BP 101/48 L 12/11/20 21:22 Pulse Ox 92 L 12/11/20 21:08 Weight - Most Recent: 130.861 kg I&O - Last 24 Hours: Intake & Output 12/11/20 12/11/20 12/11/20 06:59 14:59 22:59 Intake Total 1170 970 Output Total 1029 900 Balance 145 70 Lab Results Last 24 Hours: Laboratory Results - last 24 hr 12/10/20 12/10/20 12/11/20 Range/Units 17:28 22:04 05:26 WBC (4.0-11.0) K/uL RBC (4.50-5.90) M/uL Hgb (13.0-17.0) g/dL Hct (38.0-50.0) % MCV (80.0-98.0) fL MCH (27.0-32.0) pg MCHC (31.0-37.0) g/dL RDW Std Deviation (28.0-62.0) fl RDW Coeff of Aleida (11.0-15.0) % Plt Count (150-400) K/uL MPV (7.40-12.00) fL Neut % (Auto) (48.0-80.0) % Lymph % (Auto) (16.0-40.0) % Iron % (Auto) (0.0-15.0) % Eos % (Auto) (0.0-7.0) % Baso % (Auto) (0.0-1.5) % Neut # (Auto) (1.4-5.7) K/uL Lymph # (Auto) (0.6-2.4) K/uL Iron # (Auto) (0.0-0.8) K/uL Eos # (Auto) (0.0-0.7) K/uL Baso # (Auto) (0.0-0.1) K/uL Nucleated RBC % /100WBC Nucleated RBCs # K/uL Sodium (136-148) mmol/L Potassium (3.5-5.1) mmol/L Chloride (98-107) mmol/L Carbon Dioxide (21.0-32.0) mmol/L BUN (7.0-18.0) mg/dL Creatinine (0.8-1.3) mg/dL Est Cr Clr Drug Dosing mL/min Estimated GFR (MDRD) ml/min Glucose (74-106) mg/dL POC Glucose 323 H 346 H 264 H (70-99) mg/dL Calcium (8.5-10.1) mg/dL Phosphorus (2.6-4.7) mg/dL Magnesium (1.8-2.4) mg/dL 12/11/20 12/11/20 12/11/20 Range/Units 06:04 06:04 13:01 WBC 5.81 (4.0-11.0) K/uL RBC 3.21 L (4.50-5.90) M/uL Hgb 9.4 L (13.0-17.0) g/dL Hct 28.8 L (38.0-50.0) % MCV 89.7 (80.0-98.0) fL MCH 29.3 (27.0-32.0) pg MCHC 32.6 (31.0-37.0) g/dL RDW Std Deviation 55.2 (28.0-62.0) fl RDW Coeff of Aleida 17 H (11.0-15.0) % Plt Count 298 (150-400) K/uL MPV 10.40 (7.40-12.00) fL Neut % (Auto) 49.7 (48.0-80.0) % Lymph % (Auto) 36.8 (16.0-40.0) % Iron % (Auto) 11.2 (0.0-15.0) % Eos % (Auto) 2.1 (0.0-7.0) % Baso % (Auto) 0.2 (0.0-1.5) % Neut # (Auto) 2.9 (1.4-5.7) K/uL Lymph # (Auto) 2.1 (0.6-2.4) K/uL Iron # (Auto) 0.7 (0.0-0.8) K/uL Eos # (Auto) 0.1 (0.0-0.7) K/uL Baso # (Auto) 0.0 (0.0-0.1) K/uL Nucleated RBC % 0.3 /100WBC Nucleated RBCs # 0 K/uL Sodium 130 L (136-148) mmol/L Potassium 4.3 (3.5-5.1) mmol/L Chloride 92 L (98-107) mmol/L Carbon Dioxide 33.0 H (21.0-32.0) mmol/L BUN 37 H (7.0-18.0) mg/dL Creatinine 1.4 H (0.8-1.3) mg/dL Est Cr Clr Drug Dosing 58.57 mL/min Estimated GFR (MDRD) 52.8 ml/min Glucose 292 H (74-106) mg/dL POC Glucose 314 H (70-99) mg/dL Calcium 9.1 (8.5-10.1) mg/dL Phosphorus 3.9 (2.6-4.7) mg/dL Magnesium 1.9 (1.8-2.4) mg/dL Med Orders - Current: Current Medications Acetaminophen (Acetaminophen 500 Mg Tab) 500 mg PO Q6H PRN PRN Reason: Pain Last Admin: 12/10/20 22:54 Dose: 500 mg Documented by: Hydrocodone Bitart/Acetaminophen (Acetaminophen/Hydrocodone 325-5 Mg Tab) 1 tab PO Q6H PRN PRN Reason: Pain Last Admin: 12/09/20 02:59 Dose: 1 tab Documented by: Aspirin (Aspirin 81 Mg Tab.Ec) 81 mg PO DAILY [facility] Last Admin: 12/11/20 08:11 Dose: 81 mg Documented by: Atorvastatin Calcium (Atorvastatin 40 Mg Tab) 40 mg PO DAILY [facility] Last Admin: 12/11/20 08:11 Dose: 40 mg Documented by: Calcium Carbonate/Glycine (Calcium Carbonate 500 Mg Tab.Chew) 500 mg PO Q6H PRN PRN Reason: Indigestion Dextrose/Water (50% Dextrose In Water 50 Ml Syringe) 50 ml IVPUSH ASDIRECTED PRN PRN Reason: Hypoglycemia Docusate Sodium (Docusate Sodium 100 Mg Cap) 100 mg PO DAILY [facility] Last Admin: 12/11/20 08:11 Dose: 100 mg Documented by: Furosemide (Furosemide 40 Mg/4 Ml Vial) 60 mg IVPUSH TID [facility] Last Admin: 12/11/20 13:38 Dose: 60 mg Documented by: Gabapentin (Gabapentin 300 Mg Cap) 300 mg PO BID [facility] Last Admin: 12/11/20 21:21 Dose: 300 mg Documented by: Glucagon (Glucagon,Human Recombinant 1 Mg Vial) 1 mg IM ASDIRECTED PRN PRN Reason: Hypoglycemia Heparin Sodium (Porcine) (Heparin Sodium 5,000 Units/Ml Vial) 5,000 units SUBCUT Q8H [facility] Insulin Aspart (Insulin Aspart 100 Units/Ml 3 Ml Pen) 0 unit SUBCUT TIDAC [facility]; Protocol Last Admin: 12/11/20 18:41 Dose: 15 units Documented by: Insulin Aspart (Insulin Aspart 100 Units/Ml 3 Ml Pen) 7 unit SUBCUT TIDAC [facility] Last Admin: 12/11/20 18:41 Dose: 7 units Documented by: Insulin Glargine (Insulin Glargine,Human Rec. Analog 100 Units/Ml 3 Ml Pen) 13 units SUBCUT BEDTIME [facility] Last Admin: 12/11/20 21:15 Dose: 13 units Documented by: Losartan Potassium (Losartan 50 Mg Tab) 50 mg PO BID [facility] Last Admin: 12/11/20 21:22 Dose: 50 mg Documented by: Melatonin (Melatonin 3 Mg Tab) 6 mg PO BEDTIME PRN PRN Reason: Insomnia Last Admin: 12/05/20 22:45 Dose: 6 mg Documented by: Ondansetron HCl (Ondansetron 4 Mg/2 Ml Sdv) 4 mg IVPUSH Q4H PRN PRN Reason: Nausea/Vomiting Oxycodone HCl (Oxycodone 5 Mg Tab) 5 mg PO Q8H PRN PRN Reason: Pain Pantoprazole Sodium (Pantoprazole 40 Mg Tab.Cr) 40 mg PO DAILY [facility] Last Admin: 12/11/20 08:11 Dose: 40 mg Documented by: Sodium Chloride (Sodium Chloride 0.9% 10 Ml Syringe) 10 ml FLUSH ASDIRECTED PRN PRN Reason: Keep Vein Open Sodium Chloride (Sodium Chloride 0.9% 2.5 Ml Syringe) 2.5 ml FLUSH ASDIRECTED PRN PRN Reason: Keep Vein Open Discontinued Medications Aspirin (Aspirin 325 Mg Tab.Ec) 325 mg PO ONETIME ONE Stop: 12/05/20 00:56 Last Admin: 12/05/20 01:22 Dose: 325 mg Documented by: Fish Oil (Fish Oil/Cabery-3 Fatty Acids 1 Gm Cap) 1 gm PO DAILY [facility] Last Admin: 12/10/20 08:39 Dose: Not Given Documented by: Furosemide (Furosemide 40 Mg/4 Ml Vial) 40 mg IVPUSH NOW ONE Stop: 12/04/20 23:36 Last Admin: 12/05/20 00:08 Dose: 40 mg Documented by: Furosemide (Furosemide 40 Mg/4 Ml Vial) 40 mg IVPUSH BID [facility] Last Admin: 12/06/20 08:11 Dose: 40 mg Documented by: Furosemide (Furosemide 40 Mg/4 Ml Vial) 40 mg IVPUSH BIDDIURETIC [facility] Last Admin: 12/07/20 10:53 Dose: Not Given Documented by: Furosemide (Furosemide 40 Mg/4 Ml Vial) 40 mg IVPUSH TID [facility] Last Admin: 12/09/20 06:05 Dose: 40 mg Documented by: Heparin Sodium (Porcine) (Heparin Sodium 5,000 Units/Ml Vial) 5,000 units SUBCUT Q12H [facility] Last Admin: 12/05/20 14:23 Dose: 5,000 units Documented by: Heparin Sodium (Porcine) (Heparin Sodium 5,000 Units/Ml Vial) 5,000 units SUBCUT Q12H [facility] Last Admin: 12/11/20 14:02 Dose: 5,000 units Documented by: Magnesium Sulfate 4 gm/ Premix 100 mls @ 50 mls/hr IV ONETIME ONE Stop: 12/05/20 09:59 Last Admin: 12/05/20 08:14 Dose: 50 mls/hr Documented by: Magnesium Sulfate 2 gm/ Premix 50 mls @ 25 mls/hr IV ONETIME ONE Stop: 12/07/20 10:59 Last Admin: 12/07/20 11:48 Dose: 25 mls/hr Documented by: Magnesium Sulfate 4 gm/ Premix 100 mls @ 50 mls/hr IV ONETIME ONE Stop: 12/09/20 11:14 Last Admin: 12/09/20 10:19 Dose: 50 mls/hr Documented by: Magnesium Sulfate 4 gm/ Premix 100 mls @ 50 mls/hr IV ONETIME ONE Stop: 12/10/20 13:59 Last Admin: 12/10/20 13:34 Dose: 50 mls/hr Documented by: Insulin Aspart (Insulin Aspart 100 Units/Ml 3 Ml Pen) 3 unit SUBCUT TIDAC [facility] Last Admin: 12/08/20 13:12 Dose: Not Given Documented by: Insulin Aspart (Insulin Aspart 100 Units/Ml 3 Ml Pen) 5 unit SUBCUT TIDAC [facility] Last Admin: 12/10/20 20:12 Dose: Not Given Documented by: Insulin Glargine (Insulin Glargine,Human Rec. Analog 100 Units/Ml 3 Ml Pen) 5 units SUBCUT BEDTIME [facility] Last Admin: 12/05/20 21:55 Dose: 5 units Documented by: Insulin Glargine (Insulin Glargine,Human Rec. Analog 100 Units/Ml 3 Ml Pen) 10 units SUBCUT BEDTIME [facility] Last Admin: 12/07/20 21:55 Dose: 10 unit Documented by: Iopamidol (Iopamidol 755 Mg/Ml 500 Ml Multipack Bottle) 100 ml IVPUSH ONETIME STA Stop: 12/04/20 20:38 Last Admin: 12/04/20 20:38 Dose: 100 ml Documented by: Ketorolac Tromethamine (Ketorolac 15 Mg/Ml Sdv) 15 mg IVPUSH ONETIME ONE Stop: 12/09/20 13:49 Last Admin: 12/09/20 14:11 Dose: 15 mg Documented by: Lidocaine (Lidocaine 2% 5 Ml Sdv) Confirm Administered Dose 5 ml .ROUTE .STK-MED ONE Stop: 12/10/20 04:33 Last Admin: 12/10/20 05:59 Dose: Not Given Documented by: Loperamide HCl (Loperamide 2 Mg Cap) 2 mg PO ONETIME ONE Stop: 12/05/20 00:56 Last Admin: 12/05/20 01:23 Dose: 2 mg Documented by: Metolazone (Metolazone 5 Mg Tab) 5 mg PO ONETIME ONE Stop: 12/09/20 13:31 Last Admin: 12/09/20 13:12 Dose: 5 mg Documented by: Metolazone (Metolazone 5 Mg Tab) 10 mg PO ONETIME ONE Stop: 12/10/20 22:31 Last Admin: 12/10/20 21:59 Dose: 10 mg Documented by: Metolazone (Metolazone 5 Mg Tab) 10 mg PO ONETIME ONE Stop: 12/11/20 12:31 Last Admin: 12/11/20 13:30 Dose: 10 mg Documented by: - Exam Quality Assessment: Supplemental Oxygen General: Alert, Oriented. No: Severe Distress, Sedated, Lethargic, Obtunded Lungs: Normal Respiratory Effort, Decreased Breath Sounds, Rales Cardiovascular: Irregular Rhythm. No: Bradycardia, Tachycardia GI/Abdominal Exam: Normal Bowel Sounds, Soft, Non-Tender Extremities: Pedal Edema, Leg Pain, Redness - Patient Data Lab Results Last 24 hrs: Laboratory Results - last 24 hr 12/10/20 12/10/20 12/11/20 Range/Units 17:28 22:04 05:26 WBC (4.0-11.0) K/uL RBC (4.50-5.90) M/uL Hgb (13.0-17.0) g/dL Hct (38.0-50.0) % MCV (80.0-98.0) fL MCH (27.0-32.0) pg MCHC (31.0-37.0) g/dL RDW Std Deviation (28.0-62.0) fl RDW Coeff of Aleida (11.0-15.0) % Plt Count (150-400) K/uL MPV (7.40-12.00) fL Neut % (Auto) (48.0-80.0) % Lymph % (Auto) (16.0-40.0) % Iron % (Auto) (0.0-15.0) % Eos % (Auto) (0.0-7.0) % Baso % (Auto) (0.0-1.5) % Neut # (Auto) (1.4-5.7) K/uL Lymph # (Auto) (0.6-2.4) K/uL Iron # (Auto) (0.0-0.8) K/uL Eos # (Auto) (0.0-0.7) K/uL Baso # (Auto) (0.0-0.1) K/uL Nucleated RBC % /100WBC Nucleated RBCs # K/uL Sodium (136-148) mmol/L Potassium (3.5-5.1) mmol/L Chloride (98-107) mmol/L Carbon Dioxide (21.0-32.0) mmol/L BUN (7.0-18.0) mg/dL Creatinine (0.8-1.3) mg/dL Est Cr Clr Drug Dosing mL/min Estimated GFR (MDRD) ml/min Glucose (74-106) mg/dL POC Glucose 323 H 346 H 264 H (70-99) mg/dL Calcium (8.5-10.1) mg/dL Phosphorus (2.6-4.7) mg/dL Magnesium (1.8-2.4) mg/dL 12/11/20 12/11/20 12/11/20 Range/Units 06:04 06:04 13:01 WBC 5.81 (4.0-11.0) K/uL RBC 3.21 L (4.50-5.90) M/uL Hgb 9.4 L (13.0-17.0) g/dL Hct 28.8 L (38.0-50.0) % MCV 89.7 (80.0-98.0) fL MCH 29.3 (27.0-32.0) pg MCHC 32.6 (31.0-37.0) g/dL RDW Std Deviation 55.2 (28.0-62.0) fl RDW Coeff of Aleida 17 H (11.0-15.0) % Plt Count 298 (150-400) K/uL MPV 10.40 (7.40-12.00) fL Neut % (Auto) 49.7 (48.0-80.0) % Lymph % (Auto) 36.8 (16.0-40.0) % Iron % (Auto) 11.2 (0.0-15.0) % Eos % (Auto) 2.1 (0.0-7.0) % Baso % (Auto) 0.2 (0.0-1.5) % Neut # (Auto) 2.9 (1.4-5.7) K/uL Lymph # (Auto) 2.1 (0.6-2.4) K/uL Iron # (Auto) 0.7 (0.0-0.8) K/uL Eos # (Auto) 0.1 (0.0-0.7) K/uL Baso # (Auto) 0.0 (0.0-0.1) K/uL Nucleated RBC % 0.3 /100WBC Nucleated RBCs # 0 K/uL Sodium 130 L (136-148) mmol/L Potassium 4.3 (3.5-5.1) mmol/L Chloride 92 L (98-107) mmol/L Carbon Dioxide 33.0 H (21.0-32.0) mmol/L BUN 37 H (7.0-18.0) mg/dL Creatinine 1.4 H (0.8-1.3) mg/dL Est Cr Clr Drug Dosing 58.57 mL/min Estimated GFR (MDRD) 52.8 ml/min Glucose 292 H (74-106) mg/dL POC Glucose 314 H (70-99) mg/dL Calcium 9.1 (8.5-10.1) mg/dL Phosphorus 3.9 (2.6-4.7) mg/dL Magnesium 1.9 (1.8-2.4) mg/dL Result Diagrams: 12/11/20 06:04 12/11/20 06:04 Sepsis Event Note - Evaluation Sepsis Screening Result: No Definite Risk - Focused Exam Vital Signs: Vital Signs Temp Pulse Resp BP BP Pulse Ox 12/11/20 21:22 101/48 L 12/11/20 21:08 36.6 C 63 18 101/48 L 92 L - Problem List & Annotations (1) CHF (congestive heart failure) SNOMED Code(s): 57038684 Code(s): I50.9 - HEART FAILURE, UNSPECIFIED Status: Acute Current Visit: Yes Qualifiers: Heart failure type: unspecified Heart failure chronicity: acute Qualified Code(s): I50.9 - Heart failure, unspecified (2) Chronic knee pain SNOMED Code(s): 1634590602 Code(s): M25.569 - PAIN IN UNSPECIFIED KNEE; G89.29 - OTHER CHRONIC PAIN Status: Acute Current Visit: Yes Qualifiers: Laterality: right Qualified Code(s): M25.561 - Pain in right knee; G89.29 - Other chronic pain (3) Fluid overload SNOMED Code(s): 24717897 Code(s): E87.70 - FLUID OVERLOAD, UNSPECIFIED Status: Acute Current Visit: Yes (4) Hypoxia SNOMED Code(s): 506887377 Code(s): R09.02 - HYPOXEMIA Status: Acute Current Visit: Yes (5) Atrial fibrillation with normal ventricular rate SNOMED Code(s): 39585492 Code(s): I48.91 - UNSPECIFIED ATRIAL FIBRILLATION Status: Acute Current Visit: No (6) Non-compliance SNOMED Code(s): 2130109 Code(s): Z91.19 - PATIENT'S NONCOMPLIANCE W OTH MEDICAL TREATMENT AND REGIMEN Status: Acute Current Visit: Yes (7) Suprapatellar effusion of knee SNOMED Code(s): 366632396 Code(s): M25.469 - EFFUSION, UNSPECIFIED KNEE Status: Acute Current Visit: Yes - Problem List Review Problem List Initiated/Reviewed/Updated: Yes - My Orders Last 24 Hours: My Active Orders 12/11/20 Lunch Fluid Restriction [DIET] 12/11/20 22:00 Heparin Sodium 5,000 units SUBCUT Q8H - Plan Plan:: 55 yo male admitted with CHF exacerbation CHF exacerbation: cont TID lasix increased the dose to 60 3 times daily, to ensure net negative Is&Os. fu Echocardiogram, currently on 1.5 L NC will wean as tolerated, metolazone once daily Arthritis: leg wraps and ice, PT consulted, bedside ultrasound done by ER physician did not reveal any drainable fluid collection in the right suprapatellar region DM: have placed on ssi and lantus, increased the dose due to patient's hyperglycemia, patient was thoroughly counseled about importance of tight blood sugar control, he refuses to be on diabetic or cardiac diet. Patient will need to be on a blood thinner due to high Dave vas score and history of A. fib, there is a history of GI bleed in the past, will discuss pros and cons with the patient upon discharge in the meantime continue ant icoagulation with heparin subcu 2D echo noted normal EF Again it was reiterated to patient the importance of dietary as well as fluid restriction. Acute participate in physical therapy today
[2020-12-11] MEDS: Acetaminophen 500 MG Tab PO PRN (21:46)
[2020-12-12] MEDS: Heparin Sodium 5,000 Units/ML Vial SUBCUT SCH ×3 (06:15→21:08)
[2020-12-12] MEDS: Furosemide 40 MG/4 ML VIAL IVPUSH SCH ×3 (06:15→21:08)
[2020-12-12 07:54] LABS: CARBON DIOXIDE,CO2 35.5 mmol/L (21.0-32.0); POTASSIUM,K 4.9 mmol/L (3.5-5.1)
[2020-12-12] MEDS: Insulin Aspart 100 Units/ML 3 ML Pen SUBCUT SCH ×6 (08:24→17:39)
[2020-12-12] MEDS: Aspirin 81 MG Tab.EC PO SCH (08:34)
[2020-12-12] MEDS: Gabapentin 300 MG Cap PO SCH ×2 (08:34→21:07)
[2020-12-12] MEDS: Pantoprazole 40 MG Tab.CR PO SCH (08:34)
[2020-12-12] MEDS: Docusate Sodium 100 MG Cap PO SCH (08:34)
[2020-12-12] MEDS: Losartan 50 MG Tab PO SCH ×2 (08:35→21:07)
[2020-12-12] MEDS: atorvaSTATin 40 MG Tab PO SCH (08:35)
--- NOTE | 2020-12-12 16:08 | PCM.PN ---
- General Info Date of Service: 12/12/20 - Review of Systems Systems Review Comment:: feeling better, knee sweeling has improved - Patient Data Vitals - Most Recent: Last Vital Signs Temp 36.8 C 12/12/20 12:29 Pulse 68 12/12/20 12:29 Resp 19 12/12/20 12:29 BP 100/74 12/12/20 14:12 Pulse Ox 93 L 12/12/20 12:29 Weight - Most Recent: 128.548 kg I&O - Last 24 Hours: Intake & Output 12/12/20 12/12/20 12/12/20 06:59 14:59 22:59 Intake Total 720 Output Total 1200 Balance -480 Lab Results Last 24 Hours: Laboratory Results - last 24 hr 12/11/20 12/11/20 12/12/20 Range/Units 18:40 21:14 06:13 WBC (4.0-11.0) K/uL RBC (4.50-5.90) M/uL Hgb (13.0-17.0) g/dL Hct (38.0-50.0) % MCV (80.0-98.0) fL MCH (27.0-32.0) pg MCHC (31.0-37.0) g/dL RDW Std Deviation (28.0-62.0) fl RDW Coeff of Aleida (11.0-15.0) % Plt Count (150-400) K/uL MPV (7.40-12.00) fL Neut % (Auto) (48.0-80.0) % Lymph % (Auto) (16.0-40.0) % [place] % (Auto) (0.0-15.0) % Eos % (Auto) (0.0-7.0) % Baso % (Auto) (0.0-1.5) % Neut # (Auto) (1.4-5.7) K/uL Lymph # (Auto) (0.6-2.4) K/uL [place] # (Auto) (0.0-0.8) K/uL Eos # (Auto) (0.0-0.7) K/uL Baso # (Auto) (0.0-0.1) K/uL Nucleated RBC % /100WBC Nucleated RBCs # K/uL Sodium (136-148) mmol/L Potassium (3.5-5.1) mmol/L Chloride (98-107) mmol/L Carbon Dioxide (21.0-32.0) mmol/L BUN (7.0-18.0) mg/dL Creatinine (0.8-1.3) mg/dL Est Cr Clr Drug Dosing mL/min Estimated GFR (MDRD) ml/min Glucose (74-106) mg/dL POC Glucose 358 H 308 H 268 H (70-99) mg/dL Calcium (8.5-10.1) mg/dL Phosphorus (2.6-4.7) mg/dL Magnesium (1.8-2.4) mg/dL 12/12/20 12/12/20 12/12/20 Range/Units 06:50 06:50 12:21 WBC 6.59 (4.0-11.0) K/uL RBC 3.29 L (4.50-5.90) M/uL Hgb 9.5 L (13.0-17.0) g/dL Hct 29.5 L (38.0-50.0) % MCV 89.7 (80.0-98.0) fL MCH 28.9 (27.0-32.0) pg MCHC 32.2 (31.0-37.0) g/dL RDW Std Deviation 56.2 (28.0-62.0) fl RDW Coeff of Aleida 18 H (11.0-15.0) % Plt Count 323 (150-400) K/uL MPV 10.20 (7.40-12.00) fL Neut % (Auto) 54.6 (48.0-80.0) % Lymph % (Auto) 32.2 (16.0-40.0) % [place] % (Auto) 11.8 (0.0-15.0) % Eos % (Auto) 1.2 (0.0-7.0) % Baso % (Auto) 0.2 (0.0-1.5) % Neut # (Auto) 3.6 (1.4-5.7) K/uL Lymph # (Auto) 2.1 (0.6-2.4) K/uL [place] # (Auto) 0.8 (0.0-0.8) K/uL Eos # (Auto) 0.1 (0.0-0.7) K/uL Baso # (Auto) 0.0 (0.0-0.1) K/uL Nucleated RBC % 0.0 /100WBC Nucleated RBCs # 0 K/uL Sodium 133 L (136-148) mmol/L Potassium 4.9 (3.5-5.1) mmol/L Chloride 95 L (98-107) mmol/L Carbon Dioxide 35.5 H (21.0-32.0) mmol/L BUN 44 H (7.0-18.0) mg/dL Creatinine 1.4 H (0.8-1.3) mg/dL Est Cr Clr Drug Dosing 58.57 mL/min Estimated GFR (MDRD) 52.8 ml/min Glucose 302 H (74-106) mg/dL POC Glucose 332 H (70-99) mg/dL Calcium 9.0 (8.5-10.1) mg/dL Phosphorus 4.8 H (2.6-4.7) mg/dL Magnesium 1.5 L (1.8-2.4) mg/dL Med Orders - Current: Current Medications Acetaminophen (Acetaminophen 500 Mg Tab) 500 mg PO Q6H PRN PRN Reason: Pain Last Admin: 12/11/20 21:46 Dose: 500 mg Documented by: Hydrocodone Bitart/Acetaminophen (Acetaminophen/Hydrocodone 325-5 Mg Tab) 1 tab PO Q6H PRN PRN Reason: Pain Last Admin: 12/09/20 02:59 Dose: 1 tab Documented by: Aspirin (Aspirin 81 Mg Tab.Ec) 81 mg PO DAILY [facility] Last Admin: 12/12/20 08:34 Dose: 81 mg Documented by: Atorvastatin Calcium (Atorvastatin 40 Mg Tab) 40 mg PO DAILY [facility] Last Admin: 12/12/20 08:35 Dose: 40 mg Documented by: Calcium Carbonate/Glycine (Calcium Carbonate 500 Mg Tab.Chew) 500 mg PO Q6H PRN PRN Reason: Indigestion Dextrose/Water (50% Dextrose In Water 50 Ml Syringe) 50 ml IVPUSH ASDIRECTED PRN PRN Reason: Hypoglycemia Docusate Sodium (Docusate Sodium 100 Mg Cap) 100 mg PO DAILY [facility] Last Admin: 12/12/20 08:34 Dose: 100 mg Documented by: Furosemide (Furosemide 40 Mg/4 Ml Vial) 60 mg IVPUSH TID [facility] Last Admin: 12/12/20 14:05 Dose: 60 mg Documented by: Gabapentin (Gabapentin 300 Mg Cap) 300 mg PO BID [facility] Last Admin: 12/12/20 08:34 Dose: 300 mg Documented by: Glucagon (Glucagon,Human Recombinant 1 Mg Vial) 1 mg IM ASDIRECTED PRN PRN Reason: Hypoglycemia Heparin Sodium (Porcine) (Heparin Sodium 5,000 Units/Ml Vial) 5,000 units SUBCUT Q8H [facility] Last Admin: 12/12/20 14:00 Dose: 5,000 units Documented by: Insulin Aspart (Insulin Aspart 100 Units/Ml 3 Ml Pen) 0 unit SUBCUT TIDAC [facility]; Protocol Last Admin: 12/12/20 13:59 Dose: 12 units Documented by: Insulin Aspart (Insulin Aspart 100 Units/Ml 3 Ml Pen) 7 unit SUBCUT TIDAC [facility] Last Admin: 12/12/20 13:59 Dose: 7 units Documented by: Insulin Glargine (Insulin Glargine,Human Rec. Analog 100 Units/Ml 3 Ml Pen) 13 units SUBCUT BEDTIME [facility] Last Admin: 12/11/20 21:15 Dose: 13 units Documented by: Losartan Potassium (Losartan 50 Mg Tab) 50 mg PO BID [facility] Last Admin: 12/12/20 08:35 Dose: 50 mg Documented by: Melatonin (Melatonin 3 Mg Tab) 6 mg PO BEDTIME PRN PRN Reason: Insomnia Last Admin: 12/05/20 22:45 Dose: 6 mg Documented by: Ondansetron HCl (Ondansetron 4 Mg/2 Ml Sdv) 4 mg IVPUSH Q4H PRN PRN Reason: Nausea/Vomiting Oxycodone HCl (Oxycodone 5 Mg Tab) 5 mg PO Q8H PRN PRN Reason: Pain Pantoprazole Sodium (Pantoprazole 40 Mg Tab.Cr) 40 mg PO DAILY [facility] Last Admin: 12/12/20 08:34 Dose: 40 mg Documented by: Sodium Chloride (Sodium Chloride 0.9% 10 Ml Syringe) 10 ml FLUSH ASDIRECTED PRN PRN Reason: Keep Vein Open Sodium Chloride (Sodium Chloride 0.9% 2.5 Ml Syringe) 2.5 ml FLUSH ASDIRECTED PRN PRN Reason: Keep Vein Open Discontinued Medications Aspirin (Aspirin 325 Mg Tab.Ec) 325 mg PO ONETIME ONE Stop: 12/05/20 00:56 Last Admin: 12/05/20 01:22 Dose: 325 mg Documented by: Fish Oil (Fish Oil/[place]-3 Fatty Acids 1 Gm Cap) 1 gm PO DAILY [facility] Last Admin: 12/10/20 08:39 Dose: Not Given Documented by: Furosemide (Furosemide 40 Mg/4 Ml Vial) 40 mg IVPUSH NOW ONE Stop: 12/04/20 23:36 Last Admin: 12/05/20 00:08 Dose: 40 mg Documented by: Furosemide (Furosemide 40 Mg/4 Ml Vial) 40 mg IVPUSH BID [facility] Last Admin: 12/06/20 08:11 Dose: 40 mg Documented by: Furosemide (Furosemide 40 Mg/4 Ml Vial) 40 mg IVPUSH BIDDIURETIC [facility] Last Admin: 12/07/20 10:53 Dose: Not Given Documented by: Furosemide (Furosemide 40 Mg/4 Ml Vial) 40 mg IVPUSH TID [facility] Last Admin: 12/09/20 06:05 Dose: 40 mg Documented by: Heparin Sodium (Porcine) (Heparin Sodium 5,000 Units/Ml Vial) 5,000 units SUBCUT Q12H [facility] Last Admin: 12/05/20 14:23 Dose: 5,000 units Documented by: Heparin Sodium (Porcine) (Heparin Sodium 5,000 Units/Ml Vial) 5,000 units SUBCUT Q12H [facility] Last Admin: 12/11/20 14:02 Dose: 5,000 units Documented by: Magnesium Sulfate 4 gm/ Premix 100 mls @ 50 mls/hr IV ONETIME ONE Stop: 12/05/20 09:59 Last Admin: 12/05/20 08:14 Dose: 50 mls/hr Documented by: Magnesium Sulfate 2 gm/ Premix 50 mls @ 25 mls/hr IV ONETIME ONE Stop: 12/07/20 10:59 Last Admin: 12/07/20 11:48 Dose: 25 mls/hr Documented by: Magnesium Sulfate 4 gm/ Premix 100 mls @ 50 mls/hr IV ONETIME ONE Stop: 12/09/20 11:14 Last Admin: 12/09/20 10:19 Dose: 50 mls/hr Documented by: Magnesium Sulfate 4 gm/ Premix 100 mls @ 50 mls/hr IV ONETIME ONE Stop: 12/10/20 13:59 Last Admin: 12/10/20 13:34 Dose: 50 mls/hr Documented by: Insulin Aspart (Insulin Aspart 100 Units/Ml 3 Ml Pen) 3 unit SUBCUT TIDAC [facility] Last Admin: 12/08/20 13:12 Dose: Not Given Documented by: Insulin Aspart (Insulin Aspart 100 Units/Ml 3 Ml Pen) 5 unit SUBCUT TIDAC [facility] Last Admin: 12/10/20 20:12 Dose: Not Given Documented by: Insulin Glargine (Insulin Glargine,Human Rec. Analog 100 Units/Ml 3 Ml Pen) 5 units SUBCUT BEDTIME [facility] Last Admin: 12/05/20 21:55 Dose: 5 units Documented by: Insulin Glargine (Insulin Glargine,Human Rec. Analog 100 Units/Ml 3 Ml Pen) 10 units SUBCUT BEDTIME [facility] Last Admin: 12/07/20 21:55 Dose: 10 unit Documented by: Iopamidol (Iopamidol 755 Mg/Ml 500 Ml Multipack Bottle) 100 ml IVPUSH ONETIME STA Stop: 12/04/20 20:38 Last Admin: 12/04/20 20:38 Dose: 100 ml Documented by: Ketorolac Tromethamine (Ketorolac 15 Mg/Ml Sdv) 15 mg IVPUSH ONETIME ONE Stop: 12/09/20 13:49 Last Admin: 12/09/20 14:11 Dose: 15 mg Documented by: Lidocaine (Lidocaine 2% 5 Ml Sdv) Confirm Administered Dose 5 ml .ROUTE .STK-MED ONE Stop: 12/10/20 04:33 Last Admin: 12/10/20 05:59 Dose: Not Given Documented by: Loperamide HCl (Loperamide 2 Mg Cap) 2 mg PO ONETIME ONE Stop: 12/05/20 00:56 Last Admin: 12/05/20 01:23 Dose: 2 mg Documented by: Metolazone (Metolazone 5 Mg Tab) 5 mg PO ONETIME ONE Stop: 12/09/20 13:31 Last Admin: 12/09/20 13:12 Dose: 5 mg Documented by: Metolazone (Metolazone 5 Mg Tab) 10 mg PO ONETIME ONE Stop: 12/10/20 22:31 Last Admin: 12/10/20 21:59 Dose: 10 mg Documented by: Metolazone (Metolazone 5 Mg Tab) 10 mg PO ONETIME ONE Stop: 12/11/20 12:31 Last Admin: 12/11/20 13:30 Dose: 10 mg Documented by: - Exam General: Alert, Moderate Distress Neck: Supple Lungs: Clear to Auscultation, Normal Respiratory Effort Cardiovascular: Regular Rate, Regular Rhythm GI/Abdominal Exam: Soft, Non-Tender, No Distention Extremities: Pedal Edema (+2) Skin: Warm, Dry, Intact Neurological: No New Focal Deficit - Patient Data Lab Results Last 24 hrs: Laboratory Results - last 24 hr 12/11/20 12/11/20 12/12/20 Range/Units 18:40 21:14 06:13 WBC (4.0-11.0) K/uL RBC (4.50-5.90) M/uL Hgb (13.0-17.0) g/dL Hct (38.0-50.0) % MCV (80.0-98.0) fL MCH (27.0-32.0) pg MCHC (31.0-37.0) g/dL RDW Std Deviation (28.0-62.0) fl RDW Coeff of Aleida (11.0-15.0) % Plt Count (150-400) K/uL MPV (7.40-12.00) fL Neut % (Auto) (48.0-80.0) % Lymph % (Auto) (16.0-40.0) % [place] % (Auto) (0.0-15.0) % Eos % (Auto) (0.0-7.0) % Baso % (Auto) (0.0-1.5) % Neut # (Auto) (1.4-5.7) K/uL Lymph # (Auto) (0.6-2.4) K/uL [place] # (Auto) (0.0-0.8) K/uL Eos # (Auto) (0.0-0.7) K/uL Baso # (Auto) (0.0-0.1) K/uL Nucleated RBC % /100WBC Nucleated RBCs # K/uL Sodium (136-148) mmol/L Potassium (3.5-5.1) mmol/L Chloride (98-107) mmol/L Carbon Dioxide (21.0-32.0) mmol/L BUN (7.0-18.0) mg/dL Creatinine (0.8-1.3) mg/dL Est Cr Clr Drug Dosing mL/min Estimated GFR (MDRD) ml/min Glucose (74-106) mg/dL POC Glucose 358 H 308 H 268 H (70-99) mg/dL Calcium (8.5-10.1) mg/dL Phosphorus (2.6-4.7) mg/dL Magnesium (1.8-2.4) mg/dL 12/12/20 12/12/20 12/12/20 Range/Units 06:50 06:50 12:21 WBC 6.59 (4.0-11.0) K/uL RBC 3.29 L (4.50-5.90) M/uL Hgb 9.5 L (13.0-17.0) g/dL Hct 29.5 L (38.0-50.0) % MCV 89.7 (80.0-98.0) fL MCH 28.9 (27.0-32.0) pg MCHC 32.2 (31.0-37.0) g/dL RDW Std Deviation 56.2 (28.0-62.0) fl RDW Coeff of Aleida 18 H (11.0-15.0) % Plt Count 323 (150-400) K/uL MPV 10.20 (7.40-12.00) fL Neut % (Auto) 54.6 (48.0-80.0) % Lymph % (Auto) 32.2 (16.0-40.0) % [place] % (Auto) 11.8 (0.0-15.0) % Eos % (Auto) 1.2 (0.0-7.0) % Baso % (Auto) 0.2 (0.0-1.5) % Neut # (Auto) 3.6 (1.4-5.7) K/uL Lymph # (Auto) 2.1 (0.6-2.4) K/uL [place] # (Auto) 0.8 (0.0-0.8) K/uL Eos # (Auto) 0.1 (0.0-0.7) K/uL Baso # (Auto) 0.0 (0.0-0.1) K/uL Nucleated RBC % 0.0 /100WBC Nucleated RBCs # 0 K/uL Sodium 133 L (136-148) mmol/L Potassium 4.9 (3.5-5.1) mmol/L Chloride 95 L (98-107) mmol/L Carbon Dioxide 35.5 H (21.0-32.0) mmol/L BUN 44 H (7.0-18.0) mg/dL Creatinine 1.4 H (0.8-1.3) mg/dL Est Cr Clr Drug Dosing 58.57 mL/min Estimated GFR (MDRD) 52.8 ml/min Glucose 302 H (74-106) mg/dL POC Glucose 332 H (70-99) mg/dL Calcium 9.0 (8.5-10.1) mg/dL Phosphorus 4.8 H (2.6-4.7) mg/dL Magnesium 1.5 L (1.8-2.4) mg/dL Result Diagrams: 12/12/20 06:50 12/12/20 06:50 Sepsis Event Note - Evaluation Sepsis Screening Result: No Definite Risk - Focused Exam Vital Signs: Vital Signs Temp Pulse Resp BP BP BP BP 12/12/20 14:12 100/74 12/12/20 12:29 36.8 C 68 19 99/58 L 12/12/20 10:33 36.2 C 70 20 96/52 L 12/12/20 08:40 36.4 C 77 18 109/56 L 12/12/20 08:35 109/56 L 12/12/20 06:00 36.1 C 65 19 105/55 L Pulse Ox 12/12/20 14:12 12/12/20 12:29 93 L 12/12/20 10:33 93 L 12/12/20 08:40 89 L 12/12/20 08:35 12/12/20 06:00 90 L - Problem List & Annotations (1) Fluid overload SNOMED Code(s): 70483428 Code(s): E87.70 - FLUID OVERLOAD, UNSPECIFIED Status: Acute Current Visit: Yes (2) Hypoxia SNOMED Code(s): 114234463 Code(s): R09.02 - HYPOXEMIA Status: Acute Current Visit: Yes (3) CHF (congestive heart failure) SNOMED Code(s): 20659101 Code(s): I50.9 - HEART FAILURE, UNSPECIFIED Status: Acute Current Visit: Yes Qualifiers: Heart failure type: unspecified Heart failure chronicity: acute Qualified Code(s): I50.9 - Heart failure, unspecified - Problem List Review Problem List Initiated/Reviewed/Updated: Yes - My Orders Last 24 Hours: My Active Orders 12/13/20 05:11 BASIC METABOLIC PANEL,BMP [CHEM] AM CBC WITH AUTO DIFF [HEME] AM - Plan Plan:: 55 yo male admitted with CHF exacerbation CHF exacerbation: cont TID lasix increased the dose to 60 TID, ween supplemental oxygen as tolerated Arthritis: leg wraps and ice, PT consulted, DM: have placed on ssi and lantus, patient refuses to be on a diabetic diet. Patient will need to be on a blood thinner due to high Dave vas score and history of A. fib, there is a history of GI bleed in the past, will discuss pros and cons with the patient upon discharge in the meantime continue anticoagulation with heparin subcu 2D echo noted normal EF
[2020-12-12] MEDS: Insulin Glargine,Human Rec. Analog 100 Units/ML 3 ML Pen SUBCUT SCH (21:19)
[2020-12-13] MEDS: Heparin Sodium 5,000 Units/ML Vial SUBCUT SCH ×3 (05:37→21:07)
[2020-12-13] MEDS: Furosemide 40 MG/4 ML VIAL IVPUSH SCH ×3 (05:38→21:07)
[2020-12-13 07:50] LABS: CARBON DIOXIDE,CO2 33.7 mmol/L (21.0-32.0); POTASSIUM,K 4.3 mmol/L (3.5-5.1)
[2020-12-13] MEDS: Insulin Aspart 100 Units/ML 3 ML Pen SUBCUT SCH ×6 (08:04→17:35)
[2020-12-13] MEDS: Pantoprazole 40 MG Tab.CR PO SCH (08:07)
[2020-12-13] MEDS: Aspirin 81 MG Tab.EC PO SCH (08:07)
[2020-12-13] MEDS: Gabapentin 300 MG Cap PO SCH ×2 (08:08→21:07)
[2020-12-13] MEDS: atorvaSTATin 40 MG Tab PO SCH (08:08)
[2020-12-13] MEDS: Docusate Sodium 100 MG Cap PO SCH (08:08)
[2020-12-13] MEDS: Losartan 50 MG Tab PO SCH ×2 (08:08→21:06)
--- NOTE | 2020-12-13 09:45 | PCM.PN ---
- General Info Date of Service: 12/13/20 - Review of Systems Systems Review Comment:: feeling better, swelling of knee improving - Patient Data Vitals - Most Recent: Last Vital Signs Temp 36.6 C 12/13/20 07:58 Pulse 67 12/13/20 07:58 Resp 16 12/13/20 07:58 BP 119/61 12/13/20 08:08 Pulse Ox 95 12/13/20 07:58 Weight - Most Recent: 128.548 kg I&O - Last 24 Hours: Intake & Output 12/12/20 12/13/20 12/13/20 22:59 06:59 14:59 Intake Total 960 480 Output Total 975 725 Balance -15 -245 Lab Results Last 24 Hours: Laboratory Results - last 24 hr 12/12/20 12/12/20 12/13/20 Range/Units 12:21 17:37 05:54 WBC (4.0-11.0) K/uL RBC (4.50-5.90) M/uL Hgb (13.0-17.0) g/dL Hct (38.0-50.0) % MCV (80.0-98.0) fL MCH (27.0-32.0) pg MCHC (31.0-37.0) g/dL RDW Std Deviation (28.0-62.0) fl RDW Coeff of Aleida (11.0-15.0) % Plt Count (150-400) K/uL MPV (7.40-12.00) fL Neut % (Auto) (48.0-80.0) % Lymph % (Auto) (16.0-40.0) % [place] % (Auto) (0.0-15.0) % Eos % (Auto) (0.0-7.0) % Baso % (Auto) (0.0-1.5) % Neut # (Auto) (1.4-5.7) K/uL Lymph # (Auto) (0.6-2.4) K/uL [place] # (Auto) (0.0-0.8) K/uL Eos # (Auto) (0.0-0.7) K/uL Baso # (Auto) (0.0-0.1) K/uL Nucleated RBC % /100WBC Nucleated RBCs # K/uL Sodium (136-148) mmol/L Potassium (3.5-5.1) mmol/L Chloride (98-107) mmol/L Carbon Dioxide (21.0-32.0) mmol/L BUN (7.0-18.0) mg/dL Creatinine (0.8-1.3) mg/dL Est Cr Clr Drug Dosing mL/min Estimated GFR (MDRD) ml/min Glucose (74-106) mg/dL POC Glucose 332 H 312 H 377 H (70-99) mg/dL Calcium (8.5-10.1) mg/dL 12/13/20 12/13/20 Range/Units 06:45 06:45 WBC 6.09 (4.0-11.0) K/uL RBC 3.41 L (4.50-5.90) M/uL Hgb 9.7 L (13.0-17.0) g/dL Hct 30.6 L (38.0-50.0) % MCV 89.7 (80.0-98.0) fL MCH 28.4 (27.0-32.0) pg MCHC 31.7 (31.0-37.0) g/dL RDW Std Deviation 57.7 (28.0-62.0) fl RDW Coeff of Aleida 18 H (11.0-15.0) % Plt Count 373 (150-400) K/uL MPV 10.20 (7.40-12.00) fL Neut % (Auto) 53.6 (48.0-80.0) % Lymph % (Auto) 34.3 (16.0-40.0) % [place] % (Auto) 10.7 (0.0-15.0) % Eos % (Auto) 1.1 (0.0-7.0) % Baso % (Auto) 0.3 (0.0-1.5) % Neut # (Auto) 3.3 (1.4-5.7) K/uL Lymph # (Auto) 2.1 (0.6-2.4) K/uL [place] # (Auto) 0.7 (0.0-0.8) K/uL Eos # (Auto) 0.1 (0.0-0.7) K/uL Baso # (Auto) 0.0 (0.0-0.1) K/uL Nucleated RBC % 0.0 /100WBC Nucleated RBCs # 0 K/uL Sodium 131 L (136-148) mmol/L Potassium 4.3 (3.5-5.1) mmol/L Chloride 92 L (98-107) mmol/L Carbon Dioxide 33.7 H (21.0-32.0) mmol/L BUN 47 H (7.0-18.0) mg/dL Creatinine 1.7 H (0.8-1.3) mg/dL Est Cr Clr Drug Dosing 48.24 mL/min Estimated GFR (MDRD) 42.2 ml/min Glucose 362 H (74-106) mg/dL POC Glucose (70-99) mg/dL Calcium 9.1 (8.5-10.1) mg/dL Med Orders - Current: Current Medications Acetaminophen (Acetaminophen 500 Mg Tab) 500 mg PO Q6H PRN PRN Reason: Pain Last Admin: 12/11/20 21:46 Dose: 500 mg Documented by: Hydrocodone Bitart/Acetaminophen (Acetaminophen/Hydrocodone 325-5 Mg Tab) 1 tab PO Q6H PRN PRN Reason: Pain Last Admin: 12/09/20 02:59 Dose: 1 tab Documented by: Aspirin (Aspirin 81 Mg Tab.Ec) 81 mg PO DAILY [facility] Last Admin: 12/13/20 08:07 Dose: 81 mg Documented by: Atorvastatin Calcium (Atorvastatin 40 Mg Tab) 40 mg PO DAILY [facility] Last Admin: 12/13/20 08:08 Dose: 40 mg Documented by: Calcium Carbonate/Glycine (Calcium Carbonate 500 Mg Tab.Chew) 500 mg PO Q6H PRN PRN Reason: Indigestion Dextrose/Water (50% Dextrose In Water 50 Ml Syringe) 50 ml IVPUSH ASDIRECTED PRN PRN Reason: Hypoglycemia Docusate Sodium (Docusate Sodium 100 Mg Cap) 100 mg PO DAILY [facility] Last Admin: 12/13/20 08:08 Dose: 100 mg Documented by: Furosemide (Furosemide 40 Mg/4 Ml Vial) 60 mg IVPUSH TID [facility] Last Admin: 12/13/20 05:38 Dose: 60 mg Documented by: Gabapentin (Gabapentin 300 Mg Cap) 300 mg PO BID [facility] Last Admin: 12/13/20 08:08 Dose: 300 mg Documented by: Glucagon (Glucagon,Human Recombinant 1 Mg Vial) 1 mg IM ASDIRECTED PRN PRN Reason: Hypoglycemia Heparin Sodium (Porcine) (Heparin Sodium 5,000 Units/Ml Vial) 5,000 units SUBCUT Q8H [facility] Last Admin: 12/13/20 05:37 Dose: 5,000 units Documented by: Insulin Aspart (Insulin Aspart 100 Units/Ml 3 Ml Pen) 0 unit SUBCUT TIDAC [facility]; Protocol Last Admin: 12/13/20 08:04 Dose: 15 units Documented by: Insulin Aspart (Insulin Aspart 100 Units/Ml 3 Ml Pen) 7 unit SUBCUT TIDAC [facility] Last Admin: 12/13/20 08:04 Dose: 7 units Documented by: Insulin Glargine (Insulin Glargine,Human Rec. Analog 100 Units/Ml 3 Ml Pen) 13 units SUBCUT BEDTIME [facility] Last Admin: 12/12/20 21:19 Dose: 13 units Documented by: Losartan Potassium (Losartan 50 Mg Tab) 50 mg PO BID [facility] Last Admin: 12/13/20 08:08 Dose: 50 mg Documented by: Melatonin (Melatonin 3 Mg Tab) 6 mg PO BEDTIME PRN PRN Reason: Insomnia Last Admin: 12/05/20 22:45 Dose: 6 mg Documented by: Ondansetron HCl (Ondansetron 4 Mg/2 Ml Sdv) 4 mg IVPUSH Q4H PRN PRN Reason: Nausea/Vomiting Oxycodone HCl (Oxycodone 5 Mg Tab) 5 mg PO Q8H PRN PRN Reason: Pain Pantoprazole Sodium (Pantoprazole 40 Mg Tab.Cr) 40 mg PO DAILY [facility] Last Admin: 12/13/20 08:07 Dose: 40 mg Documented by: Sodium Chloride (Sodium Chloride 0.9% 10 Ml Syringe) 10 ml FLUSH ASDIRECTED PRN PRN Reason: Keep Vein Open Sodium Chloride (Sodium Chloride 0.9% 2.5 Ml Syringe) 2.5 ml FLUSH ASDIRECTED PRN PRN Reason: Keep Vein Open Discontinued Medications Aspirin (Aspirin 325 Mg Tab.Ec) 325 mg PO ONETIME ONE Stop: 12/05/20 00:56 Last Admin: 12/05/20 01:22 Dose: 325 mg Documented by: Fish Oil (Fish Oil/[place]-3 Fatty Acids 1 Gm Cap) 1 gm PO DAILY [facility] Last Admin: 12/10/20 08:39 Dose: Not Given Documented by: Furosemide (Furosemide 40 Mg/4 Ml Vial) 40 mg IVPUSH NOW ONE Stop: 12/04/20 23:36 Last Admin: 12/05/20 00:08 Dose: 40 mg Documented by: Furosemide (Furosemide 40 Mg/4 Ml Vial) 40 mg IVPUSH BID [facility] Last Admin: 12/06/20 08:11 Dose: 40 mg Documented by: Furosemide (Furosemide 40 Mg/4 Ml Vial) 40 mg IVPUSH BIDDIURETIC [facility] Last Admin: 12/07/20 10:53 Dose: Not Given Documented by: Furosemide (Furosemide 40 Mg/4 Ml Vial) 40 mg IVPUSH TID [facility] Last Admin: 12/09/20 06:05 Dose: 40 mg Documented by: Heparin Sodium (Porcine) (Heparin Sodium 5,000 Units/Ml Vial) 5,000 units SUBCUT Q12H [facility] Last Admin: 12/05/20 14:23 Dose: 5,000 units Documented by: Heparin Sodium (Porcine) (Heparin Sodium 5,000 Units/Ml Vial) 5,000 units SUBCUT Q12H [facility] Last Admin: 12/11/20 14:02 Dose: 5,000 units Documented by: Magnesium Sulfate 4 gm/ Premix 100 mls @ 50 mls/hr IV ONETIME ONE Stop: 12/05/20 09:59 Last Admin: 12/05/20 08:14 Dose: 50 mls/hr Documented by: Magnesium Sulfate 2 gm/ Premix 50 mls @ 25 mls/hr IV ONETIME ONE Stop: 12/07/20 10:59 Last Admin: 12/07/20 11:48 Dose: 25 mls/hr Documented by: Magnesium Sulfate 4 gm/ Premix 100 mls @ 50 mls/hr IV ONETIME ONE Stop: 12/09/20 11:14 Last Admin: 12/09/20 10:19 Dose: 50 mls/hr Documented by: Magnesium Sulfate 4 gm/ Premix 100 mls @ 50 mls/hr IV ONETIME ONE Stop: 12/10/20 13:59 Last Admin: 12/10/20 13:34 Dose: 50 mls/hr Documented by: Insulin Aspart (Insulin Aspart 100 Units/Ml 3 Ml Pen) 3 unit SUBCUT TIDAC [facility] Last Admin: 12/08/20 13:12 Dose: Not Given Documented by: Insulin Aspart (Insulin Aspart 100 Units/Ml 3 Ml Pen) 5 unit SUBCUT TIDAC [facility] Last Admin: 12/10/20 20:12 Dose: Not Given Documented by: Insulin Glargine (Insulin Glargine,Human Rec. Analog 100 Units/Ml 3 Ml Pen) 5 units SUBCUT BEDTIME [facility] Last Admin: 12/05/20 21:55 Dose: 5 units Documented by: Insulin Glargine (Insulin Glargine,Human Rec. Analog 100 Units/Ml 3 Ml Pen) 10 units SUBCUT BEDTIME [facility] Last Admin: 12/07/20 21:55 Dose: 10 unit Documented by: Iopamidol (Iopamidol 755 Mg/Ml 500 Ml Multipack Bottle) 100 ml IVPUSH ONETIME STA Stop: 12/04/20 20:38 Last Admin: 12/04/20 20:38 Dose: 100 ml Documented by: Ketorolac Tromethamine (Ketorolac 15 Mg/Ml Sdv) 15 mg IVPUSH ONETIME ONE Stop: 12/09/20 13:49 Last Admin: 12/09/20 14:11 Dose: 15 mg Documented by: Lidocaine (Lidocaine 2% 5 Ml Sdv) Confirm Administered Dose 5 ml .ROUTE .STK-MED ONE Stop: 12/10/20 04:33 Last Admin: 12/10/20 05:59 Dose: Not Given Documented by: Loperamide HCl (Loperamide 2 Mg Cap) 2 mg PO ONETIME ONE Stop: 12/05/20 00:56 Last Admin: 12/05/20 01:23 Dose: 2 mg Documented by: Metolazone (Metolazone 5 Mg Tab) 5 mg PO ONETIME ONE Stop: 12/09/20 13:31 Last Admin: 12/09/20 13:12 Dose: 5 mg Documented by: Metolazone (Metolazone 5 Mg Tab) 10 mg PO ONETIME ONE Stop: 12/10/20 22:31 Last Admin: 12/10/20 21:59 Dose: 10 mg Documented by: Metolazone (Metolazone 5 Mg Tab) 10 mg PO ONETIME ONE Stop: 12/11/20 12:31 Last Admin: 12/11/20 13:30 Dose: 10 mg Documented by: - Exam General: Alert, Oriented Lungs: Clear to Auscultation, Normal Respiratory Effort Cardiovascular: Regular Rate, Regular Rhythm GI/Abdominal Exam: Soft, Non-Tender Extremities: Pedal Edema (+2) Skin: Warm, Dry, Intact Neurological: No New Focal Deficit - Patient Data Lab Results Last 24 hrs: Laboratory Results - last 24 hr 12/12/20 12/12/20 12/13/20 Range/Units 12:21 17:37 05:54 WBC (4.0-11.0) K/uL RBC (4.50-5.90) M/uL Hgb (13.0-17.0) g/dL Hct (38.0-50.0) % MCV (80.0-98.0) fL MCH (27.0-32.0) pg MCHC (31.0-37.0) g/dL RDW Std Deviation (28.0-62.0) fl RDW Coeff of Aleida (11.0-15.0) % Plt Count (150-400) K/uL MPV (7.40-12.00) fL Neut % (Auto) (48.0-80.0) % Lymph % (Auto) (16.0-40.0) % [place] % (Auto) (0.0-15.0) % Eos % (Auto) (0.0-7.0) % Baso % (Auto) (0.0-1.5) % Neut # (Auto) (1.4-5.7) K/uL Lymph # (Auto) (0.6-2.4) K/uL [place] # (Auto) (0.0-0.8) K/uL Eos # (Auto) (0.0-0.7) K/uL Baso # (Auto) (0.0-0.1) K/uL Nucleated RBC % /100WBC Nucleated RBCs # K/uL Sodium (136-148) mmol/L Potassium (3.5-5.1) mmol/L Chloride (98-107) mmol/L Carbon Dioxide (21.0-32.0) mmol/L BUN (7.0-18.0) mg/dL Creatinine (0.8-1.3) mg/dL Est Cr Clr Drug Dosing mL/min Estimated GFR (MDRD) ml/min Glucose (74-106) mg/dL POC Glucose 332 H 312 H 377 H (70-99) mg/dL Calcium (8.5-10.1) mg/dL 12/13/20 12/13/20 Range/Units 06:45 06:45 WBC 6.09 (4.0-11.0) K/uL RBC 3.41 L (4.50-5.90) M/uL Hgb 9.7 L (13.0-17.0) g/dL Hct 30.6 L (38.0-50.0) % MCV 89.7 (80.0-98.0) fL MCH 28.4 (27.0-32.0) pg MCHC 31.7 (31.0-37.0) g/dL RDW Std Deviation 57.7 (28.0-62.0) fl RDW Coeff of Aleida 18 H (11.0-15.0) % Plt Count 373 (150-400) K/uL MPV 10.20 (7.40-12.00) fL Neut % (Auto) 53.6 (48.0-80.0) % Lymph % (Auto) 34.3 (16.0-40.0) % [place] % (Auto) 10.7 (0.0-15.0) % Eos % (Auto) 1.1 (0.0-7.0) % Baso % (Auto) 0.3 (0.0-1.5) % Neut # (Auto) 3.3 (1.4-5.7) K/uL Lymph # (Auto) 2.1 (0.6-2.4) K/uL [place] # (Auto) 0.7 (0.0-0.8) K/uL Eos # (Auto) 0.1 (0.0-0.7) K/uL Baso # (Auto) 0.0 (0.0-0.1) K/uL Nucleated RBC % 0.0 /100WBC Nucleated RBCs # 0 K/uL Sodium 131 L (136-148) mmol/L Potassium 4.3 (3.5-5.1) mmol/L Chloride 92 L (98-107) mmol/L Carbon Dioxide 33.7 H (21.0-32.0) mmol/L BUN 47 H (7.0-18.0) mg/dL Creatinine 1.7 H (0.8-1.3) mg/dL Est Cr Clr Drug Dosing 48.24 mL/min Estimated GFR (MDRD) 42.2 ml/min Glucose 362 H (74-106) mg/dL POC Glucose (70-99) mg/dL Calcium 9.1 (8.5-10.1) mg/dL Result Diagrams: 12/13/20 06:45 12/13/20 06:45 Sepsis Event Note - Evaluation Sepsis Screening Result: No Definite Risk - Focused Exam Vital Signs: Vital Signs Temp Pulse Resp BP BP BP Pulse Ox 12/13/20 08:08 119/61 12/13/20 07:58 36.6 C 67 16 119/61 95 12/13/20 05:57 36.1 C 62 17 113/56 L 94 L 12/13/20 00:34 36.2 C 72 19 138/62 92 L - Problem List & Annotations (1) Fluid overload SNOMED Code(s): 89551534 Code(s): E87.70 - FLUID OVERLOAD, UNSPECIFIED Status: Acute Current Visit: Yes (2) Hypoxia SNOMED Code(s): 563763641 Code(s): R09.02 - HYPOXEMIA Status: Acute Current Visit: Yes (3) CHF (congestive heart failure) SNOMED Code(s): 64682219 Code(s): I50.9 - HEART FAILURE, UNSPECIFIED Status: Acute Current Visit: Yes Qualifiers: Heart failure type: unspecified Heart failure chronicity: acute Qualified Code(s): I50.9 - Heart failure, unspecified - Problem List Review Problem List Initiated/Reviewed/Updated: Yes - Plan Plan:: 55 yo male admitted with CHF exacerbation CHF exacerbation: cont TID lasix ween supplemental oxygen as tolerated Arthritis: leg wraps and ice, PT consulted, DM: have placed on ssi and lantus, patient refuses to be on a diabetic diet. Patient will need to be on a blood thinner due to high Dave vas score and history of A. fib, there is a history of GI bleed in the past, will discuss pros and cons with the patient upon discharge in the meantime continue anticoagulation with heparin subcu 2D echo noted normal EF
[2020-12-13] MEDS: Insulin Glargine,Human Rec. Analog 100 Units/ML 3 ML Pen SUBCUT SCH (21:07)
[2020-12-14] MEDS: Heparin Sodium 5,000 Units/ML Vial SUBCUT SCH ×3 (05:58→21:05)
[2020-12-14] MEDS: Furosemide 40 MG/4 ML VIAL IVPUSH SCH ×3 (05:58→21:21)
[2020-12-14] MEDS: atorvaSTATin 40 MG Tab PO SCH (08:31)
[2020-12-14] MEDS: Losartan 50 MG Tab PO SCH ×2 (08:32→21:04)
[2020-12-14] MEDS: Aspirin 81 MG Tab.EC PO SCH (08:32)
[2020-12-14] MEDS: Gabapentin 300 MG Cap PO SCH ×2 (08:32→21:04)
[2020-12-14] MEDS: Pantoprazole 40 MG Tab.CR PO SCH (08:35)
[2020-12-14] MEDS: Docusate Sodium 100 MG Cap PO SCH (08:36)
[2020-12-14] MEDS: Insulin Aspart 100 Units/ML 3 ML Pen SUBCUT SCH ×6 (08:37→18:07)
--- NOTE | 2020-12-14 12:32 | PCM.PN ---
- General Info Date of Service: 12/14/20 - Review of Systems Systems Review Comment:: fell and hit his knee last night, knee is a little sore, - Patient Data Vitals - Most Recent: Last Vital Signs Temp 36.6 C 12/14/20 08:00 Pulse 63 12/14/20 08:00 Resp 18 12/14/20 08:00 BP 134/63 12/14/20 08:32 Pulse Ox 94 L 12/14/20 08:00 Weight - Most Recent: 128.911 kg I&O - Last 24 Hours: Intake & Output 12/13/20 12/14/20 12/14/20 22:59 06:59 14:59 Intake Total 480 650 Output Total 1300 400 Balance -820 250 Lab Results Last 24 Hours: Laboratory Results - last 24 hr 12/13/20 12/13/20 12/14/20 Range/Units 11:57 17:33 06:07 POC Glucose 296 H 377 H 327 H (70-99) mg/dL 12/14/20 Range/Units 12:11 POC Glucose 381 H (70-99) mg/dL Med Orders - Current: Current Medications Acetaminophen (Acetaminophen 500 Mg Tab) 500 mg PO Q6H PRN PRN Reason: Pain Last Admin: 12/11/20 21:46 Dose: 500 mg Documented by: Hydrocodone Bitart/Acetaminophen (Acetaminophen/Hydrocodone 325-5 Mg Tab) 1 tab PO Q6H PRN PRN Reason: Pain Last Admin: 12/09/20 02:59 Dose: 1 tab Documented by: Aspirin (Aspirin 81 Mg Tab.Ec) 81 mg PO DAILY [facility] Last Admin: 12/14/20 08:32 Dose: 81 mg Documented by: Atorvastatin Calcium (Atorvastatin 40 Mg Tab) 40 mg PO DAILY [facility] Last Admin: 12/14/20 08:31 Dose: 40 mg Documented by: Calcium Carbonate/Glycine (Calcium Carbonate 500 Mg Tab.Chew) 500 mg PO Q6H PRN PRN Reason: Indigestion Dextrose/Water (50% Dextrose In Water 50 Ml Syringe) 50 ml IVPUSH ASDIRECTED PRN PRN Reason: Hypoglycemia Docusate Sodium (Docusate Sodium 100 Mg Cap) 100 mg PO DAILY [facility] Last Admin: 12/14/20 08:36 Dose: 100 mg Documented by: Furosemide (Furosemide 40 Mg/4 Ml Vial) 60 mg IVPUSH TID [facility] Last Admin: 12/14/20 05:58 Dose: 60 mg Documented by: Gabapentin (Gabapentin 300 Mg Cap) 300 mg PO BID [facility] Last Admin: 12/14/20 08:32 Dose: 300 mg Documented by: Glucagon (Glucagon,Human Recombinant 1 Mg Vial) 1 mg IM ASDIRECTED PRN PRN Reason: Hypoglycemia Heparin Sodium (Porcine) (Heparin Sodium 5,000 Units/Ml Vial) 5,000 units SUBCUT Q8H [facility] Last Admin: 12/14/20 05:58 Dose: 5,000 units Documented by: Insulin Aspart (Insulin Aspart 100 Units/Ml 3 Ml Pen) 0 unit SUBCUT TIDAC [facility]; Protocol Last Admin: 12/14/20 12:14 Dose: 15 units Documented by: Insulin Aspart (Insulin Aspart 100 Units/Ml 3 Ml Pen) 7 unit SUBCUT TIDAC [facility] Last Admin: 12/14/20 12:13 Dose: 7 units Documented by: Insulin Glargine (Insulin Glargine,Human Rec. Analog 100 Units/Ml 3 Ml Pen) 13 units SUBCUT BEDTIME [facility] Last Admin: 12/13/20 21:07 Dose: 13 units Documented by: Losartan Potassium (Losartan 50 Mg Tab) 50 mg PO BID [facility] Last Admin: 12/14/20 08:32 Dose: 50 mg Documented by: Melatonin (Melatonin 3 Mg Tab) 6 mg PO BEDTIME PRN PRN Reason: Insomnia Last Admin: 12/05/20 22:45 Dose: 6 mg Documented by: Ondansetron HCl (Ondansetron 4 Mg/2 Ml Sdv) 4 mg IVPUSH Q4H PRN PRN Reason: Nausea/Vomiting Oxycodone HCl (Oxycodone 5 Mg Tab) 5 mg PO Q8H PRN PRN Reason: Pain Pantoprazole Sodium (Pantoprazole 40 Mg Tab.Cr) 40 mg PO DAILY [facility] Last Admin: 12/14/20 08:35 Dose: 40 mg Documented by: Sodium Chloride (Sodium Chloride 0.9% 10 Ml Syringe) 10 ml FLUSH ASDIRECTED PRN PRN Reason: Keep Vein Open Sodium Chloride (Sodium Chloride 0.9% 2.5 Ml Syringe) 2.5 ml FLUSH ASDIRECTED PRN PRN Reason: Keep Vein Open Discontinued Medications Aspirin (Aspirin 325 Mg Tab.Ec) 325 mg PO ONETIME ONE Stop: 12/05/20 00:56 Last Admin: 12/05/20 01:22 Dose: 325 mg Documented by: Fish Oil (Fish Oil/[place]-3 Fatty Acids 1 Gm Cap) 1 gm PO DAILY [facility] Last Admin: 12/10/20 08:39 Dose: Not Given Documented by: Furosemide (Furosemide 40 Mg/4 Ml Vial) 40 mg IVPUSH NOW ONE Stop: 12/04/20 23:36 Last Admin: 12/05/20 00:08 Dose: 40 mg Documented by: Furosemide (Furosemide 40 Mg/4 Ml Vial) 40 mg IVPUSH BID [facility] Last Admin: 12/06/20 08:11 Dose: 40 mg Documented by: Furosemide (Furosemide 40 Mg/4 Ml Vial) 40 mg IVPUSH BIDDIURETIC [facility] Last Admin: 12/07/20 10:53 Dose: Not Given Documented by: Furosemide (Furosemide 40 Mg/4 Ml Vial) 40 mg IVPUSH TID [facility] Last Admin: 12/09/20 06:05 Dose: 40 mg Documented by: Heparin Sodium (Porcine) (Heparin Sodium 5,000 Units/Ml Vial) 5,000 units SUBCUT Q12H [facility] Last Admin: 12/05/20 14:23 Dose: 5,000 units Documented by: Heparin Sodium (Porcine) (Heparin Sodium 5,000 Units/Ml Vial) 5,000 units SUBCUT Q12H [facility] Last Admin: 12/11/20 14:02 Dose: 5,000 units Documented by: Magnesium Sulfate 4 gm/ Premix 100 mls @ 50 mls/hr IV ONETIME ONE Stop: 12/05/20 09:59 Last Admin: 12/05/20 08:14 Dose: 50 mls/hr Documented by: Magnesium Sulfate 2 gm/ Premix 50 mls @ 25 mls/hr IV ONETIME ONE Stop: 12/07/20 10:59 Last Admin: 12/07/20 11:48 Dose: 25 mls/hr Documented by: Magnesium Sulfate 4 gm/ Premix 100 mls @ 50 mls/hr IV ONETIME ONE Stop: 12/09/20 11:14 Last Admin: 12/09/20 10:19 Dose: 50 mls/hr Documented by: Magnesium Sulfate 4 gm/ Premix 100 mls @ 50 mls/hr IV ONETIME ONE Stop: 12/10/20 13:59 Last Admin: 12/10/20 13:34 Dose: 50 mls/hr Documented by: Insulin Aspart (Insulin Aspart 100 Units/Ml 3 Ml Pen) 3 unit SUBCUT TIDAC [facility] Last Admin: 12/08/20 13:12 Dose: Not Given Documented by: Insulin Aspart (Insulin Aspart 100 Units/Ml 3 Ml Pen) 5 unit SUBCUT TIDAC [facility] Last Admin: 12/10/20 20:12 Dose: Not Given Documented by: Insulin Glargine (Insulin Glargine,Human Rec. Analog 100 Units/Ml 3 Ml Pen) 5 units SUBCUT BEDTIME [facility] Last Admin: 12/05/20 21:55 Dose: 5 units Documented by: Insulin Glargine (Insulin Glargine,Human Rec. Analog 100 Units/Ml 3 Ml Pen) 10 units SUBCUT BEDTIME [facility] Last Admin: 12/07/20 21:55 Dose: 10 unit Documented by: Iopamidol (Iopamidol 755 Mg/Ml 500 Ml Multipack Bottle) 100 ml IVPUSH ONETIME STA Stop: 12/04/20 20:38 Last Admin: 12/04/20 20:38 Dose: 100 ml Documented by: Ketorolac Tromethamine (Ketorolac 15 Mg/Ml Sdv) 15 mg IVPUSH ONETIME ONE Stop: 12/09/20 13:49 Last Admin: 12/09/20 14:11 Dose: 15 mg Documented by: Lidocaine (Lidocaine 2% 5 Ml Sdv) Confirm Administered Dose 5 ml .ROUTE .STK-MED ONE Stop: 12/10/20 04:33 Last Admin: 12/10/20 05:59 Dose: Not Given Documented by: Loperamide HCl (Loperamide 2 Mg Cap) 2 mg PO ONETIME ONE Stop: 12/05/20 00:56 Last Admin: 12/05/20 01:23 Dose: 2 mg Documented by: Metolazone (Metolazone 5 Mg Tab) 5 mg PO ONETIME ONE Stop: 12/09/20 13:31 Last Admin: 12/09/20 13:12 Dose: 5 mg Documented by: Metolazone (Metolazone 5 Mg Tab) 10 mg PO ONETIME ONE Stop: 12/10/20 22:31 Last Admin: 12/10/20 21:59 Dose: 10 mg Documented by: Metolazone (Metolazone 5 Mg Tab) 10 mg PO ONETIME ONE Stop: 12/11/20 12:31 Last Admin: 12/11/20 13:30 Dose: 10 mg Documented by: - Exam General: Alert, Oriented Neck: Supple Lungs: Clear to Auscultation, Normal Respiratory Effort Cardiovascular: Regular Rate, Regular Rhythm GI/Abdominal Exam: Soft, Non-Tender, No Distention Extremities: Pedal Edema (+1), Other (mild joint effusion of right knee) - Patient Data Lab Results Last 24 hrs: Laboratory Results - last 24 hr 12/13/20 12/13/20 12/14/20 Range/Units 11:57 17:33 06:07 POC Glucose 296 H 377 H 327 H (70-99) mg/dL 12/14/20 Range/Units 12:11 POC Glucose 381 H (70-99) mg/dL Result Diagrams: 12/13/20 06:45 12/13/20 06:45 Sepsis Event Note - Evaluation Sepsis Screening Result: No Definite Risk - Focused Exam Vital Signs: Vital Signs Temp Pulse Resp BP BP Pulse Ox 12/14/20 08:32 134/63 12/14/20 08:00 36.6 C 63 18 134/63 94 L 12/14/20 04:00 63 16 112/51 L 93 L - Problem List & Annotations (1) Fluid overload SNOMED Code(s): 13310708 Code(s): E87.70 - FLUID OVERLOAD, UNSPECIFIED Status: Acute Current Visit: Yes (2) Hypoxia SNOMED Code(s): 983628687 Code(s): R09.02 - HYPOXEMIA Status: Acute Current Visit: Yes (3) CHF (congestive heart failure) SNOMED Code(s): 34373256 Code(s): I50.9 - HEART FAILURE, UNSPECIFIED Status: Acute Current Visit: Yes Qualifiers: Heart failure type: unspecified Heart failure chronicity: acute Qualified Code(s): I50.9 - Heart failure, unspecified - Problem List Review Problem List Initiated/Reviewed/Updated: Yes - My Orders Last 24 Hours: My Active Orders 12/14/20 05:11 BASIC METABOLIC PANEL,BMP [CHEM] AM CBC WITH AUTO DIFF [HEME] AM 12/15/20 05:11 BASIC METABOLIC PANEL,BMP [CHEM] AM CBC WITH AUTO DIFF [HEME] AM - Plan Plan:: 55 yo male admitted with CHF exacerbation CHF exacerbation: cont TID lasix ween supplemental oxygen as tolerated Arthritis: leg wraps and ice, PT consulted, DM: have placed on ssi and lantus, patient refuses to be on a diabetic diet. Patient will need to be on a blood thinner due to high Dave vas score and history of A. fib, there is a history of GI bleed in the past, will discuss pros and cons with the patient upon discharge in the meantime continue anticoagulat ion with heparin subcu 2D echo noted normal EF
[2020-12-14 13:06] LABS: CARBON DIOXIDE,CO2 34.8 mmol/L (21.0-32.0); POTASSIUM,K 4.2 mmol/L (3.5-5.1)
[2020-12-14] MEDS: Insulin Glargine,Human Rec. Analog 100 Units/ML 3 ML Pen SUBCUT SCH (21:05)
[2020-12-14] MEDS: Acetaminophen 500 MG Tab PO PRN (23:10)
[2020-12-15] MEDS: Acetaminophen/HYDROcodone 325-5 MG Tab PO PRN (00:51)
[2020-12-15] MEDS: Heparin Sodium 5,000 Units/ML Vial SUBCUT SCH ×3 (05:50→21:10)
[2020-12-15] MEDS: Furosemide 40 MG/4 ML VIAL IVPUSH SCH ×3 (05:51→21:17)
[2020-12-15] MEDS: Insulin Aspart 100 Units/ML 3 ML Pen SUBCUT SCH ×6 (06:42→17:42)
[2020-12-15] MEDS: Acetaminophen 500 MG Tab PO PRN ×2 (06:43→17:34)
[2020-12-15 06:48] LABS: CARBON DIOXIDE,CO2 34.8 mmol/L (21.0-32.0); POTASSIUM,K 4.4 mmol/L (3.5-5.1)
[2020-12-15] MEDS: Pantoprazole 40 MG Tab.CR PO SCH (08:35)
[2020-12-15] MEDS: atorvaSTATin 40 MG Tab PO SCH (08:35)
[2020-12-15] MEDS: Docusate Sodium 100 MG Cap PO SCH (08:35)
[2020-12-15] MEDS: Aspirin 81 MG Tab.EC PO SCH (08:36)
[2020-12-15] MEDS: Gabapentin 300 MG Cap PO SCH ×2 (08:36→21:11)
[2020-12-15] MEDS: Losartan 50 MG Tab PO SCH ×2 (08:36→21:10)
[2020-12-15] MEDS ORDERED: Glucagon,Human Recombinant 1 MG Vial IM PRN (12:28)
[2020-12-15] MEDS ORDERED: Insulin Aspart 100 Units/ML 3 ML Pen SUBCUT ONE (12:45)
[2020-12-15] MEDS ORDERED: Metolazone 5 MG Tab PO ONE (14:17)
--- NOTE | 2020-12-15 15:13 | PCM.PN ---
- General Info Date of Service: 12/15/20 Admission Dx/Problem (Free Text): Admission Diagnosis/Problem Admission Diagnosis/Problem Hypoxia Subjective Update: Patient seen at bedside, patient had requested to be seen by physical therapy again due to unwitnessed fall, PT was consulted again and was at bedside during my encounter. Patient's blood sugar this morning where extremely high requiring additional dose of insulin. Patient did have peanut butter and jelly which she thinks contributed to his high blood sugars. Patient continues to say that he is "watching his diet ", he has refused to be on diabetic diet and it also wants his fluid restrictions to be relaxed. Patient is counseled about the importance of fluid restriction again. Per PT patient is here to go home and does not need any assistive device or outpatient physical therapy at this point. Patient thinks he would need outpatient physical therapy and will ask his primary care provider to refer him to it. Patient continues to need oxygen on rest Functional Status: Reports: Tolerating Diet, Ambulating, Urinating - Review of Systems General: Denies: Fever, Weakness, Fatigue Pulmonary: Denies: Shortness of Breath, Pleuritic Chest Pain, Cough Gastrointestinal: Denies: Abdominal Pain, Constipation, Decreased Appetite Genitourinary: Denies: Dysuria, Frequency, Burning Musculoskeletal: Reports: Leg Pain, Joint Pain. Denies: Neck Pain, Shoulder Pain Skin: Denies: Cyanosis, Jaundice, Mottled - Patient Data Vitals - Most Recent: Last Vital Signs Temp 35.9 C L 12/15/20 08:28 Pulse 66 12/15/20 08:28 Resp 16 12/15/20 08:28 BP 116/80 12/15/20 08:36 Pulse Ox 96 12/15/20 08:28 Weight - Most Recent: 129.319 kg I&O - Last 24 Hours: Intake & Output 12/15/20 12/15/20 12/15/20 06:59 14:59 22:59 Intake Total 830 Output Total 600 Balance 230 Lab Results Last 24 Hours: Laboratory Results - last 24 hr 12/14/20 12/15/20 12/15/20 Range/Units 17:49 05:41 05:45 WBC 5.35 (4.0-11.0) K/uL RBC 3.35 L (4.50-5.90) M/uL Hgb 9.7 L (13.0-17.0) g/dL Hct 30.2 L (38.0-50.0) % MCV 90.1 (80.0-98.0) fL MCH 29.0 (27.0-32.0) pg MCHC 32.1 (31.0-37.0) g/dL RDW Std Deviation 57.8 (28.0-62.0) fl RDW Coeff of Aleida 18 H (11.0-15.0) % Plt Count 387 (150-400) K/uL MPV 10.10 (7.40-12.00) fL Neut % (Auto) 53.3 (48.0-80.0) % Lymph % (Auto) 33.6 (16.0-40.0) % [place] % (Auto) 12.0 (0.0-15.0) % Eos % (Auto) 0.9 (0.0-7.0) % Baso % (Auto) 0.2 (0.0-1.5) % Neut # (Auto) 2.9 (1.4-5.7) K/uL Lymph # (Auto) 1.8 (0.6-2.4) K/uL [place] # (Auto) 0.6 (0.0-0.8) K/uL Eos # (Auto) 0.1 (0.0-0.7) K/uL Baso # (Auto) 0.0 (0.0-0.1) K/uL Nucleated RBC % 0.0 /100WBC Nucleated RBCs # 0 K/uL Sodium (136-148) mmol/L Potassium (3.5-5.1) mmol/L Chloride (98-107) mmol/L Carbon Dioxide (21.0-32.0) mmol/L BUN (7.0-18.0) mg/dL Creatinine (0.8-1.3) mg/dL Est Cr Clr Drug Dosing mL/min Estimated GFR (MDRD) ml/min Glucose (74-106) mg/dL POC Glucose 327 H 501 H* (70-99) mg/dL Calcium (8.5-10.1) mg/dL 12/15/20 12/15/20 12/15/20 Range/Units 05:45 06:19 08:27 WBC (4.0-11.0) K/uL RBC (4.50-5.90) M/uL Hgb (13.0-17.0) g/dL Hct (38.0-50.0) % MCV (80.0-98.0) fL MCH (27.0-32.0) pg MCHC (31.0-37.0) g/dL RDW Std Deviation (28.0-62.0) fl RDW Coeff of Aleida (11.0-15.0) % Plt Count (150-400) K/uL MPV (7.40-12.00) fL Neut % (Auto) (48.0-80.0) % Lymph % (Auto) (16.0-40.0) % [place] % (Auto) (0.0-15.0) % Eos % (Auto) (0.0-7.0) % Baso % (Auto) (0.0-1.5) % Neut # (Auto) (1.4-5.7) K/uL Lymph # (Auto) (0.6-2.4) K/uL [place] # (Auto) (0.0-0.8) K/uL Eos # (Auto) (0.0-0.7) K/uL Baso # (Auto) (0.0-0.1) K/uL Nucleated RBC % /100WBC Nucleated RBCs # K/uL Sodium 130 L (136-148) mmol/L Potassium 4.4 (3.5-5.1) mmol/L Chloride 91 L (98-107) mmol/L Carbon Dioxide 34.8 H (21.0-32.0) mmol/L BUN 49 H (7.0-18.0) mg/dL Creatinine 1.7 H (0.8-1.3) mg/dL Est Cr Clr Drug Dosing 48.24 mL/min Estimated GFR (MDRD) 42.2 ml/min Glucose 565 H* (74-106) mg/dL POC Glucose 525 H* 435 H* (70-99) mg/dL Calcium 8.5 (8.5-10.1) mg/dL 12/15/20 12/15/20 Range/Units 12:14 14:37 WBC (4.0-11.0) K/uL RBC (4.50-5.90) M/uL Hgb (13.0-17.0) g/dL Hct (38.0-50.0) % MCV (80.0-98.0) fL MCH (27.0-32.0) pg MCHC (31.0-37.0) g/dL RDW Std Deviation (28.0-62.0) fl RDW Coeff of Aleida (11.0-15.0) % Plt Count (150-400) K/uL MPV (7.40-12.00) fL Neut % (Auto) (48.0-80.0) % Lymph % (Auto) (16.0-40.0) % [place] % (Auto) (0.0-15.0) % Eos % (Auto) (0.0-7.0) % Baso % (Auto) (0.0-1.5) % Neut # (Auto) (1.4-5.7) K/uL Lymph # (Auto) (0.6-2.4) K/uL [place] # (Auto) (0.0-0.8) K/uL Eos # (Auto) (0.0-0.7) K/uL Baso # (Auto) (0.0-0.1) K/uL Nucleated RBC % /100WBC Nucleated RBCs # K/uL Sodium (136-148) mmol/L Potassium (3.5-5.1) mmol/L Chloride (98-107) mmol/L Carbon Dioxide (21.0-32.0) mmol/L BUN (7.0-18.0) mg/dL Creatinine (0.8-1.3) mg/dL Est Cr Clr Drug Dosing mL/min Estimated GFR (MDRD) ml/min Glucose (74-106) mg/dL POC Glucose 406 H* 320 H (70-99) mg/dL Calcium (8.5-10.1) mg/dL Med Orders - Current: Current Medications Acetaminophen (Acetaminophen 500 Mg Tab) 500 mg PO Q6H PRN PRN Reason: Pain Last Admin: 12/15/20 06:43 Dose: 500 mg Documented by: Hydrocodone Bitart/Acetaminophen (Acetaminophen/Hydrocodone 325-5 Mg Tab) 1 tab PO Q6H PRN PRN Reason: Pain Last Admin: 12/15/20 00:51 Dose: 1 tab Documented by: Aspirin (Aspirin 81 Mg Tab.Ec) 81 mg PO DAILY [facility] Last Admin: 12/15/20 08:36 Dose: 81 mg Documented by: Atorvastatin Calcium (Atorvastatin 40 Mg Tab) 40 mg PO DAILY [facility] Last Admin: 12/15/20 08:35 Dose: 40 mg Documented by: Calcium Carbonate/Glycine (Calcium Carbonate 500 Mg Tab.Chew) 500 mg PO Q6H PRN PRN Reason: Indigestion Dextrose/Water (50% Dextrose In Water 50 Ml Syringe) 50 ml IVPUSH ASDIRECTED PRN PRN Reason: Hypoglycemia Docusate Sodium (Docusate Sodium 100 Mg Cap) 100 mg PO DAILY [facility] Last Admin: 12/15/20 08:35 Dose: 100 mg Documented by: Furosemide (Furosemide 40 Mg/4 Ml Vial) 60 mg IVPUSH TID [facility] Last Admin: 12/15/20 14:54 Dose: 60 mg Documented by: Gabapentin (Gabapentin 300 Mg Cap) 300 mg PO BID [facility] Last Admin: 12/15/20 08:36 Dose: 300 mg Documented by: Glucagon (Glucagon,Human Recombinant 1 Mg Vial) 1 mg IM ASDIRECTED PRN PRN Reason: Hypoglycemia Heparin Sodium (Porcine) (Heparin Sodium 5,000 Units/Ml Vial) 5,000 units SUBCUT Q8H [facility] Last Admin: 12/15/20 14:54 Dose: 5,000 units Documented by: Insulin Aspart (Insulin Aspart 100 Units/Ml 3 Ml Pen) 0 unit SUBCUT TIDAC [facility]; Protocol Last Admin: 12/15/20 14:53 Dose: 12 units Documented by: Insulin Aspart (Insulin Aspart 100 Units/Ml 3 Ml Pen) 10 unit SUBCUT TIDAC [facility] Insulin Glargine (Insulin Glargine,Human Rec. Analog 100 Units/Ml 3 Ml Pen) 15 units SUBCUT BEDTIME [facility] Losartan Potassium (Losartan 50 Mg Tab) 50 mg PO BID [facility] Last Admin: 12/15/20 08:36 Dose: 50 mg Documented by: Melatonin (Melatonin 3 Mg Tab) 6 mg PO BEDTIME PRN PRN Reason: Insomnia Last Admin: 12/05/20 22:45 Dose: 6 mg Documented by: Ondansetron HCl (Ondansetron 4 Mg/2 Ml Sdv) 4 mg IVPUSH Q4H PRN PRN Reason: Nausea/Vomiting Oxycodone HCl (Oxycodone 5 Mg Tab) 5 mg PO Q8H PRN PRN Reason: Pain Pantoprazole Sodium (Pantoprazole 40 Mg Tab.Cr) 40 mg PO DAILY [facility] Last Admin: 12/15/20 08:35 Dose: 40 mg Documented by: Sodium Chloride (Sodium Chloride 0.9% 10 Ml Syringe) 10 ml FLUSH ASDIRECTED PRN PRN Reason: Keep Vein Open Sodium Chloride (Sodium Chloride 0.9% 2.5 Ml Syringe) 2.5 ml FLUSH ASDIRECTED PRN PRN Reason: Keep Vein Open Discontinued Medications Aspirin (Aspirin 325 Mg Tab.Ec) 325 mg PO ONETIME ONE Stop: 12/05/20 00:56 Last Admin: 12/05/20 01:22 Dose: 325 mg Documented by: Fish Oil (Fish Oil/Marshall-3 Fatty Acids 1 Gm Cap) 1 gm PO DAILY [facility] Last Admin: 12/10/20 08:39 Dose: Not Given Documented by: Furosemide (Furosemide 40 Mg/4 Ml Vial) 40 mg IVPUSH NOW ONE Stop: 12/04/20 23:36 Last Admin: 12/05/20 00:08 Dose: 40 mg Documented by: Furosemide (Furosemide 40 Mg/4 Ml Vial) 40 mg IVPUSH BID [facility] Last Admin: 12/06/20 08:11 Dose: 40 mg Documented by: Furosemide (Furosemide 40 Mg/4 Ml Vial) 40 mg IVPUSH BIDDIURETIC [facility] Last Admin: 12/07/20 10:53 Dose: Not Given Documented by: Furosemide (Furosemide 40 Mg/4 Ml Vial) 40 mg IVPUSH TID [facility] Last Admin: 12/09/20 06:05 Dose: 40 mg Documented by: Heparin Sodium (Porcine) (Heparin Sodium 5,000 Units/Ml Vial) 5,000 units SUBCUT Q12H [facility] Last Admin: 12/05/20 14:23 Dose: 5,000 units Documented by: Heparin Sodium (Porcine) (Heparin Sodium 5,000 Units/Ml Vial) 5,000 units SUBCUT Q12H [facility] Last Admin: 12/11/20 14:02 Dose: 5,000 units Documented by: Magnesium Sulfate 4 gm/ Premix 100 mls @ 50 mls/hr IV ONETIME ONE Stop: 12/05/20 09:59 Last Admin: 12/05/20 08:14 Dose: 50 mls/hr Documented by: Magnesium Sulfate 2 gm/ Premix 50 mls @ 25 mls/hr IV ONETIME ONE Stop: 12/07/20 10:59 Last Admin: 12/07/20 11:48 Dose: 25 mls/hr Documented by: Magnesium Sulfate 4 gm/ Premix 100 mls @ 50 mls/hr IV ONETIME ONE Stop: 12/09/20 11:14 Last Admin: 12/09/20 10:19 Dose: 50 mls/hr Documented by: Magnesium Sulfate 4 gm/ Premix 100 mls @ 50 mls/hr IV ONETIME ONE Stop: 12/10/20 13:59 Last Admin: 12/10/20 13:34 Dose: 50 mls/hr Documented by: Insulin Aspart (Insulin Aspart 100 Units/Ml 3 Ml Pen) 3 unit SUBCUT TIDAC [facility] Last Admin: 12/08/20 13:12 Dose: Not Given Documented by: Insulin Aspart (Insulin Aspart 100 Units/Ml 3 Ml Pen) 5 unit SUBCUT TIDAC [facility] Last Admin: 12/10/20 20:12 Dose: Not Given Documented by: Insulin Aspart (Insulin Aspart 100 Units/Ml 3 Ml Pen) 7 unit SUBCUT TIDAC [facility] Last Admin: 12/15/20 12:39 Dose: 7 units Documented by: Insulin Aspart (Insulin Aspart 100 Units/Ml 3 Ml Pen) 20 unit SUBCUT ONETIME ONE Stop: 12/15/20 12:46 Last Admin: 12/15/20 12:38 Dose: 20 unit Documented by: Insulin Glargine (Insulin Glargine,Human Rec. Analog 100 Units/Ml 3 Ml Pen) 5 units SUBCUT BEDTIME [facility] Last Admin: 12/05/20 21:55 Dose: 5 units Documented by: Insulin Glargine (Insulin Glargine,Human Rec. Analog 100 Units/Ml 3 Ml Pen) 10 units SUBCUT BEDTIME [facility] Last Admin: 12/07/20 21:55 Dose: 10 unit Documented by: Insulin Glargine (Insulin Glargine,Human Rec. Analog 100 Units/Ml 3 Ml Pen) 13 units SUBCUT BEDTIME [facility] Last Admin: 12/14/20 21:05 Dose: 13 units Documented by: Iopamidol (Iopamidol 755 Mg/Ml 500 Ml Multipack Bottle) 100 ml IVPUSH ONETIME STA Stop: 12/04/20 20:38 Last Admin: 12/04/20 20:38 Dose: 100 ml Documented by: Ketorolac Tromethamine (Ketorolac 15 Mg/Ml Sdv) 15 mg IVPUSH ONETIME ONE Stop: 12/09/20 13:49 Last Admin: 12/09/20 14:11 Dose: 15 mg Documented by: Lidocaine (Lidocaine 2% 5 Ml Sdv) Confirm Administered Dose 5 ml .ROUTE .STK-MED ONE Stop: 12/10/20 04:33 Last Admin: 12/10/20 05:59 Dose: Not Given Documented by: Loperamide HCl (Loperamide 2 Mg Cap) 2 mg PO ONETIME ONE Stop: 12/05/20 00:56 Last Admin: 12/05/20 01:23 Dose: 2 mg Documented by: Metolazone (Metolazone 5 Mg Tab) 5 mg PO ONETIME ONE Stop: 12/09/20 13:31 Last Admin: 12/09/20 13:12 Dose: 5 mg Documented by: Metolazone (Metolazone 5 Mg Tab) 10 mg PO ONETIME ONE Stop: 12/10/20 22:31 Last Admin: 12/10/20 21:59 Dose: 10 mg Documented by: Metolazone (Metolazone 5 Mg Tab) 10 mg PO ONETIME ONE Stop: 12/11/20 12:31 Last Admin: 12/11/20 13:30 Dose: 10 mg Documented by: Metolazone (Metolazone 5 Mg Tab) 10 mg PO ONETIME ONE Stop: 12/15/20 14:18 Last Admin: 12/15/20 14:54 Dose: 10 mg Documented by: - Exam Quality Assessment: Supplemental Oxygen General: Alert, Oriented, No Acute Distress Neck: Supple Lungs: Normal Respiratory Effort, Crackles, Rales Cardiovascular: Regular Rate, Regular Rhythm GI/Abdominal Exam: Normal Bowel Sounds, Soft, Non-Tender Extremities: Pedal Edema, Other (Legs are wrapped in John wrap, sling has evidently improved) - Patient Data Lab Results Last 24 hrs: Laboratory Results - last 24 hr 12/14/20 12/15/20 12/15/20 Range/Units 17:49 05:41 05:45 WBC 5.35 (4.0-11.0) K/uL RBC 3.35 L (4.50-5.90) M/uL Hgb 9.7 L (13.0-17.0) g/dL Hct 30.2 L (38.0-50.0) % MCV 90.1 (80.0-98.0) fL MCH 29.0 (27.0-32.0) pg MCHC 32.1 (31.0-37.0) g/dL RDW Std Deviation 57.8 (28.0-62.0) fl RDW Coeff of Aleida 18 H (11.0-15.0) % Plt Count 387 (150-400) K/uL MPV 10.10 (7.40-12.00) fL Neut % (Auto) 53.3 (48.0-80.0) % Lymph % (Auto) 33.6 (16.0-40.0) % [place] % (Auto) 12.0 (0.0-15.0) % Eos % (Auto) 0.9 (0.0-7.0) % Baso % (Auto) 0.2 (0.0-1.5) % Neut # (Auto) 2.9 (1.4-5.7) K/uL Lymph # (Auto) 1.8 (0.6-2.4) K/uL [place] # (Auto) 0.6 (0.0-0.8) K/uL Eos # (Auto) 0.1 (0.0-0.7) K/uL Baso # (Auto) 0.0 (0.0-0.1) K/uL Nucleated RBC % 0.0 /100WBC Nucleated RBCs # 0 K/uL Sodium (136-148) mmol/L Potassium (3.5-5.1) mmol/L Chloride (98-107) mmol/L Carbon Dioxide (21.0-32.0) mmol/L BUN (7.0-18.0) mg/dL Creatinine (0.8-1.3) mg/dL Est Cr Clr Drug Dosing mL/min Estimated GFR (MDRD) ml/min Glucose (74-106) mg/dL POC Glucose 327 H 501 H* (70-99) mg/dL Calcium (8.5-10.1) mg/dL 12/15/20 12/15/20 12/15/20 Range/Units 05:45 06:19 08:27 WBC (4.0-11.0) K/uL RBC (4.50-5.90) M/uL Hgb (13.0-17.0) g/dL Hct (38.0-50.0) % MCV (80.0-98.0) fL MCH (27.0-32.0) pg MCHC (31.0-37.0) g/dL RDW Std Deviation (28.0-62.0) fl RDW Coeff of Aleida (11.0-15.0) % Plt Count (150-400) K/uL MPV (7.40-12.00) fL Neut % (Auto) (48.0-80.0) % Lymph % (Auto) (16.0-40.0) % [place] % (Auto) (0.0-15.0) % Eos % (Auto) (0.0-7.0) % Baso % (Auto) (0.0-1.5) % Neut # (Auto) (1.4-5.7) K/uL Lymph # (Auto) (0.6-2.4) K/uL [place] # (Auto) (0.0-0.8) K/uL Eos # (Auto) (0.0-0.7) K/uL Baso # (Auto) (0.0-0.1) K/uL Nucleated RBC % /100WBC Nucleated RBCs # K/uL Sodium 130 L (136-148) mmol/L Potassium 4.4 (3.5-5.1) mmol/L Chloride 91 L (98-107) mmol/L Carbon Dioxide 34.8 H (21.0-32.0) mmol/L BUN 49 H (7.0-18.0) mg/dL Creatinine 1.7 H (0.8-1.3) mg/dL Est Cr Clr Drug Dosing 48.24 mL/min Estimated GFR (MDRD) 42.2 ml/min Glucose 565 H* (74-106) mg/dL POC Glucose 525 H* 435 H* (70-99) mg/dL Calcium 8.5 (8.5-10.1) mg/dL 12/15/20 12/15/20 Range/Units 12:14 14:37 WBC (4.0-11.0) K/uL RBC (4.50-5.90) M/uL Hgb (13.0-17.0) g/dL Hct (38.0-50.0) % MCV (80.0-98.0) fL MCH (27.0-32.0) pg MCHC (31.0-37.0) g/dL RDW Std Deviation (28.0-62.0) fl RDW Coeff of Aleida (11.0-15.0) % Plt Count (150-400) K/uL MPV (7.40-12.00) fL Neut % (Auto) (48.0-80.0) % Lymph % (Auto) (16.0-40.0) % [place] % (Auto) (0.0-15.0) % Eos % (Auto) (0.0-7.0) % Baso % (Auto) (0.0-1.5) % Neut # (Auto) (1.4-5.7) K/uL Lymph # (Auto) (0.6-2.4) K/uL [place] # (Auto) (0.0-0.8) K/uL Eos # (Auto) (0.0-0.7) K/uL Baso # (Auto) (0.0-0.1) K/uL Nucleated RBC % /100WBC Nucleated RBCs # K/uL Sodium (136-148) mmol/L Potassium (3.5-5.1) mmol/L Chloride (98-107) mmol/L Carbon Dioxide (21.0-32.0) mmol/L BUN (7.0-18.0) mg/dL Creatinine (0.8-1.3) mg/dL Est Cr Clr Drug Dosing mL/min Estimated GFR (MDRD) ml/min Glucose (74-106) mg/dL POC Glucose 406 H* 320 H (70-99) mg/dL Calcium (8.5-10.1) mg/dL Result Diagrams: 12/15/20 05:45 12/15/20 05:45 Sepsis Event Note - Evaluation Sepsis Screening Result: No Definite Risk - Focused Exam Vital Signs: Vital Signs Temp Pulse Resp BP BP Pulse Ox 12/15/20 08:36 116/80 12/15/20 08:28 35.9 C L 66 16 116/80 96 12/15/20 04:00 35.9 C L 65 16 142/52 H 92 L - Problem List & Annotations (1) CHF (congestive heart failure) SNOMED Code(s): 65736725 Code(s): I50.9 - HEART FAILURE, UNSPECIFIED Status: Acute Current Visit: Yes Qualifiers: Heart failure type: unspecified Heart failure chronicity: acute Qualified Code(s): I50.9 - Heart failure, unspecified (2) Chronic knee pain SNOMED Code(s): 7465752557 Code(s): M25.569 - PAIN IN UNSPECIFIED KNEE; G89.29 - OTHER CHRONIC PAIN Status: Acute Current Visit: Yes Qualifiers: Laterality: right Qualified Code(s): M25.561 - Pain in right knee; G89.29 - Other chronic pain (3) Fluid overload SNOMED Code(s): 40748708 Code(s): E87.70 - FLUID OVERLOAD, UNSPECIFIED Status: Acute Current Visit: Yes (4) Hypoxia SNOMED Code(s): 435965415 Code(s): R09.02 - HYPOXEMIA Status: Acute Current Visit: Yes (5) Atrial fibrillation with normal ventricular rate SNOMED Code(s): 39187489 Code(s): I48.91 - UNSPECIFIED ATRIAL FIBRILLATION Status: Acute Current Visit: No (6) Non-compliance SNOMED Code(s): 7859118 Code(s): Z91.19 - PATIENT'S NONCOMPLIANCE W OTH MEDICAL TREATMENT AND REGIMEN Status: Acute Current Visit: Yes (7) Suprapatellar effusion of knee SNOMED Code(s): 559074964 Code(s): M25.469 - EFFUSION, UNSPECIFIED KNEE Status: Acute Current Visit: Yes - Problem List Review Problem List Initiated/Reviewed/Updated: Yes - My Orders Last 24 Hours: My Active Orders 12/15/20 11:50 Consult to Physical Therapy [PT Evaluation and Treatment] [CONS] Routine 12/15/20 17:00 Insulin Aspart [NovoLOG] 10 unit SUBCUT TIDAC 12/15/20 21:00 Insulin Glarg,Human.Rec.Analog [LantUS Solostar] 15 units SUBCUT BEDTIME - Plan Plan:: 55 yo male admitted with CHF exacerbation CHF exacerbation: cont TID lasix ween supplemental oxygen as tolerated, metolazone as needed-hour before Lasix Arthritis: leg wraps and ice, PT consulted, DM: have placed on ssi and lantus, patient refuses to be on a diabetic diet. Patient will need to be on a blood thinner due to high Dave vas score and h istory of A. fib, there is a history of GI bleed in the past, will discuss pros and cons with the patient upon discharge in the meantime continue anticoagulation with heparin subcu 2D echo noted normal EF
[2020-12-15] MEDS: Insulin Glargine,Human Rec. Analog 100 Units/ML 3 ML Pen SUBCUT SCH (21:14)
[2020-12-16] MEDS: Acetaminophen 500 MG Tab PO PRN ×2 (04:24→21:07)
[2020-12-16] MEDS: Heparin Sodium 5,000 Units/ML Vial SUBCUT SCH ×3 (06:19→21:10)
[2020-12-16] MEDS: Furosemide 40 MG/4 ML VIAL IVPUSH SCH ×3 (06:26→21:10)
[2020-12-16 07:00] LABS: CARBON DIOXIDE,CO2 36.5 mmol/L (21.0-32.0); POTASSIUM,K 4.7 mmol/L (3.5-5.1)
[2020-12-16] MEDS: Insulin Aspart 100 Units/ML 3 ML Pen SUBCUT SCH ×6 (08:12→17:43)
[2020-12-16] MEDS: Acetaminophen/HYDROcodone 325-5 MG Tab PO PRN (08:54)
[2020-12-16] MEDS: Docusate Sodium 100 MG Cap PO SCH (08:54)
[2020-12-16] MEDS: Losartan 50 MG Tab PO SCH ×2 (08:56→21:07)
[2020-12-16] MEDS: Aspirin 81 MG Tab.EC PO SCH (08:56)
[2020-12-16] MEDS: Gabapentin 300 MG Cap PO SCH ×2 (08:57→21:07)
[2020-12-16] MEDS: Pantoprazole 40 MG Tab.CR PO SCH (08:57)
[2020-12-16] MEDS: atorvaSTATin 40 MG Tab PO SCH (08:57)
[2020-12-16] MEDS ORDERED: Magnesium Sulfate/Water 4 GM in Premix Bag 1 BAG IV ONE (10:58)
--- NOTE | 2020-12-16 15:47 | PCM.PN ---
- General Info Date of Service: 12/16/20 Admission Dx/Problem (Free Text): Admission Diagnosis/Problem Admission Diagnosis/Problem Hypoxia Subjective Update: Patient seen at bedside, states that he tried to get up and probably twisted his back that is causing him some pain. No other complaints. I talked to patient in detail about his history of A. fib and the need of possible anticoagulation given his high [id number] score as well as need for insulin given his high blood sugars throughout the stay. Patient refuses to take insulin but agreed that I can send to his pharmacy in case it is required in future Functional Status: Reports: Tolerating Diet, Ambulating, Urinating - Review of Systems General: Denies: Weakness, Fatigue, Malaise Pulmonary: Denies: Shortness of Breath, Pleuritic Chest Pain, Cough Cardiovascular: Reports: Edema. Denies: Chest Pain, Palpitations, Dyspnea on Exertion, Lightheadedness Gastrointestinal: Denies: Abdominal Pain, Constipation, Decreased Appetite, Nausea, Vomiting, Other Genitourinary: Denies: Dysuria, Frequency, Burning Musculoskeletal: Denies: Neck Pain, Shoulder Pain, Arm Pain Skin: Denies: Cyanosis, Jaundice, Mottled Neurological: Denies: Confusion, Dizziness, Headache - Patient Data Vitals - Most Recent: Last Vital Signs Temp 36.1 C 12/16/20 13:00 Pulse 66 12/16/20 13:00 Resp 18 12/16/20 13:00 BP 106/53 L 12/16/20 13:00 Pulse Ox 98 12/16/20 13:00 Weight - Most Recent: 127.732 kg I&O - Last 24 Hours: Intake & Output 12/16/20 12/16/20 12/16/20 06:59 14:59 22:59 Intake Total 750 657 Output Total 700 800 Balance 50 -143 Lab Results Last 24 Hours: Laboratory Results - last 24 hr 12/15/20 12/15/20 12/16/20 Range/Units 17:40 21:03 05:50 WBC 6.74 (4.0-11.0) K/uL RBC 3.36 L (4.50-5.90) M/uL Hgb 9.6 L (13.0-17.0) g/dL Hct 30.4 L (38.0-50.0) % MCV 90.5 (80.0-98.0) fL MCH 28.6 (27.0-32.0) pg MCHC 31.6 (31.0-37.0) g/dL RDW Std Deviation 57.7 (28.0-62.0) fl RDW Coeff of Aleida 18 H (11.0-15.0) % Plt Count 366 (150-400) K/uL MPV 10.00 (7.40-12.00) fL Neut % (Auto) 58.9 (48.0-80.0) % Lymph % (Auto) 29.4 (16.0-40.0) % Payne % (Auto) 10.8 (0.0-15.0) % Eos % (Auto) 0.6 (0.0-7.0) % Baso % (Auto) 0.3 (0.0-1.5) % Neut # (Auto) 4.0 (1.4-5.7) K/uL Lymph # (Auto) 2.0 (0.6-2.4) K/uL Payne # (Auto) 0.7 (0.0-0.8) K/uL Eos # (Auto) 0.0 (0.0-0.7) K/uL Baso # (Auto) 0.0 (0.0-0.1) K/uL Nucleated RBC % 0.0 /100WBC Nucleated RBCs # 0 K/uL Sodium (136-148) mmol/L Potassium (3.5-5.1) mmol/L Chloride (98-107) mmol/L Carbon Dioxide (21.0-32.0) mmol/L BUN (7.0-18.0) mg/dL Creatinine (0.8-1.3) mg/dL Est Cr Clr Drug Dosing mL/min Estimated GFR (MDRD) ml/min Glucose (74-106) mg/dL POC Glucose 304 H 335 H (70-99) mg/dL Calcium (8.5-10.1) mg/dL Phosphorus (2.6-4.7) mg/dL Magnesium (1.8-2.4) mg/dL 12/16/20 12/16/20 12/16/20 Range/Units 05:50 06:18 12:22 WBC (4.0-11.0) K/uL RBC (4.50-5.90) M/uL Hgb (13.0-17.0) g/dL Hct (38.0-50.0) % MCV (80.0-98.0) fL MCH (27.0-32.0) pg MCHC (31.0-37.0) g/dL RDW Std Deviation (28.0-62.0) fl RDW Coeff of Aleida (11.0-15.0) % Plt Count (150-400) K/uL MPV (7.40-12.00) fL Neut % (Auto) (48.0-80.0) % Lymph % (Auto) (16.0-40.0) % Payne % (Auto) (0.0-15.0) % Eos % (Auto) (0.0-7.0) % Baso % (Auto) (0.0-1.5) % Neut # (Auto) (1.4-5.7) K/uL Lymph # (Auto) (0.6-2.4) K/uL Payne # (Auto) (0.0-0.8) K/uL Eos # (Auto) (0.0-0.7) K/uL Baso # (Auto) (0.0-0.1) K/uL Nucleated RBC % /100WBC Nucleated RBCs # K/uL Sodium 135 L (136-148) mmol/L Potassium 4.7 (3.5-5.1) mmol/L Chloride 94 L (98-107) mmol/L Carbon Dioxide 36.5 H (21.0-32.0) mmol/L BUN 56 H (7.0-18.0) mg/dL Creatinine 1.9 H (0.8-1.3) mg/dL Est Cr Clr Drug Dosing 43.16 mL/min Estimated GFR (MDRD) 37.1 ml/min Glucose 338 H (74-106) mg/dL POC Glucose 303 H 320 H (70-99) mg/dL Calcium 8.7 (8.5-10.1) mg/dL Phosphorus 4.4 (2.6-4.7) mg/dL Magnesium 1.1 L (1.8-2.4) mg/dL Med Orders - Current: Current Medications Acetaminophen (Acetaminophen 500 Mg Tab) 500 mg PO Q6H PRN PRN Reason: Pain Last Admin: 12/16/20 04:24 Dose: 500 mg Documented by: Hydrocodone Bitart/Acetaminophen (Acetaminophen/Hydrocodone 325-5 Mg Tab) 1 tab PO Q6H PRN PRN Reason: Pain Last Admin: 12/16/20 08:54 Dose: 1 tab Documented by: Aspirin (Aspirin 81 Mg Tab.Ec) 81 mg PO DAILY [facility] Last Admin: 12/16/20 08:56 Dose: 81 mg Documented by: Atorvastatin Calcium (Atorvastatin 40 Mg Tab) 40 mg PO DAILY [facility] Last Admin: 12/16/20 08:57 Dose: 40 mg Documented by: Calcium Carbonate/Glycine (Calcium Carbonate 500 Mg Tab.Chew) 500 mg PO Q6H PRN PRN Reason: Indigestion Dextrose/Water (50% Dextrose In Water 50 Ml Syringe) 50 ml IVPUSH ASDIRECTED PRN PRN Reason: Hypoglycemia Docusate Sodium (Docusate Sodium 100 Mg Cap) 100 mg PO DAILY [facility] Last Admin: 12/16/20 08:54 Dose: 100 mg Documented by: Furosemide (Furosemide 40 Mg/4 Ml Vial) 60 mg IVPUSH TID [facility] Last Admin: 12/16/20 13:29 Dose: 60 mg Documented by: Gabapentin (Gabapentin 300 Mg Cap) 300 mg PO BID [facility] Last Admin: 12/16/20 08:57 Dose: 300 mg Documented by: Glucagon (Glucagon,Human Recombinant 1 Mg Vial) 1 mg IM ASDIRECTED PRN PRN Reason: Hypoglycemia Heparin Sodium (Porcine) (Heparin Sodium 5,000 Units/Ml Vial) 5,000 units SUBC UT Q8H [facility] Last Admin: 12/16/20 13:29 Dose: 5,000 units Documented by: Insulin Aspart (Insulin Aspart 100 Units/Ml 3 Ml Pen) 0 unit SUBCUT TIDAC [facility]; Protocol Last Admin: 12/16/20 13:00 Dose: 12 units Documented by: Insulin Aspart (Insulin Aspart 100 Units/Ml 3 Ml Pen) 10 unit SUBCUT TIDAC [facility] Last Admin: 12/16/20 12:59 Dose: 10 unit Documented by: Insulin Glargine (Insulin Glargine,Human Rec. Analog 100 Units/Ml 3 Ml Pen) 15 units SUBCUT BEDTIME [facility] Last Admin: 12/15/20 21:14 Dose: 15 units Documented by: Losartan Potassium (Losartan 50 Mg Tab) 50 mg PO BID [facility] Last Admin: 12/16/20 08:56 Dose: 50 mg Documented by: Melatonin (Melatonin 3 Mg Tab) 6 mg PO BEDTIME PRN PRN Reason: Insomnia Last Admin: 12/05/20 22:45 Dose: 6 mg Documented by: Ondansetron HCl (Ondansetron 4 Mg/2 Ml Sdv) 4 mg IVPUSH Q4H PRN PRN Reason: Nausea/Vomiting Oxycodone HCl (Oxycodone 5 Mg Tab) 5 mg PO Q8H PRN PRN Reason: Pain Pantoprazole Sodium (Pantoprazole 40 Mg Tab.Cr) 40 mg PO DAILY [facility] Last Admin: 12/16/20 08:57 Dose: 40 mg Documented by: Sodium Chloride (Sodium Chloride 0.9% 10 Ml Syringe) 10 ml FLUSH ASDIRECTED PRN PRN Reason: Keep Vein Open Sodium Chloride (Sodium Chloride 0.9% 2.5 Ml Syringe) 2.5 ml FLUSH ASDIRECTED PRN PRN Reason: Keep Vein Open Discontinued Medications Aspirin (Aspirin 325 Mg Tab.Ec) 325 mg PO ONETIME ONE Stop: 12/05/20 00:56 Last Admin: 12/05/20 01:22 Dose: 325 mg Documented by: Fish Oil (Fish Oil/[place]-3 Fatty Acids 1 Gm Cap) 1 gm PO DAILY [facility] Last Admin: 12/10/20 08:39 Dose: Not Given Documented by: Furosemide (Furosemide 40 Mg/4 Ml Vial) 40 mg IVPUSH NOW ONE Stop: 12/04/20 23:36 Last Admin: 12/05/20 00:08 Dose: 40 mg Documented by: Furosemide (Furosemide 40 Mg/4 Ml Vial) 40 mg IVPUSH BID [facility] Last Admin: 12/06/20 08:11 Dose: 40 mg Documented by: Furosemide (Furosemide 40 Mg/4 Ml Vial) 40 mg IVPUSH BIDDIURETIC [facility] Last Admin: 12/07/20 10:53 Dose: Not Given Documented by: Furosemide (Furosemide 40 Mg/4 Ml Vial) 40 mg IVPUSH TID [facility] Last Admin: 12/09/20 06:05 Dose: 40 mg Documented by: Heparin Sodium (Porcine) (Heparin Sodium 5,000 Units/Ml Vial) 5,000 units SUBCUT Q12H [facility] Last Admin: 12/05/20 14:23 Dose: 5,000 units Documented by: Heparin Sodium (Porcine) (Heparin Sodium 5,000 Units/Ml Vial) 5,000 units SUBCUT Q12H [facility] Last Admin: 12/11/20 14:02 Dose: 5,000 units Documented by: Magnesium Sulfate 4 gm/ Premix 100 mls @ 50 mls/hr IV ONETIME ONE Stop: 12/05/20 09:59 Last Admin: 12/05/20 08:14 Dose: 50 mls/hr Documented by: Magnesium Sulfate 2 gm/ Premix 50 mls @ 25 mls/hr IV ONETIME ONE Stop: 12/07/20 10:59 Last Admin: 12/07/20 11:48 Dose: 25 mls/hr Documented by: Magnesium Sulfate 4 gm/ Premix 100 mls @ 50 mls/hr IV ONETIME ONE Stop: 12/09/20 11:14 Last Admin: 12/09/20 10:19 Dose: 50 mls/hr Documented by: Magnesium Sulfate 4 gm/ Premix 100 mls @ 50 mls/hr IV ONETIME ONE Stop: 12/10/20 13:59 Last Admin: 12/10/20 13:34 Dose: 50 mls/hr Documented by: Magnesium Sulfate 4 gm/ Premix 100 mls @ 50 mls/hr IV ONETIME ONE Stop: 12/16/20 12:57 Last Admin: 12/16/20 11:50 Dose: 50 mls/hr Documented by: Insulin Aspart (Insulin Aspart 100 Units/Ml 3 Ml Pen) 3 unit SUBCUT TIDAC [facility] Last Admin: 12/08/20 13:12 Dose: Not Given Documented by: Insulin Aspart (Insulin Aspart 100 Units/Ml 3 Ml Pen) 5 unit SUBCUT TIDAC [facility] Last Admin: 12/10/20 20:12 Dose: Not Given Documented by: Insulin Aspart (Insulin Aspart 100 Units/Ml 3 Ml Pen) [facility] Last Admin: 12/15/20 12:39 Dose: 7 units Documented by: Insulin Aspart (Insulin Aspart 100 Units/Ml 3 Ml Pen) 20 unit SUBCUT ONETIME ONE Stop: 12/15/20 12:46 Last Admin: 12/15/20 12:38 Dose: 20 unit Documented by: Insulin Glargine (Insulin Glargine,Human Rec. Analog 100 Units/Ml 3 Ml Pen) 5 units SUBCUT BEDTIME [facility] Last Admin: 12/05/20 21:55 Dose: 5 units Documented by: Insulin Glargine (Insulin Glargine,Human Rec. Analog 100 Units/Ml 3 Ml Pen) 10 units SUBCUT BEDTIME [facility] Last Admin: 12/07/20 21:55 Dose: 10 unit Documented by: Insulin Glargine (Insulin Glargine,Human Rec. Analog 100 Units/Ml 3 Ml Pen) 13 units SUBCUT BEDTIME [facility] Last Admin: 12/14/20 21:05 Dose: 13 units Documented by: Iopamidol (Iopamidol 755 Mg/Ml 500 Ml Multipack Bottle) 100 ml IVPUSH ONETIME STA Stop: 12/04/20 20:38 Last Admin: 12/04/20 20:38 Dose: 100 ml Documented by: Ketorolac Tromethamine (Ketorolac 15 Mg/Ml Sdv) 15 mg IVPUSH ONETIME ONE Stop: 12/09/20 13:49 Last Admin: 12/09/20 14:11 Dose: 15 mg Documented by: Lidocaine (Lidocaine 2% 5 Ml Sdv) Confirm Administered Dose 5 ml .ROUTE .STK-MED ONE Stop: 12/10/20 04:33 Last Admin: 12/10/20 05:59 Dose: Not Given Documented by: Loperamide HCl (Loperamide 2 Mg Cap) 2 mg PO ONETIME ONE Stop: 12/05/20 00:56 Last Admin: 12/05/20 01:23 Dose: 2 mg Documented by: Metolazone (Metolazone 5 Mg Tab) 5 mg PO ONETIME ONE Stop: 12/09/20 13:31 Last Admin: 12/09/20 13:12 Dose: 5 mg Documented by: Metolazone (Metolazone 5 Mg Tab) 10 mg PO ONETIME ONE Stop: 12/10/20 22:31 Last Admin: 12/10/20 21:59 Dose: 10 mg Documented by: Metolazone (Metolazone 5 Mg Tab) 10 mg PO ONETIME ONE Stop: 12/11/20 12:31 Last Admin: 12/11/20 13:30 Dose: 10 mg Documented by: Metolazone (Metolazone 5 Mg Tab) 10 mg PO ONETIME ONE Stop: 12/15/20 14:18 Last Admin: 12/15/20 14:54 Dose: 10 mg Documented by: - Exam Quality Assessment: Supplemental Oxygen General: Alert, Oriented, No Acute Distress Neck: Supple Lungs: Clear to Auscultation, Normal Respiratory Effort. No: Crackles, Rales, Wheezing Cardiovascular: Irregular Rhythm. No: Bradycardia, Tachycardia GI/Abdominal Exam: Normal Bowel Sounds, Soft, Non-Tender Back Exam: Normal Inspection, Decreased Range of Motion, Muscle Spasm - Patient Data Lab Results Last 24 hrs: Laboratory Results - last 24 hr 12/15/20 12/15/20 12/16/20 Range/Units 17:40 21:03 05:50 WBC 6.74 (4.0-11.0) K/uL RBC 3.36 L (4.50-5.90) M/uL Hgb 9.6 L (13.0-17.0) g/dL Hct 30.4 L (38.0-50.0) % MCV 90.5 (80.0-98.0) fL MCH 28.6 (27.0-32.0) pg MCHC 31.6 (31.0-37.0) g/dL RDW Std Deviation 57.7 (28.0-62.0) fl RDW Coeff of Aleida 18 H (11.0-15.0) % Plt Count 366 (150-400) K/uL MPV 10.00 (7.40-12.00) fL Neut % (Auto) 58.9 (48.0-80.0) % Lymph % (Auto) 29.4 (16.0-40.0) % Payne % (Auto) 10.8 (0.0-15.0) % Eos % (Auto) 0.6 (0.0-7.0) % Baso % (Auto) 0.3 (0.0-1.5) % Neut # (Auto) 4.0 (1.4-5.7) K/uL Lymph # (Auto) 2.0 (0.6-2.4) K/uL Payne # (Auto) 0.7 (0.0-0.8) K/uL Eos # (Auto) 0.0 (0.0-0.7) K/uL Baso # (Auto) 0.0 (0.0-0.1) K/uL Nucleated RBC % 0.0 /100WBC Nucleated RBCs # 0 K/uL Sodium (136-148) mmol/L Potassium (3.5-5.1) mmol/L Chloride (98-107) mmol/L Carbon Dioxide (21.0-32.0) mmol/L BUN (7.0-18.0) mg/dL Creatinine (0.8-1.3) mg/dL Est Cr Clr Drug Dosing mL/min Estimated GFR (MDRD) ml/min Glucose (74-106) mg/dL POC Glucose 304 H 335 H (70-99) mg/dL Calcium (8.5-10.1) mg/dL Phosphorus (2.6-4.7) mg/dL Magnesium (1.8-2.4) mg/dL 12/16/20 12/16/20 12/16/20 Range/Units 05:50 06:18 12:22 WBC (4.0-11.0) K/uL RBC (4.50-5.90) M/uL Hgb (13.0-17.0) g/dL Hct (38.0-50.0) % MCV (80.0-98.0) fL MCH (27.0-32.0) pg MCHC (31.0-37.0) g/dL RDW Std Deviation (28.0-62.0) fl RDW Coeff of Aleida (11.0-15.0) % Plt Count (150-400) K/uL MPV (7.40-12.00) fL Neut % (Auto) (48.0-80.0) % Lymph % (Auto) (16.0-40.0) % Payne % (Auto) (0.0-15.0) % Eos % (Auto) (0.0-7.0) % Baso % (Auto) (0.0-1.5) % Neut # (Auto) (1.4-5.7) K/uL Lymph # (Auto) (0.6-2.4) K/uL Payne # (Auto) (0.0-0.8) K/uL Eos # (Auto) (0.0-0.7) K/uL Baso # (Auto) (0.0-0.1) K/uL Nucleated RBC % /100WBC Nucleated RBCs # K/uL Sodium 135 L (136-148) mmol/L Potassium 4.7 (3.5-5.1) mmol/L Chloride 94 L (98-107) mmol/L Carbon Dioxide 36.5 H (21.0-32.0) mmol/L BUN 56 H (7.0-18.0) mg/dL Creatinine 1.9 H (0.8-1.3) mg/dL Est Cr Clr Drug Dosing 43.16 mL/min Estimated GFR (MDRD) 37.1 ml/min Glucose 338 H (74-106) mg/dL POC Glucose 303 H 320 H (70-99) mg/dL Calcium 8.7 (8.5-10.1) mg/dL Phosphorus 4.4 (2.6-4.7) mg/dL Magnesium 1.1 L (1.8-2.4) mg/dL Result Diagrams: 12/16/20 05:50 12/16/20 05:50 Sepsis Event Note - Evaluation Sepsis Screening Result: No Definite Risk - Focused Exam Vital Signs: Vital Signs Temp Pulse Resp BP BP BP BP 12/16/20 13:00 36.1 C 66 18 106/53 L 12/16/20 08:56 115/64 12/16/20 08:00 36.2 C 66 14 115/65 12/16/20 06:25 35.8 C L 61 16 110/53 L 12/16/20 04:00 36.4 C 87 18 108/53 L Pulse Ox 12/16/20 13:00 98 12/16/20 08:56 12/16/20 08:00 95 12/16/20 06:25 92 L 12/16/20 04:00 96 - Problem List & Annotations (1) CHF (congestive heart failure) SNOMED Code(s): 94218543 Code(s): I50.9 - HEART FAILURE, UNSPECIFIED Status: Acute Current Visit: Yes Qualifiers: Heart failure type: unspecified Heart failure chronicity: acute Qualified Code(s): I50.9 - Heart failure, unspecified (2) Chronic knee pain SNOMED Code(s): 6024053857 Code(s): M25.569 - PAIN IN UNSPECIFIED KNEE; G89.29 - OTHER CHRONIC PAIN Status: Acute Current Visit: Yes Qualifiers: Laterality: right Qualified Code(s): M25.561 - Pain in right knee; G89.29 - Other chronic pain (3) Fluid overload SNOMED Code(s): 02379661 Code(s): E87.70 - FLUID OVERLOAD, UNSPECIFIED Status: Acute Current Visit: Yes (4) Hypoxia SNOMED Code(s): 198797272 Code(s): R09.02 - HYPOXEMIA Status: Acute Current Visit: Yes (5) Atrial fibrillation with normal ventricular rate SNOMED Code(s): 88480662 Code(s): I48.91 - UNSPECIFIED ATRIAL FIBRILLATION Status: Acute Current Visit: No (6) Non-compliance SNOMED Code(s): 6352394 Code(s): Z91.19 - PATIENT'S NONCOMPLIANCE W OTH MEDICAL TREATMENT AND REGIMEN Status: Acute Current Visit: Yes (7) Suprapatellar effusion of knee SNOMED Code(s): 852495456 Code(s): M25.469 - EFFUSION, UNSPECIFIED KNEE Status: Acute Current Visit: Yes - Problem List Review Problem List Initiated/Reviewed/Updated: Yes - My Orders Last 24 Hours: My Active Orders 12/15/20 17:00 Insulin Aspart [NovoLOG] 10 unit SUBCUT TIDAC 12/15/20 21:00 Insulin Glarg,Human.Rec.Analog [LantUS Solostar] 15 units SUBCUT BEDTIME - Plan Plan:: 55 yo male admitted with CHF exacerbation CHF exacerbation: cont TID lasix ween supplemental oxygen as tolerated, metolazone as needed-hour before Lasix, Arthritis: leg wraps and ice, PT has signed off the patient as patient is at baseline DM: have placed on ssi and lantus, patient refuses to be on a diabetic diet. As well as is not interested in taking home insulin Patient will need to be on a blood thinner due to high Dave vas score and history of A. fib, there is a history of GI bleed in the past, I did discuss the pros and cons of starting the blood thinner, patient would like to wait and talk to his primary care about it, in the meantime continue anticoagulation with heparin subcu 2D echo noted normal EF
[2020-12-16] MEDS: Insulin Glargine,Human Rec. Analog 100 Units/ML 3 ML Pen SUBCUT SCH (21:09)
[2020-12-17] MEDS: Acetaminophen/HYDROcodone 325-5 MG Tab PO PRN ×2 (00:43→07:58)
[2020-12-17] MEDS: Heparin Sodium 5,000 Units/ML Vial SUBCUT SCH ×3 (06:02→21:22)
[2020-12-17] MEDS: Furosemide 40 MG/4 ML VIAL IVPUSH SCH ×3 (06:03→21:21)
[2020-12-17 06:34] LABS: CARBON DIOXIDE,CO2 34.4 mmol/L (21.0-32.0); POTASSIUM,K 4.6 mmol/L (3.5-5.1)
[2020-12-17] MEDS: Insulin Aspart 100 Units/ML 3 ML Pen SUBCUT SCH ×6 (07:59→17:34)
[2020-12-17] MEDS: Losartan 50 MG Tab PO SCH ×2 (09:17→21:23)
[2020-12-17] MEDS: Pantoprazole 40 MG Tab.CR PO SCH (09:17)
[2020-12-17] MEDS: Docusate Sodium 100 MG Cap PO SCH (09:17)
[2020-12-17] MEDS: atorvaSTATin 40 MG Tab PO SCH (09:17)
[2020-12-17] MEDS: Gabapentin 300 MG Cap PO SCH ×2 (09:18→21:22)
[2020-12-17] MEDS: Aspirin 81 MG Tab.EC PO SCH (09:18)
[2020-12-17] MEDS ORDERED: Magnesium Sulfate/Water 2 GM in Premix Bag 1 BAG IV ONE (09:19)
[2020-12-17] MEDS ORDERED: Cyclobenzaprine 10 MG Tab PO ONE (10:35)
--- NOTE | 2020-12-17 14:22 | PCM.PN ---
- General Info Date of Service: 12/17/20 Admission Dx/Problem (Free Text): Admission Diagnosis/Problem Admission Diagnosis/Problem Hypoxia Subjective Update: Patient seen at bedside, states that he was up all night crying in pain due to back pain. Patient states that he is unable to go to the bathroom without needing assistance due to his back pain. No neurological deficits, no motor deficits, no numbness or tingling. When asked about possible discharge today, patient states that he does not feel comfortable going home today and would like to be seen by physical therapy again since he does not feel safe while walking to the bathroom. I reiterated to patient that he has been evaluated by PT several times and they recommended he is at his baseline, but patient is not comfortable and insists on staying another day and taking it " 1 day at a time". Patient got very emotional and tearful, states that he feels that his legs are not able to support him anymore and that makes him feel very distressed and helpless. Functional Status: Reports: Tolerating Diet, Ambulating, Urinating - Review of Systems General: Denies: Fever, Weakness, Fatigue Pulmonary: Denies: Shortness of Breath, Pleuritic Chest Pain Gastrointestinal: Denies: Abdominal Pain, Constipation, Decreased Appetite, Diarrhea, Vomiting Genitourinary: Denies: Dysuria, Frequency Musculoskeletal: Reports: Back Pain, Leg Pain, Foot Pain, Joint Pain. Denies: Neck Pain, Shoulder Pain, Arm Pain, Hand Pain Skin: Denies: Cyanosis, Mottled, Pallor Neurological: Denies: Dizziness - Patient Data Vitals - Most Recent: Last Vital Signs Temp 36.1 C 12/17/20 13:00 Pulse 66 12/17/20 13:00 Resp 16 12/17/20 13:00 BP 98/52 L 12/17/20 13:00 Pulse Ox 93 L 12/17/20 13:00 Weight - Most Recent: 127.777 kg I&O - Last 24 Hours: Intake & Output 12/16/20 12/17/20 12/17/20 22:59 06:59 14:59 Intake Total 957 620 Output Total 1325 700 Balance -368 -80 Lab Results Last 24 Hours: Laboratory Results - last 24 hr 12/16/20 12/17/20 12/17/20 Range/Units 17:21 05:05 05:05 WBC 7.71 (4.0-11.0) K/uL RBC 3.52 L (4.50-5.90) M/uL Hgb 10.2 L (13.0-17.0) g/dL Hct 31.9 L (38.0-50.0) % MCV 90.6 (80.0-98.0) fL MCH 29.0 (27.0-32.0) pg MCHC 32.0 (31.0-37.0) g/dL RDW Std Deviation 59.0 (28.0-62.0) fl RDW Coeff of Aleida 18 H (11.0-15.0) % Plt Count 396 (150-400) K/uL MPV 10.00 (7.40-12.00) fL Neut % (Auto) 56.0 (48.0-80.0) % Lymph % (Auto) 31.1 (16.0-40.0) % Pettis % (Auto) 11.9 (0.0-15.0) % Eos % (Auto) 0.6 (0.0-7.0) % Baso % (Auto) 0.4 (0.0-1.5) % Neut # (Auto) 4.3 (1.4-5.7) K/uL Lymph # (Auto) 2.4 (0.6-2.4) K/uL Pettis # (Auto) 0.9 H (0.0-0.8) K/uL Eos # (Auto) 0.1 (0.0-0.7) K/uL Baso # (Auto) 0.0 (0.0-0.1) K/uL Nucleated RBC % 0.0 /100WBC Nucleated RBCs # 0 K/uL Sodium 135 L (136-148) mmol/L Potassium 4.6 (3.5-5.1) mmol/L Chloride 93 L (98-107) mmol/L Carbon Dioxide 34.4 H (21.0-32.0) mmol/L BUN 61 H (7.0-18.0) mg/dL Creatinine 2.0 H (0.8-1.3) mg/dL Est Cr Clr Drug Dosing 41.00 mL/min Estimated GFR (MDRD) 35.0 ml/min Glucose 314 H (74-106) mg/dL POC Glucose 313 H (70-99) mg/dL Calcium 8.9 (8.5-10.1) mg/dL Phosphorus 4.6 (2.6-4.7) mg/dL Magnesium 1.7 L (1.8-2.4) mg/dL 12/17/20 Range/Units 06:02 WBC (4.0-11.0) K/uL RBC (4.50-5.90) M/uL Hgb (13.0-17.0) g/dL Hct (38.0-50.0) % MCV (80.0-98.0) fL MCH (27.0-32.0) pg MCHC (31.0-37.0) g/dL RDW Std Deviation (28.0-62.0) fl RDW Coeff of Aleida (11.0-15.0) % Plt Count (150-400) K/uL MPV (7.40-12.00) fL Neut % (Auto) (48.0-80.0) % Lymph % (Auto) (16.0-40.0) % Pettis % (Auto) (0.0-15.0) % Eos % (Auto) (0.0-7.0) % Baso % (Auto) (0.0-1.5) % Neut # (Auto) (1.4-5.7) K/uL Lymph # (Auto) (0.6-2.4) K/uL Pettis # (Auto) (0.0-0.8) K/uL Eos # (Auto) (0.0-0.7) K/uL Baso # (Auto) (0.0-0.1) K/uL Nucleated RBC % /100WBC Nucleated RBCs # K/uL Sodium (136-148) mmol/L Potassium (3.5-5.1) mmol/L Chloride (98-107) mmol/L Carbon Dioxide (21.0-32.0) mmol/L BUN (7.0-18.0) mg/dL Creatinine (0.8-1.3) mg/dL Est Cr Clr Drug Dosing mL/min Estimated GFR (MDRD) ml/min Glucose (74-106) mg/dL POC Glucose 293 H (70-99) mg/dL Calcium (8.5-10.1) mg/dL Phosphorus (2.6-4.7) mg/dL Magnesium (1.8-2.4) mg/dL Med Orders - Current: Current Medications Acetaminophen (Acetaminophen 500 Mg Tab) 500 mg PO Q6H PRN PRN Reason: Pain Last Admin: 12/16/20 21:07 Dose: 500 mg Documented by: Hydrocodone Bitart/Acetaminophen (Acetaminophen/Hydrocodone 325-5 Mg Tab) 1 tab PO Q6H PRN PRN Reason: Pain Last Admin: 12/17/20 07:58 Dose: 1 tab Documented by: Aspirin (Aspirin 81 Mg Tab.Ec) 81 mg PO DAILY [facility] Last Admin: 12/17/20 09:18 Dose: 81 mg Documented by: Atorvastatin Calcium (Atorvastatin 40 Mg Tab) 40 mg PO DAILY [facility] Last Admin: 12/17/20 09:17 Dose: 40 mg Documented by: Calcium Carbonate/Glycine (Calcium Carbonate 500 Mg Tab.Chew) 500 mg PO Q6H PRN PRN Reason: Indigestion Dextrose/Water (50% Dextrose In Water 50 Ml Syringe) 50 ml IVPUSH ASDIRECTED PRN PRN Reason: Hypoglycemia Docusate Sodium (Docusate Sodium 100 Mg Cap) 100 mg PO DAILY [facility] Last Admin: 12/17/20 09:17 Dose: 100 mg Documented by: Furosemide (Furosemide 40 Mg/4 Ml Vial) 60 mg IVPUSH TID [facility] Last Admin: 12/17/20 14:08 Dose: 60 mg Documented by: Gabapentin (Gabapentin 300 Mg Cap) 300 mg PO BID [facility] Last Admin: 12/17/20 09:18 Dose: 300 mg Documented by: Glucagon (Glucagon,Human Recombinant 1 Mg Vial) 1 mg IM ASDIRECTED PRN PRN Reason: Hypoglycemia Heparin Sodium (Porcine) (Heparin Sodium 5,000 Units/Ml Vial) 5,000 units SUBCUT Q8H [facility] Last Admin: 12/17/20 14:09 Dose: 5,000 units Documented by: Insulin Aspart (Insulin Aspart 100 Units/Ml 3 Ml Pen) 0 unit SUBCUT TIDAC [facility]; Protocol Last Admin: 12/17/20 08:00 Dose: 9 units Documented by: Insulin Aspart (Insulin Aspart 100 Units/Ml 3 Ml Pen) 10 unit SUBCUT TIDAC [facility] Last Admin: 12/17/20 07:59 Dose: 10 unit Documented by: Insulin Glargine (Insulin Glargine,Human Rec. Analog 100 Units/Ml 3 Ml Pen) 15 units SUBCUT BEDTIME [facility] Last Admin: 12/16/20 21:09 Dose: 15 units Documented by: Losartan Potassium (Losartan 50 Mg Tab) 50 mg PO BID [facility] Last Admin: 12/17/20 09:17 Dose: 50 mg Documented by: Melatonin (Melatonin 3 Mg Tab) 6 mg PO BEDTIME PRN PRN Reason: Insomnia Last Admin: 12/05/20 22:45 Dose: 6 mg Documented by: Ondansetron HCl (Ondansetron 4 Mg/2 Ml Sdv) 4 mg IVPUSH Q4H PRN PRN Reason: Nausea/Vomiting Oxycodone HCl (Oxycodone 5 Mg Tab) 5 mg PO Q8H PRN PRN Reason: Pain Pantoprazole Sodium (Pantoprazole 40 Mg Tab.Cr) 40 mg PO DAILY [facility] Last Admin: 12/17/20 09:17 Dose: 40 mg Documented by: Sodium Chloride (Sodium Chloride 0.9% 10 Ml Syringe) 10 ml FLUSH ASDIRECTED PRN PRN Reason: Keep Vein Open Sodium Chloride (Sodium Chloride 0.9% 2.5 Ml Syringe) 2.5 ml FLUSH ASDIRECTED PRN PRN Reason: Keep Vein Open Discontinued Medications Aspirin (Aspirin 325 Mg Tab.Ec) 325 mg PO ONETIME ONE Stop: 12/05/20 00:56 Last Admin: 12/05/20 01:22 Dose: 325 mg Documented by: Cyclobenzaprine HCl (Cyclobenzaprine 10 Mg Tab) 10 mg PO ONETIME ONE Stop: 12/17/20 10:36 Last Admin: 12/17/20 10:42 Dose: 10 mg Documented by: Fish Oil (Fish Oil/[place]-3 Fatty Acids 1 Gm Cap) 1 gm PO DAILY [facility] Last Admin: 12/10/20 08:39 Dose: Not Given Documented by: Furosemide (Furosemide 40 Mg/4 Ml Vial) 40 mg IVPUSH NOW ONE Stop: 12/04/20 23:36 Last Admin: 12/05/20 00:08 Dose: 40 mg Documented by: Furosemide (Furosemide 40 Mg/4 Ml Vial) 40 mg IVPUSH BID [facility] Last Admin: 12/06/20 08:11 Dose: 40 mg Documented by: Furosemide (Furosemide 40 Mg/4 Ml Vial) 40 mg IVPUSH BIDDIURETIC [facility] Last Admin: 12/07/20 10:53 Dose: Not Given Documented by: Furosemide (Furosemide 40 Mg/4 Ml Vial) 40 mg IVPUSH TID [facility] Last Admin: 12/09/20 06:05 Dose: 40 mg Documented by: Heparin Sodium (Porcine) (Heparin Sodium 5,000 Units/Ml Vial) 5,000 units SUBCUT Q12H [facility] Last Admin: 12/05/20 14:23 Dose: 5,000 units Documented by: Heparin Sodium (Porcine) (Heparin Sodium 5,000 Units/Ml Vial) 5,000 units SUBCUT Q12H [facility] Last Admin: 12/11/20 14:02 Dose: 5,000 units Documented by: Magnesium Sulfate 4 gm/ Premix 100 mls @ 50 mls/hr IV ONETIME ONE Stop: 12/05/20 09:59 Last Admin: 12/05/20 08:14 Dose: 50 mls/hr Documented by: Magnesium Sulfate 2 gm/ Premix 50 mls @ 25 mls/hr IV ONETIME ONE Stop: 12/07/20 10:59 Last Admin: 12/07/20 11:48 Dose: 25 mls/hr Documented by: Magnesium Sulfate 4 gm/ Premix 100 mls @ 50 mls/hr IV ONETIME ONE Stop: 12/09/20 11:14 Last Admin: 12/09/20 10:19 Dose: 50 mls/hr Documented by: Magnesium Sulfate 4 gm/ Premix 100 mls @ 50 mls/hr IV ONETIME ONE Stop: 12/10/20 13:59 Last Admin: 12/10/20 13:34 Dose: 50 mls/hr Documented by: Magnesium Sulfate 4 gm/ Premix 100 mls @ 50 mls/hr IV ONETIME ONE Stop: 12/16/20 12:57 Last Admin: 12/16/20 11:50 Dose: 50 mls/hr Documented by: Magnesium Sulfate 2 gm/ Premix 50 mls @ 200 mls/hr IV ONETIME ONE Stop: 12/17/20 09:33 Last Admin: 12/17/20 10:43 Dose: 200 mls/hr Documented by: Insulin Aspart (Insulin Aspart 100 Units/Ml 3 Ml Pen) 3 unit SUBCUT TIDAC [facility] Last Admin: 12/08/20 13:12 Dose: Not Given Documented by: Insulin Aspart (Insulin Aspart 100 Units/Ml 3 Ml Pen) 5 unit SUBCUT TIDAC [facility] Last Admin: 12/10/20 20:12 Dose: Not Given Documented by: Insulin Aspart (Insulin Aspart 100 Units/Ml 3 Ml Pen) 7 unit SUBCUT TIDAC [facility] Last Admin: 12/15/20 12:39 Dose: 7 units Documented by: Insulin Aspart (Insulin Aspart 100 Units/Ml 3 Ml Pen) 20 unit SUBCUT ONETIME ONE Stop: 12/15/20 12:46 Last Admin: 12/15/20 12:38 Dose: 20 unit Documented by: Insulin Glargine (Insulin Glargine,Human Rec. Analog 100 Units/Ml 3 Ml Pen) 5 units SUBCUT BEDTIME [facility] Last Admin: 12/05/20 21:55 Dose: 5 units Documented by: Insulin Glargine (Insulin Glargine,Human Rec. Analog 100 Units/Ml 3 Ml Pen) 10 units SUBCUT BEDTIME [facility] Last Admin: 12/07/20 21:55 Dose: 10 unit Documented by: Insulin Glargine (Insulin Glargine,Human Rec. Analog 100 Units/Ml 3 Ml Pen) 13 units SUBCUT BEDTIME [facility] Last Admin: 12/14/20 21:05 Dose: 13 units Documented by: Iopamidol (Iopamidol 755 Mg/Ml 500 Ml Multipack Bottle) 100 ml IVPUSH ONETIME STA Stop: 12/04/20 20:38 Last Admin: 12/04/20 20:38 Dose: 100 ml Documented by: Ketorolac Tromethamine (Ketorolac 15 Mg/Ml Sdv) 15 mg IVPUSH ONETIME ONE Stop: 12/09/20 13:49 Last Admin: 12/09/20 14:11 Dose: 15 mg Documented by: Lidocaine (Lidocaine 2% 5 Ml Sdv) Confirm Administered Dose 5 ml .ROUTE .STK-MED ONE Stop: 12/10/20 04:33 Last Admin: 12/10/20 05:59 Dose: Not Given Documented by: Loperamide HCl (Loperamide 2 Mg Cap) 2 mg PO ONETIME ONE Stop: 12/05/20 00:56 Last Admin: 12/05/20 01:23 Dose: 2 mg Documented by: Metolazone (Metolazone 5 Mg Tab) 5 mg PO ONETIME ONE Stop: 12/09/20 13:31 Last Admin: 12/09/20 13:12 Dose: 5 mg Documented by: Metolazone (Metolazone 5 Mg Tab) 10 mg PO ONETIME ONE Stop: 12/10/20 22:31 Last Admin: 12/10/20 21:59 Dose: 10 mg Documented by: Metolazone (Metolazone 5 Mg Tab) 10 mg PO ONETIME ONE Stop: 12/11/20 12:31 Last Admin: 12/11/20 13:30 Dose: 10 mg Documented by: Metolazone (Metolazone 5 Mg Tab) 10 mg PO ONETIME ONE Stop: 12/15/20 14:18 Last Admin: 12/15/20 14:54 Dose: 10 mg Documented by: - Exam Quality Assessment: Supplemental Oxygen General: Alert, Oriented Neck: Supple Lungs: Clear to Auscultation, Normal Respiratory Effort, Crackles. No: Decreased Breath Sounds GI/Abdominal Exam: Normal Bowel Sounds, Soft Extremities: Normal Inspection, Normal Range of Motion, Pedal Edema (Minimal). No: Joint Swelling, Increased Warmth, Mottled, Pallor, Redness - Patient Data Lab Results Last 24 hrs: Laboratory Results - last 24 hr 12/16/20 12/17/20 12/17/20 Range/Units 17:21 05:05 05:05 WBC 7.71 (4.0-11.0) K/uL RBC 3.52 L (4.50-5.90) M/uL Hgb 10.2 L (13.0-17.0) g/dL Hct 31.9 L (38.0-50.0) % MCV 90.6 (80.0-98.0) fL MCH 29.0 (27.0-32.0) pg MCHC 32.0 (31.0-37.0) g/dL RDW Std Deviation 59.0 (28.0-62.0) fl RDW Coeff of Aleida 18 H (11.0-15.0) % Plt Count 396 (150-400) K/uL MPV 10.00 (7.40-12.00) fL Neut % (Auto) 56.0 (48.0-80.0) % Lymph % (Auto) 31.1 (16.0-40.0) % Pettis % (Auto) 11.9 (0.0-15.0) % Eos % (Auto) 0.6 (0.0-7.0) % Baso % (Auto) 0.4 (0.0-1.5) % Neut # (Auto) 4.3 (1.4-5.7) K/uL Lymph # (Auto) 2.4 (0.6-2.4) K/uL Pettis # (Auto) 0.9 H (0.0-0.8) K/uL Eos # (Auto) 0.1 (0.0-0.7) K/uL Baso # (Auto) 0.0 (0.0-0.1) K/uL Nucleated RBC % 0.0 /100WBC Nucleated RBCs # 0 K/uL Sodium 135 L (136-148) mmol/L Potassium 4.6 (3.5-5.1) mmol/L Chloride 93 L (98-107) mmol/L Carbon Dioxide 34.4 H (21.0-32.0) mmol/L BUN 61 H (7.0-18.0) mg/dL Creatinine 2.0 H (0.8-1.3) mg/dL Est Cr Clr Drug Dosing 41.00 mL/min Estimated GFR (MDRD) 35.0 ml/min Glucose 314 H (74-106) mg/dL POC Glucose 313 H (70-99) mg/dL Calcium 8.9 (8.5-10.1) mg/dL Phosphorus 4.6 (2.6-4.7) mg/dL Magnesium 1.7 L (1.8-2.4) mg/dL 12/17/20 Range/Units 06:02 WBC (4.0-11.0) K/uL RBC (4.50-5.90) M/uL Hgb (13.0-17.0) g/dL Hct (38.0-50.0) % MCV (80.0-98.0) fL MCH (27.0-32.0) pg MCHC (31.0-37.0) g/dL RDW Std Deviation (28.0-62.0) fl RDW Coeff of Aleida (11.0-15.0) % Plt Count (150-400) K/uL MPV (7.40-12.00) fL Neut % (Auto) (48.0-80.0) % Lymph % (Auto) (16.0-40.0) % Pettis % (Auto) (0.0-15.0) % Eos % (Auto) (0.0-7.0) % Baso % (Auto) (0.0-1.5) % Neut # (Auto) (1.4-5.7) K/uL Lymph # (Auto) (0.6-2.4) K/uL Pettis # (Auto) (0.0-0.8) K/uL Eos # (Auto) (0.0-0.7) K/uL Baso # (Auto) (0.0-0.1) K/uL Nucleated RBC % /100WBC Nucleated RBCs # K/uL Sodium (136-148) mmol/L Potassium (3.5-5.1) mmol/L Chloride (98-107) mmol/L Carbon Dioxide (21.0-32.0) mmol/L BUN (7.0-18.0) mg/dL Creatinine (0.8-1.3) mg/dL Est Cr Clr Drug Dosing mL/min Estimated GFR (MDRD) ml/min Glucose (74-106) mg/dL POC Glucose 293 H (70-99) mg/dL Calcium (8.5-10.1) mg/dL Phosphorus (2.6-4.7) mg/dL Magnesium (1.8-2.4) mg/dL Result Diagrams: 12/17/20 05:05 12/17/20 05:05 Sepsis Event Note - Evaluation Sepsis Screening Result: No Definite Risk - Focused Exam Vital Signs: Vital Signs Temp Pulse Resp BP BP BP Pulse Ox 12/17/20 13:00 36.1 C 66 16 98/52 L 93 L 12/17/20 09:17 110/50 L 12/17/20 09:00 36.2 C 69 117/59 L 92 L 12/17/20 05:00 36.2 C 65 16 95/41 L 90 L - Problem List & Annotations (1) CHF (congestive heart failure) SNOMED Code(s): 50470013 Code(s): I50.9 - HEART FAILURE, UNSPECIFIED Status: Acute Current Visit: Yes Qualifiers: Heart failure type: unspecified Heart failure chronicity: acute Qualified Code(s): I50.9 - Heart failure, unspecified (2) Chronic knee pain SNOMED Code(s): 5069555569 Code(s): M25.569 - PAIN IN UNSPECIFIED KNEE; G89.29 - OTHER CHRONIC PAIN Status: Acute Current Visit: Yes Qualifiers: Laterality: right Qualified Code(s): M25.561 - Pain in right knee; G89.29 - Other chronic pain (3) Fluid overload SNOMED Code(s): 12934867 Code(s): E87.70 - FLUID OVERLOAD, UNSPECIFIED Status: Acute Current Visit: Yes (4) Hypoxia SNOMED Code(s): 023550387 Code(s): R09.02 - HYPOXEMIA Status: Acute Current Visit: Yes (5) Atrial fibrillation with normal ventricular rate SNOMED Code(s): 99936152 Code(s): I48.91 - UNSPECIFIED ATRIAL FIBRILLATION Status: Acute Current Visit: No (6) Non-compliance SNOMED Code(s): 1499683 Code(s): Z91.19 - PATIENT'S NONCOMPLIANCE W OTH MEDICAL TREATMENT AND REGIMEN Status: Acute Current Visit: Yes (7) Suprapatellar effusion of knee SNOMED Code(s): 652198158 Code(s): M25.469 - EFFUSION, UNSPECIFIED KNEE Status: Acute Current Visit: Yes - Problem List Review Problem List Initiated/Reviewed/Updated: Yes - My Orders Last 24 Hours: My Active Orders 12/17/20 11:24 Consult to Physical Therapy [PT Evaluation and Treatment] [CONS] Routine - Plan Plan:: 55 yo male admitted with CHF exacerbation CHF exacerbation: cont TID lasix wean supplemental oxygen as tolerated, metolazone as needed-hour before Lasix, Arthritis: leg wraps and ice, PT will be again reconsulted given patient's new back pain which most likely is a muscle spasm based on my exam DM: have placed on ssi and lantus, patient refuses to be on a diabetic diet. As well as is not interested in taking home insulin Patient will need to be on a blood thinner due to high Dave vas score and history of A. fib, there is a history of GI bleed in the past, I did discuss the pros and cons of starting the blood thinner, patient would like to wait and talk to his primary care about it, in the meantime continue anticoagulation with heparin subcu 2D echo noted normal EF After PT is assessed the patient, will give a small dose of muscle relaxant and reevaluate, most likely discharge tomorrow if patient's symptoms improve
[2020-12-17] MEDS: Insulin Glargine,Human Rec. Analog 100 Units/ML 3 ML Pen SUBCUT SCH (21:22)
[2020-12-18] MEDS: Furosemide 40 MG/4 ML VIAL IVPUSH SCH ×2 (05:41→13:46)
[2020-12-18] MEDS: Heparin Sodium 5,000 Units/ML Vial SUBCUT SCH ×2 (05:42→13:45)
[2020-12-18 07:28] LABS: CARBON DIOXIDE,CO2 33.8 mmol/L (21.0-32.0); POTASSIUM,K 4.5 mmol/L (3.5-5.1)
[2020-12-18] MEDS: Insulin Aspart 100 Units/ML 3 ML Pen SUBCUT SCH ×6 (07:41→17:58)
[2020-12-18] MEDS: Gabapentin 300 MG Cap PO SCH (08:43)
[2020-12-18] MEDS: Aspirin 81 MG Tab.EC PO SCH (08:43)
[2020-12-18] MEDS: Docusate Sodium 100 MG Cap PO SCH (08:43)
[2020-12-18] MEDS: Pantoprazole 40 MG Tab.CR PO SCH (08:43)
[2020-12-18] MEDS: Losartan 50 MG Tab PO SCH (08:44)
[2020-12-18] MEDS: atorvaSTATin 40 MG Tab PO SCH (08:44)
[2020-12-18] MEDS: Acetaminophen 500 MG Tab PO PRN (08:53)
--- NOTE | 2020-12-18 13:25 | PCM.DCSUM1 ---
Discharge Summary - Discharge Data Discharge Date: 12/18/20 Discharge Disposition: Home, Self-Care 01 Condition: Good - Referral to Home Health Primary Care Physician: Lester Faye MD - Discharge Diagnosis/Problem(s) (1) Fluid overload SNOMED Code(s): 58383198 ICD Code: E87.70 - FLUID OVERLOAD, UNSPECIFIED Status: Acute Current Visit: Yes (2) Hypoxia SNOMED Code(s): 994028275 ICD Code: R09.02 - HYPOXEMIA Status: Acute Current Visit: Yes (3) CHF (congestive heart failure) SNOMED Code(s): 04012188 ICD Code: I50.9 - HEART FAILURE, UNSPECIFIED Status: Acute Current Visit: Yes Qualifiers: Heart failure type: unspecified Heart failure chronicity: acute Qualified Code(s): I50.9 - Heart failure, unspecified - Patient Summary/Data Consults: Consultations 12/05/20 13:19 Consult to Diabetic Nurse Specialist [CONS] Routine 12/15/20 11:50 Consult to Physical Therapy [PT Evaluation and Treatment] [CONS] Routine 12/17/20 11:24 Consult to Physical Therapy [PT Evaluation and Treatment] [CONS] Routine Hospital Course: History of present illness: 55 yo male with pmh of CHF, DM, osteoarthritis, and recent hospitalization for COVID. PAtient was discharged from [facility] on 11/24/20. During his hosptial stay he had an elevated troponin. He reports having melana during his hospital stay which resolved when he stopped taking dexamethasone. He also reports he was on a lasix drip due to fluid overload. He reports loosing 20 LBs during that admission. He was not discharged on any supplemental oxygen. He lives in company housing, but after discharge he stayed in a hotel so he could get more rest. He did not take his pills with him to the hotel so he has not had any medications including his lasix for about a week. He reports over the past few days his legs have swollen to the point were he has pain in his joints. Especially the left ankle and right knee. He reports severe arthritis in the right knee and has plans on replacing it. Due to the pain he has difficulty walking. He denies any shortness of breath, chest pain, cough or fevers. In the ED he was noted to be hypoxic requiring 4 L NC to keep sats above 90%. His troponin was 0.26. Venous dopplar of leg was negative for DVT. Knee X-ray reports knee effusion. CT of chest reports bilateral ground glass opacities, no PE. Hospital Course: Patient was admitted for CHF exacerbation due to noncompliance with his medications. He was treated with IV lasix with gradual improvement in his hypoxemia and swelling of his legs. For fluid restriction patient was reluctant to have nursing watch to closely his fluid intake. Patient would deny that he ever drank more than his allotted amount. He would refused to stay on diabetic diet. He did allow us to use insulin while in the hospital but patient refuses to take insulin at home. As patient had concerns regarding his ambulation at home which made him reluctant to be discharge, physical therapy was consulted and cleared him on several occasions for home. Patient was discharged home to have follow up with Dr. Faye. - Patient Instructions Diet: Heart Healthy Diet, Low Sodium, Diabetic Diet Fluid Restriction: 1500 mL Activity: As Tolerated Notify Provider of: Fever, Increased Pain, Swelling and Redness, Nausea and/or Vomiting - Discharge Plan *PRESCRIPTION DRUG MONITORING PROGRAM REVIEWED*: Not Applicable *COPY OF PRESCRIPTION DRUG MONITORING REPORT IN PATIENT CECILIA: Not Applicable Prescriptions/Med Rec: Cyclobenzaprine [Flexeril] 5 mg PO DAILY PRN #20 tab PRN Reason: muscle spasm Furosemide [Lasix] 40 mg PO BID #60 tablet Home Medications: Home Meds atorvaSTATin Calcium [Atorvastatin Calcium] 40 mg PO DAILY 02/16/18 [History] metFORMIN HCl [Metformin HCl] 1,000 mg PO BID 02/16/18 [History] Aspirin [Low Dose Aspirin EC] 81 mg PO DAILY 09/16/18 [History] Losartan Potassium 50 mg PO BID 09/16/18 [History] Fish Oil/Coral-3 Fatty Acids [Fish Oil 1,000 MG] 1 tab PO DAILY 02/27/20 [History] glipiZIDE [Glucotrol XL] 1 tab PO DAILY 02/27/20 [History] Dulaglutide [Trulicity] 3 mg SQ WEEKLY 12/05/20 [History] Gabapentin [Neurontin] 300 mg PO BID 12/05/20 [History] Cyclobenzaprine [Flexeril] 5 mg PO DAILY PRN #20 tab 12/18/20 [Rx] Furosemide [Lasix] 40 mg PO BID #60 tablet 12/18/20 [Rx] Oxygen Flow Rate (L/min): 2 Patient Handouts: Hypoxia, Chronic Knee Pain, Adult, [id number], Arthritis, [id number], Heart Failure, Self-Care, [id number], Exercises for Chronic Knee Pain Referrals: Lester Faye MD [Primary Care Provider] - 12/23/20 3:00 pm - Discharge Summary/Plan Comment DC Time >30 min.: No Total # of Minutes for Discharge Time: 15 - Patient Data Vitals - Most Recent: Last Vital Signs Temp 35.7 C L 12/18/20 12:00 Pulse 68 12/18/20 12:00 Resp 22 H 12/18/20 12:00 BP 114/45 L 12/18/20 12:00 Pulse Ox 92 L 12/18/20 12:00 Weight - Most Recent: 129.319 kg I&O - Last 24 hours: Intake & Output 12/17/20 12/18/20 12/18/20 22:59 06:59 14:59 Intake Total 900 700 Output Total 1000 1000 Balance -100 -300 Lab Results - Last 24 hrs: Laboratory Results - last 24 hr 12/17/20 12/18/20 12/18/20 Range/Units 17:26 05:38 05:38 WBC 6.15 (4.0-11.0) K/uL RBC 3.37 L (4.50-5.90) M/uL Hgb 9.8 L (13.0-17.0) g/dL Hct 31.0 L (38.0-50.0) % MCV 92.0 (80.0-98.0) fL MCH 29.1 (27.0-32.0) pg MCHC 31.6 (31.0-37.0) g/dL RDW Std Deviation 56.0 (28.0-62.0) fl RDW Coeff of Aleida 17 H (11.0-15.0) % Plt Count 358 (150-400) K/uL MPV 10.20 (7.40-12.00) fL Add Manual Diff YES Neutrophils % (Manual) 58 (48.0-80.0) % Band Neutrophils % 2 % Lymphocytes % (Manual) 30 (16.0-40.0) % Monocytes % (Manual) 9 (0.0-15.0) % Eosinophils % (Manual) 1 (0.0-7.0) % Absolute Seg Neuts 3.6 (1.4-5.7) Band Neutrophils # 0.1 Lymphocytes # (Manual) 1.8 (0.6-2.4) Monocytes # (Manual) 0.6 (0.0-0.8) Eosinophils # (Manual) 0.1 (0.0-0.7) Sodium 133 L (136-148) mmol/L Potassium 4.5 (3.5-5.1) mmol/L Chloride 94 L (98-107) mmol/L Carbon Dioxide 33.8 H (21.0-32.0) mmol/L BUN 70 H (7.0-18.0) mg/dL Creatinine 2.1 H (0.8-1.3) mg/dL Est Cr Clr Drug Dosing 39.05 mL/min Estimated GFR (MDRD) 33.1 ml/min Glucose 360 H (74-106) mg/dL POC Glucose 357 H (70-99) mg/dL Calcium 8.8 (8.5-10.1) mg/dL Phosphorus 4.8 H (2.6-4.7) mg/dL Magnesium 2.1 (1.8-2.4) mg/dL 12/18/20 12/18/20 Range/Units 06:17 12:30 WBC (4.0-11.0) K/uL RBC (4.50-5.90) M/uL Hgb (13.0-17.0) g/dL Hct (38.0-50.0) % MCV (80.0-98.0) fL MCH (27.0-32.0) pg MCHC (31.0-37.0) g/dL RDW Std Deviation (28.0-62.0) fl RDW Coeff of Aleida (11.0-15.0) % Plt Count (150-400) K/uL MPV (7.40-12.00) fL Add Manual Diff Neutrophils % (Manual) (48.0-80.0) % Band Neutrophils % % Lymphocytes % (Manual) (16.0-40.0) % Monocytes % (Manual) (0.0-15.0) % Eosinophils % (Manual) (0.0-7.0) % Absolute Seg Neuts (1.4-5.7) Band Neutrophils # Lymphocytes # (Manual) (0.6-2.4) Monocytes # (Manual) (0.0-0.8) Eosinophils # (Manual) (0.0-0.7) Sodium (136-148) mmol/L Potassium (3.5-5.1) mmol/L Chloride (98-107) mmol/L Carbon Dioxide (21.0-32.0) mmol/L BUN (7.0-18.0) mg/dL Creatinine (0.8-1.3) mg/dL Est Cr Clr Drug Dosing mL/min Estimated GFR (MDRD) ml/min Glucose (74-106) mg/dL POC Glucose 317 H 362 H (70-99) mg/dL Calcium (8.5-10.1) mg/dL Phosphorus (2.6-4.7) mg/dL Magnesium (1.8-2.4) mg/dL Med Orders - Current: Current Medications Acetaminophen (Acetaminophen 500 Mg Tab) 500 mg PO Q6H PRN PRN Reason: Pain Last Admin: 12/18/20 08:53 Dose: 500 mg Documented by: Hydrocodone Bitart/Acetaminophen (Acetaminophen/Hydrocodone 325-5 Mg Tab) 1 tab PO Q6H PRN PRN Reason: Pain Last Admin: 12/17/20 07:58 Dose: 1 tab Documented by: Aspirin (Aspirin 81 Mg Tab.Ec) 81 mg PO DAILY [facility] Last Admin: 12/18/20 08:43 Dose: 81 mg Documented by: Atorvastatin Calcium (Atorvastatin 40 Mg Tab) 40 mg PO DAILY [facility] Last Admin: 12/18/20 08:44 Dose: 40 mg Documented by: Calcium Carbonate/Glycine (Calcium Carbonate 500 Mg Tab.Chew) 500 mg PO Q6H PRN PRN Reason: Indigestion Dextrose/Water (50% Dextrose In Water 50 Ml Syringe) 50 ml IVPUSH ASDIRECTED PRN PRN Reason: Hypoglycemia Docusate Sodium (Docusate Sodium 100 Mg Cap) 100 mg PO DAILY [facility] Last Admin: 12/18/20 08:43 Dose: 100 mg Documented by: Furosemide (Furosemide 40 Mg/4 Ml Vial) 60 mg IVPUSH TID [facility] Last Admin: 12/18/20 05:41 Dose: 60 mg Documented by: Gabapentin (Gabapentin 300 Mg Cap) 300 mg PO BID [facility] Last Admin: 12/18/20 08:43 Dose: 300 mg Documented by: Glucagon (Glucagon,Human Recombinant 1 Mg Vial) 1 mg IM ASDIRECTED PRN PRN Reason: Hypoglycemia Heparin Sodium (Porcine) (Heparin Sodium 5,000 Units/Ml Vial) 5,000 units SUBCUT Q8H [facility] Last Admin: 12/18/20 05:42 Dose: 5,000 units Documented by: Insulin Aspart (Insulin Aspart 100 Units/Ml 3 Ml Pen) 0 unit SUBCUT TIDAC [facility]; Protocol Last Admin: 12/18/20 12:32 Dose: 15 units Documented by: Insulin Aspart (Insulin Aspart 100 Units/Ml 3 Ml Pen) 10 unit SUBCUT TIDAC [facility] Last Admin: 12/18/20 12:31 Dose: 10 unit Documented by: Insulin Glargine (Insulin Glargine,Human Rec. Analog 100 Units/Ml 3 Ml Pen) 15 units SUBCUT BEDTIME [facility] Last Admin: 12/17/20 21:22 Dose: 15 units Documented by: Losartan Potassium (Losartan 50 Mg Tab) 50 mg PO BID [facility] Last Admin: 12/18/20 08:44 Dose: 50 mg Documented by: Melatonin (Melatonin 3 Mg Tab) 6 mg PO BEDTIME PRN PRN Reason: Insomnia Last Admin: 12/05/20 22:45 Dose: 6 mg Documented by: Ondansetron HCl (Ondansetron 4 Mg/2 Ml Sdv) 4 mg IVPUSH Q4H PRN PRN Reason: Nausea/Vomiting Oxycodone HCl (Oxycodone 5 Mg Tab) 5 mg PO Q8H PRN PRN Reason: Pain Pantoprazole Sodium (Pantoprazole 40 Mg Tab.Cr) 40 mg PO DAILY [facility] Last Admin: 12/18/20 08:43 Dose: 40 mg Documented by: Sodium Chloride (Sodium Chloride 0.9% 10 Ml Syringe) 10 ml FLUSH ASDIRECTED PRN PRN Reason: Keep Vein Open Sodium Chloride (Sodium Chloride 0.9% 2.5 Ml Syringe) 2.5 ml FLUSH ASDIRECTED PRN PRN Reason: Keep Vein Open Discontinued Medications Aspirin (Aspirin 325 Mg Tab.Ec) 325 mg PO ONETIME ONE Stop: 12/05/20 00:56 Last Admin: 12/05/20 01:22 Dose: 325 mg Documented by: Cyclobenzaprine HCl (Cyclobenzaprine 10 Mg Tab) 10 mg PO ONETIME ONE Stop: 12/17/20 10:36 Last Admin: 12/17/20 10:42 Dose: 10 mg Documented by: Fish Oil (Fish Oil/Coral-3 Fatty Acids 1 Gm Cap) 1 gm PO DAILY [facility] Last Admin: 12/10/20 08:39 Dose: Not Given Documented by: Furosemide (Furosemide 40 Mg/4 Ml Vial) 40 mg IVPUSH NOW ONE Stop: 12/04/20 23:36 Last Admin: 12/05/20 00:08 Dose: 40 mg Documented by: Furosemide (Furosemide 40 Mg/4 Ml Vial) 40 mg IVPUSH BID [facility] Last Admin: 12/06/20 08:11 Dose: 40 mg Documented by: Furosemide (Furosemide 40 Mg/4 Ml Vial) 40 mg IVPUSH BIDDIURETIC [facility] Last Admin: 12/07/20 10:53 Dose: Not Given Documented by: Furosemide (Furosemide 40 Mg/4 Ml Vial) 40 mg IVPUSH TID [facility] Last Admin: 12/09/20 06:05 Dose: 40 mg Documented by: Heparin Sodium (Porcine) (Heparin Sodium 5,000 Units/Ml Vial) 5,000 units SUBCUT Q12H [facility] Last Admin: 12/05/20 14:23 Dose: 5,000 units Documented by: Heparin Sodium (Porcine) (Heparin Sodium 5,000 Units/Ml Vial) 5,000 units SUBCUT Q12H [facility] Last Admin: 12/11/20 14:02 Dose: 5,000 units Documented by: Magnesium Sulfate 4 gm/ Premix 100 mls @ 50 mls/hr IV ONETIME ONE Stop: 12/05/20 09:59 Last Admin: 12/05/20 08:14 Dose: 50 mls/hr Documented by: Magnesium Sulfate 2 gm/ Premix 50 mls @ 25 mls/hr IV ONETIME ONE Stop: 12/07/20 10:59 Last Admin: 12/07/20 11:48 Dose: 25 mls/hr Documented by: Magnesium Sulfate 4 gm/ Premix 100 mls @ 50 mls/hr IV ONETIME ONE Stop: 12/09/20 11:14 Last Admin: 12/09/20 10:19 Dose: 50 mls/hr Documented by: Magnesium Sulfate 4 gm/ Premix 100 mls @ 50 mls/hr IV ONETIME ONE Stop: 12/10/20 13:59 Last Admin: 12/10/20 13:34 Dose: 50 mls/hr Documented by: Magnesium Sulfate 4 gm/ Premix 100 mls @ 50 mls/hr IV ONETIME ONE Stop: 12/16/20 12:57 Last Admin: 12/16/20 11:50 Dose: 50 mls/hr Documented by: Magnesium Sulfate 2 gm/ Premix 50 mls @ 200 mls/hr IV ONETIME ONE Stop: 12/17/20 09:33 Last Admin: 12/17/20 10:43 Dose: 200 mls/hr Documented by: Insulin Aspart (Insulin Aspart 100 Units/Ml 3 Ml Pen) 3 unit SUBCUT TIDAC [facility] Last Admin: 12/08/20 13:12 Dose: Not Given Documented by: Insulin Aspart (Insulin Aspart 100 Units/Ml 3 Ml Pen) 5 unit SUBCUT TIDAC [facility] Last Admin: 12/10/20 20:12 Dose: Not Given Documented by: Insulin Aspart (Insulin Aspart 100 Units/Ml 3 Ml Pen) 7 unit SUBCUT TIDAC [facility] Last Admin: 12/15/20 12:39 Dose: 7 units Documented by: Insulin Aspart (Insulin Aspart 100 Units/Ml 3 Ml Pen) 20 unit SUBCUT ONETIME ONE Stop: 12/15/20 12:46 Last Admin: 12/15/20 12:38 Dose: 20 unit Documented by: Insulin Glargine (Insulin Glargine,Human Rec. Analog 100 Units/Ml 3 Ml Pen) 5 units SUBCUT BEDTIME [facility] Last Admin: 12/05/20 21:55 Dose: 5 units Documented by: Insulin Glargine (Insulin Glargine,Human Rec. Analog 100 Units/Ml 3 Ml Pen) 10 units SUBCUT BEDTIME [facility] Last Admin: 12/07/20 21:55 Dose: 10 unit Documented by: Insulin Glargine (Insulin Glargine,Human Rec. Analog 100 Units/Ml 3 Ml Pen) 13 units SUBCUT BEDTIME [facility] Last Admin: 12/14/20 21:05 Dose: 13 units Documented by: Iopamidol (Iopamidol 755 Mg/Ml 500 Ml Multipack Bottle) 100 ml IVPUSH ONETIME STA Stop: 12/04/20 20:38 Last Admin: 12/04/20 20:38 Dose: 100 ml Documented by: Ketorolac Tromethamine (Ketorolac 15 Mg/Ml Sdv) 15 mg IVPUSH ONETIME ONE Stop: 12/09/20 13:49 Last Admin: 12/09/20 14:11 Dose: 15 mg Documented by: Lidocaine (Lidocaine 2% 5 Ml Sdv) Confirm Administered Dose 5 ml .ROUTE .STK-MED ONE Stop: 12/10/20 04:33 Last Admin: 12/10/20 05:59 Dose: Not Given Documented by: Loperamide HCl (Loperamide 2 Mg Cap) 2 mg PO ONETIME ONE Stop: 12/05/20 00:56 Last Admin: 12/05/20 01:23 Dose: 2 mg Documented by: Metolazone (Metolazone 5 Mg Tab) 5 mg PO ONETIME ONE Stop: 12/09/20 13:31 Last Admin: 12/09/20 13:12 Dose: 5 mg Documented by: Metolazone (Metolazone 5 Mg Tab) 10 mg PO ONETIME ONE Stop: 12/10/20 22:31 Last Admin: 12/10/20 21:59 Dose: 10 mg Documented by: Metolazone (Metolazone 5 Mg Tab) 10 mg PO ONETIME ONE Stop: 12/11/20 12:31 Last Admin: 12/11/20 13:30 Dose: 10 mg Documented by: Metolazone (Metolazone 5 Mg Tab) 10 mg PO ONETIME ONE Stop: 12/15/20 14:18 Last Admin: 12/15/20 14:54 Dose: 10 mg Documented by:
== END 2020-12-18 17:38 | disposition home or self-care (01) | DRG 291 ==
LOC: MW.ED 17:47 → MW.MS 23:44
PROVIDERS: ADMIT Internal Medicine; ATTEND Internal Medicine
DX: I11.0 Hypertensive heart disease with heart failure (principal); I50.23 Acute on chronic systolic (congestive) heart failure; Z68.41 Body mass index [BMI] 40.0-44.9, adult; E11.9 Type 2 diabetes mellitus without complications; M19.90 Unspecified osteoarthritis, unspecified site; M17.11 Unilateral primary osteoarthritis, right knee; H54.7 Unspecified visual loss; M25.461 Effusion, right knee; G89.29 Other chronic pain; M25.561 Pain in right knee; I48.91 Unspecified atrial fibrillation; E66.9 Obesity, unspecified; Z91.19 Patient's noncompliance with other medical treatment and regimen; Z79.82 Long term (current) use of aspirin; Z79.84 Long term (current) use of oral hypoglycemic drugs; Z88.0 Allergy status to penicillin; Z86.19 Personal history of other infectious and parasitic diseases; Z98.890 Other specified postprocedural states; Z87.19 Personal history of other diseases of the digestive system; Z20.822 Contact with and (suspected) exposure to COVID-19
CPT/HCPCS: 36415; 71045; 71045-26; 71275; 71275-26; 73560-26-RT; 73560-RT; 73600-26-RT; 73600-RT; 80048; 80053; 82140; 82803; 82947; 83036; 83735; 83880; 84100; 84484; 85025; 85610; 85730; 93005; 93010; 93306; 93971-26-RT; 93971-RT; 97110-GP; 97161-GP; 97164-GP; 97530-GP; 99284; 99285-25; A9270-GY; J1644; J1815-GY; J1885; J1940; J3475; Q9967; U0002

== ENCOUNTER 2020-12-23 23:10 | Emergency (ER) | payer OTHER ==
[2020-12-24] MEDS ORDERED: Cyclobenzaprine 10 MG Tab PO ONE (00:08)
--- NOTE | 2020-12-24 00:52 | CR ---
INDICATION: Shortness of breath TECHNIQUE: Portable upright AP view of the chest COMPARISON: One-view chest 12/04/2020 FINDINGS: There is mild left lung base atelectasis. The lungs are otherwise clear. There is no sizable pleural effusion or pneumothorax. The cardiomediastinal silhouette is stable. The visualized osseous structures are unremarkable. IMPRESSION: Mild left lung base atelectasis. No appreciable pulmonary edema. Dictated by Betty Robles MD @ 12/24/2020 12:52:06 AM (Electronically Signed)
[2020-12-24] MEDS ORDERED: Acetaminophen 500 MG Tab PO ONE (01:19)
[2020-12-24] MEDS ORDERED: Gabapentin 300 MG Cap PO ONE (01:19)
[2020-12-24 01:20] LABS: CARBON DIOXIDE,CO2 30.2 mmol/L (21.0-32.0); POTASSIUM,K 3.6 mmol/L (3.5-5.1)
[2020-12-24] MEDS ORDERED: Lidocaine 1% 50 ML MDV ONE (03:31)
--- NOTE | 2020-12-24 05:56 | EDM.PDOC ---
<Chandrakant Dodson - Last Filed: 12/24/20 06:52> ED HPI GENERAL MEDICAL PROBLEM - General Chief Complaint: Lower Extremity Injury/Pain Stated Complaint: KNEE PAIN Time Seen by Provider: 12/23/20 23:22 - History of Present Illness INITIAL COMMENTS - FREE TEXT/NARRATIVE: CHIEF COMPLAINT(S): Knee pain HISTORY OF PRESENT ILLNESS: This is a 55-year-old man with a past medical history of CHF, chronic bilateral knee pain who was just recently discharged who comes to the emergency department with a chief complaint of knee pain. The patient states that he had been doing well at home, respecting his diet however he is concerned that he may be in heart failure exacerbation because he is experiencing knee pain. He states that he tried to ambulate and he felt a pop in his left knee and it started to swell. He denies any other injury. He states that he normally has swelling in his right knee and is currently experiencing 10 out of 10 left knee pain which he describes as throbbing. The pain is worse with any movement. He states that he is unable to ambulate because of this. He denies any fevers or chills. He denies any redness or warmth. He states that he has not yet tried any pain medication. He states that he called EMS because he does not have a walker or anything to help him ambulate at home. He is requesting admission. He denies any other symptoms. There are no relieving factors. REVIEW OF SYSTEMS: Constitutional: Denies fever, chills. Eyes: Denies eye pain Ears, Nose, Mouth, & Throat: Denies earache Cardiovascular: Denies chest pain Respiratory: Denies shortness of breath Gastrointestinal: Denies Nausea, vomiting, diarrhea, hematochezia. Genitourinary: Denies hematuria Skin:Denies a rash MSK: Positive for left knee pain Neurological: Denies blurred vision, numbness, tingling, weakness Psychiatric: Denies depression PAST MEDICAL HISTORY: As per history of present illness and as reviewed below otherwise noncontributory. SURGICAL HISTORY: As per history of present illness and as reviewed below otherwise noncontributory. SOCIAL HISTORY: As per history of present illness and as reviewed below otherwise noncontributory. FAMILY HISTORY: As per history of present illness and as reviewed below otherwise noncontributory. EXAMINATION OF ORGAN SYSTEMS/BODY AREAS: Constitutional: Blood pressure was 138/62, heart rate 80, respiratory rate 22 with an oxygen saturation of 96% on 3 L nasal cannula. Temperature 36.5 General: Middle-aged man who does not appear to be in acute distress Psychiatric: Appropriate mood and affect. Eyes: No scleral icterus or conjunctival erythema ENMT: Moist mucous membranes. No pharyngeal erythema Cardiovascular: Regular, rate, and rhythm. No gallops, murmurs, or rubs. Bilateral upper extremity pulses symmetric and intact. No peripheral edema. No JVD. Respiratory: Lungs clear to auscultation bilaterally. No wheezes, rales, or rhonchi. Gastrointestinal: Soft, non-tender, non-distended. Normoactive bowel sounds Genitourinary: No suprapubic tenderness Musculoskeletal: The patient can fully flex and extend at the bilateral knees. The left knee is swollen and tender throughout. There is no redness or warmth. Negative anterior and posterior drawer. Negative varus and valgus test. Skin: No lesions or abrasions. Neurological: Alert, GCS 15 distal sensation is intact. MEDICAL DECISION MAKING AND COURSE IN THE ED WITH INTERPRETATION/REVIEW OF DIAGNOSTIC STUDIES: This is a 55-year-old man with a past medical history of CHF and bilateral chronic knee pain who comes to the emergency department with acute onset left-sided knee pain with a pop who has evidence of a knee effusion without any warmth or redness. Given the patient is reportedly unable to ambulate we will perform a arthrocentesis. However on review of the patient's chart the patient was discharged with a wheeled walker due to his knee arthritis for which he states that he did not receive. He has not tried any pain medication therefore we will provide him his home medication of gabapentin and Flexeril. We also provide him with Tylenol. Given his concern for possible heart failure exacerbation will obtain CBC, BMP, magnesium, troponin and BNP. The patient has no overt clinical signs of CHF. He is at his baseline oxygen level per discharge instructions. Cardiac monitoring at this time did reveal sinus rhythm and pulse oximetry with good waveform on his home oxygen level was 95 to 96% on room oxygen. DDx: Osteoarthritis, septic arthritis, heart failure exacerbation Laboratory: CBC reveals a normocytic anemia with a hemoglobin of 11.5 and hematocrit of 35.4 which is up from prior on . BMP reveals elevated BUN at 63 and a creatinine of 1.7 which is improved from prior at 70 and 2.1. Hyperglycemia 247. Hypomagnesemia at 1.4. Troponin is elevated at 0.237 which is decreased from prior at 0.247. BNP is 82. The radiological images were viewed by myself along with reading the report from the radiologist. Chest x-ray does not reveal any acute cardiopulmonary process. ARTHROCENTESIS PROCEDURE NOTE Consent for Arthrocentesis: Risks and benefits discussed with patient and verbal consent obtained Prior to the procedure the area was confirmed via ultrasound. Site marked and prepared in sterile fashion. Wheel of lidocaine placed. Lidocaine then introduced into the joint space. The area of interest was identified via ultrasound and Fluid was removed from the joint space via ultrasound guidance. Samples were sent to the lab for analysis. Estimated Blood Loss: minimal Complications: The patient tolerated the procedure well without any known complications Laboratory: Repeat troponin is 0.238 essentially unchanged. This repeat troponin and treat elevated troponin I do believe is chronic and unlikely acute as the patient is having no symptoms at all whatsoever. No aspirin or heparin will be provided. Laboratory: Synovial fluid reveals 48,750 WBCs with 91% polymorphonuclear cells. Given the borderline results as this could be inflammatory versus septic arthritis we did send synovial fluid lactic dehydrogenase, lactic acid on the synovial fluid, Gram stain. We are still pending crystal results. At this time patient was signed out to [facility] day team physician pending further laboratory analysis and final disposition. DISPOSITION: [facility] pending final disposition and further laboratory analysis CONDITION: Fair PROCEDURES: Cardiac monitoring interpretation, pulse oximetry interpretation, left knee arthrocentesis FINAL IMPRESSION(S)/DIAGNOSES: 1. Acute on chronic ambulatory dysfunction 2. Acute left knee pain status post arthrocentesis, likely exacerbation osteoarthritis 3. Chronic elevated troponin Chandrakant Dodson M.D. Bilateral Knee Pain Score (Numeric/FACES): 10 - Related Data Allergies Allergy/AdvReac Type Severity Reaction Status Date / Time Penicillins Allergy Anaphylactic Verified 12/23/20 23:17 Shock Home Meds: Home Meds atorvaSTATin Calcium [Atorvastatin Calcium] 40 mg PO DAILY 02/16/18 [History] metFORMIN HCl [Metformin HCl] 1,000 mg PO BID 02/16/18 [History] Aspirin [Low Dose Aspirin EC] 81 mg PO DAILY 09/16/18 [History] Losartan Potassium 50 mg PO BID 09/16/18 [History] Fish Oil/Convoy-3 Fatty Acids [Fish Oil 1,000 MG] 1 tab PO DAILY 02/27/20 [History] glipiZIDE [Glucotrol XL] 1 tab PO DAILY 02/27/20 [History] Dulaglutide [Trulicity] 3 mg SQ WEEKLY 12/05/20 [History] Gabapentin [Neurontin] 300 mg PO BID 12/05/20 [History] Cyclobenzaprine [Flexeril] 5 mg PO DAILY PRN #20 tab 12/18/20 [Rx] Furosemide [Lasix] 40 mg PO BID #60 tablet 12/18/20 [Rx] Past Medical History HEENT History: Reports: Impaired Vision, Other (See Below) Other HEENT History: wears glasses Cardiovascular History: Reports: Heart Failure, High Cholesterol, Hypertension Respiratory History: Reports: None Gastrointestinal History: Reports: None Genitourinary History: Reports: None Musculoskeletal History: Reports: None Neurological History: Reports: None Psychiatric History: Reports: None Endocrine/Metabolic History: Reports: Diabetes, Type II, Obesity/BMI 30+ Hematologic History: Reports: None Immunologic History: Reports: None Oncologic (Cancer) History: Reports: None Dermatologic History: Reports: None - Infectious Disease History Infectious Disease History: Reports: Chicken Pox, Measles, Shingles - Past Surgical History Head Surgeries/Procedures: Reports: None HEENT Surgical History: Reports: None Cardiovascular Surgical History: Reports: None Respiratory Surgical History: Reports: None GI Surgical History: Reports: None Male Surgical History: Reports: None Endocrine Surgical History: Reports: None Neurological Surgical History: Reports: None Musculoskeletal Surgical History: Reports: Other (See Below) Other Musculoskeletal Surgeries/Procedures:: Rotator cuff surgery, knee surgery Oncologic Surgical History: Reports: None Dermatological Surgical History: Reports: None Social & Family History - Family History Family Medical History: No Pertinent Family History - Tobacco Use Second Hand Smoke Exposure: No - Caffeine Use Caffeine Use: Reports: None - Recreational Drug Use Recreational Drug Use: No ED ROS GENERAL - Review of Systems Review Of Systems: See Below ED EXAM, GENERAL - Physical Exam Exam: See Below Departure - Departure Disposition: DC/Tfer to [facility]/[place] [address] Clinical Impression: Knee pain - Discharge Information Referrals: PCP,Not In Area [Primary Care Provider] - Forms: ED Department Discharge Sepsis Event Note (ED) - Evaluation Sepsis Screening Result: No Definite Risk <Lyle Sepulveda - Last Filed: 12/24/20 09:50> Course - Vital Signs Text/Narrative:: Patient signed out to me by Dr. Dodson. Contacted labs and all the edition no labs from the arthrocentesis standpoint are send outs and have been sent but will not come back at this time. I reevaluated the patient the patient has no marked erythema of the knee or warmth. There is a joint effusion. There is fairly good range of motion of the knee without overt significant pain with passive flexion extension. I spoke to the orthopedic doctor at [facility] in [place], Dr. Mcgarry. He states he is available to evaluate the patient today. The patient has no way to get to Dr. Mcgarry's office. The patient be sent to the emergency department for evaluation to ensure that there is no concern for septic joint. Dr. Dodson had previously evaluated the patient from a heart failure standpoint and states the patient is at his baseline in regard to laboratory work-up evaluation in this regard. Accepted in the ED by Last Recorded V/S: Last Vital Signs Temp 36.5 C 12/23/20 23:13 Pulse 64 12/24/20 07:13 Resp 17 12/24/20 07:13 BP 136/79 12/24/20 07:13 Pulse Ox 94 L 12/24/20 07:13 - Orders/Labs/Meds Orders: Active Orders 24 hr Category Date Time Status BODY FLUID, LDH Stat Lab 12/24/20 03:50 Received MISC TEST Stat Lab 12/24/20 03:50 Received MISCELLANEOUS CULT [MREF] Stat Lab 12/24/20 03:50 Received SYNOVIAL CRYSTALS Stat Lab 12/24/20 03:50 Received SYNOVIAL URIC ACID Stat Lab 12/24/20 03:50 Received Labs: Laboratory Tests 12/24/20 12/24/20 12/24/20 Range/Units 00:48 00:48 00:48 WBC 10.35 (4.0-11.0) K/uL RBC 3.97 L (4.50-5.90) M/uL Hgb 11.5 L (13.0-17.0) g/dL Hct 35.4 L (38.0-50.0) % MCV 89.2 (80.0-98.0) fL MCH 29.0 (27.0-32.0) pg MCHC 32.5 (31.0-37.0) g/dL RDW Std Deviation 56.7 (28.0-62.0) fl RDW Coeff of Aleida 18 H (11.0-15.0) % Plt Count 332 (150-400) K/uL MPV 9.70 (7.40-12.00) fL Neut % (Auto) 75.3 (48.0-80.0) % Lymph % (Auto) 14.7 L (16.0-40.0) % [place] % (Auto) 9.4 (0.0-15.0) % Eos % (Auto) 0.4 (0.0-7.0) % Baso % (Auto) 0.2 (0.0-1.5) % Neut # (Auto) 7.8 H (1.4-5.7) K/uL Lymph # (Auto) 1.5 (0.6-2.4) K/uL [place] # (Auto) 1.0 H (0.0-0.8) K/uL Eos # (Auto) 0.0 (0.0-0.7) K/uL Baso # (Auto) 0.0 (0.0-0.1) K/uL Nucleated RBC % 0.0 /100WBC Nucleated RBCs # 0 K/uL Sodium 137 (136-148) mmol/L Potassium 3.6 (3.5-5.1) mmol/L Chloride 96 L (98-107) mmol/L Carbon Dioxide 30.2 (21.0-32.0) mmol/L BUN 63 H (7.0-18.0) mg/dL Creatinine 1.7 H (0.8-1.3) mg/dL Est Cr Clr Drug Dosing 48.06 mL/min Estimated GFR (MDRD) 42.2 ml/min Glucose 247 H (74-106) mg/dL Calcium 9.0 (8.5-10.1) mg/dL Magnesium 1.4 L (1.8-2.4) mg/dL Troponin I 0.237 H* (0.000-0.056) ng/mL B-Natriuretic Peptide 82 (<100) PG/ML Fluid Type Fluid Color Fluid Appearance Fluid WBC /uL Fluid RBC /uL Fluid Mononuclear Cell % Fl Polymorphonucl Cell % 12/24/20 12/24/20 Range/Units 03:50 04:10 WBC (4.0-11.0) K/uL RBC (4.50-5.90) M/uL Hgb (13.0-17.0) g/dL Hct (38.0-50.0) % MCV (80.0-98.0) fL MCH (27.0-32.0) pg MCHC (31.0-37.0) g/dL RDW Std Deviation (28.0-62.0) fl RDW Coeff of Aleida (11.0-15.0) % Plt Count (150-400) K/uL MPV (7.40-12.00) fL Neut % (Auto) (48.0-80.0) % Lymph % (Auto) (16.0-40.0) % [place] % (Auto) (0.0-15.0) % Eos % (Auto) (0.0-7.0) % Baso % (Auto) (0.0-1.5) % Neut # (Auto) (1.4-5.7) K/uL Lymph # (Auto) (0.6-2.4) K/uL [place] # (Auto) (0.0-0.8) K/uL Eos # (Auto) (0.0-0.7) K/uL Baso # (Auto) (0.0-0.1) K/uL Nucleated RBC % /100WBC Nucleated RBCs # K/uL Sodium (136-148) mmol/L Potassium (3.5-5.1) mmol/L Chloride (98-107) mmol/L Carbon Dioxide (21.0-32.0) mmol/L BUN (7.0-18.0) mg/dL Creatinine (0.8-1.3) mg/dL Est Cr Clr Drug Dosing mL/min Estimated GFR (MDRD) ml/min Glucose (74-106) mg/dL Calcium (8.5-10.1) mg/dL Magnesium (1.8-2.4) mg/dL Troponin I 0.238 H* (0.000-0.056) ng/mL B-Natriuretic Peptide (<100) PG/ML Fluid Type SYN Fluid Color YELLOW Fluid Appearance CLOUDY Fluid WBC 49688 /uL Fluid RBC 0 /uL Fluid Mononuclear Cell 9 % Fl Polymorphonucl Cell 91 % Meds: Medications Discontinued Medications Generic Name Dose Route Start Last Admin Trade Name Curtq PRN Reason Stop Dose Admin Acetaminophen 1,000 mg 12/24/20 01:19 12/24/20 01:40 Acetaminophen 500 Mg Tab PO 12/24/20 01:20 1,000 mg ONETIME ONE Administration Cyclobenzaprine HCl 10 mg 12/24/20 00:08 12/24/20 00:19 Cyclobenzaprine 10 Mg Tab PO 12/24/20 00:09 10 mg ONETIME ONE Administration Gabapentin 300 mg 12/24/20 01:19 12/24/20 01:40 Gabapentin 300 Mg Cap PO 12/24/20 01:20 300 mg ONETIME ONE Administration Lidocaine HCl Confirm 12/24/20 03:31 Lidocaine 1% 50 Ml Mdv Administered 12/24/20 03:32 Dose 50 ml .ROUTE .STK-MED ONE Departure - Departure Time of Disposition: 09:48 Condition: Good Sepsis Event Note (ED) - Focused Exam Vital Signs: Vital Signs Temp Pulse Resp BP Pulse Ox 12/24/20 07:13 64 17 136/79 94 L 12/24/20 05:23 71 139/52 L 12/24/20 03:42 83 20 149/63 H 95 12/24/20 00:57 76 143/82 H 96 12/23/20 23:13 36.5 C 80 22 H 138/62 100
--- NOTE | 2020-12-24 06:04 | PCM.EKG ---
#1 Interpretation EKG Date: 12/24/20 Time: 05:58 Rhythm: A-Fib Rate (Beats/Min): 73 [place]: Normal P-Wave: Absent QRS: Normal ST-T: Normal QT: Normal Comparison: No Change (12/04/20) EKG Interpretation Comments: Atrial Fibrillation
== END 2020-12-24 12:19 ==
LOC: MW.ED 23:10
DX: M25.561 Pain in right knee (principal); M25.562 Pain in left knee; R77.8 Other specified abnormalities of plasma proteins; E78.00 Pure hypercholesterolemia, unspecified; I50.9 Heart failure, unspecified; E11.9 Type 2 diabetes mellitus without complications; E66.9 Obesity, unspecified; Z88.0 Allergy status to penicillin; Z79.84 Long term (current) use of oral hypoglycemic drugs; Z79.82 Long term (current) use of aspirin; Z79.899 Other long term (current) drug therapy; Z68.41 Body mass index [BMI] 40.0-44.9, adult
CPT/HCPCS: 20610; 36415; 71045; 80048; 83735; 83880; 84484; 84560; 85025; 87070; 87205; 89050; 93005; 99284; A9270; J2001

== ENCOUNTER 2021-01-18 19:56 | Emergency (ER) | payer OTHER ==
--- NOTE | 2021-01-18 20:52 | PCM.EKG ---
#1 Interpretation EKG Date: 01/18/21 Time: 19:57 Rhythm: A-Fib Rate (Beats/Min): 65 [place]: Normal P-Wave: Absent QRS: Normal ST-T: Normal QT: Normal Comparison: No Change (12/24/20) EKG Interpretation Comments: Atrial Fibrillation
[2021-01-18] MEDS ORDERED: Furosemide 40 MG/4 ML VIAL IVPUSH ONE (20:55)
[2021-01-18 21:14] LABS: BLOOD UREA NITROGEN,BUN 14 mg/dL (7.0-18.0); CARBON DIOXIDE,CO2 30.4 mmol/L (21.0-32.0); CHLORIDE,CL 99 mmol/L (98-107); GLUCOSE RANDOM 253 mg/dL (74-106); POTASSIUM,K 4.1 mmol/L (3.5-5.1); SODIUM,NA 136 mmol/L (136-148)
--- NOTE | 2021-01-18 21:33 | EDM.PDOC ---
ED HPI GENERAL MEDICAL PROBLEM - General Chief Complaint: General Stated Complaint: KNEE PAIN Time Seen by Provider: 01/18/21 20:33 Source of Information: Reports: Patient History Limitations: Reports: No Limitations - History of Present Illness INITIAL COMMENTS - FREE TEXT/NARRATIVE: HISTORY AND PHYSICAL: History of present illness: Patient is a 55-year-old male who presents emergency room today with concern of possible CHF exacerbation as he has had some increase in swelling of his lower extremities since he stopped all of his medications including Lasix on Tuesday. Patient states he is also had a "mild cough "over the past 1 to 2 days and feels like he is possibly somewhat fluid overloaded. Patient states that he decided to stop taking all of his medications as he was having some "back cramping "but states that he has no longer having this but decided not to restart his medications. Patient does have a history of CHF, hypertension, hyperlipidemia, type 2 diabetes, and chronically elevated troponin levels. Patient states he is not having any shortness of breath or chest pain at this time. Patient states he is also here as he would like the sutures removed from his recent knee procedures that he was supposed to return to [place] in the end of December to have removed. Patient states he was unable to get a ride to [place] so did not go. Patient denies any other symptoms or concerns. Patient denies fever, chills, chest pain, shortness of breath. Denies headache, neck stiff ness, change in vision, syncope, or near syncope. Denies nausea, vomiting, abdominal pain, diarrhea, constipation, or dysuria. Has not noted any blood in urine or stool. Patient has been eating and drinking appropriately. Review of systems: As per history of present illness and below otherwise all systems reviewed and negative. Past medical history: As per history of present illness and as reviewed below otherwise noncontributory. Surgical history: As per history of present illness and as reviewed below otherwise noncontributory. Social history: See social history for further information Family history: As per history of present illness and as reviewed below otherwise noncontributory. Physical exam: General: Patient is alert, oriented, and in no acute distress. Patient sitting comfortably on exam table. Vitals stable and reviewed by me. HEENT: Atraumatic, normocephalic, pupils equal and reactive bilaterally, negative for conjunctival pallor or scleral icterus, mucous membranes moist, throat clear, neck supple, nontender, trachea midline. No drooling or trismus noted. No meningeal signs. No hot potato voice noted. Lungs: Clear to auscultation, breath sounds equal bilaterally, chest nontender. Heart: S1S2, regular rate and rhythm without overt murmur Abdomen: Soft, nondistended, nontender. Negative for masses or hepatosplenomegaly. Negative for costovertebral tenderness. Pelvis: Stable nontender. Genitourinary: Deferred. Rectal: Deferred. Skin: Intact, warm, dry. No lesions or rashes noted. Extremities: 1+ bilateral pitting edema. Patient does have evidence of peripheral vascular disease of his lower extremities. He does have incisions on the medial and lateral joint spaces of both knees that appear well-healed with left an incision with no erythema or drainage. Patient does have full range of motion of all extremities. Otherwise, atraumatic, negative for cords or calf pain. Neurovascular unremarkable. Neuro: Awake, alert, oriented. Cranial nerves II through XII unremarkable. Cerebellum unremarkable. Motor and sensory unremarkable throughout. Exam nonfocal. Medical Decision Making: Patient is a 55-year-old male with a history of CHF, hypertension, hyperlipidemia, and type 2 diabetes who presents emergency room today with concern that he is fluid overloaded as he stopped taking all of his medications including Lasix on Tuesday, 4 days ago. Patient also would like his suture removed from recent knee procedure that was supposed to be removed 2 to 3 weeks ago. Upon arrival to the ED, patient is vitally stable and well-appearing on exam. He does have 1+ bilateral pitting edema of his lower extremities with e vidence of peripheral vascular disease. Patient also has sutures that are in place on the medial and lateral space of his bilateral knees and the incisions underlying them appear to be well-healed without erythema or drainage. We will remove these sutures today. Will also obtain basic lab work, 1 view chest x- ray, and provide patient his home dose of Lasix that he has not taken. See Dr. Dodson's dictation for specific EKG interpretation. Otherwise, atrial fibrillation without STEMI or acute changes. No change in comparison from prior. CBC mild derangements are unremarkable. CMP does show an elevation of glucose at 253 with electrolytes all within normal limits. Alk phos is elevated in isolation at 276. BNP is also elevated at 236, this does appear to be patient's baseline. Chest x-ray is unremarkable. I did remove patient's sutures as the areas do appear well-healed and these no longer need to be in place. Upon reevaluation of patient, he remains vitally stable and comfortable throughout stay in ED. I did discuss with patient that he needs to start his medication regiment immediately and to not stop them unless he talks to his primary care provider about further management of his medications. Strict return precautions thoroughly discussed with patient. Voices understanding and is agreeable to plan of care. Denies any further questions or concerns at this time. Diagnostics: EKG, CBC, CMP, chest x-ray, BNP Therapeutics: Lasix Prescription: None Impression: Congestive heart failure Medication noncompliance Encounter for suture removal Type 2 diabetes with hyperglycemia Plan: 1. I would like you to take your home medications as prescribed to you. It is very important that you stay with your medication regimen given your congestive heart failure history as discussed. I would not recommend stopping your medications without consulting your primary care provider first. 2. Follow-up closely with your primary care provider as discussed. I would like you to call in the morning to set up in a close follow-up appointment time. You can address your medication regimen at that time with your primary care provider as discussed. 3. Return to the ED as needed and as discussed. Definitive disposition and diagnosis as appropriate pending reevaluation and review of above. Generalized Pain Score (Numeric/FACES): 10 - Related Data Allergies Allergy/AdvReac Type Severity Reaction Status Date / Time Penicillins Allergy Anaphylactic Verified 01/18/21 19:58 Shock Home Meds: Home Meds atorvaSTATin Calcium [Atorvastatin Calcium] 40 mg PO DAILY 02/16/18 [History] metFORMIN HCl [Metformin HCl] 1,000 mg PO BID 02/16/18 [History] Aspirin [Low Dose Aspirin EC] 81 mg PO DAILY 09/16/18 [History] Losartan Potassium 50 mg PO BID 09/16/18 [History] Fish Oil/[place]-3 Fatty Acids [Fish Oil 1,000 MG] 1 tab PO DAILY 02/27/20 [History] glipiZIDE [Glucotrol XL] 1 tab PO DAILY 02/27/20 [History] Dulaglutide [Trulicity] 3 mg SQ WEEKLY 12/05/20 [History] Gabapentin [Neurontin] 300 mg PO BID 12/05/20 [History] Cyclobenzaprine [Flexeril] 5 mg PO DAILY PRN #20 tab 12/18/20 [Rx] Furosemide [Lasix] 40 mg PO BID #60 tablet 12/18/20 [Rx] Meloxicam 7.5 mg PO 01/18/21 [History] allopurinoL [Zyloprim] 100 mg PO 01/18/21 [History] traMADol [Ultram] 50 mg PO Q6H PRN 01/18/21 [History] Past Medical History HEENT History: Reports: Impaired Vision, Other (See Below) Other HEENT History: wears glasses Cardiovascular History: Reports: Heart Failure, High Cholesterol, Hypertension Respiratory History: Reports: None Gastrointestinal History: Reports: None Genitourinary History: Reports: None Musculoskeletal History: Reports: None Neurological History: Reports: None Psychiatric History: Reports: None Endocrine/Metabolic History: Reports: Diabetes, Type II, Obesity/BMI 30+ Hematologic History: Reports: None Immunologic History: Reports: None Oncologic (Cancer) History: Reports: None Dermatologic History: Reports: None - Infectious Disease History Infectious Disease History: Reports: Chicken Pox, Measles, Shingles - Past Surgical History Head Surgeries/Procedures: Reports: None HEENT Surgical History: Reports: None Cardiovascular Surgical History: Reports: None Respiratory Surgical History: Reports: None GI Surgical History: Reports: None Male Surgical History: Reports: None Endocrine Surgical History: Reports: None Neurological Surgical History: Reports: None Musculoskeletal Surgical History: Reports: Other (See Below) Other Musculoskeletal Surgeries/Procedures:: Rotator cuff surgery, knee surgery Oncologic Surgical History: Reports: None Dermatological Surgical History: Reports: None Social & Family History - Family History Family Medical History: No Pertinent Family History - Caffeine Use Caffeine Use: Reports: None ED ROS GENERAL - Review of Systems Review Of Systems: Comprehensive ROS is negative, except as noted in HPI. ED EXAM, GENERAL - Physical Exam Exam: See Below (see dictation) Course - Vital Signs Last Recorded V/S: Last Vital Signs Temp 98.1 F 01/18/21 19:58 Pulse 67 01/18/21 19:58 Resp 16 01/18/21 19:58 BP 173/88 H 01/18/21 19:58 Pulse Ox 95 01/18/21 19:58 - Orders/Labs/Meds Labs: Laboratory Tests 01/18/21 01/18/21 01/18/21 Range/Units 20:00 20:00 20:00 WBC 6.31 (4.0-11.0) K/uL RBC 4.68 (4.50-5.90) M/uL Hgb 12.4 L (13.0-17.0) g/dL Hct 38.1 (38.0-50.0) % MCV 81.4 (80.0-98.0) fL MCH 26.5 L (27.0-32.0) pg MCHC 32.5 (31.0-37.0) g/dL RDW Std Deviation 47.3 (28.0-62.0) fl RDW Coeff of Aleida 16 H (11.0-15.0) % Plt Count 320 (150-400) K/uL MPV 9.80 (7.40-12.00) fL Neut % (Auto) 54.0 (48.0-80.0) % Lymph % (Auto) 35.0 (16.0-40.0) % [place] % (Auto) 9.0 (0.0-15.0) % Eos % (Auto) 1.7 (0.0-7.0) % Baso % (Auto) 0.3 (0.0-1.5) % Neut # (Auto) 3.4 (1.4-5.7) K/uL Lymph # (Auto) 2.2 (0.6-2.4) K/uL [place] # (Auto) 0.6 (0.0-0.8) K/uL Eos # (Auto) 0.1 (0.0-0.7) K/uL Baso # (Auto) 0.0 (0.0-0.1) K/uL Nucleated RBC % 0.0 /100WBC Nucleated RBCs # 0 K/uL Sodium 136 (136-148) mmol/L Potassium 4.1 (3.5-5.1) mmol/L Chloride 99 (98-107) mmol/L Carbon Dioxide 30.4 (21.0-32.0) mmol/L BUN 14 (7.0-18.0) mg/dL Creatinine 1.2 (0.8-1.3) mg/dL Est Cr Clr Drug Dosing TNP Estimated GFR (MDRD) > 60.0 ml/min Glucose 253 H (74-106) mg/dL Calcium 8.9 (8.5-10.1) mg/dL Total Bilirubin 0.7 (0.2-1.0) mg/dL AST 18 (15-37) IU/L ALT 22 (14-63) IU/L Alkaline Phosphatase 276 H (46-116) U/L B-Natriuretic Peptide 236 H (<100) PG/ML Total Protein 7.5 (6.4-8.2) g/dL Albumin 2.7 L (3.4-5.0) g/dL Globulin 4.8 H (2.6-4.0) g/dL Albumin/Globulin Ratio 0.6 L (0.9-1.6) Meds: Medications Discontinued Medications Generic Name Dose Route Start Last Admin Trade Name Freq PRN Reason Stop Dose Admin Furosemide 40 mg 01/18/21 20:55 01/18/21 21:01 Furosemide 40 Mg/4 Ml Vial IVPUSH 01/18/21 20:56 40 mg NOW ONE Administration Departure - Departure Time of Disposition: 22:08 Disposition: Home, Self-Care 01 Clinical Impression: Congestive heart failure, Encounter for removal of sutures, Nonadherence to medication, Hyperglycemia - Discharge Information Referrals: PCP,None [Primary Care Provider] - Forms: ED Department Discharge Additional Instructions: The following information is given to patients seen in the emergency department who are being discharged to home. This information is to outline your options for follow-up care. We provide all patients seen in our emergency department with a follow-up referral. The need for follow-up, as well as the timing and circumstances, are variable depending upon the specifics of your emergency department visit. If you don't have a primary care physician on staff, we will provide you with a referral. We always advise you to contact your personal physician following an emergency department visit to inform them of the circumstance of the visit and for follow-up with them and/or the need for any referrals to a consulting specialist. The emergency department will also refer you to a specialist when appropriate. This referral assures that you have the opportunity for follow-up care with a specialist. All of these measure are taken in an effort to provide you with optimal care, which includes your follow-up. Under all circumstances we always encourage you to contact your private physician who remains a resource for coordinating your care. When calling for follow-up care, please make the office aware that this follow-up is from your recent emergency room visit. If for any reason you are refused follow-up, please contact the [facility] Emergency Department at and asked to speak to the emergency department charge nurse. [facility] Primary Care [address], [place] [address] [facility] [address] [place] [address] 1. I would like you to take your home medications as prescribed to you. It is very important that you stay with your medication regimen given your congestive heart failure history as discussed. I would not recommend stopping your medications without consulting your primary care provider first. 2. Follow-up closely with your primary care provider as discussed. I would like you to call in the morning to set up in a close follow-up appointment time. You can address your medication regimen at that time with your primary care provider as discussed. 3. Return to the ED as needed and as discussed. Sepsis Event Note (ED) - Evaluation Sepsis Screening Result: No Definite Risk - Focused Exam Vital Signs: Vital Signs Temp Pulse Resp BP Pulse Ox 01/18/21 19:58 98.1 F 67 16 173/88 H 95
--- NOTE | 2021-01-18 22:00 | CR ---
INDICATION: Congestive heart failure. COMPARISON: 12/24/2020. FINDINGS: A portable AP view of the chest was obtained. The cardiac silhouette is stable. The pulmonary vasculature is within normal limits. There is stable atelectasis or scarring in the left lung base. The lungs are clear of acute infiltrates. IMPRESSION: Stable chest x-ray. No evidence of acute pulmonary disease. Dictated by Jonathan Hurd MD @ 01/18/2021 9:59:07 PM (Electronically Signed)
== END 2021-01-18 23:45 | disposition home or self-care (01) ==
LOC: MW.ED 19:56
DX: I11.0 Hypertensive heart disease with heart failure (principal); I50.9 Heart failure, unspecified; E11.65 Type 2 diabetes mellitus with hyperglycemia; E78.00 Pure hypercholesterolemia, unspecified; E66.9 Obesity, unspecified; Z68.30 Body mass index [BMI] 30.0-30.9, adult; Z88.0 Allergy status to penicillin; Z79.82 Long term (current) use of aspirin; Z79.84 Long term (current) use of oral hypoglycemic drugs; Z79.899 Other long term (current) drug therapy; Z48.02 Encounter for removal of sutures; Z91.19 Patient's noncompliance with other medical treatment and regimen
CPT/HCPCS: 36415; 71045; 80053; 83880; 85025; 93005; 96374; 99284; J1940

== ENCOUNTER 2021-03-12 15:34 | Emergency (ER) | payer BC, MEDICAID ==
[2021-03-12] MEDS ORDERED: Acetaminophen/HYDROcodone 325-5 MG Tab PO ONE (15:54)
== END 2021-03-12 16:54 | disposition home or self-care (01) ==
LOC: MW.ED 15:34
DX: M25.531 Pain in right wrist (principal); M25.532 Pain in left wrist; I11.0 Hypertensive heart disease with heart failure; I50.9 Heart failure, unspecified; E78.00 Pure hypercholesterolemia, unspecified; E11.9 Type 2 diabetes mellitus without complications; E66.9 Obesity, unspecified; Z68.39 Body mass index [BMI] 39.0-39.9, adult; Z88.0 Allergy status to penicillin; Z79.84 Long term (current) use of oral hypoglycemic drugs; Z79.82 Long term (current) use of aspirin
CPT/HCPCS: 73562; 99284; A9270

== ENCOUNTER 2021-07-21 23:05 | Emergency (ER) | payer MEDICAID ==
[2021-07-22 01:12] LABS: CARBON DIOXIDE,CO2 28.1 mmol/L (21.0-32.0); POTASSIUM,K 4.2 mmol/L (3.5-5.1)
[2021-07-22 01:25] LABS: ESTIMATED GFR 39.5 ml/min
[2021-07-22] MEDS ORDERED: Diltiazem 100 MG in Sodium Chloride 0.9% 100 ML IV SCH (02:00)
== END 2021-07-22 02:17 | disposition home or self-care (01) ==
LOC: MW.ED 23:05
DX: B34.9 Viral infection, unspecified (principal); E11.9 Type 2 diabetes mellitus without complications; I11.0 Hypertensive heart disease with heart failure; I50.9 Heart failure, unspecified; E78.00 Pure hypercholesterolemia, unspecified; E66.9 Obesity, unspecified; Z68.39 Body mass index [BMI] 39.0-39.9, adult; Z86.16 Personal history of COVID-19; Z88.0 Allergy status to penicillin; Z79.82 Long term (current) use of aspirin; Z79.899 Other long term (current) drug therapy; Z79.84 Long term (current) use of oral hypoglycemic drugs
CPT/HCPCS: 36415; 71045; 71045-26; 80053; 81003; 85025; 99284-25

== ENCOUNTER 2021-07-30 00:23 | Emergency (ER) | payer MEDICAID ==
[2021-07-30 01:19] LABS: CARBON DIOXIDE,CO2 29.7 mmol/L (21.0-32.0); POTASSIUM,K 4.4 mmol/L (3.5-5.1)
[2021-07-30] MEDS ORDERED: Magnesium Oxide 400 MG Tab PO ONE (01:26)
[2021-07-30] MEDS ORDERED: Aspirin 81 MG Tab.Chew PO ONE (01:31)
== END 2021-07-30 04:37 | disposition left against medical advice (07) ==
LOC: MW.ED 00:23
DX: R77.8 Other specified abnormalities of plasma proteins (principal); E11.9 Type 2 diabetes mellitus without complications; I11.0 Hypertensive heart disease with heart failure; I50.9 Heart failure, unspecified; I48.91 Unspecified atrial fibrillation; E66.9 Obesity, unspecified; Z68.30 Body mass index [BMI] 30.0-30.9, adult; Z88.0 Allergy status to penicillin; Z79.899 Other long term (current) drug therapy; Z79.82 Long term (current) use of aspirin; Z79.84 Long term (current) use of oral hypoglycemic drugs; Z86.16 Personal history of COVID-19
CPT/HCPCS: 36415; 71045; 80048; 83735; 83880; 84484; 85025; 93005; 99284; A9270

== ENCOUNTER 2021-09-21 13:52 | Emergency (ER) | payer MEDICAID ==
[2021-09-21] MEDS ORDERED: Sodium Chloride 0.9% 1,000 ML IV ONE (14:10)
[2021-09-21] MEDS ORDERED: Ketorolac 30 MG/ML SDV IVPUSH ONE (14:21)
[2021-09-21] MEDS ORDERED: Ondansetron 4 MG/2 ML SDV IVPUSH ONE (14:22)
[2021-09-21 15:04] LABS: CARBON DIOXIDE,CO2 26.6 mmol/L (21.0-32.0); POTASSIUM,K 3.7 mmol/L (3.5-5.1)
== END 2021-09-21 16:08 | disposition home or self-care (01) ==
LOC: MW.ED 13:52
DX: K52.9 Noninfective gastroenteritis and colitis, unspecified (principal); N28.9 Disorder of kidney and ureter, unspecified; I11.0 Hypertensive heart disease with heart failure; I50.9 Heart failure, unspecified; E11.9 Type 2 diabetes mellitus without complications; E66.9 Obesity, unspecified; Z68.38 Body mass index [BMI] 38.0-38.9, adult; Z88.0 Allergy status to penicillin; Z79.899 Other long term (current) drug therapy; Z79.84 Long term (current) use of oral hypoglycemic drugs; Z79.82 Long term (current) use of aspirin; Z86.16 Personal history of COVID-19
CPT/HCPCS: 36415; 80053; 81003; 83690; 85025; 96361; 96374; 96375; 99284; J1885; J2405; J7030

== ENCOUNTER 2022-04-26 12:26 | Emergency (ER) | payer MEDICAID ==
[2022-04-26 16:52] LABS: CARBON DIOXIDE,CO2 26.2 mmol/L (21.0-32.0); POTASSIUM,K 4.8 mmol/L (3.5-5.1)
[2022-04-26] MEDS ORDERED: Iopamidol 755 MG/ML 500 ML Multipack Bottle IVPUSH ONE (17:28)
== END 2022-04-26 17:05 | disposition home or self-care (01) ==
LOC: MW.ED 12:26
DX: R19.7 Diarrhea, unspecified (principal); R10.84 Generalized abdominal pain; I10 Essential (primary) hypertension; E78.00 Pure hypercholesterolemia, unspecified; E11.9 Type 2 diabetes mellitus without complications; E66.9 Obesity, unspecified; Z68.41 Body mass index [BMI] 40.0-44.9, adult; Z88.0 Allergy status to penicillin; Z79.82 Long term (current) use of aspirin; Z79.84 Long term (current) use of oral hypoglycemic drugs; Z79.899 Other long term (current) drug therapy
CPT/HCPCS: 36415; 74177; 80053; 83735; 85025; 87045; 87046; 87328; 87329; 87449; 87899; 99284; Q9967

== ENCOUNTER 2022-06-08 11:45 | Emergency (ER) | payer MEDICAID ==
[2022-06-08 14:31] LABS: CARBON DIOXIDE,CO2 28.9 mmol/L (21.0-32.0); POTASSIUM,K 4.6 mmol/L (3.5-5.1)
== END 2022-06-08 15:25 | disposition home or self-care (01) ==
LOC: MW.ED 11:45
DX: R05.1 Acute cough (principal); E11.9 Type 2 diabetes mellitus without complications; E78.00 Pure hypercholesterolemia, unspecified; I11.0 Hypertensive heart disease with heart failure; I50.9 Heart failure, unspecified; I48.91 Unspecified atrial fibrillation; E66.9 Obesity, unspecified; Z68.39 Body mass index [BMI] 39.0-39.9, adult; Z86.16 Personal history of COVID-19; Z79.84 Long term (current) use of oral hypoglycemic drugs; Z79.899 Other long term (current) drug therapy; Z79.82 Long term (current) use of aspirin; Z88.0 Allergy status to penicillin
CPT/HCPCS: 36415; 71045; 71045-26; 80053; 83880; 84484; 85025; 93005; 99284

== ENCOUNTER 2022-07-02 11:12 | Emergency (ER) | payer MEDICAID ==
[2022-07-02] MEDS ORDERED: Allopurinol 100 MG Tab PO ONE (12:06)
[2022-07-02] MEDS ORDERED: Furosemide 40 MG Tab PO ONE (12:06)
[2022-07-02] MEDS ORDERED: metFORMIN 500 MG Tab PO ONE (12:06)
[2022-07-02] MEDS ORDERED: Gabapentin 300 MG Cap PO ONE (12:06)
[2022-07-02] MEDS ORDERED: atorvaSTATin 40 MG Tab PO ONE (12:07)
[2022-07-02 12:09] LABS: BASOPHILS PERCENT AUTO 0.2 % (0.0-1.5); EOSINOPHILS PERCENT AUTO 0.4 % (0.0-7.0); HEMATOCRIT 45.2 % (38.0-50.0); HEMOGLOBIN 14.9 g/dL (13.0-17.0); LYMPHOCYTES ABSOLUTE AUTO 1.1 K/uL (0.6-2.4); LYMPHOCYTES PERCENT AUTO 9.7 % (16.0-40.0); MEAN CORPUSCULAR VOLUME 91.1 fL (80.0-98.0); MONOCYTES PERCENT AUTO 8.7 % (0.0-15.0); NEUTROPHILS ABSOLUTE AUTO 9.2 K/uL (1.4-5.7); NRBC ABSOLUTE 0 K/uL; PLATELET COUNT,PLT 221 K/uL (150-400); RED BLOOD CELL COUNT 4.96 M/uL (4.50-5.90); WHITE BLOOD CELL COUNT,WBC 11.34 K/uL (4.0-11.0)
[2022-07-02 12:39] LABS: A/G RATIO 0.7 (0.9-1.6); ALBUMIN 3.2 g/dL (3.4-5.0); BILIRUBIN TOTAL 2.8 mg/dL (0.2-1.0); CALCIUM 9.5 mg/dL (8.5-10.1); CARBON DIOXIDE,CO2 29.2 mmol/L (21.0-32.0); CREATININE 1.7 mg/dL (0.8-1.3); EST CRCL DRUG DOSING (CG) 47.5 mL/min; POTASSIUM,K 4.3 mmol/L (3.5-5.1); PROTEIN TOTAL,TP 7.9 g/dL (6.4-8.2)
[2022-07-02] MEDS ORDERED: Losartan 50 MG Tab PO ONE (13:06)
== END 2022-07-02 17:48 | disposition home or self-care (01) ==
LOC: MW.ED 11:12
DX: M79.605 Pain in left leg (principal); E78.00 Pure hypercholesterolemia, unspecified; I10 Essential (primary) hypertension; E11.9 Type 2 diabetes mellitus without complications; E66.9 Obesity, unspecified; Z68.38 Body mass index [BMI] 38.0-38.9, adult; Z88.0 Allergy status to penicillin; Z86.16 Personal history of COVID-19
CPT/HCPCS: 36415; 73610; 80053; 82009; 85025; 93005; 93971; 99285; A9270